=== PATIENT | female | born 1960 | race Caucasian/White ===

== ENCOUNTER 2019-05-09 09:25 | Outpatient (CLI) | payer BC, SELFPAY ==
--- NOTE | ~2019-05-09 | MM_ITS ---
EXAMINATION: MM screening jac BI w ariel HISTORY: Screening mammogram TECHNIQUE: Craniocaudal and mediolateral oblique 3-D tomosynthesis images were obtained and synthetic 2-D images were generated. CAD analysis was submitted and interpreted. COMPARISON: No prior mammogram is available for comparison at this institution. BREAST PARENCHYMAL COMPOSITION : The breasts are almost entirely fatty. FINDINGS: There is no evidence of suspicious mass, calcification, or architectural distortion to sugg est malignancy in either breast. There has been no suspicious interval change. IMPRESSION: 1. No mammographic evidence of malignancy. 2. Recommend routine screening mammography in one year. BI-RADS Category 1: Negative Reviewed, dictated and finalized at location A. EL PILE DRIVER OPERATOR
== END 2019-05-09 09:26 | disposition home or self-care (01) ==
LOC: ANHIMG 09:28
PROVIDERS: PCP Family Medicine; Visit Provider Obstetrics & Gynecology
DX: Z12.31 Encounter for screening mammogram for malignant neoplasm of breast (principal)
CPT/HCPCS: 77063; 77067

== ENCOUNTER 2019-05-31 09:07 | Outpatient (CLI) | payer BC, SELFPAY ==
--- NOTE | ~2019-05-31 | CT_ITS ---
EXAMINATION: CT thoracic spine wo con EXAM DATE: 05/31/2019 09:28 INDICATION: Thoracic radiculopathy. TECHNIQUE: Spiral CT thoracic spine wo con was performed without contrast. Axial, coronal and sagit jeanette images were reviewed. The dose-length product (DLP) for this examination was 547.64 mGy-cm. The exposure was tailored according to patient size (auto mA exposure control), and iterative reconstruc tion (ASIR) was used as additional dose reduction technique. There is no prior study for comparison. FINDINGS: There are no acute fractures identified. There is mild to moderate diffuse thoracic disc disease. There is minimal subacute or chronic compression fracture at the inferior endplate of T11. Otherwise the vertebral body heights appear maintained. The vertebral bodies are aligned in the AP di mension. No significant central canal or neural foraminal stenosis of the thoracic spine. There are n o osteoblastic or osteolytic lesions identified. Mild diffuse thoracic facet arthropathy. Paraspinal soft tissue is unremarkable. Lower lumbar anterior and interbody fusion. IMPRESSION: 1. T11 minimal subacute or chronic compression fracture. 2. Mild to moderate disc disease. Mild facet arthropathy. 3. No appreciable stenosis. Reviewed, dictated and finalized at location A. CLE COURIER
== END 2019-05-31 09:08 | disposition home or self-care (01) ==
PROVIDERS: PCP Family Medicine; Visit Provider Anesthesiology
DX: M54.14 Radiculopathy, thoracic region (principal); M51.24 Other intervertebral disc displacement, thoracic region
CPT/HCPCS: 72128

== ENCOUNTER 2019-07-17 09:31 | Outpatient (CLI) | payer BC, SELFPAY ==
--- NOTE | ~2019-07-17 | XR_ITS ---
EXAMINATION: XR chest 2V DATE: 07/17/2019 10:34 INDICATION: Hypertension. Preop. TECHNIQUE: Frontal and lateral views of the chest were obtained. COMPARISON: Chest 2 views 12/13/2018 FINDINGS: A calcified left lung nodule and calcified left hilar and mediastinal lymph nodes are consi stent with old granulomatous disease. No pleural effusion or pneumothorax. The heart size is normal. There are surgical clips in the abdomen. IMPRESSION: 1. No acute cardiopulmonary disease. Reviewed, dictated and finalized at location A.
--- NOTE | 2019-07-17 10:11 | ECG_ITS ---
Measurements Intervals [place] Rate: 52 P: 24 WI: 134 QRS: 2 QRSD: 76 T: 51 QT: 413 QTc: 384 Interpretive Statements SINUS BRADYCARDIA BORDERLINE ECG Electronically Signed On 07-17-2019 10:18:32 CDT by Moisés August D.O.
[2019-07-17 10:16] LABS: Basophils Percent Auto 0.4 % (0.2-1.2); Eosinophils Absolute Auto 0.2 K/mm3 (0-0.3); Eosinophils Percent Auto 1.4 % (0-4.4); Hematocrit 42.1 % (37.0-47.0); Hemoglobin 12.4 g/dL (12.0-15.0); Immature Granulocyte Absolute 0.03 K/mm3 (0.00-0.031); Immature Granulocyte Percent A 0.3 % (0-0.5); Lymphocytes Absolute Auto 3.79 K/mm3 (0.9-3.2); Lymphocytes Percent Auto 34.1 % (18.3-44.2); Mean Corpuscular HGB Conc 29.5 g/dl (32-36); Mean Corpuscular Hemoglobin 24.2 pg (26-34); Mean Corpuscular Volume 82.1 fl (80-100); Mean Platelet Volume 11.4 fl (7.4-10.4); Monocytes Absolute Auto 1.2 K/mm3 (0.1-0.6); Monocytes Percent Auto 10.4 % (2.6-8.5); Neutrophils Percent Auto 53.4 % (45.5-73.1); Platelet Count Result 266 k/mm3 (150-375); Red Blood Count 5.13 M/mm3 (4.2-5.4); Red Cell Distribution Width 14.4 % (11.5-14.5); White Blood Count 11.1 K/mm3 (4.5-10.0)
[2019-07-17 10:24] LABS: Prothrombin Time 12.5 Seconds (11.1-14.7)
[2019-07-17 10:25] LABS: Partial Thromboplastin Time 37.1 SECONDS (22.3-36.8)
[2019-07-17 10:28] LABS: Add Urine Microscopic? YES; Appearance Urine Clear (Clear); Bilirubin Urine Negative (Negative); Blood Urine Negative (Negative); Color Urine Yellow (Yellow); Glucose Urine UA Negative (Negative); Ketones Urine Negative (Negative); Leukocyte Esterase Ur Negative LEU/UL (NEGATIVE); Mucus Urine Rare /lpf; Nitrate Urine Negative (Negative); Protein Urine 1+ mg/dL (Negative); RBC Urine 0-2 /hpf (0-2); Specific Grav Ur 1.026 (1.001-1.035); Squamous Epithelial Cell Urine Many /hpf (Few); Urobilinogen Urine Negative mg/dL (<2.0); WBC Urine 0-3 /hpf (0-3)
[2019-07-17 10:30] LABS: Blood Urea Nitrogen 18 mg/dL (7-17); CRP 0.7 mg/dL (<1.0); Calcium 9.2 mg/dL (8.4-10.2); Carbon Dioxide 28 mmol/L (22-30); Chloride 102 mmol/L (98-107); Estimated Glomerular Filt Rate 51; Glucose 94 mg/dL (65-105); Potassium 4.6 mmol/L (3.4-5.0); Sodium 139 mmol/L (137-145)
[2019-07-17 10:45] LABS: Erythrocyte Sedimentation Rate 15 mm/hr (0-20)
== END 2019-07-17 09:32 | disposition home or self-care (01) ==
PROVIDERS: PCP Family Medicine; Visit Provider Anesthesiology
DX: I25.10 Atherosclerotic heart disease of native coronary artery without angina pectoris (principal); R07.89 Other chest pain; M54.16 Radiculopathy, lumbar region; Z79.01 Long term (current) use of anticoagulants
CPT/HCPCS: 36415; 71046; 80048; 81001; 85025; 85610; 85652; 85730; 86140; 93005

== ENCOUNTER 2020-01-21 19:02 | Emergency (ER) | payer BC, SELFPAY ==
--- NOTE | ~2020-01-21 | CT_ITS ---
EXAMINATION: CT abdomen pelvis w con EXAM DATE: 01/21/2020 21:54 INDICATION: Low abdominal pain. Crohn's disease. TECHNIQUE: Spiral CT of the abdomen and pelvis was performed following intravenous injection of 100 m L Omnipaque 350. Axial, coronal and sagittal images were reviewed. The dose-length product (DLP) fo r this examination was 634.44 mGy-cm. The exposure was tailored according to patient size (auto mA e xposure control), and iterative reconstruction (ASIR) was used as additional dose reduction technique . Comparison is made to prior examination from 03/18/2019. FINDINGS: The liver, spleen, adrenal glands and pancreas are unremarkable. There are cholecystectomy clips. Portal and splenic veins are patent. Kidneys enhance symmetrically. There is no hydronephr osis. The uterus is not identified and has likely been surgically resected. The bladder is unremar kable. There is no retroperitoneal or pelvic lymphadenopathy. Left-sided abdominal mesh repair. The appendix is not positively visualized. There is no pericecal inflammatory change to suggest appe ndicitis. The stomach and small bowel are unremarkable. There is expected amount of colonic stool. No free intraperitoneal gas. The heart is normal in size. There are no pericardial or pleural e ffusions. The lung bases are unremarkable. There is fusion L4-S1. T11 vertebroplasty. IMPRESSION: 1. No acute intra-abdominal findings. Reviewed, dictated and finalized at location A.
[2020-01-21 19:17] VITALS: BP 123/64; PULSE 64; RESP 17; TEMP 36.4; O2SAT 97
[2020-01-21 19:28] LABS: Basophils Absolute Auto 0.1 K/mm3 (0.0-0.1); Basophils Percent Auto 0.5 % (0.2-1.2); Eosinophils Absolute Auto 0.2 K/mm3 (0-0.3); Eosinophils Percent Auto 1.8 % (0-4.4); Hematocrit 36.7 % (37.0-47.0); Hemoglobin 11.3 g/dL (12.0-15.0); Immature Granulocyte Absolute 0.02 K/mm3 (0.00-0.031); Immature Granulocyte Percent A 0.2 % (0-0.5); Lymphocytes Absolute Auto 3.68 K/mm3 (0.9-3.2); Mean Corpuscular HGB Conc 30.8 g/dl (32-36); Mean Corpuscular Hemoglobin 25.2 pg (26-34); Mean Corpuscular Volume 81.7 fl (80-100); Mean Platelet Volume 10.6 fl (7.4-10.4); Monocytes Absolute Auto 0.9 K/mm3 (0.1-0.6); Monocytes Percent Auto 9.6 % (2.6-8.5); Neutrophils Absolute Auto 4.8 K/mm3 (1.3-6.7); Neutrophils Percent Auto 49.9 % (45.5-73.1); Platelet Count Result 237 k/mm3 (150-375); Red Blood Count 4.49 M/mm3 (4.2-5.4); Red Cell Distribution Width 14.7 % (11.5-14.5); White Blood Count 9.7 K/mm3 (4.5-10.0)
[2020-01-21 19:40] LABS: Alanine Aminotransferase 19 U/L (4-35); Albumin Level 4.2 g/dL (3.5-5.1); Alkaline Phosphatase 97 U/L (38-126); Anion Gap 10 mmol/L (8-16); Aspartate Amino Transferase 27 U/L (14-36); Bilirubin,Total 0.2 mg/dL (0.2-1.3); Blood Urea Nitrogen 9 mg/dL (7-17); Carbon Dioxide 28 mmol/L (22-30); Chloride 104 mmol/L (98-107); Estimated CRCL calculation 48 ml/min; Estimated Glomerular Filt Rate 57; Glucose 92 mg/dL (65-105); Lipase 86 U/L (23-300); Sodium 142 mmol/L (137-145)
--- NOTE | 2020-01-21 20:54 | ED.ABDPAIN ---
HPI - Abdominal Pain General Chief Complaint: Abdominal Pain Stated Complaint: Abd pain, Sob, Chrons hx Time Seen by Provider: 01/21/20 20:27 Source: patient Mode of arrival: ambulatory Limitations: no limitations History of Present Illness HPI narrative: This patient is 59 year old female who presents for evaluation of lower abdominal pain . She reports constant pain for 3 days. She reports pain is located left lower abdomen and it radiates to right side. She denies associated nausea, vomiting, fever or chills. She reports chronic diarrhea, but she denies having a bowel movement today. She reports she has not eaten anything today due to eating makes her pain worse. She takes bentyl without relief of her pain. She states her data architect is Dr. Colon/ Related Data Home Medications Medication Instructions Recorded Confirmed buspirone 15 mg PO BID 03/18/19 duloxetine 60 mg PO DAILY 03/18/19 esomeprazole magnesium 40 mg PO DAILY 03/18/19 levothyroxine [Synthroid] 75 mcg PO DAILY 03/18/19 metoprolol succinate [Toprol XL] 100 mg PO DAILY 03/18/19 Allergies Allergy/AdvReac Type Severity Reaction Status Date / Time codeine Allergy Intermediate Rash Verified 03/18/19 18:51 erythromycin base Allergy Intermediate Rash Verified 03/18/19 18:51 morphine Allergy Intermediate Other Verified 03/18/19 18:51 nitrofurantoin Allergy Mild Rash Verified 03/18/19 18:51 Review of Systems Review of Systems: All systems reviewed & are unremarkable except as noted in HPI and below Constitutional: Constitutional: Denies chills and Denies fever(s) Respiratory: Respiratory: Denies cough and Denies dyspnea Gastrointestinal: Gastrointestinal: Reports abdominal pain, Reports diarrhea (chronic), Denies nausea and Denies vomiting Genitourinary: Genitourinary: Denies hematuria, Denies nocturia and Denies dysuria Musculoskeletal: Musculoskeletal: Denies back pain [facility] Past Medical History Medical History (Updated 01/22/20 @ 00:00 by Janusz Granado) Abdominal hernia Multiple with mesh in place Anxiety Bilateral tennis elbow Crohn's disease Depression HTN (hypertension) IBS (irritable bowel syndrome) Kidney stone PTSD (post-traumatic stress disorder) From childhood Surgical History Surgical History (Updated 03/18/19 @ 20:07 by Tea Clayton) History of endoscopy History of hysterectomy History of lumbar fusion History of rotator cuff surgery Bilateral History of total right knee replacement Family History Family History (Updated 11/07/15 @ 23:19 by DOCTOR UNKNOWN) Father Family history of diabetes mellitus in first degree relative Family history of heart disease in male family member before age 55 Other Family history of allergic disorder Family history of malignant neoplasm Hypertension 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 (Updated 03/18/19 @ 20:07 by Tea Clayotn) Smoking status: Never smoker Alcohol intake: never Substance use: never Gender identity (if verbalized by the patient): Female Exam Const: General: no acute distress and alert Orientation/consciousness: patient oriented x3 HENMT: Head: normocephalic and atraumatic General nose exam: No nasal polyps present Face and sinus: face symmetric Mouth: Yes Normal oral and palatal mucosa present, Yes lip normal, Yes oropharynx normal and Yes moist mucous membranes Eyes: EOM: EOMs intact bilaterally Chest: Chest palpation & inspection: normal inspection of the chest Resp: Effort & Inspection: normal respiratory effort, no retractions and no use of accessory muscles Auscultation: clear to auscultation bilaterally Cardio: Rate: regular rate Rhythm: regular rhythm Heart sounds: no murmurs GI: GI Palp: Yes Soft to palpation, Yes Tenderness to palpation present (GI) (TTP), No Guarding due to palpation present (GI) and No Rigid due to palpation Skin: General skin exam: normal color Rashes: no rashes Neuro: General:
[2020-01-21 21:02] LABS: Add Urine Microscopic? NO; Appearance Urine Clear (Clear); Bilirubin Urine Negative (Negative); Blood Urine Negative (Negative); Color Urine Yellow (Yellow); Glucose Urine UA Negative (Negative); Ketones Urine Negative (Negative); Leukocyte Esterase Ur Negative LEU/UL (Negative); Nitrate Urine Negative (Negative); Protein Urine Negative (Negative); Specific Grav Ur 1.015 (1.001-1.035); Urobilinogen Urine Negative mg/dL (<2.0)
[2020-01-21] MEDS: SODIUM CHLORIDE 0.9% IV 1,000 ML 999 ML IV CONT (21:13)
[2020-01-21 22:41] VITALS: BP 109/60; PULSE 52; RESP 16; TEMP 36.7; O2SAT 98
== END 2020-01-21 22:42 | disposition home or self-care (01) ==
PROVIDERS: Emergency Medicine; Emergency Provider General Practice; PCP Family Medicine
DX: R10.32 Left lower quadrant pain (principal); F41.9 Anxiety disorder, unspecified; K50.90 Crohn's disease, unspecified, without complications; F32.9 Major depressive disorder, single episode, unspecified; I10 Essential (primary) hypertension; Z87.442 Personal history of urinary calculi; F43.10 Post-traumatic stress disorder, unspecified; Z98.1 Arthrodesis status; Z96.651 Presence of right artificial knee joint
CPT/HCPCS: 36415; 74177; 80053; 81003; 83690; 85025; 96361; 96365; 99284; J0131; J7030; Q9967

== ENCOUNTER 2020-04-05 13:52 | Emergency (ER) | payer BC, SELFPAY ==
--- NOTE | 2020-04-05 13:55 | ED.FEMALEGU ---
HPI - Female Genitourinary General Chief complaint: Urogenital-Female Stated complaint: uti Time Seen by Provider: 04/05/20 14:05 Source: patient and RN notes reviewed Mode of arrival: ambulatory Limitations: no limitations History of Present Illness HPI Narrative: 59-year-old female presents with multiple complaints. Reports urinary tract infection symptoms of frequency, urgency, dysuria. Reports frequent urinary tract infections, last urinary tract infection was approximately 2 months ago for which she was treated with ciprofloxacin. She reports also back spasms, denies flank pain, reports of back spasms are exacerbated by bending, twisting, certain position changes. She denies any injury, weakness in any extremity, fever, abdominal pain. MD elicited complaint: UTI Related Data Home Medications Medication Instructions Recorded Confirmed buspirone 15 mg PO BID 03/18/19 04/05/20 esomeprazole magnesium 40 mg PO DAILY 03/18/19 04/05/20 levothyroxine [Synthroid] 75 mcg PO DAILY 03/18/19 04/05/20 metoprolol succinate [Toprol XL] 100 mg PO DAILY 03/18/19 04/05/20 lisinopril 2.5 mg DAILY 04/05/20 04/05/20 venlafaxine 75 mg PO DAILY 04/05/20 04/05/20 Allergies Allergy/AdvReac Type Severity Reaction Status Date / Time codeine Allergy Intermediate Rash Verified 03/18/19 18:51 erythromycin base Allergy Intermediate Rash Verified 03/18/19 18:51 morphine Allergy Intermediate Other Verified 03/18/19 18:51 nitrofurantoin Allergy Mild Rash Verified 03/18/19 18:51 Review of Systems Review of Systems: Narrative: CONSTITUTIONAL: Denies malaise, chills, sweats, or fever. CARDIOVASCULAR: Denies chest pain, palpitations, or edema. RESPIRATORY: Denies cough or dyspnea. GASTROINTESTINAL: Denies abdominal pain, nausea, vomiting, diarrhea GENITOURINARY: Reports dysuria urgency, frequency. Denies flank pain or hematuria. SKIN: Denies rash or itching. MUSCULOSKELETAL: Reports low back pain NEUROLOGIC: Denies numbness, weakness All systems reviewed & are unremarkable except as noted in HPI and below PMFSH Past Medical History Medical History (Updated 04/05/20 @ 14:15 by Tierra Abbasi NP) Abdominal hernia Multiple with mesh in place Anxiety Bilateral tennis elbow Crohn's disease Depression HTN (hypertension) IBS (irritable bowel syndrome) Kidney stone PTSD (post-traumatic stress disorder) From childhood Surgical History Surgical History (Updated 03/18/19 @ 20:07 by Tea Clayton) History of endoscopy History of hysterectomy History of lumbar fusion History of rotator cuff surgery Bilateral History of total right knee replacement Family History Family History (Updated 11/07/15 @ 23:19 by DOCTOR UNKNOWN) Father Family history of diabetes mellitus in first degree relative Family history of heart disease in male family member before age 55 Other Family history of allergic disorder Family history of malignant neoplasm Hypertension 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 (Updated 03/18/19 @ 20:07 by Tea Clayton) Smoking status: Never smoker Alcohol intake: never Substance use: never Gender identity (if verbalized by the patient): Female Comments At time of signature, agree with nursing past medical, surgical, social and family history. There is no relevant family history pertinent to the presenting complaint Exam Narrative: Exam Narrative: GENERAL: Well-appearing, well-nourished, and in no acute distress. HEAD: Normocephalic. EYES: PERRLA, conjunctivae clear. NECK: Supple. No lymphadenopathy CHEST: Clear to auscultation. No respiratory distress. HEART: Regular rate and rhythm. ABDOMEN: Soft, nontender upon palpation, nondistended, normal active bowel sounds, no palpable or pulsatile masses, no guarding. No CVA tenderness SKIN: Warm, dry, no rash. NEURO: Alert and oriented x3. PSYCH: Normal mood and affect Course Course Emergency Course: Patient is aware of diagnosis, understands and agrees to
[2020-04-05 14:03] VITALS: BP 129/72; PULSE 73; RESP 20; TEMP 36.8; O2SAT 100
== END 2020-04-05 14:19 | disposition home or self-care (01) ==
PROVIDERS: Emergency Provider Nurse Practitioner; PCP Family Medicine
DX: R30.0 Dysuria (principal); R35.0 Frequency of micturition; R39.15 Urgency of urination; M54.5 Low back pain; K50.90 Crohn's disease, unspecified, without complications; F32.9 Major depressive disorder, single episode, unspecified; I10 Essential (primary) hypertension; F43.10 Post-traumatic stress disorder, unspecified; F41.9 Anxiety disorder, unspecified
CPT/HCPCS: 81003; 87086; 87088; 99213; G0463

== ENCOUNTER 2020-05-12 09:44 | Emergency (ER) | payer BC, SELFPAY ==
--- NOTE | 2020-05-12 09:52 | ED.GENADULT ---
HPI - General Adult General Chief complaint: Extremity Problem,Nontraumatic Stated complaint: Left wrist pain Time Seen by Provider: 05/12/20 09:53 Source: patient Mode of arrival: ambulatory Limitations: no limitations History of Present Illness HPI narrative: 59-year-old female patient presents to the [facility] with complaints of left wrist pain. Patient states she has chronic left wrist pain due to her carpal tunnel surgery that she has had in the past. Patient states last couple of days it has gotten increasingly worse but denies any specific injury that she is aware of. Patient states she has been taking some extra strength Tylenol but only when it is severely hurting does not take it on a consistent basis. Patient states she does have a carpal tunnel brace at home that she has been wearing. Related Data Home Medications Medication Instructions Recorded Confirmed buspirone 15 mg PO BID 03/18/19 04/05/20 esomeprazole magnesium 40 mg PO DAILY 03/18/19 04/05/20 levothyroxine [Synthroid] 75 mcg PO DAILY 03/18/19 04/05/20 metoprolol succinate [Toprol XL] 100 mg PO DAILY 03/18/19 04/05/20 lisinopril 2.5 mg DAILY 04/05/20 04/05/20 venlafaxine 75 mg PO DAILY 04/05/20 04/05/20 Allergies Allergy/AdvReac Type Severity Reaction Status Date / Time codeine Allergy Intermediate Rash Verified 03/18/19 18:51 erythromycin base Allergy Intermediate Rash Verified 03/18/19 18:51 morphine Allergy Intermediate Other Verified 03/18/19 18:51 nitrofurantoin Allergy Mild Rash Verified 03/18/19 18:51 Review of Systems Review of Systems: Narrative: CONSTITUTIONAL: Denies fever, chills, or sweats. EYES: Denies visual changes, redness, or discharge. ENT: Denies rhinorrhea, congestion, sore throat, or otalgia. CARDIOVASCULAR: Denies chest pain, palpitations, or edema. RESPIRATORY: Denies cough or dyspnea. GASTROINTESTINAL: Denies abdominal pain, nausea, vomiting, or diarrhea. GENITOURINARY: Denies dysuria or hematuria. SKIN: Denies rash or itching. MUSCULOSKELETAL: Denies back pain, joint pain, or myalgia. Positive left wrist pain NEUROLOGIC: Denies headache, numbness, or weakness. PSYCHIATRIC: Denies anxiety or depression. [facility] Past Medical History Medical History Abdominal hernia Multiple with mesh in place Anxiety Bilateral tennis elbow Crohn's disease Depression HTN (hypertension) IBS (irritable bowel syndrome) Kidney stone PTSD (post-traumatic stress disorder) From childhood Surgical History Surgical History History of endoscopy History of hysterectomy History of lumbar fusion History of rotator cuff surgery Bilateral History of total right knee replacement Family History Family History Father Family history of diabetes mellitus in first degree relative Family history of heart disease in male family member before age 55 Other Family history of allergic disorder Family history of malignant neoplasm Hypertension 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 Smoking status: Never smoker Alcohol intake: never Substance use: never Gender identity (if verbalized by the patient): Female Comments At the time of my signature I agree with nursing past medical history, surgical, social, and family history. There is no relevant family history pertinent to the presenting complaint. Exam Narrative: Exam Narrative: GENERAL: Well-appearing, well-nourished, and in no acute distress. HEAD: Normocephalic, atraumatic. EYES: PERRLA and EOMI. ENT: Nares clear, no rhinorrhea or epistaxis. Mucous membranes moist. NECK: Supple. No lymphadenopathy CHEST: Clear to auscultation. No respiratory distress. HEART: Regular rate and rhythm. No murmur heard. Normal peripheral pulses. ABDOMEN: Soft, nontender, nondistended, normal a
[2020-05-12 10:03] VITALS: BP 104/69; PULSE 78; RESP 16; TEMP 37.2; O2SAT 99
== END 2020-05-12 10:37 | disposition home or self-care (01) ==
PROVIDERS: Emergency Provider Nurse Practitioner Family; PCP Family Medicine
DX: M65.4 Radial styloid tenosynovitis [de Quervain] (principal); M19.032 Primary osteoarthritis, left wrist; F41.9 Anxiety disorder, unspecified; F32.9 Major depressive disorder, single episode, unspecified; K50.90 Crohn's disease, unspecified, without complications; I10 Essential (primary) hypertension; F43.10 Post-traumatic stress disorder, unspecified; X58.XXXA Exposure to other specified factors, initial encounter; Z96.651 Presence of right artificial knee joint
CPT/HCPCS: 99213; G0463

== ENCOUNTER 2020-06-05 10:15 | Outpatient (CLI) | payer BC, SELFPAY ==
--- NOTE | ~2020-06-05 | MM_ITS ---
EXAMINATION: MM screening [facility] BI w ariel HISTORY: Screening mammogram TECHNIQUE: Craniocaudal and mediolateral oblique 3-D tomosynthesis images were obtained and synthetic 2-D images were generated. CAD analysis was submitted and interpreted. COMPARISON: 05/09/2019, 04/21/2018, 09/14/2016 BREAST PARENCHYMAL COMPOSITION: The breasts are almost entirely fatty. FINDINGS: There is no evidence of suspicious mass, calcification, or architectural distortion to sugg est malignancy in either breast. There has been no suspicious interval change. IMPRESSION: 1. No mammographic evidence of malignancy. 2. Recommend routine screening mammography in one year. BI-RADS Category 1: Negative Reviewed, dictated and finalized at location A. RACT NEGOTIATION SPECIALIST
== END 2020-06-05 10:16 | disposition home or self-care (01) ==
LOC: ANHIMG 10:18
PROVIDERS: PCP Family Medicine; Visit Provider Family Medicine
DX: Z12.31 Encounter for screening mammogram for malignant neoplasm of breast (principal)
CPT/HCPCS: 77063; 77067

== ENCOUNTER → 2020-08-30 06:34 | Outpatient (CLI) | payer BC, SELFPAY ==
[2020-09-01 18:39] LABS: SARS-CoV-2 RNA PCR Negative
== END ==
PROVIDERS: PCP Family Medicine; Visit Provider Physician Assistant
DX: R68.89 Other general symptoms and signs (principal); Z20.822 Contact with and (suspected) exposure to COVID-19
CPT/HCPCS: C9803; U0003; U0005

== ENCOUNTER 2020-09-01 11:50 | Emergency (ER) | payer BC, SELFPAY ==
--- NOTE | ~2020-09-01 | XR_ITS ---
EXAMINATION: XR chest 2V DATE: 09/01/2020 12:33 INDICATION: Cough and fever. TECHNIQUE: Frontal and lateral views of the chest were obtained. COMPARISON: Chest 2 views 07/17/2019 FINDINGS: A calcified left lung nodule and calcified left hilar and mediastinal lymph nodes are consi stent with old granulomatous disease. No pleural effusion or pneumothorax. The heart size is normal. There are changes of vertebroplasty in lower thoracic spine. There are changes of anterior fusion pro cedure in lumbar spine. Surgical clips in the right upper quadrant are likely from cholecystectomy. IMPRESSION: 1. No acute cardiopulmonary disease. Reviewed, dictated and finalized at location B.
[2020-09-01 11:55] VITALS: BP 98/81; PULSE 72; RESP 18; TEMP 36.9; O2SAT 95
[2020-09-01 12:03] VITALS: BP 109/50; PULSE 64; RESP 20; O2SAT 98
[2020-09-01 12:24] LABS: Basophils Absolute Auto 0.1 K/mm3 (0.0-0.1); Basophils Percent Auto 0.3 % (0.2-1.2); Eosinophils Absolute Auto 0.3 K/mm3 (0-0.3); Eosinophils Percent Auto 1.8 % (0-4.4); Hematocrit 38.2 % (37.0-47.0); Hemoglobin 12.3 g/dL (12.0-15.0); Immature Granulocyte Absolute 0.07 K/mm3 (0.00-0.031); Immature Granulocyte Percent A 0.5 % (0-0.5); Lymphocytes Absolute Auto 4.43 K/mm3 (0.9-3.2); Lymphocytes Percent Auto 30.4 % (18.3-44.2); Mean Corpuscular HGB Conc 32.2 g/dl (32-36); Mean Corpuscular Hemoglobin 27.5 pg (26-34); Mean Corpuscular Volume 85.5 fl (80-100); Mean Platelet Volume 10.7 fl (7.4-10.4); Monocytes Absolute Auto 1.4 K/mm3 (0.1-0.6); Monocytes Percent Auto 9.9 % (2.6-8.5); Neutrophils Absolute Auto 8.3 K/mm3 (1.3-6.7); Neutrophils Percent Auto 57.1 % (45.5-73.1); Platelet Count Result 222 k/mm3 (150-375); Red Blood Count 4.47 M/mm3 (4.2-5.4); Red Cell Distribution Width 13.7 % (11.5-14.5); White Blood Count 14.6 K/mm3 (4.5-10.0)
[2020-09-01 12:41] LABS: Anion Gap 9 mmol/L (8-16); Blood Urea Nitrogen 21 mg/dL (7-17); Calcium 9.3 mg/dL (8.4-10.2); Carbon Dioxide 25 mmol/L (22-30); Chloride 105 mmol/L (98-107); Estimated CRCL calculation 47 ml/min; Estimated Glomerular Filt Rate 57; Glucose 110 mg/dL (65-105); Potassium 3.6 mmol/L (3.4-5.0); Sodium 139 mmol/L (137-145)
--- NOTE | 2020-09-01 13:06 | ED.URI ---
HPI - URI/Sore Throat General Chief Complaint: Upper Respiratory Infection Stated Complaint: cough Time Seen by Provider: 09/01/20 12:18 Source: patient, RN notes reviewed and old records reviewed Mode of arrival: ambulatory Limitations: no limitations History of Present Illness HPI Narrative: This is a 59 year old female who presents for evaluation of cough and shortness of breath. She developed cough on Tuesday. She also reports fever of 101 F for 3 days. She states she had fever 100F yesterday. She reports pain in bilateral ribs and back with coughing. She denies nausea, vomiting, diarrhea or urinary symptoms. She started taking levaquin on Tuesday after getting a prescription by her PCP. Related Data Home Medications Medication Instructions Recorded Confirmed buspirone 15 mg PO BID 03/18/19 09/01/20 levothyroxine [Synthroid] 75 mcg PO DAILY 03/18/19 09/01/20 metoprolol succinate [Toprol XL] 100 mg PO DAILY 03/18/19 09/01/20 lisinopril 2.5 mg DAILY 04/05/20 09/01/20 sertraline 100 mg PO DAILY 09/01/20 09/01/20 Allergies Allergy/AdvReac Type Severity Reaction Status Date / Time codeine Allergy Intermediate Rash Verified 09/01/20 12:07 erythromycin base Allergy Intermediate Rash Verified 09/01/20 12:07 morphine Allergy Intermediate Other Verified 09/01/20 12:07 nitrofurantoin Allergy Mild Rash Verified 09/01/20 12:07 Review of Systems Review of Systems: All systems reviewed & are unremarkable except as noted in HPI and below PMFSH Past Medical History Medical History Abdominal hernia Multiple with mesh in place Anxiety Bilateral tennis elbow Crohn's disease Depression HTN (hypertension) IBS (irritable bowel syndrome) Kidney stone PTSD (post-traumatic stress disorder) From childhood Surgical History Surgical History History of endoscopy History of hysterectomy History of lumbar fusion History of rotator cuff surgery Bilateral History of total right knee replacement Family History Family History Father Family history of diabetes mellitus in first degree relative Family history of heart disease in male family member before age 55 Other Family history of allergic disorder Family history of malignant neoplasm Hypertension 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 Smoking status: Never smoker Alcohol intake: never Substance use: never Gender identity (if verbalized by the patient): Female Exam Const: General: no acute distress and alert Orientation/consciousness: patient oriented x3 Eyes: EOM: EOMs intact bilaterally Resp: Effort & Inspection: normal respiratory effort and no retractions Auscultation: clear to auscultation bilaterally Cardio: Rate: regular rate Rhythm: regular rhythm Heart sounds: no murmurs GI: GI Palp: Yes Soft to palpation, No Tenderness to palpation present (GI) and No Guarding due to palpation present (GI) Auscultation: normal bowel sounds Skin: General skin exam: normal color Rashes: no rashes Neuro: General: patient oriented x3, moves all extremities and CN's II-XI intact bilaterally Psych: Mental Status: mental status grossly normal Affect: normal affect Course Reevaluation(s) Reevaluation #1: I Discussed with patient labs showed leukocytosis. She is on steroids. She will continue her antibiotics, steroids that she was prescribed. Date: 09/01/20 Time: 15:18 Vital Signs Vital signs: Vital Signs Temperature 98.4 F 09/01/20 11:55 Pulse Rate 72 09/01/20 11:55 Respiratory Rate 18 09/01/20 11:55 Blood Pressure 98/81 L 09/01/20 11:55 Pulse Oximetry 95 09/01/20 11:55 Temperature 98.4 F 09/01/20 11:55 Pulse Rate 62 09/01/20 15:25 Respiratory Rate 20 09/01/20 15:25 Blood Pressure 123/78 09/01/20
[2020-09-01 13:08] VITALS: BP 110/81; PULSE 58; RESP 20; O2SAT 95
[2020-09-01] MEDS: ALBUTEROL SULFATE (*SP) AEROSOL 1 PUFF 2 PUFF INHALATION (13:10)
[2020-09-01] MEDS: KETOROLAC 15 MG/ML VIAL (*BKC) IV PUSH (13:23)
[2020-09-01] MEDS: LACTATED RINGERS 1,000 ML 999 ML IV CONT (13:24)
--- NOTE | 2020-09-01 13:36 | PC.NURSE ---
called Christa painting, added on pt int, d dimer, and a C-Reactive Prot [id number]
[2020-09-01 13:44] LABS: Alveolar/Arterial O2 Gradient 26.3 mmHg; Base Excess ABG 2.3 mEq/l (+/-2.0); Carboxyhemoglobin 0.3 % THb (0-2.0); Device ROOM AIR; Fractional Inspired Oxygen 21 %; HCO3 ABG 26.9 mEq/l (22.0-26.0); Methemoglobin ABG 0.2 %THb (0-1.5); Modified Allen's Test Pass; Oxygen Content ABG 16.6 %vol (16.0-22.0); Oxygen Saturation ABG 95.2 % (95.0-100.0); Oxyhemoglobin 94.1 % THb (90.0-100.0); PCO2 ABG 41.4 mmHg (35.0-45.0); PO2 ABG 73.9 mmHg (80.0-100.0); PO2 FiO2 Ratio Arterial Blood 3.52 %; Reduced Hemoglobin 5.4 %THb (0-5.0); Site Drawn LEFT RADIAL; Total Hemoglobin 12.5 g/dL (12.0-18.0)
[2020-09-01 14:06] VITALS: BP 135/68; PULSE 74; RESP 20; O2SAT 94
[2020-09-01 14:15] LABS: CRP 1.4 mg/dL (<1.0)
[2020-09-01 14:33] LABS: INR 0.9; Prothrombin Time 13.1 Seconds (11.1-14.7)
[2020-09-01 14:37] LABS: D Dimer 0.27 ug/mL (<0.48)
[2020-09-01 14:55] VITALS: BP 123/78; PULSE 62; RESP 20; O2SAT 97
[2020-09-01 15:25] VITALS: BP 123/78; PULSE 62; RESP 20; O2SAT 97
== END 2020-09-01 15:28 | disposition home or self-care (01) ==
PROVIDERS: Emergency Medicine; Emergency Provider General Practice; PCP Family Medicine
DX: J06.9 Acute upper respiratory infection, unspecified (principal); I10 Essential (primary) hypertension; K50.90 Crohn's disease, unspecified, without complications; F41.9 Anxiety disorder, unspecified; F32.9 Major depressive disorder, single episode, unspecified; F43.10 Post-traumatic stress disorder, unspecified; Z87.442 Personal history of urinary calculi; Z98.1 Arthrodesis status; Z96.651 Presence of right artificial knee joint
CPT/HCPCS: 36415; 36600; 71046; 80048; 82375; 82805; 83050; 85025; 85380; 85610; 86140; 96361; 96374; 99284; A9270; J1885; J7120

== ENCOUNTER → 2020-11-25 13:00 | Outpatient (CLI) | payer MEDICARE, BC, SELFPAY ==
--- NOTE | ~2020-11-25 | MR_ITS ---
EXAMINATION: MR lumbar spine wo/w con DATE: 11/25/2020 14:52 INDICATION: Lumbar radiculopathy. TECHNIQUE: Magnetic resonance imaging (MRI) of the lumbar spine was performed without and with 13 mL MultiHance intravenous contrast. Sequences included sagittal T2-weighted FSE, sagittal STIR FSE, sagi ttal T2-weighted FS FSE, and sagittal and axial T1-weighted FSE. Postcontrast sequences included axia l T2-weighted FSE and axial and sagittal T1-weighted FS FSE and sagittal T1-weighted FSE. COMPARISON: Lumbar spine MRI 07/11/2014 FINDINGS: There is 6 degrees levocurvature of lumbar spine. There are changes of anterior fusion proc edure from L4 to S1 with interbody devices and plates and screws. There are changes of vertebroplasty at T11. There is mildly decreased disc height at T11-T12. The distal spinal cord signal intensity is normal. The conus medullaris is at L1-L2. The following disc levels are specifically discussed: L1-L2: The disc does not extend beyond the endplate margin. There is mild bilateral facet joint osteo arthritis. There is no neural foraminal stenosis. There is no central canal stenosis. L2-L3: The disc is mildly bulging. There is mild bilateral facet joint osteoarthritis. There is mild bilateral neural foraminal stenosis. There is mild central canal stenosis. L3-L4: The disc is mildly bulging. There is no facet joint osteoarthritis. There is mild bilateral ne ural foraminal stenosis. There is mild central canal stenosis. L4-L5: There is mild bilateral facet joint hypertrophy. There is mild bilateral neural foraminal sten osis. There is no central canal stenosis. L5-S1: There is mild bilateral facet joint hypertrophy. There is moderate bilateral neural foraminal stenosis. There is no central canal stenosis. IMPRESSION: 1. Mild lumbar spondylosis, stable from 07/11/2014. 2. Anterior fusion procedure from L4 to S1. Reviewed, dictated and finalized at location B.
[2020-11-25 14:02] LABS: Estimated Glomerular Filt Rate 57
== END ==
PROVIDERS: Visit Provider Anesthesiology
DX: M54.16 Radiculopathy, lumbar region (principal); M47.816 Spondylosis without myelopathy or radiculopathy, lumbar region; Z98.1 Arthrodesis status
CPT/HCPCS: 72158; A9577

== ENCOUNTER 2021-01-29 04:11 | Observation (INO) | payer MEDICARE, BC, SELFPAY ==
[2021-01-29] VITALS (18 sets, daily range): BP systolic 96–153; BP diastolic 67–90; PULSE 55–74; RESP 15–17; TEMP 36.3–36.8; O2SAT 93–99; BMI 29.2
--- NOTE | ~2021-01-29 | XR_ITS ---
EXAMINATION: XR chest 2V DATE: 01/29/2021 04:45 INDICATION: Sternal and left-sided chest pain. TECHNIQUE: Frontal and lateral views of the chest were obtained. COMPARISON: Chest 2 views 09/01/2020, CT abdomen and pelvis 01/21/2020 FINDINGS: A calcified left lung nodule is consistent with old granulomatous disease. There is mild sc arring at the lung apices. No pleural effusion or pneumothorax. The heart size is normal. Surgical cl ips in the right upper quadrant are likely from cholecystectomy. There is a chronic compression fract ure of T11 with changes of vertebroplasty. There is chronic widening of the acromioclavicular joints bilaterally. IMPRESSION: 1. Mild scarring at the lung apices. Reviewed, dictated and finalized at location A.
--- NOTE | ~2021-01-29 | NM_ITS ---
EXAMINATION: NM rambo stress w perfusion DATE: 01/29/2021 14:42 CDT INDICATION: Chest pain TECHNIQUE: Rest images were obtained following intravenous administration of 10.3 mCi Tc99m tetrofosm in (Myoview). The patient was infused intravenously with Lexiscan (regadenoson). Then, 30.9 mCi Tc99m tetrofosmin (Myoview) was administered intravenously, and stress images were obtained. Data was kenrick nstructed into short axis and horizontal and vertical long axis SPECT images. Gated SPECT images were also obtained. COMPARISON: None. FINDINGS: There is no definite reversible or fixed perfusion abnormality to suggest ischemia or infar ction. There is no segmental wall motion abnormality. Left ventricular ejection fraction measures 8 2%. IMPRESSION: 1. No definite ischemia or infarct. 2. Normal left ventricular ejection fraction measuring 82%. Reviewed, dictated and finalized at location B.
--- NOTE | 2021-01-29 04:14 | ECG_ITS ---
Measurements Intervals [place] Rate: 62 P: 32 [place]: 138 QRS: 1 QRSD: 90 T: 59 QT: 375 QTc: 382 Interpretive Statements SINUS RHYTHM BASELINE ARTIFACT- I, II, III, AVR, AVF, V1-V6 NORMAL ECG Electronically Signed On 01-29-2021 6:30:06 CDT by Moisés August D.O.
--- NOTE | 2021-01-29 04:26 | ED.CHESTPAIN ---
HPI - Chest Pain General Chief Complaint: Chest Pain Stated Complaint: Chest pain Time Seen by Provider: 01/29/21 04:18 Source: patient Mode of arrival: ambulatory Limitations: no limitations History of Present Illness HPI narrative: Patient is a 60-year-old female complaining of chest pain, midsternal, tightness, 6 out of 10, radiating to left breast started this morning. Patient denies any shortness of breath, abdominal pain, nausea, vomiting, diaphoresis, fever or chills. Related Data Home Medications Medication Instructions Recorded Confirmed buspirone 15 mg PO BID 03/18/19 09/01/20 levothyroxine [Synthroid] 75 mcg PO DAILY 03/18/19 09/01/20 metoprolol succinate [Toprol XL] 100 mg PO DAILY 03/18/19 09/01/20 lisinopril 2.5 mg DAILY 04/05/20 09/01/20 sertraline 100 mg PO DAILY 09/01/20 09/01/20 esomeprazole magnesium [Nexium] 40 mg PO DAILY 01/29/21 Allergies Allergy/AdvReac Type Severity Reaction Status Date / Time codeine Allergy Intermediate Rash Verified 01/29/21 04:21 erythromycin base Allergy Intermediate Rash Verified 01/29/21 04:21 morphine Allergy Intermediate Other Verified 01/29/21 04:21 nitrofurantoin Allergy Mild Rash Verified 01/29/21 04:21 Review of Systems Review of Systems: All systems reviewed & are unremarkable except as noted in HPI and below Constitutional: Constitutional: Denies body ache(s), Denies chills, Denies excessive sweating, Denies fatigue, Denies fever(s), Denies headache(s), Denies lethargy, Denies malaise, Denies weakness and Denies weight loss Eyes: Eyes: Denies blurry vision, Denies change in vision and Denies loss of vision ENT: Denies dizziness, Denies ear discharge, Denies headache(s), Denies lip swelling, Denies epistaxis, Denies nasal congestion, Denies neck pain, Denies throat swelling and Denies tongue swelling Cardiovascular: Cardiovascular: Denies diaphoresis, Denies rapid heart rate, Denies edema, Denies irregular heart rhythm, Denies lightheadedness, Denies palpitations, Denies dyspnea and Denies dyspnea on exertion Respiratory: Respiratory: Denies chest congestion, Denies cough, Denies hemoptysis, Denies dyspnea and Denies dyspnea on exertion Gastrointestinal: Gastrointestinal: Denies abdominal pain, Denies melena, Denies hematochezia, Denies diarrhea, Denies nausea, Denies vomiting and Denies hematemesis Musculoskeletal: Musculoskeletal: Denies abnormal gait, Denies deformity, Denies joint swelling, Denies limited range of motion, Denies neck pain and Denies numbness Neurologic: Denies Abnormal speech present, Denies abnormal gait, Denies confusion, Denies dizziness, Denies headache(s), Denies focal weakness, Denies loss of vision, Denies numbness, Denies Other visual disturbances, Denies Sensory deficit (Neuro) and Denies weakness Psychiatric: Psychiatric: Denies confusion, Denies depression, Denies auditory hallucinations, Denies homicidal ideation and Denies suicidal ideation Endocrine: Endocrine: Denies cold intolerance, Denies excessive sweating, Denies fatigue, Denies heat intolerance and Denies palpitations Hematologic/Lymphatic: Hematologic/Lymphatic: Denies easy bleeding and Denies easy bruising Allergic/Immunologic: Allergic/Immunologic: Denies lip swelling, Denies throat swelling and Denies tongue swelling PMFSH Past Medical History Medical History Abdominal hernia Multiple with mesh in place Anxiety Bilateral tennis elbow Crohn's disease Depression HTN (hypertension) IBS (irritable bowel syndrome) Kidney stone PTSD (post-traumatic stress disorder) From childhood Surgical History Surgical History History of endoscopy History of hysterectomy History of lumbar fusion History of rotator cuff surgery Bilateral History of total right knee replacement Family History Family History Father
[2021-01-29] MEDS: ASPIRIN 81 MG CHEWABLE TABLET 324 MG PO (04:33)
[2021-01-29 04:45] LABS: Basophils Percent Auto 0.3 % (0.2-1.2); Eosinophils Absolute Auto 0.1 K/mm3 (0-0.3); Eosinophils Percent Auto 0.6 % (0-4.4); Hematocrit 37.8 % (37.0-47.0); Hemoglobin 12.1 g/dL (12.0-15.0); Immature Granulocyte Absolute 0.05 K/mm3 (0.00-0.031); Immature Granulocyte Percent A 0.4 % (0-0.5); Lymphocytes Absolute Auto 3.05 K/mm3 (0.9-3.2); Lymphocytes Percent Auto 27.3 % (18.3-44.2); Mean Corpuscular Hemoglobin 27.8 pg (26-34); Mean Corpuscular Volume 86.9 fl (80-100); Mean Platelet Volume 10.6 fl (7.4-10.4); Monocytes Absolute Auto 0.9 K/mm3 (0.1-0.6); Monocytes Percent Auto 7.8 % (2.6-8.5); Neutrophils Absolute Auto 7.1 K/mm3 (1.3-6.7); Neutrophils Percent Auto 63.6 % (45.5-73.1); Platelet Count Result 191 k/mm3 (150-375); Red Blood Count 4.35 M/mm3 (4.2-5.4); Red Cell Distribution Width 14.7 % (11.5-14.5); White Blood Count 11.2 K/mm3 (4.5-10.0)
[2021-01-29 04:54] LABS: Anion Gap 11 mmol/L (8-16); Blood Urea Nitrogen 19 mg/dL (7-17); Calcium 9.4 mg/dL (8.4-10.2); Carbon Dioxide 25 mmol/L (22-30); Chloride 104 mmol/L (98-107); Estimated CRCL calculation 53 ml/min; Estimated Glomerular Filt Rate > 60; Glucose 128 mg/dL (65-110); Potassium 4.1 mmol/L (3.4-5.0); Sodium 140 mmol/L (137-145)
[2021-01-29 05:02] LABS: INR 0.9
[2021-01-29 05:03] LABS: Partial Thromboplastin Time 31.9 SECONDS (22.3-36.8)
[2021-01-29 05:06] LABS: Troponin I < 0.012 ng/mL (0.000-0.034)
[2021-01-29] MEDS: NITROGLYCERIN OINTMENT 1 INCH DOSE TRANSDERM (05:17)
--- NOTE | 2021-01-29 06:05 | PM.IMHP ---
H&P: HPI History of Present Illness Date/Time: 01/29/21 06:05 Chief Complaint: chest pain Narrative: Patient is a 60-year-old female who presents to the ED with chest pain, midsternal,pressure sentation wth some sharp compoentn, radiated to left arm, had some tingling sensation in hand. it woke her up in the morning at 1 am and has been persistent sinc yennifer. she has associated nausea, dizziness. th epain was 6/10 in internsit, radiates to left breast. no sob, abdoinal pain, vomiting, diaphoresis fever, chills. she reports she took pepcid and tums without relief. she came to the ed and was given apsirin 325 mg and nitropaste, which resolved her barbara. heart score of 4. EKG with no acute findings. chest x ray negative. troponin negaive. admitted for chest pain evaluation. cardiology consulted from the ed. Review of Systems Review of Systems: - CONSTITUTIONAL: Denies weight loss, fever and chills. - HEENT: Denies changes in vision and hearing - RESPIRATORY: Denies SOB and cough. - CV: reprots palpitations and denies CP. - GI: Denies abdominal pain, nausea, vomiting and diarrhea. - : Denies dysuria and urinary frequency. - MSK: Denies myalgia and joint pain. - SKIN: Denies rash and pruritus. - NEUROLOGICAL: Denies headache and syncope. - PSYCHIATRIC: Denies recent changes in mood. Denies anxiety and depression. All systems reviewed & are unremarkable except as noted in HPI and below Constitutional: Constitutional: Reports fatigue and Reports weakness Neurologic: Reports weakness Endocrine: Endocrine: Reports fatigue [facility] Past Medical History Medical History (Updated 01/29/21 @ 06:17 by David Rob MD) Abdominal hernia Multiple with mesh in place Anxiety Bilateral tennis elbow Crohn's disease Depression HTN (hypertension) IBS (irritable bowel syndrome) Kidney stone PTSD (post-traumatic stress disorder) From childhood Surgical History Surgical History History of endoscopy History of hysterectomy History of lumbar fusion History of rotator cuff surgery Bilateral History of total right knee replacement Family History Family History Father Family history of diabetes mellitus in first degree relative Family history of heart disease in male family member before age 55 Other Family history of allergic disorder Family history of malignant neoplasm Hypertension 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 Smoking status: Never smoker Alcohol intake: never Substance use: never Gender identity (if verbalized by the patient): Female Meds Home Medications and Allergies Home Medications Medication Instructions Recorded Confirmed Type buspirone 15 mg PO BID 03/18/19 09/01/20 History levothyroxine [Synthroid] 75 mcg PO DAILY 03/18/19 09/01/20 History metoprolol succinate [Toprol XL] 100 mg PO DAILY 03/18/19 09/01/20 History lisinopril 2.5 mg DAILY 04/05/20 09/01/20 History sertraline 100 mg PO DAILY 09/01/20 09/01/20 History esomeprazole magnesium [Nexium] 40 mg PO DAILY 01/29/21 History Allergies Allergy/AdvReac Type Severity Reaction Status Date / Time codeine Allergy Intermediate Rash Verified 01/29/21 04:21 erythromycin base Allergy Intermediate Rash Verified 01/29/21 04:21 morphine Allergy Intermediate Other Verified 01/29/21 04:21 nitrofurantoin Allergy Mild Rash Verified 01/29/21 04:21 Vital Signs Vital Signs - 24 hr 01/29/21 04:15 01/29/21 04:19 01/29/21 05:30 Temperature 97.4 F L Pulse Rate 64 72 66 Respiratory Rate 17 17 17 Blood Pressure 131/78 131/78 118/68 Pulse Oximetry 96 99 96 Exam Narrative: GENERAL: The patient is well developed, not in acute distress HEENT: Nonicteric sclerae, PERRLA, EOMI. Oropharynx clear. Moist mucous membranes. Conjunctivae appear well perfused. CHEST: Chest wal
[2021-01-29] MEDS: HYDROcodone/acetaminophen (*CRX) 5-325 MG TABLET 1 TAB PO (06:07)
--- NOTE | 2021-01-29 07:44 | PC.NURSE ---
This patient, Martina Mendez, was admitted to IMU Room 200-01. Patient/family oriented to hospital policies and general routines including ID bracelet, bed and alarms, visiting hours, pain management, procedures, bathroom and other care routines, personal items, smoking policy, room service/diet, and visiting hours. Information on how to activate the Rapid Response Team has been discussed. Patient/Family are encouraged to report perceived risks to care and to ask questions if they do not understand what they are told or what they should do.
[2021-01-29 07:56] LABS: Troponin I < 0.012 ng/mL (0.000-0.034)
[2021-01-29] MEDS: ONDANSETRON INJ 4 MG/2 ML VIAL IV PUSH ×2 (07:58→13:58)
--- NOTE | 2021-01-29 10:15 | PM.CNCAR ---
Assessment and Plan Assessment and plan (1) Chest pain: Qualifiers: Chest pain type: unspecified Qualified Code(s): R07.9 - Chest pain, unspecified Code(s): R07.9 - Chest pain, unspecified Status: Acute Assessment and Plan: Chest pain with anginal qualities in a patient with risk factors for CAD. Troponins negative EKG normal--so VT ruled out, ACS unlikely Some ongoing chest discomfort intermittently Recommend a Lexiscan stress test (2) HTN (hypertension): Code(s): I10 - Essential (primary) hypertension Status: Acute Assessment and Plan: Reasonably controlled (3) Family history of premature CAD: Code(s): Z82.49 - Family history of ischemic heart disease and other diseases of the circulatory system Status: Acute Assessment and Plan: Strong family history of premature CAD as well as aortic aneurysms CT of the abdomen and pelvis in January 2020 did not show any aortic problems. History of Present Illness History of Present Illness Consult date/time: 01/29/21 10:15 Consult reason: chest pain Reason For Visit: Chest pain Narrative: Martina Wynn is a 60-year-old female whom I was asked to see at the request the hospitalist for my advice and opinion regarding chest pain in consultation. The patient has a history of hypertension, chronic back pain, Crohn's disease, GERD, and PTSD. She has a family history of CAD. The patient awoke around 12 30 with substernal chest heaviness and hurting with fairly intense central pressure, felt like something sitting on her. She had nausea, and diaphoresis. She had shooting discomfort to the left arm and numbness of both hands. At 130 should took a Prevacid AC, and 1/2 hour she later she took another 1. At 2:30 a.m. she took a couple of Tums. There was no relief. She tried a heating pad and again no relief. She came to the emergency room and was given aspirin nitro paste with res dilution of the intense pain. She continues to have some intermittent hurting of the substernal area with some shooting pains to the left breast and left arm. The patient denies history of heart disease. She says she had a cardiac cath about 2012 which was negative. No diabetes or hyperlipidemia, nonsmoker. Some RENEE but no exertional chest pain. Unable to walk well because of back pain; can do housework but needs to rest because of back pain between small jobs. Review of Systems Constitutional: Constitutional: Denies fatigue Eyes: Eyes: Reports no additional eye complaints ENT: Reports Normal hearing present and Denies epistaxis Cardiovascular: Cardiovascular: Reports chest pain, Reports diaphoresis ([place] sweaty this morning), Denies pedal edema, Denies leg edema, Denies lightheadedness and Reports palpitations (Infrequent heart racing) Respiratory: Respiratory: Denies cough, Denies dyspnea and Reports dyspnea on exertion Gastrointestinal: Gastrointestinal: Reports abdominal pain, Denies melena and Denies hematochezia Comments: Has a history of Crohn's disease as having some abdominal cramping this morning but no GI bleeding recently. Genitourinary: Genitourinary: Denies hematuria Musculoskeletal: Musculoskeletal: Reports back pain Integumentary/Breasts: Skin/Breast: Denies rash Neurologic: Reports headache(s) Psychiatric: Psychiatric: Reports anxiety PMFSH Past Medical History Medical History (Updated 01/29/21 @ 10:53 by Nicky Green MD) Abdominal hernia Multiple with mesh in place Anxiety Bilateral tennis elbow Crohn's disease Depression Fatty liver GI bleed Had stomach bleeding repaired with a clip in the past. HTN (hypertension) IBS (irritable bowel syndrome) Kidney disease States she had kidney failure treated 6 months ago at [facility] in [place], etiology uncertain Kidney stone PTSD (post-traumatic stress disorder) From childhood Surgical History Surgical History (Reviewed 01/29/21 @ 10:1
--- NOTE | 2021-01-29 10:37 | EST_ITS ---
Patient Info Name: Martina Mendez Age: 60 years : 1960 Gender: Female Ht: 61 in Wt: 154 lbs BSA: 1.76 m2 HR: 60 bpm BP: 147 / 90 mmHg Heart Rhythm: Sinus Rhythm Exam Date: 01/29/2021 1:35 PM Exam Location: [facility] Stress Patient Status: Inpatient Admit Date: 01/29/2021 Staff Ordering Physician: Nicky Green MD Attending Provider: David Rob MD Exercise Technologist: Marsha Lemus CT Exercise Physician: Nicky Green MD Exam Type: CA stress rambo w NM Study Info Indications R07.9 - Chest pain, unspecified A regadenoson stress test was performed. Summary 1. No abnormal ST-T wave changes with lexiscan. 2. Aminophylline given at the completion of the test because of complaints of headache. 3. Nuclear test results to follow. Protocol: Lexiscan Stress ECG Details Stage: REST Duration (min): 1 min : 0 sec HR (bpm): 61 SBP (mmHg): 147 DBP (mmHg): 90 Stage: REST Duration (min): 8 min : 16 sec HR (bpm): 65 SBP (mmHg): 147 DBP (mmHg): 90 Stage: STAGE 1 Duration (min): 0 min : 59 sec HR (bpm): 112 SBP (mmHg): 149 DBP (mmHg): 84 Stage: RECOVERY Duration (min): 1 min : 0 sec HR (bpm): 117 SBP (mmHg): 149 DBP (mmHg): 84 Stage: RECOVERY Duration (min): 2 min : 0 sec HR (bpm): 108 SBP (mmHg): 149 DBP (mmHg): 84 Stage: RECOVERY Duration (min): 3 min : 0 sec HR (bpm): 107 SBP (mmHg): 169 DBP (mmHg): 86 Stage: RECOVERY Duration (min): 4 min : 0 sec HR (bpm): 103 SBP (mmHg): 169 DBP (mmHg): 86 Stage: RECOVERY Duration (min): 5 min : 0 sec HR (bpm): 101 SBP (mmHg): 164 DBP (mmHg): 88 Stage: RECOVERY Duration (min): 6 min : 0 sec HR (bpm): 97 SBP (mmHg): 164 DBP (mmHg): 88 Stage: RECOVERY Duration (min): 7 min : 0 sec HR (bpm): 94 SBP (mmHg): 151 DBP (mmHg): 88 Stage: RECOVERY Duration (min): 8 min : 0 sec HR (bpm): 79 SBP (mmHg): 151 DBP (mmHg): 88 Stage: RECOVERY Duration (min): 9 min : 0 sec HR (bpm): 77 SBP (mmHg): 144 DBP (mmHg): 86 Stage: RECOVERY Duration (min): 9 min : 17 sec HR (bpm): 78 SBP (mmHg): 144 DBP (mmHg): 86 Rest HR: 65 bpm Peak HR: 118 bpm Rest Sys BP: 147 mmHg Peak Sys BP: 169 mmHg Max Pred HR: 160 bpm % Max Pred HR: 74 % Target HR: 136 bpm Max RPP: 19,942 bpm*mmHg BP Response: Normal blood pressure response Termination Reason: Completed protocol Cardiac Symptoms: Chest discomfort Total Time: 1 min : 0 sec Rest Inman BP: 90 mmHg Peak Inman BP: 86 mmHg Total Dose: 0.4 mg Aminophylline Dose: 50 mg Resting ECG Normal sinus rhythm - normal ECG. Stress ECG No abnormal ST/T wave changes with exercise. Arrhythmias None. Report Signatures
[2021-01-29] MEDS: PANTOPRAZOLE 40 MG TABLET PO ×2 (10:40→20:17)
[2021-01-29] MEDS: busPIRone HCL 10 MG TABLET 30 MG PO ×2 (10:40→16:51)
[2021-01-29] MEDS: SERTRALINE HCL 50 MG TABLET 100 MG PO (10:40)
[2021-01-29] MEDS: LEVOTHYROXINE SODIUM 75 MCG TABLET PO (10:41)
[2021-01-29 10:51] LABS: Troponin I < 0.012 ng/mL (0.000-0.034)
--- NOTE | 2021-01-29 11:18 | ECG_ITS ---
Measurements Intervals [place] Rate: 55 P: 19 [place]: 130 QRS: -4 QRSD: 92 T: 32 QT: 391 QTc: 375 Interpretive Statements SINUS BRADYCARDIA LOW QRS VOLTAGE IN PRECORDIAL LEADS BASELINE WANDER- V1 BORDERLINE ECG Electronically Signed On 01-29-2021 11:51:38 CDT by Moisés August D.O.
--- NOTE | 2021-01-29 11:28 | PC.NURSE ---
On 01/29/21, the student, [Diego Johnson], provided care and [facility]. I have reviewed the student's documentation and agree with the findings.
[2021-01-29] MEDS: MAG HYDROX/AL HYDROX/SIMETH 30 ML UDC PO ×3 (11:43→21:20)
[2021-01-29] MEDS: NITROGLYCERIN SL 0.4 MG TABLET SUBLINGUAL (12:17)
--- NOTE | 2021-01-29 12:19 | PC.NURSE ---
1130 Patient c/o midsternal chest pain 11/18. Stated it radiates into her neck and all the way to the top of her stomach. States it feels like burning. Dr. Green made aware and mylanta ordered and given. 1217 No change noted to pain intensity or location. Nitro ordered and given. 1222 Patient stated pain 08/18.
--- NOTE | 2021-01-29 12:35 | PC.NURSE ---
Patient to stress test via wheelchair.
--- NOTE | 2021-01-29 14:40 | PC.NURSE ---
Patient returned to room following stress test.
--- NOTE | 2021-01-29 15:24 | PM.IMPN ---
Progress Note: A&P Assessment and Plan (1) Chest pain: Qualifiers: Chest pain type: unspecified Qualified Code(s): R07.9 - Chest pain, unspecified Code(s): R07.9 - Chest pain, unspecified Status: Acute (2) Depression: Code(s): F32.9 - Major depressive disorder, single episode, unspecified Status: Acute (3) Crohn's disease: Code(s): K50.90 - Crohn's disease, unspecified, without complications Status: Acute (4) Anxiety: Code(s): F41.9 - Anxiety disorder, unspecified Status: Acute (5) PTSD (post-traumatic stress disorder): Code(s): F43.10 - Post-traumatic stress disorder, unspecified Status: Acute (6) Kidney stone: Code(s): N20.0 - Calculus of kidney Status: Acute (7) IBS (irritable bowel syndrome): Code(s): K58.9 - Irritable bowel syndrome without diarrhea Status: Acute (8) HTN (hypertension): Code(s): I10 - Essential (primary) hypertension Status: Acute Additional Plan # chest pain acute coronary syndrome was ruled out. Troponin was negative. Cardiology consult recommendations appreciated. Stress test was performed and was found negative for any reversible myocardial ischemia. She did not have any event reported on telemetry. GERD pantoprazole has been added. Zofran p.r.n. for nausea and vomiting. # anxiety depression: home medications. Continue home medication with BuSpar and trazodone. # HTN: stable. home medications will be continued including metoprolol and lisinopril. # chronic back pain, heniated discs. hx of back fusion surgery. No acute changes. Continue to monitor. # PTSD # Crohn's disease: dicyclomine prn. not on any specific medications. # hypothyroidism: levothyroxine. # GERD # DVT prph: SCDs # Full code status She is still feeling nauseous and had one episode of vomiting. She is not comfortable to go home today. She will be discharged in the a.m. if her nausea and rest of her symptoms improve Subjective Date/time seen: 01/29/21 15:24 She denied have any further chest pain but does have some on and off discomfort in the midchest be She denied have any shortness of breath or palpitation. She was nauseous and had 1 episode of vomiting during her stress test. She is still feeling nauseous and was given Zofran. She also mentioned to have some abdominal discomfort as well. She does have Crohn disease and have diarrhea at her baseline. Review of Systems Review of Systems: All systems reviewed & are unremarkable except as noted in HPI and below Exam Narrative: GENERAL: The patient is well developed, not in acute distress HEART: Regular rate and rhythm without murmur, rubs, or gallops LUNGS: Clear to auscultation bilaterally. no respiratory distress ABDOMEN: Soft, not distended. Minimal tenderness on palpation on the left side. NEUROLOGIC: Cranial nerves II-XII intact, alert and oriented x 3, no gross motor deficits EXTREMITIES: no edema, cyanosis or clubbing Objective Data Vital Signs Vital Signs: Vital Signs - 24 hr 01/29/21 04:15 01/29/21 04:19 01/29/21 05:30 Temperature 36.3 C L Pulse Rate 64 72 66 Respiratory Rate 17 17 17 Blood Pressure 131/78 131/78 118/68 Pulse Oximetry 96 99 96 01/29/21 06:46 01/29/21 08:00 01/29/21 09:07 Temperature 36.6 C Pulse Rate 64 68 Respiratory Rate 15 16 Blood Pressure 130/79 153/90 H Pulse Oximetry 96 98 93 01/29/21 10:00 01/29/21 12:00 01/29/21 12:17 Temperature 36.8 C Pulse Rate 61 58 L Respiratory Rate 16 Blood Pressure 137/81 135/80 Pulse Oximetry 96 01/29/21 12:23 01/29/21 14:00 Temperature Pulse Rate 70 Respiratory Rate Blood Pressure 108/72 Pulse Oximetry Meds/Results Medications: Active Medications Generic Name Dose Route Start Last Admin Trade Name Freq PRN Reason Stop Dose Admin Al Hydrox/Mg Hydrox/Simethicone 30 ml 01/29/21 11:34 01/29/21 11:43 Mag Hydrox/Al Hydrox/S
[2021-01-29] MEDS: lisinopriL 2.5 MG TABLET BY MOUTH (20:17)
[2021-01-29] MEDS: METOPROLOL SUCCINATE EXT REL 100 MG TABCR PO (20:17)
[2021-01-29] MEDS: traZODone HCL 50 MG TABLET PO (20:20)
[2021-01-30] VITALS (7 sets, daily range): BP systolic 97–112; BP diastolic 63–64; PULSE 57–63; RESP 16; TEMP 36.4–36.8; O2SAT 93–100
[2021-01-30] MEDS: LEVOTHYROXINE SODIUM 75 MCG TABLET PO (07:35)
[2021-01-30] MEDS: busPIRone HCL 10 MG TABLET 30 MG PO (08:31)
[2021-01-30] MEDS: SERTRALINE HCL 50 MG TABLET 100 MG PO (08:32)
[2021-01-30] MEDS: PANTOPRAZOLE 40 MG TABLET PO (08:32)
--- NOTE | 2021-01-30 09:07 | PM.DS ---
DS: Admitting Diagnosis Discharge Date 01/30/21 Admitting Diagnosis Chest pain rule out of acute coronary syndrome Occurred Crohn disease Anxiety/depression PTSD History of kidney stone History of IBS Hypertension DS: Discharge Diagnosis Discharge Diagnosis (1) Chest pain: Qualifiers: Chest pain type: unspecified Qualified Code(s): R07.9 - Chest pain, unspecified Code(s): R07.9 - Chest pain, unspecified Status: Acute Assessment and Plan: # chest pain acute coronary syndrome was ruled out. Troponin was negative. Cardiology consult recommendations appreciated. Stress test was performed and was found negative for any reversible myocardial ischemia. She did not have any event reported on telemetry. GERD she was on pantoprazole here in the hospital. She takes is omeprazole at her baseline with 40 mg twice a day which she will continue. She can take [id number] Mylanta/Maalox on p.r.n. basis along with Tums if she has symptoms. Zofran p.r.n. for nausea and vomiting. # anxiety depression: home medications. Continue home medication with BuSpar and trazodone. It seemed that she takes BuSpar with 30 mg twice a day while her home medication list at the time of presentation shows 15 mg twice a day which has been corrected. # HTN: stable. home medications will be continued including metoprolol and lisinopril. # chronic back pain, heniated discs. hx of back fusion surgery. No acute changes. Continue to monitor. # PTSD # Crohn's disease: dicyclomine prn. not on any specific medications. # hypothyroidism: levothyroxine. # GERD # DVT prph: SCDs # Full code status (2) Depression: Code(s): F32.9 - Major depressive disorder, single episode, unspecified Status: Acute (3) Crohn's disease: Code(s): K50.90 - Crohn's disease, unspecified, without complications Status: Acute (4) Anxiety: Code(s): F41.9 - Anxiety disorder, unspecified Status: Acute (5) PTSD (post-traumatic stress disorder): Code(s): F43.10 - Post-traumatic stress disorder, unspecified Status: Acute (6) Kidney stone: Code(s): N20.0 - Calculus of kidney Status: Acute (7) IBS (irritable bowel syndrome): Code(s): K58.9 - Irritable bowel syndrome without diarrhea Status: Acute (8) HTN (hypertension): Code(s): I10 - Essential (primary) hypertension Status: Acute DS: Summary Hospital Course Hospital Course: As above Time Spent with Patient Time attestation: Total time spent providing and/or coordinating discharge services: > 35 minutes Exam Narrative: GENERAL: The patient is well developed, not in acute distress HEART: Regular rate and rhythm without murmur, rubs, or gallops LUNGS: Clear to auscultation bilaterally. no respiratory distress ABDOMEN: Soft, not distended. Minimal tenderness on palpation on the left side. NEUROLOGIC: Cranial nerves II-XII intact, alert and oriented x 3, no gross motor deficits EXTREMITIES: no edema, cyanosis or clubbing DS: Data Data Completed and Pending Labs on day of discharge: Labs from last 24 hours 01/29/21 10:19 Troponin I < 0.012 Discharge Plan Discharge Attending physician on discharge: Kayley Méndez Consulting providers: Nicky Green Discharging Clinician: Kayley Méndez Anticipated Discharge Date/Time: 01/30/21 09:04 Patient Disposition: Home, Self-Care Activity: as tolerated Diet: heart healthy Patient Instructions: Antibiotic Form Stand Alone Forms: General Discharge Information Follow-up/Referrals: Simeon Sheriff MD [Primary Care Provider] - 2 Weeks Discharge Medications: New buspirone 10 mg Tablet 30 mg PO BID Qty: 30 RF: 0 Continued lisinopril 2.5 mg tablet 2.5 mg PO DAILY RF: 0 metoprolol succinate [Toprol XL] 100 mg tablet extended release 24 hr 100 mg PO DAILY RF: 0 levothyroxine [Synthroid] 75 mcg tablet 75 m
== END 2021-01-30 11:35 | disposition home or self-care (01) ==
LOC: ANHED 05:50 → ANHIMU 01-30 08:19
PROVIDERS: Admitting Provider Internal Medicine; Emergency Provider Emergency Medicine; PCP Family Medicine; Visit Provider Internal Medicine Critical Care Medicine
DX: R07.9 Chest pain, unspecified (principal); K50.90 Crohn's disease, unspecified, without complications; E03.9 Hypothyroidism, unspecified; F41.8 Other specified anxiety disorders; F43.10 Post-traumatic stress disorder, unspecified; I10 Essential (primary) hypertension; K21.9 Gastro-esophageal reflux disease without esophagitis
CPT/HCPCS: 36415; 71046; 78452; 80048; 84484; 85025; 85610; 85730; 93005; 93017; 96374; 96376; 99285; A9270; A9502; G0378; J0280; J2405; J2785

== ENCOUNTER 2021-03-01 17:27 | Emergency (ER) | payer MEDICARE, BC, SELFPAY ==
--- NOTE | 2021-03-01 17:34 | ED.GENADULT ---
HPI - General Adult General Chief complaint: Ear Stated complaint: Rt Facial Pain Time Seen by Provider: 03/01/21 18:02 Source: patient and RN notes reviewed Mode of arrival: ambulatory Limitations: no limitations History of Present Illness HPI narrative: 60-year-old female presents concern for right ear pain. Reports pressure, pain reports ear pain radiates to the face. She denies nasal congestion, rhinorrhea, sore throat. Denies hearing problems or drainage from the ear. In a separate complaint she reports she is being treated for urinary tract infection with Bactrim. She reports she feels like she is not improving with the Bactrim. She was treated at an emergency room for the UTI. MD complaint: Ear pain Related Data Home Medications Medication Instructions Recorded Confirmed levothyroxine [Synthroid] 75 mcg PO DAILY 03/18/19 03/01/21 metoprolol succinate [Toprol XL] 100 mg PO DAILY 03/18/19 03/01/21 lisinopril 2.5 mg PO DAILY 04/05/20 03/01/21 sertraline 100 mg PO DAILY 09/01/20 03/01/21 buspirone 30 mg PO BID 01/29/21 03/01/21 esomeprazole magnesium [Nexium] 40 mg PO BID 01/29/21 03/01/21 oxybutynin chloride 10 mg PO DAILY 01/29/21 03/01/21 trazodone 50 mg PO HS PRN 01/29/21 03/01/21 dicyclomine 10 mg PO DAILY 03/01/21 03/01/21 Allergies Allergy/AdvReac Type Severity Reaction Status Date / Time codeine Allergy Intermediate Rash Verified 03/01/21 17:51 erythromycin base Allergy Intermediate Rash Verified 03/01/21 17:51 morphine Allergy Intermediate Other Verified 03/01/21 17:51 nitrofurantoin Allergy Mild Rash Verified 03/01/21 17:51 Review of Systems Review of Systems: CONSTITUTIONAL: Reports malaise, fatigue. Denies chills, sweats, or fever. EYES: Denies visual changes, redness, or discharge. ENT: Denies rhinorrhea, congestion, sinus pain, or sore throat. Reports right ear pain CARDIOVASCULAR: Denies chest pain, palpitations, or edema. RESPIRATORY: Denies cough or dyspnea. GENITOURINARY: Reports dysuria. Denies hematuria. MUSCULOSKELETAL: Denies myalgia. NEUROLOGIC: Denies numbness, weakness, or headache. All systems reviewed & are unremarkable except as noted in HPI and below PMFSH Past Medical History Medical History (Updated 03/01/21 @ 18:21 by Tierra Abbasi NP) Abdominal hernia Multiple with mesh in place Anxiety Bilateral tennis elbow Crohn's disease Depression Fatty liver GI bleed Had stomach bleeding repaired with a clip in the past. HTN (hypertension) IBS (irritable bowel syndrome) Kidney disease States she had kidney failure treated 6 months ago at [facility] in [place], etiology uncertain Kidney stone PTSD (post-traumatic stress disorder) From childhood Surgical History Surgical History History of endoscopy History of hysterectomy History of lumbar fusion History of rotator cuff surgery Bilateral History of total right knee replacement Family History Family History (Updated 01/29/21 @ 10:48 by Nicky Green MD) Father Family history of diabetes mellitus in first degree relative Family history of heart disease in male family member before age 55 Hx of CABG Age 60-62 Alzheimer's dementia Cause of , 77 years old Mother Thoracic aortic aneurysm Sibling Thoracic aortic aneurysm Sister Sibling CAD (coronary artery disease) All 3 brothers have CAD and stents Other AAA (abdominal aortic aneurysm) Maternal grandmother had a AAA Other Cerebral aneurysm Maternal aunt had a cerebral aneurysm Other Family history of allergic disorder Family history of malignant neoplasm Hypertension 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 (Updated 01/29/21 @ 10:51 by Nicky Green MD) 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
[2021-03-01 17:42] VITALS: BP 137/91; PULSE 106; RESP 18; TEMP 36.4; O2SAT 100
== END 2021-03-01 18:30 | disposition home or self-care (01) ==
PROVIDERS: Emergency Provider Nurse Practitioner; PCP Family Medicine
DX: H69.91 Unspecified Eustachian tube disorder, right ear (principal); K50.90 Crohn's disease, unspecified, without complications; K76.0 Fatty (change of) liver, not elsewhere classified; I10 Essential (primary) hypertension; F41.9 Anxiety disorder, unspecified; F32.9 Major depressive disorder, single episode, unspecified
CPT/HCPCS: 81003; 87086; 87147; 87181; 87186; 99213; G0463

== ENCOUNTER → 2021-03-12 14:48 | Outpatient (CLI) | payer MEDICARE, BC, SELFPAY ==
--- NOTE | ~2021-03-12 | XR_ITS ---
EXAMINATION: XR skull min 4V DATE: 03/12/2021 15:12 INDICATION: Swelling to the top of the skull for 5 months. TECHNIQUE: 4 views of the skull were obtained. COMPARISON: Head CT 05/06/2014 FINDINGS: Bone alignment is normal. No fracture. There is no abnormal mass. IMPRESSION: 1. Normal skull. Reviewed, dictated and finalized at location A. KMASON IMPRESSION: 1. Normal skull.
== END ==
PROVIDERS: Visit Provider Family Medicine
DX: R22.0 Localized swelling, mass and lump, head (principal)
CPT/HCPCS: 70260

== ENCOUNTER 2021-04-05 15:53 | Emergency (ER) | payer MEDICARE, BC, SELFPAY ==
--- NOTE | ~2021-04-05 | XR_ITS ---
EXAMINATION: XR foot RT min 3V DATE: 04/05/2021 17:23 INDICATION: Right foot pain post twisting injury 3 days prior TECHNIQUE: Dorsoplantar, two oblique and lateral views of the right foot were obtained. COMPARISON: 01/12/2015 FINDINGS: Alignment is normal. No fracture. Joint spaces are normal. Soft tissues are unremarkable. No right an kle joint effusion. IMPRESSION: 1. Negative right foot radiographs. Reviewed, dictated and finalized at location H. OSOFT APPLICATION DEVELOPER
[2021-04-05 16:48] VITALS: BP 109/67; PULSE 89; RESP 18; TEMP 36.6; O2SAT 98
--- NOTE | 2021-04-05 16:57 | ED.LOWEXIN ---
HPI - Extremity Injury (Lower) General Chief Complaint: Extremity Injury, Lower Stated Complaint: rt foot injury Time Seen by Provider: 04/05/21 16:58 Source: patient and RN notes reviewed History of Present Illness HPI Narrative: Patient is 60-year-old female who presents the urgent care with complaints of right foot pain. Patient states that she stepped off a tall truck and twisted her right foot rolling onto the side of it. Patient states she has been taking Tylenol for the pain without much relief. Patient states the foot even hurts at rest with increased pain on ambulation. No other acute complaints or injuries. No acute distress noted. Plan of care. Some parts of this dictation were generated by voice recognition software and may contain typographical and/or grammatical inaccuracies. Related Data Home Medications Medication Instructions Recorded Confirmed metoprolol succinate [Toprol XL] 100 mg PO DAILY 03/18/19 03/01/21 sertraline 100 mg PO DAILY 09/01/20 03/01/21 buspirone 30 mg PO BID 01/29/21 03/01/21 Allergies Allergy/AdvReac Type Severity Reaction Status Date / Time codeine Allergy Intermediate Rash Verified 04/05/21 17:32 erythromycin base Allergy Intermediate Rash Verified 04/05/21 17:32 morphine Allergy Intermediate Other Verified 04/05/21 17:32 nitrofurantoin Allergy Mild Rash Verified 04/05/21 17:32 Review of Systems Review of Systems: CONSTITUTIONAL: Denies fever, chills, or sweats. EYES: Denies visual changes, redness, or discharge. ENT: Denies rhinorrhea, congestion, sore throat, or otalgia. CARDIOVASCULAR: Denies chest pain, palpitations, or edema. RESPIRATORY: Denies cough or dyspnea. GASTROINTESTINAL: Denies abdominal pain, nausea, vomiting, or diarrhea. GENITOURINARY: Denies dysuria or hematuria. SKIN: Denies rash or itching. MUSCULOSKELETAL: Reports of right foot pain NEUROLOGIC: Denies headache, numbness, or weakness. All other systems reviewed are negative, except as documented in HPI. [facility] Past Medical History Medical History (Updated 04/05/21 @ 17:41 by CATA Ybarra) Abdominal hernia Multiple with mesh in place Anxiety Bilateral tennis elbow Crohn's disease Depression Fatty liver GI bleed Had stomach bleeding repaired with a clip in the past. HTN (hypertension) IBS (irritable bowel syndrome) Kidney disease States she had kidney failure treated 6 months ago at [facility] in [place], etiology uncertain Kidney stone PTSD (post-traumatic stress disorder) From childhood Surgical History Surgical History History of endoscopy History of hysterectomy History of lumbar fusion History of rotator cuff surgery Bilateral History of total right knee replacement Family History Family History (Updated 01/29/21 @ 10:48 by Nicky Green MD) Father Family history of diabetes mellitus in first degree relative Family history of heart disease in male family member before age 55 Hx of CABG Age 60-62 Alzheimer's dementia Cause of , 77 years old Mother Thoracic aortic aneurysm Sibling Thoracic aortic aneurysm Sister Sibling CAD (coronary artery disease) All 3 brothers have CAD and stents Other AAA (abdominal aortic aneurysm) Maternal grandmother had a AAA Other Cerebral aneurysm Maternal aunt had a cerebral aneurysm Other Family history of allergic disorder Family history of malignant neoplasm Hypertension 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 (Updated 01/29/21 @ 10:51 by Nicky Green MD) 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
== END 2021-04-05 17:46 | disposition home or self-care (01) ==
PROVIDERS: Emergency Provider Nurse Practitioner Family; PCP Family Medicine
DX: S93.601A Unspecified sprain of right foot, initial encounter (principal); X50.9XXA Other and unspecified overexertion or strenuous movements or postures, initial encounter; K50.90 Crohn's disease, unspecified, without complications; K76.0 Fatty (change of) liver, not elsewhere classified; I10 Essential (primary) hypertension; Z96.651 Presence of right artificial knee joint; F41.9 Anxiety disorder, unspecified; F32.A Depression, unspecified
CPT/HCPCS: 73630; 99213; G0463

== ENCOUNTER 2021-04-12 10:33 | Emergency (ER) | payer MEDICARE, BC, SELFPAY ==
--- NOTE | ~2021-04-12 | XR_ITS ---
EXAMINATION: XR chest 2V EXAM DATE: 04/12/2021 13:18 INDICATION: Cough and shortness of breath. TECHNIQUE: Frontal and lateral projections of the chest obtained and reviewed. Comparison is made to prior examination from 01/29/2021. FINDINGS: There are cholecystectomy clips. Left upper lobe granuloma. The lungs are otherwise clear. Cardiomediastinal silhouette is normal. There is no pneumothorax suspected. There are no pleural eff usions. Methylmethacrylate in T11 IMPRESSION: No acute cardiac pulmonary findings. . Reviewed, dictated and finalized at location A. X SPOOLER
[2021-04-12 12:33] VITALS: BP 111/77; PULSE 95; RESP 16; TEMP 36.4; O2SAT 98
--- NOTE | 2021-04-12 13:13 | ED.URI ---
HPI - URI/Sore Throat General Chief Complaint: Upper Respiratory Infection Stated Complaint: Cough,Sore Throat,Bilateral Ear Pain,Body Aches Time Seen by Provider: 04/12/21 13:07 Source: patient and RN notes reviewed Mode of arrival: ambulatory Limitations: no limitations History of Present Illness HPI Narrative: Patient presents today complaint of a 4-day history of body aches, congestion, cough, sore throat, headache, ear pain, fever up to 102, shortness of breath with exertion. She has been taking Coricidin HBP and Tylenol without relief. History of frequent pneumonia. MD elicited complaint: fever and cough Related Data Home Medications Medication Instructions Recorded Confirmed metoprolol succinate [Toprol XL] 100 mg PO DAILY 03/18/19 04/12/21 sertraline 100 mg PO DAILY 09/01/20 04/12/21 buspirone 30 mg PO BID 01/29/21 04/12/21 levothyroxine [Synthroid] 75 mcg PO DAILY 04/12/21 04/12/21 Allergies Allergy/AdvReac Type Severity Reaction Status Date / Time codeine Allergy Intermediate Rash Verified 04/12/21 12:56 erythromycin base Allergy Intermediate Rash Verified 04/12/21 12:56 morphine Allergy Intermediate Other Verified 04/12/21 12:56 nitrofurantoin Allergy Mild Rash Verified 04/12/21 12:56 Review of Systems Review of Systems: CONSTITUTIONAL: Denies chills, or sweats.+ Fever, body aches EYES: Denies visual changes, redness, or discharge. ENT: Denies rhinorrhea. + Congestion, sore throat, ear pain CARDIOVASCULAR: Denies chest pain, palpitations, or edema. RESPIRATORY: + Cough, shortness of breath with exertion GASTROINTESTINAL: Denies abdominal pain, nausea, vomiting, or diarrhea. GENITOURINARY: Denies dysuria or hematuria. SKIN: Denies rash, itching, or wounds. MUSCULOSKELETAL: Denies back pain, joint pain, or myalgia. NEUROLOGIC: Denies numbness, tingling, or weakness.+ Headache PSYCH: Denies depression or anxiety. [facility] Past Medical History Medical History Abdominal hernia Multiple with mesh in place Anxiety Bilateral tennis elbow Crohn's disease Depression Fatty liver GI bleed Had stomach bleeding repaired with a clip in the past. HTN (hypertension) IBS (irritable bowel syndrome) Kidney disease States she had kidney failure treated [address] [facility] in [place], etiology uncertain Kidney stone PTSD (post-traumatic stress disorder) From childhood Surgical History Surgical History History of endoscopy History of hysterectomy History of lumbar fusion History of rotator cuff surgery Bilateral History of total right knee replacement Family History Family History Father Family history of diabetes mellitus in first degree relative Family history of heart disease in male family member before age 55 Hx of CABG Age 60-62 Alzheimer's dementia Cause of , 77 years old Mother Thoracic aortic aneurysm Sibling Thoracic aortic aneurysm Sister Sibling CAD (coronary artery disease) All 3 brothers have CAD and stents Other AAA (abdominal aortic aneurysm) Maternal grandmother had a AAA Other Cerebral aneurysm Maternal aunt had a cerebral aneurysm Other Family history of allergic disorder Family history of malignant neoplasm Hypertension 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 Please see nursing chart for
== END 2021-04-12 13:58 | disposition home or self-care (01) ==
PROVIDERS: Emergency Provider Nurse Practitioner; PCP Family Medicine
DX: B34.9 Viral infection, unspecified (principal); K50.90 Crohn's disease, unspecified, without complications; I10 Essential (primary) hypertension; F41.9 Anxiety disorder, unspecified; K76.0 Fatty (change of) liver, not elsewhere classified; F32.A Depression, unspecified; F43.10 Post-traumatic stress disorder, unspecified
CPT/HCPCS: 71046; 87426; 99213; C9803; G0463

== ENCOUNTER 2021-06-14 14:44 | Emergency (ER) | payer MEDICARE, BC, SELFPAY ==
[2021-06-14] VITALS (10 sets, daily range): BP systolic 106–140; BP diastolic 75–95; PULSE 83–107; RESP 12–21; TEMP 36.1; O2SAT 95–100
--- NOTE | ~2021-06-14 | CT_ITS ---
EXAMINATION: CT BRAIN W/O DATE: 06/14/2021 15:26 INDICATION: Headache TECHNIQUE: Computed tomography (CT) of the head was performed without intravenous contrast. The dose- length product was 529.67 mGy-cm. Automated exposure control and iterative reconstruction technique w ere employed. COMPARISON: CT dated 05/06/2014 FINDINGS: Normal brain parenchymal volume for age. Normal wylie-white differentiation. No acute intrac ranial hemorrhage, infarction, mass or mass effect. No ventriculomegaly or midline shift. Midline sagittal images demonstrate a normal corpus callosum, c raniovertebral junction and sella turcica. Basilar cisterns are patent. Paranasal sinuses and mastoids are pneumatized. No depressed skull fractures. IMPRESSION: 1. No acute intracranial abnormality. Reviewed, dictated and finalized at location A. E CASE MANAGER
--- NOTE | 2021-06-14 15:22 | ED.GENADULT ---
HPI - General Adult General Chief complaint: Unspecified Stated complaint: headaches x 3 weeks Time Seen by Provider: 06/14/21 15:01 Source: patient History of Present Illness HPI narrative: Patient presents with a headache for 3 weeks not controlled with Tylenol in the ER for evaluation. Headache associated with nausea there are no clear aggravating or alleviating factors there is no increased pain with laying flat or worse in the morning. Denies any focal numbness or weakness she denies any trauma. She does report a family history of aneurysms. Pain is throbbing and constant no radiation Related Data Home Medications Medication Instructions Recorded Confirmed metoprolol succinate [Toprol XL] 100 mg PO DAILY 03/18/19 04/12/21 sertraline 100 mg PO DAILY 09/01/20 04/12/21 buspirone 30 mg PO BID 01/29/21 04/12/21 levothyroxine [Synthroid] 75 mcg PO DAILY 04/12/21 04/12/21 Allergies Allergy/AdvReac Type Severity Reaction Status Date / Time codeine Allergy Intermediate Rash Verified 04/12/21 12:56 erythromycin base Allergy Intermediate Rash Verified 04/12/21 12:56 morphine Allergy Intermediate Other Verified 04/12/21 12:56 nitrofurantoin Allergy Mild Rash Verified 04/12/21 12:56 Review of Systems Review of Systems: CONSTITUTIONAL: Denies fever, chills, or sweats. EYES: Denies visual changes, redness, or discharge. ENT: Denies rhinorrhea, congestion, sore throat, or otalgia. CARDIOVASCULAR: Denies chest pain, palpitations, or edema. RESPIRATORY: Denies cough or dyspnea. GASTROINTESTINAL: Denies abdominal pain, nausea, vomiting, or diarrhea. GENITOURINARY: Denies dysuria or hematuria. SKIN: Denies rash or itching. MUSCULOSKELETAL: Denies back pain, joint pain, or myalgia. NEUROLOGIC: Denies headache, numbness, dizziness, or weakness. PSYCHIATRIC: Denies anxiety or depression. [facility] Past Medical History Medical History Abdominal hernia Multiple with mesh in place Anxiety Bilateral tennis elbow Crohn's disease Depression Fatty liver GI bleed Had stomach bleeding repaired with a clip in the past. HTN (hypertension) IBS (irritable bowel syndrome) Kidney disease States she had kidney failure treated 6 months ago at [facility] in [place], etiology uncertain Kidney stone PTSD (post-traumatic stress disorder) From childhood Surgical History Surgical History History of endoscopy History of hysterectomy History of lumbar fusion History of rotator cuff surgery Bilateral History of total right knee replacement Family History Family History Father Family history of diabetes mellitus in first degree relative Family history of heart disease in male family member before age 55 Hx of CABG Age 60-62 Alzheimer's dementia Cause of , 77 years old Mother Thoracic aortic aneurysm Sibling Thoracic aortic aneurysm Sister Sibling CAD (coronary artery disease) All 3 brothers have CAD and stents Other AAA (abdominal aortic aneurysm) Maternal grandmother had a AAA Other Cerebral aneurysm Maternal aunt had a cerebral aneurysm Other Family history of allergic disorder Family history of malignant neoplasm Hypertension 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 HEAD: Normocephalic, atraumatic. EYES: PERRLA and EOMI. ENT: Nares clear, no rhinorrhea or epistaxis. Mucous membranes moist. NECK: Supple. No masses. No JVD E
--- NOTE | 2021-06-14 15:23 | PC.NURSE ---
Pt to CT at this time
--- NOTE | 2021-06-14 15:24 | PC.NURSE ---
@1520 pt requesting stronger pain medication for headache. States she does not want tylenol because she just had some earlier today. ER provider aware. Will wait for CT results at this time.
[2021-06-14 15:26] LABS: Basophils Absolute Auto 0.1 K/mm3 (0.0-0.1); Basophils Percent Auto 0.5 % (0.2-1.2); Eosinophils Absolute Auto 0.1 K/mm3 (0-0.3); Eosinophils Percent Auto 0.5 % (0-4.4); Hematocrit 41.8 % (37.0-47.0); Hemoglobin 13.5 g/dL (12.0-15.0); Immature Granulocyte Absolute 0.02 K/mm3 (0.00-0.031); Immature Granulocyte Percent A 0.2 % (0-0.5); Lymphocytes Absolute Auto 3.08 K/mm3 (0.9-3.2); Lymphocytes Percent Auto 28.1 % (18.3-44.2); Mean Corpuscular HGB Conc 32.3 g/dl (32-36); Mean Corpuscular Volume 83.6 fl (80-100); Mean Platelet Volume 10.2 fl (7.4-10.4); Monocytes Absolute Auto 1.1 K/mm3 (0.1-0.6); Monocytes Percent Auto 9.9 % (2.6-8.5); Neutrophils Absolute Auto 6.7 K/mm3 (1.3-6.7); Neutrophils Percent Auto 60.8 % (45.5-73.1); Platelet Count Result 257 k/mm3 (150-375); Red Cell Distribution Width 13.8 % (11.5-14.5)
[2021-06-14] MEDS: SODIUM CHLORIDE 0.9% IV 1,000 ML 999 ML IV CONT (15:31)
[2021-06-14] MEDS: PROCHLORPERAZINE EDISYLATE 10 MG/2 ML VIAL IV PUSH (15:32)
--- NOTE | 2021-06-14 15:34 | PC.NURSE ---
Pt returned from CT scan. as agreed to take tylenol as ordered.
[2021-06-14 15:37] LABS: Alanine Aminotransferase 18 U/L (4-35); Albumin Level 4.9 g/dL (3.5-5.1); Alkaline Phosphatase 108 U/L (38-126); Anion Gap 13 mmol/L (8-16); Aspartate Amino Transferase 29 U/L (14-36); Bilirubin,Total 0.5 mg/dL (0.2-1.3); Blood Urea Nitrogen 18 mg/dL (7-17); Calcium 8.9 mg/dL (8.4-10.2); Carbon Dioxide 21 mmol/L (22-30); Chloride 105 mmol/L (98-107); Estimated CRCL calculation 48 ml/min; Estimated Glomerular Filt Rate 57; Glucose 112 mg/dL (65-110); Potassium 3.4 mmol/L (3.4-5.0); Sodium 139 mmol/L (137-145)
--- NOTE | 2021-06-14 16:02 | PC.NURSE ---
Pt declined Toradol 15mg at this time. Will like to wait a couple of minutes.
--- NOTE | 2021-06-19 08:36 | PC.NURSE ---
LATE ENTRY This note is being entered to document information to the patient's record. The following information was omitted on [06/14/21], by [Kiah FINNEGAN]. Ns stopped at 1630, 1000ml infused, Acetaminophen stopped at 1545.
== END 2021-06-14 17:08 | disposition home or self-care (01) ==
PROVIDERS: Emergency Provider Emergency Medicine; PCP Family Medicine
DX: R51.9 Headache, unspecified (principal); I10 Essential (primary) hypertension; K50.90 Crohn's disease, unspecified, without complications; F41.9 Anxiety disorder, unspecified; F43.10 Post-traumatic stress disorder, unspecified; Z87.442 Personal history of urinary calculi; Z98.1 Arthrodesis status; Z96.651 Presence of right artificial knee joint
CPT/HCPCS: 36415; 70450; 80053; 85025; 96365; 96375; 99284; J0131; J0780; J7030

== ENCOUNTER 2021-06-27 11:26 | Emergency (ER) | payer MEDICARE, BC, SELFPAY ==
--- NOTE | ~2021-06-27 | XR_ITS ---
XR foot RT min 3V 06/27/2021 11:49 INDICATION: Right foot pain after injury PROCEDURE: 4 views right foot COMPARISON: 04/05/2021 FINDINGS: Fracture, dislocation or subluxation is not identified. Lisfranc joint intact. Osteopenia. The soft tissues appear within normal limits. No foreign bodies are identified. There is osteoarthri tis of the first MTP joint. IMPRESSION: 1: NO ACUTE BONE OR JOINT ABNORMALITY IDENTIFIED. Reviewed, dictated and finalized at location A.
[2021-06-27 11:39] VITALS: BP 107/65; PULSE 76; RESP 18; TEMP 36.4; O2SAT 100
--- NOTE | 2021-06-27 12:05 | ED.GENADULT ---
HPI - General Adult General Chief complaint: Extremity Injury, Lower Stated complaint: rt foot injury Time Seen by Provider: 06/27/21 12:05 Source: patient Mode of arrival: ambulatory Limitations: no limitations History of Present Illness HPI narrative: 60-year-old female patient presents to [facility] with complaints of right foot pain. Patient states that yesterday her dog ran into her right foot and now having pain to the fourth toe. Patient states she did take some Tylenol today but denies using any ice to the area. Related Data Home Medications Medication Instructions Recorded Confirmed metoprolol succinate [Toprol XL] 100 mg PO DAILY 03/18/19 04/12/21 sertraline 100 mg PO DAILY 09/01/20 04/12/21 buspirone 30 mg PO BID 01/29/21 04/12/21 levothyroxine [Synthroid] 75 mcg PO DAILY 04/12/21 04/12/21 esomeprazole magnesium 40 mg PO DAILY 06/27/21 06/27/21 lisinopril 2.5 mg PO DAILY 06/27/21 06/27/21 Allergies Allergy/AdvReac Type Severity Reaction Status Date / Time codeine Allergy Intermediate Rash Verified 06/27/21 12:04 erythromycin base Allergy Intermediate Rash Verified 06/27/21 12:04 morphine Allergy Intermediate Other Verified 06/27/21 12:04 nitrofurantoin Allergy Mild Rash Verified 06/27/21 12:04 Review of Systems Review of Systems: CONSTITUTIONAL: Denies fever, chills, or sweats. EYES: Denies visual changes, redness, or discharge. ENT: Denies rhinorrhea, congestion, sore throat, or otalgia. CARDIOVASCULAR: Denies chest pain, palpitations, or edema. RESPIRATORY: Denies cough or dyspnea. GASTROINTESTINAL: Denies abdominal pain, nausea, vomiting, or diarrhea. GENITOURINARY: Denies dysuria or hematuria. SKIN: Denies rash or itching. MUSCULOSKELETAL: Denies back pain, joint pain, or myalgia. Positive for no pain on right foot NEUROLOGIC: Denies headache, numbness, or weakness. PSYCHIATRIC: Denies anxiety or depression. [facility] Past Medical History Medical History Abdominal hernia Multiple with mesh in place Anxiety Bilateral tennis elbow Crohn's disease Depression Fatty liver GI bleed Had stomach bleeding repaired with a clip in the past. HTN (hypertension) IBS (irritable bowel syndrome) Kidney disease States she had kidney failure treated 6 months ago at [facility] in [place], etiology uncertain Kidney stone PTSD (post-traumatic stress disorder) From childhood Surgical History Surgical History History of endoscopy History of hysterectomy History of lumbar fusion History of rotator cuff surgery Bilateral History of total right knee replacement Family History Family History Father Family history of diabetes mellitus in first degree relative Family history of heart disease in male family member before age 55 Hx of CABG Age 60-62 Alzheimer's dementia Cause of , 77 years old Mother Thoracic aortic aneurysm Sibling Thoracic aortic aneurysm Sister Sibling CAD (coronary artery disease) All 3 brothers have CAD and stents Other AAA (abdominal aortic aneurysm) Maternal grandmother had a AAA Other Cerebral aneurysm Maternal aunt had a cerebral aneurysm Other Family history of allergic disorder Family history of malignant neoplasm Hypertension 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 There is no relevant family history pertinent to the presenting complaint.
== END 2021-06-27 12:18 | disposition home or self-care (01) ==
PROVIDERS: Emergency Provider Nurse Practitioner Family; PCP Family Medicine
DX: S90.121A Contusion of right lesser toe(s) without damage to nail, initial encounter (principal); S90.31XA Contusion of right foot, initial encounter; W54.1XXA Struck by dog, initial encounter; K50.90 Crohn's disease, unspecified, without complications; K76.0 Fatty (change of) liver, not elsewhere classified; I10 Essential (primary) hypertension; F41.9 Anxiety disorder, unspecified; F32.A Depression, unspecified; Z96.651 Presence of right artificial knee joint
CPT/HCPCS: 73630; 99213; G0463

== ENCOUNTER 2021-07-13 08:39 | Outpatient (CLI) | payer MEDICARE, BC, SELFPAY ==
--- NOTE | ~2021-07-13 | MM_ITS ---
EXAMINATION: MM screening jac BI w ariel HISTORY: Screening TECHNIQUE: Craniocaudal and mediolateral oblique 3-D tomosynthesis images were obtained and synthetic 2-D images were generated. CAD analysis was submitted and interpreted. COMPARISON: Comparison to multiple prior studies sequentially, with oldest reviewed study dated 06/06. BREAST PARENCHYMAL COMPOSITION: Breast composed of scattered areas of fibroglandular density FINDINGS: There is no evidence of suspicious mass, calcification, or architectural distortion to sugg est malignancy in either breast. There has been no suspicious interval change. IMPRESSION: 1. No mammographic evidence of malignancy. 2. Recommend routine screening mammography in one year. BI-RADS Category 1: Negative Reviewed, dictated and finalized at location A.
== END 2021-07-13 08:40 | disposition home or self-care (01) ==
LOC: ANHIMG 08:42
PROVIDERS: PCP Family Medicine; Visit Provider Family Medicine
DX: Z12.31 Encounter for screening mammogram for malignant neoplasm of breast (principal)
CPT/HCPCS: 77063; 77067

== ENCOUNTER 2021-07-19 18:44 | Emergency (ER) | payer MEDICARE, BC, SELFPAY ==
[2021-07-19] VITALS (22 sets, daily range): BP systolic 106–146; BP diastolic 54–104; PULSE 61–81; RESP 13–21; TEMP 36.3; O2SAT 94–100
--- NOTE | 2021-07-19 19:27 | ED.GENADULT ---
HPI - General Adult General Chief complaint: Dizziness Stated complaint: Request Blood Tests Time Seen by Provider: 07/19/21 19:11 Source: patient and RN notes reviewed History of Present Illness HPI narrative: 60-year-old female with history of hypothyroid presents to the emergency department for evaluation of 1 month of multiple symptoms including generalized fatigue, insomnia and patient had epigastric pain today. Patient was diagnosed with hypothyroid approximately 2 months ago and was started on medications by her primary care physician. Patient states that she had her level checked last week and her levothyroxine was increased. Patient reports nausea without vomiting. Patient does have some epigastric pain. Patient reports decreased sleep. Patient denies any chest pain or shortness of breath. Related Data Home Medications Medication Instructions Recorded Confirmed metoprolol succinate [Toprol XL] 100 mg PO DAILY 03/18/19 06/27/21 sertraline 100 mg PO DAILY 09/01/20 06/27/21 buspirone 30 mg PO BID 01/29/21 06/27/21 levothyroxine [Synthroid] 75 mcg PO DAILY 04/12/21 06/27/21 esomeprazole magnesium 40 mg PO DAILY 06/27/21 06/27/21 lisinopril 2.5 mg PO DAILY 06/27/21 06/27/21 Allergies Allergy/AdvReac Type Severity Reaction Status Date / Time codeine Allergy Intermediate Rash Verified 06/27/21 12:04 erythromycin base Allergy Intermediate Rash Verified 06/27/21 12:04 morphine Allergy Intermediate Other Verified 06/27/21 12:04 nitrofurantoin Allergy Mild Rash Verified 06/27/21 12:04 Review of Systems Review of Systems: CONSTITUTIONAL: Denies fever, chills, or sweats. EYES: Denies visual changes, redness, or discharge. ENT: Denies rhinorrhea, congestion, sore throat, or otalgia. CARDIOVASCULAR: Denies chest pain, palpitations, or edema. RESPIRATORY: Denies cough or dyspnea. GASTROINTESTINAL: Epigastric abdominal pain with nausea without vomiting GENITOURINARY: Denies dysuria or hematuria. SKIN: Denies rash or itching. MUSCULOSKELETAL: Denies back pain, joint pain, or myalgia. NEUROLOGIC: Denies headache, numbness, or weakness. [facility] Past Medical History Medical History Abdominal hernia Multiple with mesh in place Anxiety Bilateral tennis elbow Crohn's disease Depression Fatty liver GI bleed Had stomach bleeding repaired with a clip in the past. HTN (hypertension) IBS (irritable bowel syndrome) Kidney disease States she had kidney failure treated 6 months ago at [facility] in [place], etiology uncertain Kidney stone PTSD (post-traumatic stress disorder) From childhood Surgical History Surgical History History of endoscopy History of hysterectomy History of lumbar fusion History of rotator cuff surgery Bilateral History of total right knee replacement Family History Family History Father Family history of diabetes mellitus in first degree relative Family history of heart disease in male family member before age 55 Hx of CABG Age 60-62 Alzheimer's dementia Cause of , 77 years old Mother Thoracic aortic aneurysm Sibling Thoracic aortic aneurysm Sister Sibling CAD (coronary artery disease) All 3 brothers have CAD and stents Other AAA (abdominal aortic aneurysm) Maternal grandmother had a AAA Other Cerebral aneurysm Maternal aunt had a cerebral aneurysm Other Family history of allergic disorder Family history of malignant neoplasm Hypertension 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
[2021-07-19 19:43] LABS: Basophils Absolute Auto 0.1 K/mm3 (0.0-0.1); Basophils Percent Auto 0.5 % (0.2-1.2); Eosinophils Absolute Auto 0.2 K/mm3 (0-0.3); Eosinophils Percent Auto 2.1 % (0-4.4); Hematocrit 36.5 % (37.0-47.0); Hemoglobin 11.2 g/dL (12.0-15.0); Immature Granulocyte Absolute 0.02 K/mm3 (0.00-0.031); Immature Granulocyte Percent A 0.2 % (0-0.5); Lymphocytes Absolute Auto 3.79 K/mm3 (0.9-3.2); Lymphocytes Percent Auto 40.9 % (18.3-44.2); Mean Corpuscular HGB Conc 30.7 g/dl (32-36); Mean Corpuscular Hemoglobin 26.7 pg (26-34); Mean Corpuscular Volume 87.1 fl (80-100); Mean Platelet Volume 10.8 fl (7.4-10.4); Monocytes Percent Auto 10.8 % (2.6-8.5); Neutrophils Absolute Auto 4.2 K/mm3 (1.3-6.7); Neutrophils Percent Auto 45.5 % (45.5-73.1); Platelet Count Result 197 k/mm3 (150-375); Red Blood Count 4.19 M/mm3 (4.2-5.4); Red Cell Distribution Width 14.4 % (11.5-14.5); White Blood Count 9.3 K/mm3 (4.5-10.0)
[2021-07-19 19:52] LABS: Lactic Acid Reflex 1.1 mmol/L (0.7-2.1)
[2021-07-19 19:53] LABS: Alanine Aminotransferase 17 U/L (4-35); Albumin Level 4.2 g/dL (3.5-5.1); Alkaline Phosphatase 69 U/L (38-126); Anion Gap 6 mmol/L (8-16); Aspartate Amino Transferase 25 U/L (14-36); Bilirubin,Total 0.2 mg/dL (0.2-1.3); Blood Urea Nitrogen 18 mg/dL (7-17); Calcium 8.5 mg/dL (8.4-10.2); Carbon Dioxide 28 mmol/L (22-30); Chloride 103 mmol/L (98-107); Estimated CRCL calculation 53 ml/min; Estimated Glomerular Filt Rate 51; Glucose 112 mg/dL (65-110); Potassium 3.8 mmol/L (3.4-5.0); Sodium 137 mmol/L (137-145)
[2021-07-19 19:53] LABS: Add Urine Microscopic? NO; Appearance Urine Clear (Clear); Bilirubin Urine Negative (Negative); Blood Urine Negative (Negative); Color Urine Yellow (Yellow); Glucose Urine UA Negative (Negative); Ketones Urine Negative (Negative); Leukocyte Esterase Ur Negative LEU/UL (Negative); Nitrate Urine Negative (Negative); Protein Urine Negative (Negative); Specific Grav Ur 1.019 (1.001-1.035); Urobilinogen Urine Negative mg/dL (<2.0)
[2021-07-19] MEDS: BELLADONNA ALK/PHENOB ELIX 10 ML, MAG HYDROX/ALUMINUM HYD/SIMETH 30 ML, LIDOCAINE HCL 2... PO (20:17)
[2021-07-19 20:28] LABS: Thyroid Stimulating Hormone Reflex 0.552 uIU/mL (0.465-4.68)
== END 2021-07-19 21:29 | disposition home or self-care (01) ==
PROVIDERS: Emergency Provider Emergency Medicine; PCP Family Medicine
DX: R53.83 Other fatigue (principal); E03.9 Hypothyroidism, unspecified; K50.90 Crohn's disease, unspecified, without complications; I10 Essential (primary) hypertension; F41.9 Anxiety disorder, unspecified; F43.10 Post-traumatic stress disorder, unspecified; Z87.442 Personal history of urinary calculi; Z98.1 Arthrodesis status; Z96.651 Presence of right artificial knee joint
CPT/HCPCS: 36415; 80053; 81003; 83605; 84443; 85025; 99283; A9270

== ENCOUNTER 2021-09-06 20:33 | Emergency (ER) | payer MEDICARE, BC, SELFPAY ==
--- NOTE | ~2021-09-06 | XR_ITS ---
EXAMINATION: XR chest 2V 09/06/2021 21:20 INDICATION: Midsternal chest pain after choking. Evaluate for free air. PROCEDURE: 2 view chest COMPARISON: Comparison to multiple prior studies sequentially, with oldest reviewed study dated 10/2019. FINDINGS: The lungs are clear. The cardiomediastinal silhouette is within normal limits. There are no pleural effusions. There is no pneumothorax suspected. No free air identified. No evidence for p neumomediastinum. There are vertebroplasty changes in the lower thoracic spine. There are cholecystec boris clips. Calcified granuloma left mid thorax. IMPRESSION: 1: NO ACUTE CARDIOPULMONARY DISEASE. Reviewed, dictated and finalized at location A.
[2021-09-06 20:35] VITALS: BP 131/76; PULSE 98; RESP 20; TEMP 36.6; O2SAT 100
[2021-09-06 21:05] VITALS: O2SAT 96
--- NOTE | 2021-09-06 21:41 | ED.GENADULT ---
HPI - General Adult General Chief complaint: Unspecified Stated complaint: choking Time Seen by Provider: 09/06/21 20:59 Source: patient History of Present Illness HPI narrative: Patient presents with chest and back discomfort. Patient reports around 6:00 this evening she was eating a piece of meat was choking on it so she was choking for approximately 5 minutes was eventually able to vomit and dislodge the meat. She does report a history of needing esophageal dilation by her GI doctor. She is monitoring her symptoms however her neck pain and chest pain seem to be getting worse she was concern for something more serious so she came to the ER for evaluation. Reports pain in her chest and neck that is achy, constant is worsened with swallowing, no radiation denies any shortness of breath fevers continued nausea or vomiting denies any diarrhea or abdominal pain denies any recent fevers. Related Data Home Medications Medication Instructions Recorded Confirmed metoprolol succinate 100 mg 100 mg PO DAILY 03/18/19 06/27/21 tablet,extended release 24 hr (Toprol XL) sertraline 100 mg tablet 100 mg PO DAILY 09/01/20 06/27/21 buspirone 30 mg tablet 30 mg PO BID 01/29/21 06/27/21 levothyroxine 75 mcg tablet 75 mcg PO DAILY 04/12/21 06/27/21 (Synthroid) esomeprazole magnesium 40 mg 40 mg PO DAILY 06/27/21 06/27/21 capsule,delayed release lisinopril 2.5 mg tablet 2.5 mg PO DAILY 06/27/21 06/27/21 Allergies Allergy/AdvReac Type Severity Reaction Status Date / Time codeine Allergy Intermediate Rash Verified 09/06/21 21:08 erythromycin base Allergy Intermediate Rash Verified 09/06/21 21:08 morphine Allergy Intermediate Other Verified 09/06/21 21:08 nitrofurantoin Allergy Mild Rash Verified 09/06/21 21:08 Review of Systems Review of Systems: CONSTITUTIONAL: Denies fever, chills, or sweats. EYES: Denies visual changes, redness, or discharge. ENT: Denies rhinorrhea, congestion, or otalgia. CARDIOVASCULAR: Denies palpitations, or edema. RESPIRATORY: Denies cough or dyspnea. GASTROINTESTINAL: Denies abdominal pain, nausea, vomiting, or diarrhea. GENITOURINARY: Denies dysuria or hematuria. SKIN: Denies rash or itching. MUSCULOSKELETAL: Denies back pain, joint pain, or myalgia. NEUROLOGIC: Denies headache, numbness, dizziness, or weakness. PSYCHIATRIC: Denies anxiety or depression. All systems reviewed & are unremarkable except as noted in HPI and below PMFSH Past Medical History Medical History Abdominal hernia Multiple with mesh in place Anxiety Bilateral tennis elbow Crohn's disease Depression Fatty liver GI bleed Had stomach bleeding repaired with a clip in the past. HTN (hypertension) IBS (irritable bowel syndrome) Kidney disease States she had kidney failure treated 6 months ago at [facility] in [place], etiology uncertain Kidney stone PTSD (post-traumatic stress disorder) From childhood Surgical History Surgical History History of endoscopy History of hysterectomy History of lumbar fusion History of rotator cuff surgery Bilateral History of total right knee replacement Family History Family History Father Family history of diabetes mellitus in first degree relative Family history of heart disease in male family member before age 55 Hx of CABG Age 60-62 Alzheimer's dementia Cause of , 77 years old Mother Thoracic aortic aneurysm Sibling Thoracic aortic aneurysm Sister Sibling CAD (coronary artery disease) All 3 brothers have CAD and stents Other AAA (abdominal aortic aneurysm) Maternal grandmother had a AAA Other Cerebral aneurysm Maternal aunt had a cerebral aneurysm Other Family history of allergic disorder Family history of malignant neoplasm Hypertension Social H
[2021-09-06 21:53] VITALS: PULSE 85; RESP 16; O2SAT 98
== END 2021-09-06 21:54 | disposition home or self-care (01) ==
PROVIDERS: Emergency Provider Emergency Medicine; PCP Family Medicine
DX: R09.89 Other specified symptoms and signs involving the circulatory and respiratory systems (principal); T17.228A Food in pharynx causing other injury, initial encounter; I10 Essential (primary) hypertension; X58.XXXA Exposure to other specified factors, initial encounter
CPT/HCPCS: 71046; 99283

== ENCOUNTER 2021-11-02 18:08 | Emergency (ER) | payer MEDICARE, BC, SELFPAY ==
--- NOTE | ~2021-11-02 | CT_ITS ---
EXAMINATION: CTA chest PE abdomen pel DATE: 11/02/2021 22:07 INDICATION: left flank pain, elevated d dimer TECHNIQUE: Computed tomography angiography (CTA) of the chest was performed with 100 mL Omnipaque-350 intravenous contrast timed to evaluate the pulmonary arteries, and portal venous phase images of the abdomen and pelvis. Coronal maximum intensity projection 3D-reconstructions were created by the tech nologist. The dose-length product (DLP) was 870.60 mGy-cm. Automated exposure control and iterative r econstruction technique were employed. COMPARISON: 01/21/2020. FINDINGS: CTPA: Study quality: Late contrast phase, overall adequate. Pulmonary arteries: No pulmonary emboli detected. Thoracic aorta: Mild ectasia and arch calcification. Lung parenchyma and airways: Clear. Thoracic inlet, axillae and chest wall: Unremarkable. Mediastinum: Normal. Heart and pericardium: Normal. Coronary artery calcifications: Absent. Pleura: Unremarkable. Thoracic bones: No acute osseous finding. T11 vertebroplasty. CT abdomen and pelvis: Liver: Normal. Biliary/Gallbladder: Gallbladder is absent. No bile duct dilation. Pancreas: No mass or duct dilation. Spleen: Normal. Adrenals:No mass. Kidneys: No suspicious mass, stone, or hydronephrosis. Subcentimeter right renal hypodensities too sm all to characterize but likely represent cysts. GI tract: No small or large bowel dilation. Appendix not visualized. Diverticulosis without diverticu litis. Mesentery/Peritoneum: No ascites, mass, or free air. Retroperitoneum: No mass. Atherosclerotic abdominal aortic and/or arterial calcifications. Pelvis: Uterus is absent, remaining pelvic organs are within normal limits. Soft Tissues: Left abdominal mesh repair. Abdominopelvic bones: No acute osseous finding. Intact anterior lumbar fusion hardware IMPRESSION: No CT evidence of acute pulmonary embolus. No acute abdominopelvic process. Reviewed, dictated and finalized at location K.
[2021-11-02 18:16] VITALS: BP 136/88; PULSE 88; RESP 14; TEMP 36.2; O2SAT 97
--- NOTE | 2021-11-02 19:50 | ED.GENADULT ---
HPI - General Adult General Chief complaint: Urogenital-Female Stated complaint: flank pain, uti symptoms Time Seen by Provider: 11/02/21 19:33 Source: patient, RN notes reviewed and old records reviewed Mode of arrival: ambulatory Limitations: no limitations History of Present Illness HPI narrative: This is a 60 year old female who presents for evaluation of left flank pain. Patient states she finished antibiotics 2 weeks ago for a UTI. She reports continued signs of a UTI. She is reporting dysuria and increased urinary frequency. She was evaluated at [facility] 2 days ago for her same complaints. She reports having labs and chest xray but they were unable to find anything. She states her PCP says she still has UTI so she was started on Cipro again. She is reporting constant left flank pain starting 3 days ago and it is getting worse. Her pain is worse with breathing, and she denies any trauma. She denies fever, cough, nausea or vomiting. Related Data Home Medications Medication Instructions Recorded Confirmed metoprolol succinate 100 mg 100 mg PO DAILY 03/18/19 06/27/21 tablet,extended release 24 hr (Toprol XL) sertraline 100 mg tablet 100 mg PO DAILY 09/01/20 06/27/21 buspirone 30 mg tablet 30 mg PO BID 01/29/21 06/27/21 levothyroxine 75 mcg tablet 75 mcg PO DAILY 04/12/21 06/27/21 (Synthroid) esomeprazole magnesium 40 mg 40 mg PO DAILY 06/27/21 06/27/21 capsule,delayed release lisinopril 2.5 mg tablet 2.5 mg PO DAILY 06/27/21 06/27/21 Allergies Allergy/AdvReac Type Severity Reaction Status Date / Time codeine Allergy Intermediate Rash Verified 11/02/21 20:03 erythromycin base Allergy Intermediate Rash Verified 11/02/21 20:03 morphine Allergy Intermediate Other Verified 11/02/21 20:03 nitrofurantoin Allergy Mild Rash Verified 11/02/21 20:03 Review of Systems Review of Systems: All systems reviewed & are unremarkable except as noted in HPI and below Constitutional: Constitutional: Denies chills, Denies fatigue and Denies fever(s) Cardiovascular: Cardiovascular: Denies chest pain and Denies radiating jaw, neck or arm pain Respiratory: Respiratory: Denies chest congestion, Denies cough and Denies dyspnea Gastrointestinal: Gastrointestinal: Reports abdominal pain, Denies nausea and Denies vomiting Genitourinary: Genitourinary: Reports nocturia, Reports dysuria and Reports flank pain Musculoskeletal: Musculoskeletal: Reports back pain [facility] Past Medical History Medical History Abdominal hernia Multiple with mesh in place Anxiety Bilateral tennis elbow Crohn's disease Depression Fatty liver GI bleed Had stomach bleeding repaired with a clip in the past. HTN (hypertension) IBS (irritable bowel syndrome) Kidney disease States she had kidney failure treated 6 months ago at [facility] in [place], etiology uncertain Kidney stone PTSD (post-traumatic stress disorder) From childhood Surgical History Surgical History History of endoscopy History of hysterectomy History of lumbar fusion History of rotator cuff surgery Bilateral History of total right knee replacement Family History Family History Father Family history of diabetes mellitus in first degree relative Family history of heart disease in male family member before age 55 Hx of CABG Age 60-62 Alzheimer's dementia Cause of , 77 years old Mother Thoracic aortic aneurysm Sibling Thoracic aortic aneurysm Sister Sibling CAD (coronary artery disease) All 3 brothers have CAD and stents Other AAA (abdominal aortic aneurysm) Maternal grandmother had a AAA Other Cerebral aneurysm Maternal aunt had a cerebral aneurysm Other Family history of allergic disorder Family history of malignant neopl
--- NOTE | 2021-11-02 19:53 | ECG_ITS ---
Measurements Intervals [place] Rate: 74 P: 32 TX: 129 QRS: -9 QRSD: 86 T: 39 QT: 357 QTc: 397 Interpretive Statements SINUS RHYTHM LOW QRS VOLTAGE IN PRECORDIAL LEADS LEFT VENTRICULAR HYPERTROPHY BASELINE ARTIFACT- I, II, III, AVR BORDERLINE ECG Electronically Signed On 11-03-2021 7:10:27 CDT by Moisés August D.O.
[2021-11-02 20:01] VITALS: BP 138/78; PULSE 79; RESP 16; O2SAT 100
[2021-11-02 20:07] LABS: Basophils Absolute Auto 0.1 K/mm3 (0.0-0.1); Basophils Percent Auto 0.6 % (0.2-1.2); Eosinophils Absolute Auto 0.3 K/mm3 (0-0.3); Eosinophils Percent Auto 2.3 % (0-4.4); Hematocrit 41.4 % (37.0-47.0); Hemoglobin 12.2 g/dL (12.0-15.0); Immature Granulocyte Absolute 0.03 K/mm3 (0.00-0.031); Immature Granulocyte Percent A 0.2 % (0-0.5); Lymphocytes Absolute Auto 4.48 K/mm3 (0.9-3.2); Lymphocytes Percent Auto 35.7 % (18.3-44.2); Mean Corpuscular HGB Conc 29.5 g/dl (32-36); Mean Corpuscular Hemoglobin 24.5 pg (26-34); Mean Corpuscular Volume 83.3 fl (80-100); Mean Platelet Volume 10.4 fl (7.4-10.4); Monocytes Absolute Auto 1.1 K/mm3 (0.1-0.6); Monocytes Percent Auto 8.9 % (2.6-8.5); Neutrophils Absolute Auto 6.6 K/mm3 (1.3-6.7); Neutrophils Percent Auto 52.3 % (45.5-73.1); Platelet Count Result 229 k/mm3 (150-375); Red Blood Count 4.97 M/mm3 (4.2-5.4); Red Cell Distribution Width 14.6 % (11.5-14.5); White Blood Count 12.5 K/mm3 (4.5-10.0)
[2021-11-02 20:09] LABS: Add Urine Microscopic? YES; Appearance Urine Clear (Clear); Bilirubin Urine 1+ (Negative); Blood Urine Negative (Negative); Color Urine Orange (Yellow); Glucose Urine UA Trace mg/dL (Negative); Ketones Urine 1+ mg/dL (Negative); Leukocyte Esterase Ur 1+ LEU/UL (Negative); Nitrate Urine Positive (Negative); Protein Urine 1+ mg/dL (Negative); Specific Grav Ur 1.025 (1.001-1.035)
[2021-11-02 20:17] LABS: Alanine Aminotransferase 21 U/L (6-35); Albumin Level 4.9 g/dL (3.5-5.1); Alkaline Phosphatase 97 U/L (38-126); Anion Gap 9 mmol/L (8-16); Aspartate Amino Transferase 28 U/L (14-36); Bilirubin,Total 0.3 mg/dL (0.2-1.3); Blood Urea Nitrogen 12 mg/dL (7-17); Carbon Dioxide 30 mmol/L (22-30); Chloride 103 mmol/L (98-107); Estimated CRCL calculation 55 ml/min; Estimated Glomerular Filt Rate > 60; Glucose 92 mg/dL (65-110); Lipase 110 U/L (23-300); Potassium 3.7 mmol/L (3.4-5.0); Sodium 142 mmol/L (137-145)
[2021-11-02 20:19] LABS: Bacteria Urine Trace /hpf; Mucus Urine Few /lpf; Squamous Epithelial Cell Urine Rare /hpf (Few); WBC Urine 31-50 /hpf
[2021-11-02 20:24] LABS: Platelet Estimate Adequate (Adequate)
[2021-11-02 20:25] LABS: Hypochromasia 1+ (NORMAL)
[2021-11-02 20:34] LABS: Partial Thromboplastin Time 33.1 SECONDS (22.3-36.8); Prothrombin Time 12.7 Seconds (11.1-14.7)
--- NOTE | 2021-11-02 20:50 | PC.NURSE ---
Pt requesting additional pain medication, EDP Ranjeet notified. NO new orders
[2021-11-02 21:36] VITALS: PULSE 81; RESP 18; O2SAT 97
[2021-11-02] MEDS: KETOROLAC 15 MG/ML VIAL (*BKC) IV PUSH (21:37)
[2021-11-02 22:15] VITALS: BP 117/63
[2021-11-02 23:20] VITALS: BP 113/64; PULSE 80; RESP 16; O2SAT 95
== END 2021-11-02 23:21 | disposition home or self-care (01) ==
PROVIDERS: Emergency Medicine; Emergency Provider General Practice; PCP Family Medicine
DX: K50.90 Crohn's disease, unspecified, without complications (principal); I10 Essential (primary) hypertension; Z87.442 Personal history of urinary calculi; F41.9 Anxiety disorder, unspecified; F32.A Depression, unspecified; F43.10 Post-traumatic stress disorder, unspecified; I51.7 Cardiomegaly
CPT/HCPCS: 36415; 71275; 74177; 80053; 81001; 83690; 85025; 85380; 85610; 85730; 87077; 87086; 87186; 93005; 96365; 96367; 96375; 99284; J0131; J0696; J1885; Q9967

== ENCOUNTER 2021-12-12 10:44 | Emergency (ER) | payer MEDICARE, BC, SELFPAY ==
[2021-12-12 10:54] VITALS: BP 109/63; PULSE 66; RESP 18; TEMP 36.3; O2SAT 100
--- NOTE | 2021-12-12 11:04 | ED.GENADULT ---
HPI - General Adult General Chief complaint: Upper Respiratory Infection Stated complaint: sorethroat,bilateral ear pain History of Present Illness HPI narrative: Patient is a 61-year-old female who presents to the [facility] for an evaluation of upper respiratory symptoms that began 3 days ago. Additionally, she reports a sore throat, bilateral ear pain, nonproductive cough, chills, and fatigue. No relief with Tylenol. Laying down worsens symptoms. She reports exposure to COVID and strep throat. She is fully vaccinated against COVID. Related Data Home Medications Medication Instructions Recorded Confirmed metoprolol succinate 100 mg 100 mg PO DAILY 03/18/19 12/12/21 tablet,extended release 24 hr (Toprol XL) sertraline 100 mg tablet 100 mg PO DAILY 09/01/20 12/12/21 levothyroxine 75 mcg tablet 75 mcg PO DAILY 04/12/21 12/12/21 (Synthroid) esomeprazole magnesium 40 mg 40 mg PO DAILY 06/27/21 12/12/21 capsule,delayed release lisinopril 2.5 mg tablet 2.5 mg PO DAILY 06/27/21 12/12/21 Allergies Allergy/AdvReac Type Severity Reaction Status Date / Time codeine Allergy Intermediate Rash Verified 12/12/21 11:13 erythromycin base Allergy Intermediate Rash Verified 12/12/21 11:13 morphine Allergy Intermediate Other Verified 12/12/21 11:13 nitrofurantoin Allergy Mild Rash Verified 12/12/21 11:13 Review of Systems Review of Systems: She reports a history of pneumonia and bronchitis denies history of COPD and pneumonia. Denies current/past tobacco use. Pertinent negatives: fever, sweats, change in appetite, fatigue, skin color changes, headache, nasal congestion/discharge, dizziness, lymphadenopathy, sinus problems, drooling, difficulty swallowing, ear drainage, hearing difficulty chest pain, heart murmurs, heart palpitations, shortness of breath, wheezing, cyanosis, hemoptysis, hoarseness, orthopnea, pleuritic pain, nausea, vomiting, diarrhea, and myalgias. [facility] Past Medical History Medical History Abdominal hernia Multiple with mesh in place Anxiety Bilateral tennis elbow Crohn's disease Depression Fatty liver GI bleed Had stomach bleeding repaired with a clip in the past. HTN (hypertension) IBS (irritable bowel syndrome) Kidney disease States she had kidney failure treated 6 months ago at [facility] in [place], etiology uncertain Kidney stone PTSD (post-traumatic stress disorder) From childhood Surgical History Surgical History History of endoscopy History of hysterectomy History of lumbar fusion History of rotator cuff surgery Bilateral History of total right knee replacement Family History Family History Father Family history of diabetes mellitus in first degree relative Family history of heart disease in male family member before age 55 Hx of CABG Age 60-62 Alzheimer's dementia Cause of , 77 years old Mother Thoracic aortic aneurysm Sibling Thoracic aortic aneurysm Sister Sibling CAD (coronary artery disease) All 3 brothers have CAD and stents Other AAA (abdominal aortic aneurysm) Maternal grandmother had a AAA Other Cerebral aneurysm Maternal aunt had a cerebral aneurysm Other Family history of allergic disorder Family history of malignant neoplasm Hypertension 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 The
== END 2021-12-12 11:43 | disposition home or self-care (01) ==
PROVIDERS: Emergency Provider Nurse Practitioner Family; PCP Family Medicine
DX: R05.9 Cough, unspecified (principal); Z20.822 Contact with and (suspected) exposure to COVID-19; K50.90 Crohn's disease, unspecified, without complications; K76.0 Fatty (change of) liver, not elsewhere classified; I10 Essential (primary) hypertension; F41.9 Anxiety disorder, unspecified; F32.A Depression, unspecified
CPT/HCPCS: 87081; 87426; 87880; 99213; C9803; G0463

== ENCOUNTER 2022-02-05 11:00 | Outpatient (CLI) | payer MEDICARE, BC, SELFPAY ==
--- NOTE | ~2022-02-05 | XR_ITS ---
EXAMINATION: XR chest 2V 02/05/2022 12:08 INDICATION: Hypertension. PROCEDURE: 2 view chest COMPARISON: Comparison to multiple prior studies sequentially, with oldest reviewed study dated 09/01. FINDINGS: The lungs are clear. The cardiomediastinal silhouette is within normal limits. There are no pleural effusions. There is no pneumothorax suspected. There are vertebroplasty changes noted in the lower thoracic spine. There is a calcified granuloma in the left upper thorax. IMPRESSION: 1: NO ACUTE CARDIOPULMONARY DISEASE. Reviewed, dictated and finalized at location B.
[2022-02-05 11:34] LABS: Basophils Absolute Auto 0.1 K/mm3 (0.0-0.1); Basophils Percent Auto 0.5 % (0.2-1.2); Eosinophils Absolute Auto 0.2 K/mm3 (0-0.3); Eosinophils Percent Auto 1.7 % (0-4.4); Hematocrit 39.9 % (37.0-47.0); Hemoglobin 12.4 g/dL (12.0-15.0); Immature Granulocyte Absolute 0.04 K/mm3 (0.00-0.031); Immature Granulocyte Percent A 0.3 % (0-0.5); Lymphocytes Absolute Auto 3.56 K/mm3 (0.9-3.2); Lymphocytes Percent Auto 29.5 % (18.3-44.2); Mean Corpuscular HGB Conc 31.1 g/dl (32-36); Mean Corpuscular Hemoglobin 26.2 pg (26-34); Mean Corpuscular Volume 84.2 fl (80-100); Mean Platelet Volume 10.1 fl (7.4-10.4); Monocytes Percent Auto 8.4 % (2.6-8.5); Neutrophils Absolute Auto 7.2 K/mm3 (1.3-6.7); Neutrophils Percent Auto 59.6 % (45.5-73.1); Platelet Count Result 228 k/mm3 (150-375); Red Blood Count 4.74 M/mm3 (4.2-5.4); Red Cell Distribution Width 15.7 % (11.5-14.5); White Blood Count 12.1 K/mm3 (4.5-10.0)
--- NOTE | 2022-02-05 11:38 | ECG_ITS ---
Measurements Intervals [place] Rate: 54 P: 29 VT: 133 QRS: -2 QRSD: 80 T: 52 QT: 398 QTc: 380 Interpretive Statements SINUS BRADYCARDIA LOW QRS VOLTAGE IN PRECORDIAL LEADS [QRS DEFLECTION < 1.0 mV IN CHEST LEADS] BORDERLINE ECG COMPARED TO ECG 11/02/2021 20:07:04 SINUS BRADYCARDIA NOW PRESENT Electronically Signed On 02-05-2022 16:49:23 CDT by Freddy Cortes M.D.
[2022-02-05 11:44] LABS: INR 1.1; Prothrombin Time 13.3 Seconds (11.1-14.7)
[2022-02-05 11:45] LABS: Partial Thromboplastin Time 34.8 SECONDS (22.3-36.8)
[2022-02-05 11:51] LABS: Anion Gap 14 mmol/L (8-16); Blood Urea Nitrogen 18 mg/dL (7-17); CRP 1.5 mg/dL (<1.0); Calcium 8.8 mg/dL (8.4-10.2); Carbon Dioxide 23 mmol/L (22-30); Chloride 105 mmol/L (98-107); Estimated Glomerular Filt Rate 50; Glucose 102 mg/dL (65-110); Potassium 4.3 mmol/L (3.4-5.0); Sodium 142 mmol/L (137-145)
[2022-02-05 11:52] LABS: Add Urine Microscopic? YES; Appearance Urine Cloudy (Clear); Bacteria Urine Trace /hpf; Bilirubin Urine Negative (Negative); Blood Urine Negative (Negative); Color Urine Yellow (Yellow); Glucose Urine UA Negative (Negative); Ketones Urine Trace mg/dL (Negative); Leukocyte Esterase Ur Negative LEU/UL (NEGATIVE); Mucus Urine Rare /lpf; Nitrate Urine Negative (Negative); Protein Urine Negative (Negative); RBC Urine 0-2 /hpf (0-2); Specific Grav Ur 1.021 (1.001-1.035); Squamous Epithelial Cell Urine Rare /hpf (Few); Urobilinogen Urine Negative mg/dL (<2.0); WBC Urine 0-3 /hpf (0-3)
[2022-02-05 12:27] LABS: Erythrocyte Sedimentation Rate 21 mm/hr (0-20)
== END 2022-02-05 11:01 | disposition home or self-care (01) ==
PROVIDERS: PCP Family Medicine; Visit Provider Anesthesiology
DX: Z01.818 Encounter for other preprocedural examination (principal); A79.1 Rickettsialpox due to Rickettsia akari; I25.10 Atherosclerotic heart disease of native coronary artery without angina pectoris; M54.16 Radiculopathy, lumbar region; R07.89 Other chest pain; R00.1 Bradycardia, unspecified
CPT/HCPCS: 36415; 71046; 80048; 81001; 85025; 85610; 85652; 85730; 86140; 93005

== ENCOUNTER 2022-02-21 12:41 | Emergency (ER) | payer MEDICARE, BC, SELFPAY ==
--- NOTE | ~2022-02-21 | XR_ITS ---
XR chest 2V DATE: 02/21/2022 15:38 INDICATION: Cough, dizziness, weakness TECHNIQUE: PA and lateral views COMPARISON: 02/05/2022 2 view chest FINDINGS: Normal heart size. No hilar or mediastinal enlargement. No pulmonary infiltrate or consolid ation, pleural effusion or pulmonary vascular congestion or pneumothorax. Status post vertebroplasty at T11. Diffuse osteopenia. Surgical clips, right upper quadrant, consistent with cholecystectomy. IMPRESSION: No active cardiac pulmonary disease or significant change since 01/28/2022 Reviewed, dictated and finalized at location A. SECURITY
[2022-02-21 12:54] VITALS: BP 100/79; PULSE 72; RESP 17; TEMP 36.6; O2SAT 97
[2022-02-21 15:21] VITALS: PULSE 67; TEMP 36.8; O2SAT 93
[2022-02-21 16:05] LABS: Influenza A QL RT-PCR Negative (Negative); Influenza B QL RT-PCR Negative (Negative); RSV RNA, RT-PCR Negative (Negative); SARS-CoV-2 RNA PCR Negative
--- NOTE | 2022-02-21 16:13 | ED.URI ---
HPI - URI/Sore Throat General Chief Complaint: Upper Respiratory Infection Stated Complaint: cough, fevers for a week now. Time Seen by Provider: 02/21/22 14:10 History of Present Illness HPI Narrative: 61-year-old female presents the emergency room for evaluation of a cough that is been present for a week. Patient told her doctor about her cough and was given prescriptions for Tessalon Perles, Cipro and Flagyl. States no improvement of her symptoms. Patient denies any shortness of breath or difficulty breathing. Denies fevers. States is experiencing some generalized chest wall and back wall discomfort from the coughing. Related Data Home Medications Medication Instructions Recorded Confirmed metoprolol succinate 100 mg 100 mg PO DAILY 03/18/19 12/12/21 tablet,extended release 24 hr (Toprol XL) sertraline 100 mg tablet 100 mg PO DAILY 09/01/20 12/12/21 levothyroxine 75 mcg tablet 75 mcg PO DAILY 04/12/21 12/12/21 (Synthroid) esomeprazole magnesium 40 mg 40 mg PO DAILY 06/27/21 12/12/21 capsule,delayed release lisinopril 2.5 mg tablet 2.5 mg PO DAILY 06/27/21 12/12/21 Allergies Allergy/AdvReac Type Severity Reaction Status Date / Time codeine Allergy Intermediate Rash Verified 02/21/22 15:20 erythromycin base Allergy Intermediate Rash Verified 02/21/22 15:20 morphine Allergy Intermediate Other Verified 02/21/22 15:20 nitrofurantoin Allergy Mild Rash Verified 02/21/22 15:20 Review of Systems Review of Systems: CONSTITUTIONAL: Denies fever, chills, or sweats. EYES: Denies visual changes, redness, or discharge. ENT: Denies rhinorrhea, congestion, sore throat, or otalgia. CARDIOVASCULAR: Denies chest pain, palpitations, or edema. RESPIRATORY: Reports cough GASTROINTESTINAL: Denies abdominal pain, nausea, vomiting, or diarrhea. GENITOURINARY: Denies dysuria or hematuria. SKIN: Denies rash or itching. MUSCULOSKELETAL: Denies back pain, joint pain, or myalgia. NEUROLOGIC: Denies headache, numbness, dizziness, or weakness. PSYCHIATRIC: Denies anxiety or depression. [facility] Past Medical History Medical History Abdominal hernia Multiple with mesh in place Anxiety Bilateral tennis elbow Crohn's disease Depression Fatty liver GI bleed Had stomach bleeding repaired with a clip in the past. HTN (hypertension) IBS (irritable bowel syndrome) Kidney disease States she had kidney failure treated 6 months ago at [facility] in [place], etiology uncertain Kidney stone PTSD (post-traumatic stress disorder) From childhood Surgical History Surgical History History of endoscopy History of hysterectomy History of lumbar fusion History of rotator cuff surgery Bilateral History of total right knee replacement Family History Family History Father Family history of diabetes mellitus in first degree relative Family history of heart disease in male family member before age 55 Hx of CABG Age 60-62 Alzheimer's dementia Cause of , 77 years old Mother Thoracic aortic aneurysm Sibling Thoracic aortic aneurysm Sister Sibling CAD (coronary artery disease) All 3 brothers have CAD and stents Other AAA (abdominal aortic aneurysm) Maternal grandmother had a AAA Other Cerebral aneurysm Maternal aunt had a cerebral aneurysm Other Family history of allergic disorder Family history of malignant neoplasm Hypertension 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
[2022-02-21 16:30] VITALS: PULSE 88; RESP 20; O2SAT 94
== END 2022-02-21 16:31 | disposition home or self-care (01) ==
PROVIDERS: Emergency Medicine; Emergency Provider Nurse Practitioner Family; PCP Family Medicine
DX: J06.9 Acute upper respiratory infection, unspecified (principal); Z20.822 Contact with and (suspected) exposure to COVID-19; I10 Essential (primary) hypertension; K50.90 Crohn's disease, unspecified, without complications; F41.9 Anxiety disorder, unspecified; F32.A Depression, unspecified; F43.10 Post-traumatic stress disorder, unspecified; Z87.442 Personal history of urinary calculi; Z90.710 Acquired absence of both cervix and uterus; Z98.1 Arthrodesis status
CPT/HCPCS: 71046; 87637; 96372; 99283; J1100

== ENCOUNTER 2022-03-22 10:13 | Outpatient (CLI) | payer MEDICARE, BC, SELFPAY ==
[2022-03-22 11:16] LABS: Hematocrit 40.7 % (37.0-47.0); Hemoglobin 12.6 g/dL (12.0-15.0); Mean Corpuscular Hemoglobin 26.3 pg (26-34); Mean Corpuscular Volume 84.8 fl (80-100); Mean Platelet Volume 10.1 fl (7.4-10.4); Platelet Count Result 257 k/mm3 (150-375); Red Cell Distribution Width 14.5 % (11.5-14.5); White Blood Count 14.9 K/mm3 (4.5-10.0)
[2022-03-22 11:32] LABS: CRP 2.3 mg/dL (<1.0)
[2022-03-22 11:56] LABS: Iron 34 ug/dL (37-170)
[2022-03-22 12:07] LABS: Percent Iron Saturation 8 % (20-50)
[2022-03-22 12:39] LABS: Folic Acid > 20.0 ng/mL (2.76->20)
[2022-03-24 10:44] LABS: NIL 0.01 IU/mL; Quantiferon TB Plus, 1T NEGATIVE (NEGATIVE); TB1-NIL 0.01 IU/mL; TB2-NIL 0.01 IU/mL
[2022-03-30 14:12] LABS: ANCA Screen Negative (Negative)
== END 2022-03-22 10:14 | disposition home or self-care (01) ==
PROVIDERS: PCP Family Medicine; Visit Provider Internal Medicine Gastroenterology
DX: R93.2 Abnormal findings on diagnostic imaging of liver and biliary tract (principal); K52.838 Other microscopic colitis
CPT/HCPCS: 36415; 82607; 82728; 82746; 83540; 83550; 85027; 86036; 86140; 86480

== ENCOUNTER 2022-08-06 11:33 | Emergency (ER) | payer MEDICARE, BC, SELFPAY ==
--- NOTE | ~2022-08-06 | XR_ITS ---
EXAMINATION: XR chest 2V DATE: 08/06/2022 12:54 INDICATION: Chest pain TECHNIQUE: PA and lateral views of the chest are obtained. COMPARISON: 02/21/2022 FINDINGS: The lungs are free of acute opacities. No pleural effusion or pneumothorax. The cardiomedia stinal silhouette is normal. There is moderate thoracic spondylosis. Vertebroplasty changes noted at T11. Neurostimulator leads are present in the central spinal canal. A calcified nodule of the left up per lobe is consistent with old granulomatous disease. Surgical clips in the right upper quadrant are likely from prior cholecystectomy. IMPRESSION: 1. No acute cardiopulmonary abnormality. Reviewed, dictated and finalized at location B.
--- NOTE | ~2022-08-06 | CT_ITS ---
EXAMINATION: CTA chest PE protocol DATE: 08/06/2022 18:50 INDICATION: Left chest pain. TECHNIQUE: Computed tomography angiography (CTA) of the chest was performed with 100 mL Omnipaque-350 intravenous contrast timed to evaluate the pulmonary arteries. Coronal maximum intensity projection 3D-reconstructions were created by the technologist. Automated exposure control and iterative reconst ruction technique were employed. The dose-length product was 302.17 mGy-cm. COMPARISON: Chest CT 11/02/2021 FINDINGS: There is mild atelectasis bilaterally. A calcified left lung nodule and calcified left murali r lymph nodes are consistent with old granulomatous disease. No pleural effusion. The heart size is n ormal. No pericardial effusion. There are changes of cholecystectomy. There is no pulmonary embolus. There is severe cervical spondylosis and moderate thoracic spondylosis. There is mild chronic height loss of multiple vertebral bodies. There are changes of vertebroplasty at T11. Epidural electrodes ar e noted. IMPRESSION: 1. No pulmonary embolus. Reviewed, dictated and finalized at location E. IMPRESSION: 1. No pulmonary embolus.
--- NOTE | 2022-08-06 11:34 | ECG_ITS ---
Measurements Intervals [place] Rate: 98 P: 224 CT: 322 QRS: -11 QRSD: 85 T: 32 QT: 332 QTc: 424 Interpretive Statements SINUS RHYTHM MINIMAL VOLTAGE CRITERIA FOR LVH, CONSIDER NORMAL VARIANT [MEETS CRITERIA IN ONE OF: R(aVL), S(V1), R(V5), R(V5/V6)+S(V1)] ABNORMAL RHYTHM ECG COMPARED TO ECG 02/05/2022 11:49:31 NO SIGNIFICANT CHANGES Electronically Signed On 08-06-2022 13:00:29 CDT by Gasper Casey M.D.
[2022-08-06 11:40] VITALS: BP 122/86; PULSE 104; RESP 18; TEMP 36.4; O2SAT 98
[2022-08-06 11:52] LABS: Basophils Absolute Auto 0.1 K/mm3 (0.0-0.1); Basophils Percent Auto 0.5 % (0.2-1.2); Eosinophils Absolute Auto 0.3 K/mm3 (0-0.3); Hematocrit 42.3 % (37.0-47.0); Hemoglobin 13.3 g/dL (12.0-15.0); Immature Granulocyte Absolute 0.01 K/mm3 (0.00-0.031); Immature Granulocyte Percent A 0.1 % (0-0.5); Lymphocytes Absolute Auto 2.97 K/mm3 (0.9-3.2); Lymphocytes Percent Auto 32.3 % (18.3-44.2); Mean Corpuscular HGB Conc 31.4 g/dl (32-36); Mean Corpuscular Hemoglobin 27.8 pg (26-34); Mean Corpuscular Volume 88.3 fl (80-100); Mean Platelet Volume 10.3 fl (7.4-10.4); Monocytes Absolute Auto 0.9 K/mm3 (0.1-0.6); Monocytes Percent Auto 9.7 % (2.6-8.5); Neutrophils Percent Auto 54.4 % (45.5-73.1); Platelet Count Result 186 k/mm3 (150-375); Red Blood Count 4.79 M/mm3 (4.2-5.4); White Blood Count 9.2 K/mm3 (4.5-10.0)
[2022-08-06 12:04] LABS: INR 0.9; Prothrombin Time 12.9 Seconds (11.1-14.7)
[2022-08-06 12:05] LABS: Partial Thromboplastin Time 31.7 SECONDS (22.3-36.8)
[2022-08-06 12:07] LABS: Alanine Aminotransferase 22 U/L (6-35); Albumin Level 4.5 g/dL (3.5-5.1); Alkaline Phosphatase 66 U/L (38-126); Anion Gap 9 mmol/L (8-16); Aspartate Amino Transferase 26 U/L (14-36); Bilirubin,Total 0.4 mg/dL (0.2-1.3); Blood Urea Nitrogen 13 mg/dL (7-17); Calcium 9.5 mg/dL (8.4-10.2); Carbon Dioxide 28 mmol/L (22-30); Chloride 102 mmol/L (98-107); Estimated Glomerular Filt Rate > 60; Glucose 121 mg/dL (65-110); Lipase 113 U/L (23-300); Potassium 4.2 mmol/L (3.4-5.0); Sodium 139 mmol/L (137-145)
[2022-08-06 12:19] LABS: Troponin I < 0.012 ng/mL (0.000-0.034)
[2022-08-06 15:41] VITALS: BP 131/81; PULSE 96; TEMP 36.3; O2SAT 98
[2022-08-06 16:14] LABS: Troponin I < 0.012 ng/mL (0.000-0.034)
[2022-08-06] MEDS: KETOROLAC (*BKC) 60 MG/2 ML VIAL IM (17:11)
[2022-08-06 17:25] LABS: D Dimer 0.57 ug/mL (<0.48)
[2022-08-06 19:02] LABS: Troponin I < 0.012 ng/mL (0.000-0.034)
--- NOTE | 2022-08-06 19:13 | ED.GENADULT ---
HPI - General Adult General Chief complaint: Chest Pain Stated complaint: Chest pains Time Seen by Provider: 08/06/22 16:42 History of Present Illness HPI narrative: Patient is a 61-year-old female who presents ER with chest pain. Woke up with central discomfort that is been building throughout the day. Worse with physical movement. Mild discomfort with deep breath. No fevers chills or sweats. No runny nose or sore throat or cough. No hemoptysis. No lower extremity swelling. No radiation of the pain. Related Data Home Medications Medication Instructions Recorded Confirmed metoprolol succinate 100 mg 100 mg PO DAILY 03/18/19 05/11/22 tablet,extended release 24 hr (Toprol XL) sertraline 100 mg tablet 100 mg PO DAILY 09/01/20 05/11/22 levothyroxine 75 mcg tablet 75 mcg PO DAILY 04/12/21 05/11/22 (Synthroid) esomeprazole magnesium 40 mg 40 mg PO DAILY 06/27/21 05/11/22 capsule,delayed release alprazolam 0.25 mg tablet 0.25 mg PO QHS PRN sleep 05/11/22 05/11/22 budesonide 3 mg 3 mg PO TID 05/11/22 05/11/22 capsule,delayed,extended release buspirone 10 mg tablet 10 mg PO BID 05/11/22 05/11/22 chlordiazepoxide-clidinium 5 1 cap PO TID 05/11/22 05/11/22 mg-2.5 mg capsule dicyclomine 20 mg tablet 20 mg PO BID 05/11/22 05/11/22 oxybutynin chloride 10 mg 10 mg PO 05/11/22 05/11/22 tablet,extended release 24 hr Allergies Allergy/AdvReac Type Severity Reaction Status Date / Time codeine Allergy Intermediate Rash Verified 08/06/22 11:34 erythromycin base Allergy Intermediate Rash Verified 08/06/22 11:34 morphine Allergy Intermediate Other Verified 08/06/22 11:34 nitrofurantoin Allergy Mild Rash Verified 08/06/22 11:34 Review of Systems Review of Systems: All systems reviewed & are unremarkable except as noted in HPI and below Constitutional: Constitutional: Denies chills, Denies fatigue and Denies fever(s) ENT: Denies nasal congestion and Denies sore throat Cardiovascular: Cardiovascular: Reports chest pain, Denies rapid heart rate and Denies radiating jaw, neck or arm pain Respiratory: Respiratory: Denies cough, Denies dyspnea and Denies wheezing Gastrointestinal: Gastrointestinal: Denies abdominal pain, Denies diarrhea, Denies nausea and Denies vomiting Integumentary/Breasts: Skin/Breast: Denies erythema and Denies rash PMFSH Past Medical History Medical History (Updated 08/06/22 @ 19:18 by Pasha Wynn MD) Abdominal hernia Multiple with mesh in place Anxiety Bilateral tennis elbow Crohn's disease Depression Fatty liver GERD (gastroesophageal reflux disease) GI bleed Had stomach bleeding repaired with a clip in the past. HTN (hypertension) Hyperlipidemia, unspecified Hypothyroidism, unspecified IBS (irritable bowel syndrome) Kidney disease States she had kidney failure treated 6 months ago at [facility] in [place], etiology uncertain Kidney stone PTSD (post-traumatic stress disorder) From childhood Surgical History Surgical History History of endoscopy History of hysterectomy History of lumbar fusion History of rotator cuff surgery Bilateral History of total right knee replacement Family History Family History Father Family history of diabetes mellitus in first degree relative Family history of heart disease in male family member before age 55 Hx of CABG Age 60-62 Alzheimer's dementia Cause of , 77 years old Mother Thoracic aortic aneurysm Sibling Thoracic aortic aneurysm Sister Sibling CAD (coronary artery disease) All 3 brothers have CAD and stents Other AAA (abdominal aortic aneurysm) Maternal grandmother had a AAA Other Cerebral aneurysm Maternal aunt had a cerebral aneurysm Other Family history of allergic disorder Family history of malignant neoplasm Hypertension Social H
[2022-08-06 19:42] VITALS: BP 109/83; PULSE 99; RESP 12; O2SAT 94
== END 2022-08-06 19:44 | disposition home or self-care (01) ==
PROVIDERS: Emergency Medicine; Emergency Provider Emergency Medicine; PCP Family Medicine
DX: R07.89 Other chest pain (principal); I10 Essential (primary) hypertension; E78.5 Hyperlipidemia, unspecified; K50.90 Crohn's disease, unspecified, without complications; K21.9 Gastro-esophageal reflux disease without esophagitis; F41.9 Anxiety disorder, unspecified; F43.10 Post-traumatic stress disorder, unspecified; Z87.442 Personal history of urinary calculi; Z90.710 Acquired absence of both cervix and uterus; Z98.1 Arthrodesis status; Z96.651 Presence of right artificial knee joint; R94.31 Abnormal electrocardiogram [ECG] [EKG]
CPT/HCPCS: 36415; 71046; 71275; 80053; 83690; 84484; 85025; 85380; 85610; 85730; 93005; 96372; 99284; J1885; Q9967

== ENCOUNTER 2022-08-20 16:48 | Emergency (ER) | payer MEDICARE, BC, SELFPAY ==
--- NOTE | ~2022-08-20 | XR_ITS ---
EXAMINATION: XR ankle RT min 3V DATE: 08/20/2022 17:21 INDICATION: Right ankle pain. TECHNIQUE: 4 views of right ankle were obtained. COMPARISON: Right foot radiographs 06/27/2021 FINDINGS: Bone alignment is normal. No fracture. Joint spaces are normal. IMPRESSION: 1. Normal right ankle. Reviewed, dictated and finalized at location E. IMPRESSION: 1. Normal right ankle.
--- NOTE | 2022-08-20 16:57 | ED.LOWEXIN ---
HPI - Extremity Injury (Lower) General Chief Complaint: Extremity Injury, Lower Stated Complaint: rt ankle pain and swelling Time Seen by Provider: 08/20/22 16:57 Source: patient Mode of arrival: ambulatory Limitations: no limitations History of Present Illness HPI Narrative: 61-year-old female presents with complaint of right ankle pain since yesterday morning. Patient reports that she can feel a popping in her right ankle with movement. States she called her oil fire specialist for appointment and was told that they could see her Tuesday but patient wanted to be seen today. She denies injury. Has been walking approximately 1 [address] in the park 3 times a week. States that she walks in her flip-flops. Reports right ankle is swollen, has not had similar pain in the past. All systems reviewed and negative except as noted above. Related Data Home Medications Medication Instructions Recorded Confirmed metoprolol succinate 100 mg 100 mg PO DAILY 03/18/19 08/20/22 tablet,extended release 24 hr (Toprol XL) esomeprazole magnesium 40 mg 40 mg PO DAILY 06/27/21 08/20/22 capsule,delayed release alprazolam 0.25 mg tablet 0.25 mg PO QHS PRN sleep 05/11/22 08/20/22 oxybutynin chloride 10 mg 10 mg PO DAILY 05/11/22 08/20/22 tablet,extended release 24 hr buspirone 30 mg tablet 30 mg PO BID 08/17/22 08/20/22 cholecalciferol (vitamin D3) 25 25 mcg PO DAILY 08/17/22 08/20/22 mcg (1,000 unit) capsule multivitamin-ferrous 1 tablet PO DAILY 08/17/22 08/20/22 fumarate-folic acid 18 mg-400 mcg tablet (Centrum Women) vilazodone 20 mg tablet 20 mg PO DAILY 08/17/22 08/20/22 levothyroxine 88 mcg tablet 0.088 mcg PO DAILY 08/20/22 08/20/22 Allergies Allergy/AdvReac Type Severity Reaction Status Date / Time codeine Allergy Intermediate Rash Verified 08/20/22 17:07 erythromycin base Allergy Intermediate Rash Verified 08/20/22 17:07 morphine Allergy Intermediate Other Verified 08/20/22 17:07 nitrofurantoin Allergy Mild Rash Verified 08/20/22 17:07 Review of Systems Review of Systems: CONSTITUTIONAL: Denies fever, chills, or sweats. EYES: Denies visual changes, redness, or discharge. ENT: Denies rhinorrhea, congestion, sore throat, or otalgia. CARDIOVASCULAR: Denies chest pain, palpitations, or edema. RESPIRATORY: Denies cough or dyspnea. GASTROINTESTINAL: Denies abdominal pain, nausea, vomiting, or diarrhea. GENITOURINARY: Denies dysuria or hematuria. SKIN: Denies rash or itching. MUSCULOSKELETAL: Denies back pain or myalgia. Reports pain And swelling to right ankle. NEUROLOGIC: Denies headache, numbness, or weakness. PSYCHIATRIC: Denies anxiety or depression. All other systems reviewed are negative, except as documented in HPI. [facility] Past Medical History Medical History Abdominal hernia Multiple with mesh in place Anxiety Bilateral tennis elbow Crohn's disease Depression Fatty liver GERD (gastroesophageal reflux disease) GI bleed Had stomach bleeding repaired with a clip in the past. HTN (hypertension) Hyperlipidemia, unspecified Hypothyroidism, unspecified IBS (irritable bowel syndrome) Kidney disease States she had kidney failure treated 6 months ago at [facility] in [place], etiology uncertain Kidney stone PTSD (post-traumatic stress disorder) From childhood Surgical History Surgical History History of endoscopy History of hysterectomy History of lumbar fusion History of rotator cuff surgery Bilateral History of total right knee replacement Family History Family History Father Family history of diabetes mellitus in first degree relative Family history of heart disease in male family member before age 55 Hx of CABG Age 60-62 Alzheimer's dementia Cause of , 77 years old Mother Thoracic aortic aneurysm Sibli
[2022-08-20 16:59] VITALS: BP 104/56; PULSE 71; RESP 16; TEMP 36.1; O2SAT 97
== END 2022-08-20 17:37 | disposition home or self-care (01) ==
PROVIDERS: Emergency Provider Nurse Practitioner Family; PCP Family Medicine
DX: S96.911A Strain of unspecified muscle and tendon at ankle and foot level, right foot, initial encounter (principal); X58.XXXA Exposure to other specified factors, initial encounter; K50.90 Crohn's disease, unspecified, without complications; K21.9 Gastro-esophageal reflux disease without esophagitis; I10 Essential (primary) hypertension; E78.5 Hyperlipidemia, unspecified; K76.0 Fatty (change of) liver, not elsewhere classified; F41.9 Anxiety disorder, unspecified; F32.A Depression, unspecified
CPT/HCPCS: 73610; 99213; G0463

== ENCOUNTER 2022-11-15 09:05 | Outpatient (CLI) | payer MEDICARE, BC, SELFPAY ==
--- NOTE | 2022-11-15 | ECG_ITS ---
Measurements Intervals [place] Rate: 58 P: 41 WI: 161 QRS: -9 QRSD: 79 T: 46 QT: 393 QTc: 389 Interpretive Statements NORMAL SINUS RHYTHM NORMAL ECG ARTIFACT RELATED TO BACK STIMULATOR COMPARED TO ECG 08/06/2022 11:38:02 NO SIGNIFICANT CHANGES Electronically Signed On 11-15-2022 10:29:39 CDT by Caleb Veloz M.D.
[2022-11-15 09:59] LABS: Anion Gap 10 mmol/L (8-16); Blood Urea Nitrogen 16 mg/dL (7-17); Calcium 9.4 mg/dL (8.4-10.2); Carbon Dioxide 26 mmol/L (22-30); Chloride 104 mmol/L (98-107); Estimated Glomerular Filt Rate 50; Glucose 119 mg/dL (65-110); Potassium 4.4 mmol/L (3.4-5.0); Sodium 140 mmol/L (137-145)
== END 2022-11-15 09:06 | disposition home or self-care (01) ==
PROVIDERS: PCP Family Medicine; Visit Provider Orthopaedic Surgery
DX: Z01.818 Encounter for other preprocedural examination (principal)
CPT/HCPCS: 36415; 80048; 93005

== ENCOUNTER 2022-12-21 15:22 | Outpatient (CLI) | payer MEDICARE, BC, SELFPAY ==
--- NOTE | ~2022-12-21 | MM_ITS ---
EXAMINATION: MM screening jac BI w ariel HISTORY: Screening mammogram TECHNIQUE: Craniocaudal and mediolateral oblique 3-D tomosynthesis images were obtained and synthetic 2-D images were generated. CAD analysis was submitted and interpreted. COMPARISON: 07/13/2021, 06/05/2020 bilateral screening mammogram examinations BREAST PARENCHYMAL COMPOSITION: There are scattered areas of fibroglandular density. FINDINGS: There is no evidence of suspicious mass, calcification, or architectural distortion to sugg est malignancy in either breast. There has been no suspicious interval change. IMPRESSION: 1. No mammographic evidence of malignancy. 2. Recommend routine screening mammography in one year. BI-RADS Category 1: Negative Reviewed, dictated and finalized at location A.
== END 2022-12-21 15:23 | disposition home or self-care (01) ==
PROVIDERS: PCP Family Medicine; Visit Provider Family Medicine
DX: Z12.31 Encounter for screening mammogram for malignant neoplasm of breast (principal)
CPT/HCPCS: 77063; 77067

== ENCOUNTER 2023-04-12 17:17 | Emergency (ER) | payer MEDICARE, BC, SELFPAY ==
[2023-04-12 17:45] VITALS: BP 113/68; PULSE 70; RESP 18; TEMP 36.5; O2SAT 95
--- NOTE | 2023-04-12 18:18 | ED.EXTPRO ---
HPI - Extremity Problem General Chief complaint: Extremity Problem,Nontraumatic Stated complaint: rt foot pain Time Seen by Provider: 04/12/23 18:18 Source: patient, RN notes reviewed and old records reviewed Mode of arrival: ambulatory Limitations: no limitations History of Present Illness HPI Narrative: 62-year-old female presents to the [facility] with complaints of right foot pain since the 29 of March. Has a history of plantar fasciitis. Is wearing slippers with no arch. States that she has not been wearing any arches or supportive shoes. Denies trauma Patient is also complaining of bilateral ear pain for several weeks Related Data Home Medications Medication Instructions Recorded Confirmed metoprolol succinate 100 mg 100 mg PO DAILY 03/18/19 04/12/23 tablet,extended release 24 hr (Toprol XL) esomeprazole magnesium 40 mg 40 mg PO DAILY 06/27/21 04/12/23 capsule,delayed release alprazolam 0.25 mg tablet 0.25 mg PO QHS PRN sleep 05/11/22 04/12/23 oxybutynin chloride 10 mg 10 mg PO DAILY 05/11/22 04/12/23 tablet,extended release 24 hr buspirone 30 mg tablet 30 mg PO BID 08/17/22 04/12/23 cholecalciferol (vitamin D3) 25 25 mcg PO DAILY 08/17/22 04/12/23 mcg (1,000 unit) capsule multivitamin-ferrous 1 tablet PO DAILY 08/17/22 04/12/23 fumarate-folic acid 18 mg-400 mcg tablet (Centrum Women) Allergies Allergy/AdvReac Type Severity Reaction Status Date / Time codeine AdvReac Mild Rash Verified 04/12/23 17:53 erythromycin base AdvReac Mild Rash Verified 04/12/23 17:53 morphine AdvReac Mild Rash Verified 04/12/23 17:53 nitrofurantoin AdvReac Mild Rash Verified 04/12/23 17:53 Review of Systems Review of Systems: All systems reviewed & are unremarkable except as noted in HPI and below Constitutional: Constitutional: Reports no additional constitutional complaints Eyes: Eyes: Reports no additional eye complaints ENT: Reports as per HPI and Reports otalgia Cardiovascular: Cardiovascular: Reports no additional cardiovascular complaints, Denies chest pain and Denies dyspnea Respiratory: Respiratory: Reports no additional respiratory complaints, Denies chest congestion, Denies cough and Denies dyspnea Gastrointestinal: Gastrointestinal: Reports no additional gastrointestinal complaints, Denies abdominal pain, Denies nausea and Denies vomiting Musculoskeletal: Musculoskeletal: Reports as per HPI Integumentary/Breasts: Skin/Breast: Reports system reviewed and no additional complaints, except as docu Neurologic: Reports system reviewed and no additional complaints, except as documented Psychiatric: Psychiatric: Reports no additional psychiatric complaints Allergic/Immunologic: Allergic/Immunologic: Reports no additional allergic/immunologic complaints PMFSH Past Medical History Medical History Abdominal hernia Multiple with mesh in place Anxiety Bilateral tennis elbow Crohn's disease Depression Fatty liver GERD (gastroesophageal reflux disease) GI bleed Had stomach bleeding repaired with a clip in the past. HTN (hypertension) Hyperlipidemia, unspecified Hypothyroidism, unspecified IBS (irritable bowel syndrome) Kidney disease States she had kidney failure treated 6 months ago at [facility] in [place], etiology uncertain Kidney stone PTSD (post-traumatic stress disorder) From childhood Surgical History Surgical History History of endoscopy History of hysterectomy History of lumbar fusion History of rotator cuff surgery Bilateral History of total right knee replacement Family History Family History Father Family history of diabetes mellitus in first degree relative Family history of heart disease in male family member before age 55 Hx of CABG Age 60-62 Alzheimer's dementia Cause of isabella
== END 2023-04-12 18:30 | disposition home or self-care (01) ==
PROVIDERS: Emergency Provider Nurse Practitioner; PCP Family Medicine
DX: H65.03 Acute serous otitis media, bilateral (principal); M72.2 Plantar fascial fibromatosis; I10 Essential (primary) hypertension; E78.5 Hyperlipidemia, unspecified; E03.9 Hypothyroidism, unspecified; Z79.899 Other long term (current) drug therapy
CPT/HCPCS: 99211; G0463

== ENCOUNTER 2023-05-08 15:26 | Emergency (ER) | payer MEDICARE, BC, SELFPAY ==
--- NOTE | ~2023-05-08 | XR_ITS ---
EXAMINATION: XR chest 2V Exam Date/Time: 05/08/2023 15:55 WOOD MODEL MAKER HISTORY: CP Comparison: 07/29/2022. RESULT: Lines, tubes, and devices: Cholecystectomy clips. Vertebroplasty cement, at T11. Stimulator leads pr oject over the midthoracic spine. Lungs and pleura: Clear. Granulomatous calcification Cardiomediastinal silhouette: Stable. Other: No acute osseous or upper abdominal finding. IMPRESSION: No acute cardiopulmonary process. Reviewed, dictated and finalized at location K. MODEL MAKER
--- NOTE | ~2023-05-08 | CT_ITS ---
Clinical Indication: Chest pain CT Scan of the Chest with Contrast: Technique: Contiguous sections were acquired throughout the chest after intravenous administration of 100 cc of Omnipaque 350. Dose reduction technique was used on this scan by utilizing automated expos ure control and iterative reconstruction technique. The dose-length product (DLP) was 314.31 mGy-cm. COMPARISON: 08/06/2022 Findings: There is no evidence of any significant mediastinal, hilar or axillary lymphadenopathy. There is no f illing defect in the pulmonary arterial tree to suggest pulmonary embolus. There is no evidence of ao rtic dissection or aneurysm. There is no evidence of pleural or pericardial effusion. The lungs are clear. No pulmonary nodules or infiltrates are noted. Images through the upper abdomen reveal no abnormalities. Impression: No evidence of pulmonary embolus, aortic dissection, or aortic aneurysm. Clear lungs. Reviewed, dictated and finalized at [facility]. OR STAFF ACCOUNTANT Impression: No evidence of pulmonary embolus, aortic dissection, or aortic aneurysm. Clear lungs.
--- NOTE | 2023-05-08 15:39 | ECG_ITS ---
Measurements Intervals [place] Rate: 109 P: 52 [place]: 344 QRS: -21 QRSD: 74 T: 69 QT: 317 QTc: 427 Interpretive Statements SINUS TACHYCARDIA LEFT VENTRICULAR HYPERTROPHY WITH ST-T CHANGE BORDERLINE R WAVE PROGRESSION, ANTERIOR LEADS BASELINE ARTIFACT- II, III, AVR, AVL, AVF, V3-V6 ABNORMAL ECG COMPARED TO ECG 11/15/2022 09:49:06 SINUS TACHYCARDIA NOW PRESENT Electronically Signed On 05-08-2023 19:22:59 IT SUPPORT MANAGER by Moisés August D.O.
[2023-05-08 15:51] VITALS: BP 137/87; PULSE 112; RESP 20; O2SAT 96
[2023-05-08 15:54] LABS: Basophils Absolute Auto 0.1 K/mm3 (0.0-0.1); Basophils Percent Auto 0.5 % (0.2-1.2); Eosinophils Absolute Auto 0.1 K/mm3 (0-0.3); Eosinophils Percent Auto 1.2 % (0-4.4); Hemoglobin 13.6 g/dL (12.0-15.0); Immature Granulocyte Absolute 0.02 K/mm3 (0.00-0.031); Immature Granulocyte Percent A 0.2 % (0-0.5); Lymphocytes Absolute Auto 3.06 K/mm3 (0.9-3.2); Lymphocytes Percent Auto 32.3 % (18.3-44.2); Mean Corpuscular HGB Conc 30.2 g/dl (32-36); Mean Corpuscular Hemoglobin 25.1 pg (26-34); Mean Corpuscular Volume 83.2 fl (80-100); Mean Platelet Volume 10.6 fl (7.4-10.4); Monocytes Absolute Auto 0.9 K/mm3 (0.1-0.6); Monocytes Percent Auto 9.3 % (2.6-8.5); Neutrophils Absolute Auto 5.4 K/mm3 (1.3-6.7); Neutrophils Percent Auto 56.5 % (45.5-73.1); Platelet Count Result 185 k/mm3 (150-375); Red Blood Count 5.41 M/mm3 (4.2-5.4); Red Cell Distribution Width 14.6 % (11.5-14.5); White Blood Count 9.5 K/mm3 (4.5-10.0)
[2023-05-08 16:05] LABS: Alanine Aminotransferase 28 U/L (6-35); Albumin Level 4.8 g/dL (3.5-5.1); Alkaline Phosphatase 92 U/L (38-126); Anion Gap 9 mmol/L (8-16); Aspartate Amino Transferase 31 U/L (14-36); Bilirubin,Total 0.5 mg/dL (0.2-1.3); Blood Urea Nitrogen 17 mg/dL (7-17); Calcium 9.5 mg/dL (8.4-10.2); Carbon Dioxide 28 mmol/L (22-30); Chloride 105 mmol/L (98-107); Estimated CRCL calculation 44 ml/min; Estimated Glomerular Filt Rate 50; Glucose 105 mg/dL (65-110); Lipase 162 U/L (23-300); Potassium 4.3 mmol/L (3.4-5.0); Sodium 142 mmol/L (137-145)
[2023-05-08 16:06] LABS: Prothrombin Time 13.2 Seconds (11.1-14.7)
[2023-05-08 16:07] LABS: Partial Thromboplastin Time 35.7 SECONDS (22.3-36.8)
[2023-05-08 16:17] LABS: Troponin I < 0.012 ng/mL (0.000-0.034)
[2023-05-08 20:00] VITALS: BP 134/88; PULSE 120; RESP 20; TEMP 36.1; O2SAT 95
--- NOTE | 2023-05-08 23:10 | ED.GENADULT ---
HPI - General Adult General Chief complaint: Chest Pain Stated complaint: cp and pounding heart beatt Time Seen by Provider: 05/08/23 23:00 Source: patient Mode of arrival: ambulatory Limitations: no limitations History of Present Illness HPI narrative: This is a 62-year-old female who presents to the ED with chief complaint of chest pain beginning last night and continuing through today. Reports that the pain is in the left side of the chest and radiates down the left arm. Reports it is somewhat worse with exertion. She has been nauseous today but has not had any vomiting. Endorses some lightheadedness as well but no syncopal episode. Endorses palpitations which she has had in the past. Reports she has had 2 different cardiac catheterizations and was told there was no blockages. Denies any history of heart attack. Denies shortness of breath, cough, recent illness. Related Data Home Medications Medication Instructions Recorded Confirmed metoprolol succinate 100 mg 100 mg PO DAILY 03/18/19 04/12/23 tablet,extended release 24 hr (Toprol XL) esomeprazole magnesium 40 mg 40 mg PO DAILY 06/27/21 04/12/23 capsule,delayed release alprazolam 0.25 mg tablet 0.25 mg PO QHS PRN sleep 05/11/22 04/12/23 buspirone 30 mg tablet 30 mg PO BID 08/17/22 04/12/23 cholecalciferol (vitamin D3) 25 25 mcg PO DAILY 08/17/22 04/12/23 mcg (1,000 unit) capsule multivitamin-ferrous 1 tablet PO DAILY 08/17/22 04/12/23 fumarate-folic acid 18 mg-400 mcg tablet (Centrum Women) Allergies Allergy/AdvReac Type Severity Reaction Status Date / Time codeine AdvReac Mild Rash Verified 05/08/23 23:52 erythromycin base AdvReac Mild Rash Verified 05/08/23 23:52 morphine AdvReac Mild Rash Verified 05/08/23 23:52 nitrofurantoin AdvReac Mild Rash Verified 05/08/23 23:52 Review of Systems Review of Systems: All systems as dictated in [facility] Past Medical History Medical History Abdominal hernia Multiple with mesh in place Anxiety Bilateral tennis elbow Crohn's disease Depression Fatty liver GERD (gastroesophageal reflux disease) GI bleed Had stomach bleeding repaired with a clip in the past. HTN (hypertension) Hyperlipidemia, unspecified Hypothyroidism, unspecified IBS (irritable bowel syndrome) Kidney disease States she had kidney failure treated 6 months ago at [facility] in [place], etiology uncertain Kidney stone PTSD (post-traumatic stress disorder) From childhood Surgical History Surgical History History of endoscopy History of hysterectomy History of lumbar fusion History of rotator cuff surgery Bilateral History of total right knee replacement Family History Family History Father Family history of diabetes mellitus in first degree relative Family history of heart disease in male family member before age 55 Hx of CABG Age 60-62 Alzheimer's dementia Cause of , 77 years old Mother Thoracic aortic aneurysm Sibling Thoracic aortic aneurysm Sister Sibling CAD (coronary artery disease) All 3 brothers have CAD and stents Other AAA (abdominal aortic aneurysm) Maternal grandmother had a AAA Other Cerebral aneurysm Maternal aunt had a cerebral aneurysm Other Family history of allergic disorder Family history of malignant neoplasm Hypertension 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
[2023-05-08 23:22] VITALS: PULSE 81; RESP 22; O2SAT 93
[2023-05-08 23:45] VITALS: BP 142/89
[2023-05-09] MEDS: SODIUM CHLORIDE 0.9% IV 1,000 ML 999 ML IV CONT (00:02)
[2023-05-09] MEDS: ONDANSETRON INJ 4 MG/2 ML VIAL IV PUSH (00:02)
[2023-05-09] MEDS: HYDROmorphone HCL INJ (*CRX) 1 MG/ML SYR 0.5 MG IV PUSH (00:20)
[2023-05-09 00:50] VITALS: BP 152/78; PULSE 90; RESP 18; O2SAT 97
[2023-05-09 00:51] LABS: Troponin I < 0.012 ng/mL (0.000-0.034)
[2023-05-09] MEDS: PANTOPRAZOLE SODIUM IV 40 MG VIAL IV PUSH (01:49)
[2023-05-09 01:52] VITALS: BP 131/64; PULSE 83; RESP 12; O2SAT 96
== END 2023-05-09 01:58 | disposition home or self-care (01) ==
PROVIDERS: Emergency Medicine; Emergency Provider Physician Assistant; PCP Family Medicine
DX: R07.89 Other chest pain (principal); R00.2 Palpitations; I10 Essential (primary) hypertension; E78.5 Hyperlipidemia, unspecified; E03.9 Hypothyroidism, unspecified; K50.90 Crohn's disease, unspecified, without complications; F32.A Depression, unspecified; F41.9 Anxiety disorder, unspecified; F43.10 Post-traumatic stress disorder, unspecified; Z87.442 Personal history of urinary calculi; Z90.710 Acquired absence of both cervix and uterus; Z98.1 Arthrodesis status; Z96.653 Presence of artificial knee joint, bilateral; R00.0 Tachycardia, unspecified; I51.7 Cardiomegaly; R94.31 Abnormal electrocardiogram [ECG] [EKG]
CPT/HCPCS: 36415; 71046; 71275; 80053; 83690; 84484; 85025; 85610; 85730; 93005; 96361; 96374; 96375; 99284; C9113; J1170; J2405; J7030; Q9967

== ENCOUNTER 2023-09-06 09:52 | Outpatient (CLI) | payer MEDICARE, BC, SELFPAY ==
--- NOTE | 2023-09-06 | ECG_ITS ---
SEE SCANNED COPY FOR CONFIRMED REPORT MTDD
--- NOTE | ~2023-09-06 | XR_ITS ---
Clinical Indication: Preoperative evaluation PA and lateral views of the chest: Comparison: 05/08/2023 Findings: The lungs are clear, without evidence of focal consolidation or pleural effusion. Cardiome diastinal silhouette is within normal limits. Stable vertebroplasty and intrathecal catheter. Impression: Clear lungs. Reviewed, dictated and finalized at [facility]. Impression: Clear lungs.
[2023-09-06 10:38] LABS: Basophils Absolute Auto 0.1 K/mm3 (0.0-0.1); Basophils Percent Auto 0.6 % (0.2-1.2); Eosinophils Absolute Auto 0.3 K/mm3 (0-0.3); Eosinophils Percent Auto 3.2 % (0-4.4); Hematocrit 45.7 % (37.0-47.0); Hemoglobin 13.8 g/dL (12.0-15.0); Immature Granulocyte Absolute 0.02 K/mm3 (0.00-0.031); Immature Granulocyte Percent A 0.2 % (0-0.5); Lymphocytes Absolute Auto 2.18 K/mm3 (0.9-3.2); Lymphocytes Percent Auto 21.9 % (18.3-44.2); Mean Corpuscular HGB Conc 30.2 g/dl (32-36); Mean Corpuscular Hemoglobin 26.2 pg (26-34); Mean Corpuscular Volume 86.9 fl (80-100); Mean Platelet Volume 10.9 fl (7.4-10.4); Monocytes Absolute Auto 0.8 K/mm3 (0.1-0.6); Monocytes Percent Auto 8.4 % (2.6-8.5); Neutrophils Absolute Auto 6.6 K/mm3 (1.3-6.7); Neutrophils Percent Auto 65.7 % (45.5-73.1); Platelet Count Result 217 k/mm3 (150-375); Red Blood Count 5.26 M/mm3 (4.2-5.4); Red Cell Distribution Width 14.4 % (11.5-14.5)
[2023-09-06 10:49] LABS: Prothrombin Time 13.2 Seconds (11.1-14.7)
[2023-09-06 10:50] LABS: Partial Thromboplastin Time 35.2 Seconds (22.3-36.8)
[2023-09-06 10:52] LABS: Anion Gap 8 mmol/L (4-12); Blood Urea Nitrogen 21 mg/dL (7-17); CRP 0.6 mg/dL (<1.0); Calcium 9.9 mg/dL (8.4-10.2); Carbon Dioxide 30 mmol/L (22-30); Chloride 101 mmol/L (98-107); Estimated Glomerular Filt Rate 42; Glucose 125 mg/dL (65-110); Potassium 5.1 mmol/L (3.4-5.0); Sodium 139 mmol/L (137-145)
[2023-09-06 11:18] LABS: Appearance Urine Cloudy (Clear); Bacteria Urine None Seen /hpf; Bilirubin Urine Negative (Negative); Blood Urine Negative (Negative); Color Urine Dark Yellow (Yellow); Glucose Urine UA Negative (Negative); Ketones Urine Trace mg/dL (Negative); Leukocyte Esterase Ur 2+ LEU/UL (Negative); Need Manual Microscopic Reviewed; Nitrate Urine Negative (Negative); Non Pathogenic Casts >20; Protein Urine Trace mg/dL (Negative); RBC Urine 0-2 /hpf (0-2); Specific Grav Ur 1.026 (1.001-1.035); Squamous Epithelial Cell Urine Many /hpf (Few); WBC Urine 0-5 /hpf (0-3); pH Urine 5.5 (5.0-9.0)
[2023-09-06 11:28] LABS: Add Urine Microscopic? YES
[2023-09-06 11:41] LABS: Erythrocyte Sedimentation Rate 24 mm/hr (0-20)
== END 2023-09-06 09:53 | disposition home or self-care (01) ==
PROVIDERS: PCP Family Medicine; Visit Provider Anesthesiology
DX: A79.1 Rickettsialpox due to Rickettsia akari (principal); I25.10 Atherosclerotic heart disease of native coronary artery without angina pectoris; M54.16 Radiculopathy, lumbar region; R07.89 Other chest pain
CPT/HCPCS: 36415; 71046; 80048; 81001; 85025; 85610; 85652; 85730; 86140; 93005

== ENCOUNTER 2023-09-13 09:25 | Outpatient (CLI) | payer MEDICARE, BC, SELFPAY ==
[2023-09-13 10:19] LABS: Appearance Urine Clear (Clear); Bacteria Urine None Seen /hpf; Bilirubin Urine Negative (Negative); Blood Urine Negative (Negative); Color Urine Yellow (Yellow); Glucose Urine UA Negative (Negative); Ketones Urine Negative (Negative); Leukocyte Esterase Ur Trace LEU/UL (Negative); Nitrate Urine Negative (Negative); Non Pathogenic Casts 0-2; Protein Urine Negative (Negative); RBC Urine 0-2 /hpf (0-2); Specific Grav Ur 1.013 (1.001-1.035); Squamous Epithelial Cell Urine None Seen /hpf (Few); Urobilinogen Urine 0.2 mg/dL (<2.0); WBC Urine 0-5 /hpf (0-3)
[2023-09-13 10:23] LABS: Add Urine Microscopic? YES
== END 2023-09-13 09:26 | disposition home or self-care (01) ==
LOC: ANHLAB 09:30
PROVIDERS: PCP Family Medicine; Visit Provider Anesthesiology
DX: N39.0 Urinary tract infection, site not specified (principal)
CPT/HCPCS: 81001; 87086

== ENCOUNTER 2023-11-11 13:27 | Outpatient (CLI) | payer MEDICARE, BC, SELFPAY ==
--- NOTE | ~2023-11-11 | MR_ITS ---
EXAMINATION: MR lumbar spine wo con DATE: 11/11/2023 14:48 INDICATION: Lumbar radiculopathy. TECHNIQUE: Magnetic resonance imaging (MRI) of the lumbar spine was performed without intravenous con trast. COMPARISON: Lumbar spine MRI 11/25/2020 FINDINGS: There is 3 degrees levocurvature of lumbar spine. There are changes of vertebroplasty at T1 1. There are changes of anterior fusion procedures at L4-L5 and L5-S1. At L5-S1, interbody device ext ends into the right neural foramen. Intervertebral disc heights are normal. The distal spinal cord si gnal intensity is normal. The conus medullaris is at L1-L2. There is a 12 x 7 x 12 mm subcutaneous fl uid collection posterior to L2. The following disc levels are specifically discussed: L1-L2: The disc does not extend beyond the endplate margin. There is mild bilateral facet joint osteo arthritis. There is no neural foraminal stenosis. There is no central canal stenosis. L2-L3: The disc is bulging. There is mild bilateral facet joint osteoarthritis. There is mild bilater al neural foraminal stenosis. There is mild central canal stenosis. L3-L4: The disc is bulging. There is mild bilateral facet joint osteoarthritis. There is mild bilater al neural foraminal stenosis. There is mild central canal stenosis. L4-L5: There is mild bilateral facet joint osteoarthritis. There is no neural foraminal stenosis. The re is no central canal stenosis. L5-S1: There is moderate bilateral facet joint osteoarthritis. There is moderate right and mild left neural foraminal stenosis. There is no central canal stenosis. IMPRESSION: 1. Moderate neural foraminal stenosis on the right at L5-S1. Otherwise mild lumbar spondylosis. 2. Anterior fusion procedures at L4-L5 and L5-S1. 3. 12 x 7 x 12 mm subcutaneous fluid collection posterior to L2, which may be a seroma, abscess, or h ematoma. Reviewed, dictated and finalized at location A. IMPRESSION: 1. Moderate neural foraminal stenosis on the right at L5-S1. Otherwise mild lum bar spondylosis. 2. Anterior fusion procedures at L4-L5 and L5-S1. 3. 12 x 7 x 12 mm subcutaneous fluid collection posterior to L2, which may be a seroma, abscess, or hematoma.
--- NOTE | ~2023-11-11 | MR_ITS ---
EXAMINATION: MR thoracic spine wo con DATE: 11/11/2023 14:48 INDICATION: Thoracic radiculopathy. Back pain. TECHNIQUE: Magnetic resonance imaging (MRI) of the thoracic spine was performed without intravenous c ontrast. COMPARISON: Chest CT 05/09/2023 FINDINGS: There is 6 degrees levocurvature of upper thoracic spine. There is mild chronic anterior we dging of T6-T12 vertebral bodies. There are changes of vertebroplasty at T11. There is moderate to se verely decreased disc height from T2-T3 through T8-T9 and mildly decreased disc height at T9-T10 and T10-T11. The discs are bulging from T2-T3 through T9-T10 with mild central canal stenosis. The spinal cord signal intensity is normal. There is multilevel facet joint osteoarthritis, mild at most levels . On the left, there is mild neural foraminal stenosis at T3-T4. IMPRESSION: 1. Severe thoracic spondylosis. Reviewed, dictated and finalized at location A.
== END 2023-11-11 13:28 ==
PROVIDERS: PCP Family Medicine; Visit Provider Anesthesiology
DX: M43.04 Spondylolysis, thoracic region (principal); M48.061 Spinal stenosis, lumbar region without neurogenic claudication; M48.07 Spinal stenosis, lumbosacral region; Z98.1 Arthrodesis status
CPT/HCPCS: 72146; 72148

== ENCOUNTER 2023-11-11 18:10 | Emergency (ER) | payer MEDICARE, BC, SELFPAY ==
--- NOTE | ~2023-11-11 | XR_ITS ---
EXAMINATION: XR chest 2V DATE: 11/11/2023 18:34 INDICATION: Chest pain TECHNIQUE: PA and lateral views of the chest were obtained. COMPARISON: Chest radiograph dated 09/06/2023 FINDINGS: Calcified left lung nodule and calcified left hilar and mediastinal lymph nodes consistent with old g ranulomatous disease. No pulmonary edema, pleural effusion or pneumothorax. The cardiomediastinal jorge houette is normal. Cholecystectomy clips in right upper quadrant. T11 vertebroplasty. Widening of the bilateral acromioclavicular joints likely related to prior bilateral distal clavicle resections. IMPRESSION: 1. No acute cardiopulmonary disease. Reviewed, dictated and finalized at location A.
[2023-11-11 18:10] VITALS: BP 137/80; PULSE 87; RESP 16; TEMP 36.4; O2SAT 98
[2023-11-11 18:14] VITALS: BP 137/87; PULSE 89; RESP 18; TEMP 36.4; O2SAT 95
--- NOTE | 2023-11-11 18:15 | ECG_ITS ---
Test Date: 2023-11-11 18:19:58 Measurements Intervals [place] Rate: 87 P: 37 MA: 139 QRS: -11 QRSD: 80 T: 34 QT: 350 QTc: 422 Interpretive Statements SINUS RHYTHM POOR R-WAVE PROGRESSION BORDERLINE ECG No previous ECG available for comparison Electronically Signed On 11-11-2023 18:26:29 CDT by Sunny Chung M.D.
--- NOTE | 2023-11-11 18:21 | ED.GENADULT ---
HPI - General Adult General Chief complaint: Arrhythmia/Palpitations <John Huff APRN - Last Filed: 11/11/23 18:24> Stated complaint: palpatations <John Huff APRN - Last Filed: 11/11/23 18:24> Time Seen by Provider: 11/11/23 18:21 <John Huff APRN - Last Filed: 11/11/23 18:24> patient presents with mid sternal chest pain and palpitations that has been going on for 1 week. patient had a holter monitor but has not gotten results. patient has a hx of a-fib. PE: A&OX3, BS CTA, heart RRR with no murmur, moving all extremities, skin warm and intact <John Huff APRN - Last Filed: 11/11/23 18:24> History of Present Illness HPI narrative: patient is 60-year-old female presents emergency department chief complaint of palpitations. 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 The patient reports she has had some shortness of breath with exertion <Reno Alfred MD - Last Filed: 11/12/23 01:14> Related Data Home medications: Home Medications Medication Instructions Recorded Confirmed esomeprazole magnesium 40 mg 40 mg PO DAILY 06/27/21 10/27/23 capsule,delayed release buspirone 30 mg tablet 30 mg PO BID 08/17/22 10/27/23 cholecalciferol (vitamin D3) 25 25 mcg PO DAILY 08/17/22 10/27/23 mcg (1,000 unit) capsule multivitamin-ferrous 1 tablet PO DAILY 08/17/22 10/27/23 fumarate-folic acid 18 mg-400 mcg tablet (Centrum Women) bupropion HCl 75 mg tablet 75 mg PO DAILY 10/27/23 10/27/23 fluticasone propionate 230 2 inh inhalation BID 10/27/23 10/27/23 mcg-salmeterol 21 mcg/actuation HFA inhaler (Advair HFA) sertraline 100 mg tablet 100 mg PO DAILY 10/27/23 10/27/23 trazodone 100 mg tablet 100 mg PO DAILY 10/27/23 10/27/23 <John Huff APRN - Last Filed: 11/11/23 18:24> Allergies/adverse reactions: Allergies Allergy/AdvReac Type Severity Reaction Status Date / Time codeine AdvReac Mild Rash Verified 05/08/23 23:52 erythromycin base AdvReac Mild Rash Verified 05/08/23 23:52 morphine AdvReac Mild Rash Verified 05/08/23 23:52 nitrofurantoin AdvReac Mild Rash Verified 05/08/23 23:52 <John Huff APRN - Last Filed: 11/11/23 18:24> Review of Systems Review of Systems: A 10 system review of systems was completed on the patient and is negative except for what is stated in the HPI. Nursing and ancillary documentation was reviewed. <Reno Alfred MD - Last Filed: 11/12/23 01:14> [facility] Past Medical History Medical History: Medical History Abdominal hernia Multiple with mesh in place Anxiety Bilateral tennis elbow Crohn's disease Depression Fatty liver GERD (gastroesophageal reflux disease) GI bleed Had stomach bleeding repaired with a clip in the past. HTN (hypertension) Hyperlipidemia, unspecified Hypothyroidism, unspecified IBS (irritable bowel syndrome) Kidney disease States she had kidney failure treated 6 months ago at [facility] in [place], etiology uncertain Kidney stone PTSD (post-traumatic stress disorder) From childhood <John Huff APRN - Last Filed: 11/11/23 18:24> Surgical History Surgical History: Surgical History History of endoscopy History of hysterectomy History of lumbar fusion History of rotator cuff surgery Bilateral History of total right knee replacement <John Huff APRN - Last Filed: 11/11/23 18:24> Family History Family History: Family History Father Family history of diabetes mellitus in first degree relativ
[2023-11-11 18:31] LABS: Basophils Percent Auto 0.4 % (0.2-1.2); Eosinophils Absolute Auto 0.2 K/mm3 (0-0.3); Eosinophils Percent Auto 1.8 % (0-4.4); Immature Granulocyte Absolute 0.03 K/mm3 (0.00-0.031); Immature Granulocyte Percent A 0.3 % (0-0.5); Lymphocytes Absolute Auto 3.03 K/mm3 (0.9-3.2); Lymphocytes Percent Auto 30.3 % (18.3-44.2); Mean Corpuscular Hemoglobin 26.7 pg (26-34); Mean Corpuscular Volume 86.2 fl (80-100); Mean Platelet Volume 10.7 fl (7.4-10.4); Monocytes Percent Auto 9.5 % (2.6-8.5); Neutrophils Absolute Auto 5.8 K/mm3 (1.3-6.7); Neutrophils Percent Auto 57.7 % (45.5-73.1); Platelet Count Result 169 k/mm3 (150-375); Red Blood Count 4.87 M/mm3 (4.2-5.4); Red Cell Distribution Width 13.7 % (11.5-14.5)
[2023-11-11 18:40] LABS: Alanine Aminotransferase 21 U/L (6-35); Albumin Level 4.8 g/dL (3.5-5.1); Alkaline Phosphatase 67 U/L (38-126); Anion Gap 14 mmol/L (4-12); Aspartate Amino Transferase 30 U/L (14-36); Bilirubin,Total 0.3 mg/dL (0.2-1.3); Blood Urea Nitrogen 13 mg/dL (7-17); Calcium 9.2 mg/dL (8.4-10.2); Carbon Dioxide 26 mmol/L (22-30); Chloride 98 mmol/L (98-107); Estimated CRCL calculation 52 ml/min; Estimated Glomerular Filt Rate > 60; Glucose 111 mg/dL (65-110); Lipase 101 U/L (23-300); Potassium 3.5 mmol/L (3.4-5.0); Sodium 138 mmol/L (137-145)
[2023-11-11 18:42] LABS: Prothrombin Time 13.3 Seconds (11.1-14.7)
[2023-11-11 18:45] LABS: D Dimer 0.32 ug/mL (<0.48)
[2023-11-11 18:52] LABS: NT Pro B Type Natriuretic Pept 55 pg/mL (19.9-100); Troponin I < 0.012 ng/mL (0.000-0.034)
[2023-11-12 00:50] LABS: Troponin I < 0.012 ng/mL (0.000-0.034)
[2023-11-12 01:29] VITALS: BP 132/67; PULSE 77; RESP 20; O2SAT 95
== END 2023-11-12 01:37 | disposition home or self-care (01) ==
PROVIDERS: Nurse Practitioner Family; Emergency Provider Emergency Medicine; PCP Family Medicine
DX: R00.2 Palpitations (principal); R06.02 Shortness of breath; I48.91 Unspecified atrial fibrillation; I10 Essential (primary) hypertension; E78.5 Hyperlipidemia, unspecified; K50.90 Crohn's disease, unspecified, without complications; K21.9 Gastro-esophageal reflux disease without esophagitis; N28.9 Disorder of kidney and ureter, unspecified; F32.A Depression, unspecified; F41.9 Anxiety disorder, unspecified; F43.10 Post-traumatic stress disorder, unspecified; Z87.442 Personal history of urinary calculi; Z79.899 Other long term (current) drug therapy; R94.31 Abnormal electrocardiogram [ECG] [EKG]
CPT/HCPCS: 36415; 71046; 80053; 83690; 83880; 84484; 85025; 85380; 85610; 85730; 93005; 99284

== ENCOUNTER 2024-03-30 11:41 | Outpatient (CLI) | payer MEDICARE, BC, SELFPAY ==
--- NOTE | 2024-03-30 | ECG_ITS ---
Test Date: 2024-03-30 12:38:08 Measurements Intervals [place] Rate: 75 P: 39 TN: 140 QRS: -7 QRSD: 80 T: 61 QT: 348 QTc: 390 Interpretive Statements SINUS RHYTHM Compared to ECG 11/11/2023 18:19:58 NO SIGNIFICANT CHANGES Electronically Signed On 03-30-2024 15:46:21 PHYSICIAN GENERAL PRACTICE by Gasper Casey M.D.
[2024-03-30 12:31] LABS: Basophils Absolute Auto 0.1 K/mm3 (0.0-0.1); Basophils Percent Auto 0.6 % (0.2-1.2); Eosinophils Absolute Auto 0.2 K/mm3 (0-0.3); Eosinophils Percent Auto 2.3 % (0-4.4); Hematocrit 42.2 % (37.0-47.0); Hemoglobin 12.9 g/dL (12.0-15.0); Immature Granulocyte Absolute 0.02 K/mm3 (0.00-0.031); Immature Granulocyte Percent A 0.2 % (0-0.5); Lymphocytes Absolute Auto 2.46 K/mm3 (0.9-3.2); Lymphocytes Percent Auto 27.7 % (18.3-44.2); Mean Corpuscular HGB Conc 30.6 g/dl (32-36); Mean Corpuscular Hemoglobin 25.8 pg (26-34); Mean Corpuscular Volume 84.4 fl (80-100); Mean Platelet Volume 10.6 fl (7.4-10.4); Monocytes Absolute Auto 0.8 K/mm3 (0.1-0.6); Monocytes Percent Auto 9.1 % (2.6-8.5); Neutrophils Absolute Auto 5.3 K/mm3 (1.3-6.7); Neutrophils Percent Auto 60.1 % (45.5-73.1); Platelet Count Result 202 k/mm3 (150-375); Red Cell Distribution Width 13.4 % (11.5-14.5); White Blood Count 8.9 K/mm3 (4.5-10.0)
[2024-03-30 12:42] LABS: INR 0.9; Prothrombin Time 13.1 Seconds (11.1-14.7)
[2024-03-30 12:43] LABS: Partial Thromboplastin Time 33.3 Seconds (22.3-36.8)
[2024-03-30 12:49] LABS: Add Urine Microscopic? YES; Appearance Urine Cloudy (Clear); Bacteria Urine None Seen /hpf; Bilirubin Urine Negative (Negative); Blood Urine Negative (Negative); Calcium Oxalate Crystals Urine Present /hpf; Color Urine Dark Yellow (Yellow); Glucose Urine UA Negative (Negative); Ketones Urine Trace mg/dL (Negative); Leukocyte Esterase Ur Negative LEU/UL (Negative); Need Manual Microscopic Reviewed; Nitrate Urine Negative (Negative); Non Pathogenic Casts >20; Protein Urine Trace mg/dL (Negative); Specific Grav Ur 1.028 (1.001-1.035); Squamous Epithelial Cell Urine Occasional /hpf (Few); WBC Urine 0-5 /hpf (0-3)
[2024-03-30 13:02] LABS: Anion Gap 5 mmol/L (4-12); Blood Urea Nitrogen 14 mg/dL (7-17); CRP 0.5 mg/dL (<1.0); Calcium 9.3 mg/dL (8.4-10.2); Carbon Dioxide 33 mmol/L (22-30); Chloride 103 mmol/L (98-107); Estimated Glomerular Filt Rate 50; Glucose 104 mg/dL (65-110); Potassium 4.2 mmol/L (3.4-5.0); Sodium 141 mmol/L (137-145)
[2024-03-30 13:50] LABS: Erythrocyte Sedimentation Rate 40 mm/hr (0-20)
== END 2024-03-30 11:42 | disposition home or self-care (01) ==
PROVIDERS: PCP Family Medicine; Visit Provider Anesthesiology
DX: A79.1 Rickettsialpox due to Rickettsia akari (principal); I25.10 Atherosclerotic heart disease of native coronary artery without angina pectoris; M54.16 Radiculopathy, lumbar region; R07.89 Other chest pain
CPT/HCPCS: 36415; 80048; 81001; 85025; 85610; 85652; 85730; 86140; 93005

== ENCOUNTER 2024-05-02 10:46 | Outpatient (CLI) | payer MEDICARE, BC, SELFPAY ==
--- NOTE | ~2024-05-02 | XR_ITS ---
EXAMINATION: XR lumbar spine 2-3V DATE: 05/02/2024 11:11 INDICATION: Spinal cord stimulator placement. TECHNIQUE: 2 views of lumbar spine standing were obtained. COMPARISON: Lumbar spine radiographs 10/17/2008 FINDINGS: Alignment is normal. There are changes of anterior fusion procedures at L4-L5 and L5-S1 wit h interbody devices and anterior plates and screws. Vertebral body heights are normal. There are anguiano ges of vertebroplasty at T11. Intervertebral disc heights are normal. There is multilevel facet joint osteoarthritis, severe in lower lumbar spine. Surgical clips in the right upper quadrant are likely from cholecystectomy. There are surgical clips overlying left abdomen, likely from hernia repair. The re is a subcutaneous electronic device in left flank with electrodes beyond the superior margin of th e radiograph. IMPRESSION: 1. Mild lumbar spondylosis. 2. Anterior fusion procedures at L4-L5 and L5-S1. Reviewed, dictated and finalized at location B. OSITE ENGINEER
--- NOTE | ~2024-05-02 | XR_ITS ---
Thoracic spine: Clinical Indication: Spinal cord stimulator placement AP and lateral views were performed. No acute fracture evident. T11 vertebroplasty cement present. Spinal cord stimulator in place. The in tervertebral disc spaces appear normal. Paravertebral soft tissues appear normal. Impression: Spinal cord stimulator in place. T11 compression fracture with vertebroplasty cement. Reviewed, dictated and finalized at [facility]. 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 T11 compression fracture with vertebroplasty cement.
== END 2024-05-02 10:47 | disposition home or self-care (01) ==
PROVIDERS: PCP Family Medicine; Visit Provider Neurological Surgery
DX: M47.816 Spondylosis without myelopathy or radiculopathy, lumbar region (principal); Z98.1 Arthrodesis status; G89.4 Chronic pain syndrome; Z96.82 Presence of neurostimulator
CPT/HCPCS: 72070; 72100

== ENCOUNTER 2024-09-30 11:55 | Emergency (ER) | payer MEDICARE, BC, SELFPAY ==
--- NOTE | ~2024-09-30 | CT_ITS ---
CT of the Abdomen and Pelvis: Indication: Abdominal pain Technique: 2.5 mm axial scans were obtained through the abdomen and pelvis following intravenous adm inistration of 100 cc of Omnipaque 350. Dose reduction technique was used on this scan by utilizing a utomated exposure control and iterative reconstruction technique. The dose-length product (DLP) was 6 11.64 mGy-cm. COMPARISON: 11/02/2021 Findings: Scans through the lung bases are unremarkable. There is diffuse hepatic steatosis. Cholecystectomy clips are present. The spleen, pancreas, adrenals and kidneys are within normal limits. No evidence of aortic aneurysm. No lymphadenopathy. No bowel obstruction or bowel wall thickening. There is no evidence to suggest acute appendicitis. Images through the pelvis were performed. Urinary bladder unremarkable. No pelvic mass seen. No ascit es. Lumbar fusion hardware present from L4 through S1. Prior vertebroplasty noted at T11. Impression: No acute abnormalities seen. Diffuse hepatic steatosis. Reviewed, dictated and finalized at [facility]. Impression: No acute abnormalities seen. Diffuse hepatic steatosis.
[2024-09-30 11:58] VITALS: BP 126/71; PULSE 87; RESP 16; TEMP 36.8; O2SAT 96
[2024-09-30 12:35] LABS: Basophils Absolute Auto 0.1 K/mm3 (0.0-0.1); Basophils Percent Auto 0.5 % (0.2-1.2); Eosinophils Absolute Auto 0.2 K/mm3 (0-0.3); Eosinophils Percent Auto 1.9 % (0-4.4); Hematocrit 40.2 % (37.0-47.0); Hemoglobin 11.6 g/dL (12.0-15.0); Immature Granulocyte Absolute 0.02 K/mm3 (0.00-0.031); Immature Granulocyte Percent A 0.2 % (0-0.5); Lymphocytes Absolute Auto 2.86 K/mm3 (0.9-3.2); Lymphocytes Percent Auto 29.9 % (18.3-44.2); Mean Corpuscular HGB Conc 28.9 g/dl (32-36); Mean Corpuscular Hemoglobin 21.8 pg (26-34); Mean Corpuscular Volume 75.7 fl (80-100); Mean Platelet Volume 10.2 fl (7.4-10.4); Monocytes Absolute Auto 0.8 K/mm3 (0.1-0.6); Monocytes Percent Auto 8.4 % (2.6-8.5); Neutrophils Absolute Auto 5.6 K/mm3 (1.3-6.7); Neutrophils Percent Auto 59.1 % (45.5-73.1); Platelet Count Result 206 k/mm3 (150-375); Red Blood Count 5.31 M/mm3 (4.2-5.4); Red Cell Distribution Width 17.5 % (11.5-14.5); White Blood Count 9.6 K/mm3 (4.5-10.0)
[2024-09-30 12:46] LABS: Alanine Aminotransferase 26 U/L (6-35); Albumin Level 4.8 g/dL (3.5-5.1); Alkaline Phosphatase 104 U/L (38-126); Anion Gap 11 mmol/L (4-12); Aspartate Amino Transferase 34 U/L (14-36); Bilirubin,Total 0.3 mg/dL (0.2-1.3); Blood Urea Nitrogen 13 mg/dL (7-17); Calcium 9.4 mg/dL (8.4-10.2); Carbon Dioxide 25 mmol/L (22-30); Chloride 104 mmol/L (98-107); Estimated CRCL calculation 43 ml/min; Estimated Glomerular Filt Rate 51; Glucose 99 mg/dL (65-110); Lipase 109 U/L (23-300); Sodium 140 mmol/L (137-145); Total Protein 7.9 g/dL (6.3-8.2)
[2024-09-30] MEDS: HYDROmorphone HCL INJ (*CRX) 2 MG/ML VIAL 0.5 MG IV PUSH (12:46)
[2024-09-30] MEDS: ONDANSETRON INJ 4 MG/2 ML VIAL IV PUSH (12:47)
[2024-09-30] MEDS: SODIUM CHLORIDE 0.9% IV 1,000 ML 999 ML IV CONT (12:47)
--- NOTE | 2024-09-30 12:57 | ED_ITS ---
HPI - General Adult General Chief complaint: Abdominal Pain Stated complaint: ibs Time Seen by Provider: 09/30/24 12:26 History of Present Illness HPI narrative: This is a 63-year-old female with IBS D presenting for diarrhea and abdominal pain. Patient says she has had watery diarrhea with mucus mixed in it for the last 5 days. Is also associated with diffuse crampy pain that is worse in the left lower quadrant. States she has a history of diverticulosis/diverticulitis. She says that she had a fever of 102 last night be a skin thermometer. She has also had nausea without vomiting. Denies chest pain difficulty breathing or urinary symptoms. Related Data Home Medications ?Medication ?Instructions ?Recorded ?Confirmed ?Last Taken ?Type esomeprazole magnesium 40 mg 40 mg PO DAILY 06/27/21 07/30/24 Unknown History capsule,delayed release buspirone 30 mg tablet 30 mg PO BID 08/17/22 07/30/24 Unknown History cholecalciferol (vitamin D3) 25 25 mcg PO DAILY 08/17/22 07/30/24 Unknown History mcg (1,000 unit) capsule fluticasone propionate 230 2 inh inhalation BID 10/27/23 07/30/24 Unknown History mcg-salmeterol 21 mcg/actuation HFA inhaler (Advair HFA) sertraline 100 mg tablet 100 mg PO DAILY 10/27/23 07/30/24 Unknown History trazodone 100 mg tablet 100 mg PO DAILY 10/27/23 07/30/24 Unknown History clopidogrel 75 mg tablet 75 mg PO DAILY 07/30/24 07/30/24 Unknown History diltiazem HCl 120 mg 120 mg PO DAILY 07/30/24 07/30/24 Unknown History capsule,extended release 24 hr, controlled (DILT-XR) donepezil 5 mg tablet 5 mg PO QHS 07/30/24 07/30/24 Unknown History ferrous sulfate 325 mg (65 mg 325 mg PO DAILY 07/30/24 07/30/24 Unknown History iron) tablet mecobalamin (vitamin B12) 1,000 1,000 mcg PO DAILY 07/30/24 07/30/24 Unknown History mcg chewable tablet memantine 5 mg tablet 5 mg PO BID 07/30/24 07/30/24 Unknown History Allergies Allergy/AdvReac Type Severity Reaction Status Date / Time codeine AdvReac Mild Rash Verified 09/30/24 12:03 erythromycin base AdvReac Mild Rash Verified 09/30/24 12:03 morphine AdvReac Mild Rash Verified 09/30/24 12:03 nitrofurantoin AdvReac Mild Rash Verified 09/30/24 12:03 [facility] Past Medical History Medical History TIA (transient ischemic attack) Metabolic dysfunction-associated steatotic liver disease (MASLD) Nocturnal hypoxemia GERD (gastroesophageal reflux disease) Hyperlipidemia, unspecified Hypothyroidism, unspecified Kidney disease States she had kidney failure treated 6 months ago at [facility] in [place], etiology uncertain Fatty liver GI bleed Had stomach bleeding repaired with a clip in the past. Bilateral tennis elbow Abdominal hernia Multiple with mesh in place PTSD (post-traumatic stress disorder) From childhood Depression Anxiety HTN (hypertension) IBS (irritable bowel syndrome) Kidney stone Crohn's disease Surgical History Surgical History History of total right knee replacement History of endoscopy History of rotator cuff surgery Bilateral History of hysterectomy History of lumbar fusion Family History Family History Father Family history of diabetes mellitus in first degree relative Family history of heart disease in male family member before age 55 Hx of CABG Age 60-62 Alzheimer's dementia Cause of , 77 years old Mother Thoracic aortic aneurysm Sibling Thoracic aortic aneurysm Sister Sibling CAD (coronary artery disease) All 3 brothers have CAD and stents Other AAA (abdominal aortic aneurysm) Maternal grandmother had a AAA Other Cerebral aneurysm Maternal aunt had a cerebral aneurysm Other Family history of allergic disorder Family history of malignant neoplasm Hypertension 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urrently Unemployed: No Education: High School Diploma/GED Difficulty w/ Childcare or Family Care: No Living arrangements: with family Occupation/Education: occupation Gender identity (if verbalized by the patient): Female Sexual Orientation (if Verbalized by the Patient): Straight or Heterosexual Spiritual care concerns: No Exam 2 Narrative: APPEARANCE: No apparent distress. Head: atraumatic. EYES: EOMI, NOSE: Atraumatic NECK: Trachea midline RESPIRATORY: No increased rate of breathing CARDIOVASCULAR: RRR, ABDOMINAL: Distended, tender in left lower quadrant, no guarding or rebound MUSCULOSKELETAl: No obvious deformities NEURO: Alert. Moving 4/4 extremities SKIN:: Warm, dry. Normal color PSYCHIATRIC: Normal affect Course Vital Signs Vital signs: Vital Signs Temperature 98.2 F 09/30/24 11:58 Pulse Rate 87 09/30/24 11:58 Respiratory Rate 16 09/30/24 11:58 Blood Pressure 126/71 09/30/24 11:58 Pulse Oximetry 96 09/30/24 11:58 Temperature 98.2 F 09/30/24 11:58 Pulse Rate 74 09/30/24 14:04 Respiratory Rate 15 09/30/24 14:04 Blood Pressure 114/86 09/30/24 14:04 Pulse Oximetry 97 09/30/24 14:04 Medical Decision Making MDM Narrative Medical decision making narrative: -Course: 63-year-old female with IBS diarrhea type presenting for 5 days of diarrhea. Vital signs are normal. Laboratory studies within normal limits. CT abdomen pelvis did not show any acute findings. Patient treated symptomatically and will be discharged. She can take [id number] antidiarrheal medications and follow-up with her primary care physician for further management. -DDX includes but is not limited to: IBS, gastroenteritis, diverticulitis, colitis, appendicitis Vital Signs Vital Signs: Vital Signs Temperature 98.2 F 09/30/24 11:58 Pulse Rate 87 09/30/24 11:58 Respiratory Rate 16 09/30/24 11:58 Blood Pressure 126/71 09/30/24 11:58 Pulse Oximetry 96 09/30/24 11:58 Temperature 98.2 F 09/30/24 11:58 Pulse Rate 74 09/30/24 14:04 Respiratory Rate 15 09/30/24 14:04 Blood Pressure 114/86 09/30/24 14:04 Pulse Oximetry 97 09/30/24 14:04 Lab Data 09/30/24 12:27 09/30/24 12:27 Labs: Lab Results 09/30/24 09/30/24 Range/Units 12:27 13:33 WBC 9.6 (4.5-10.0) K/mm3 RBC 5.31 (4.2-5.4) M/mm3 Hgb 11.6 L (12.0-15.0) g/dL Hct 40.2 (37.0-47.0) % MCV 75.7 L (80-100) fl MCH 21.8 L (26-34) pg MCHC 28.9 L (32-36) g/dl RDW 17.5 H (11.5-14.5) % Plt Count 206 (150-375) k/mm3 MPV 10.2 (7.4-10.4) fl Immature Gran % (Auto) 0.2 (0-0.5) % Neut % (Auto) 59.1 (45.5-73.1) % Lymph % (Auto) 29.9 (18.3-44.2) % Stone % (Auto) 8.4 (2.6-8.5) % Eos % (Auto) 1.9 (0-4.4) % Baso % (Auto) 0.5 (0.2-1.2) % Lymph # (Auto) 2.86 (0.9-3.2) K/mm3 Stone # (Auto) 0.8 H (0.1-0.6) K/mm3 Eos # (Auto) 0.2 (0-0.3) K/mm3 Baso # (Auto) 0.1 (0.0-0.1) K/mm3 Abs Immat Gran (auto) 0.02 (0.00-0.031) K/mm3 Absolute Neuts (auto) 5.6 (1.3-6.7) K/mm3 Absolute Nucleated RBC 0.000 (0.0-0.012) K/mm3 Band Neutrophils % Not Reportable Nucleated RBC % 0.0 (0.0-0.2) % Platelet Estimate Adequate (Adequate) Polychromasia 1+ Schistocytes None seen Sodium 140 (137-145) mmol/L Potassium 4.0 (3.4-5.0) mmol/L Chloride 104 (98-107) mmol/L Carbon Dioxide 25 (22-30) mmol/L Anion Gap 11 (4-12) mmol/L BUN 13 (7-17) mg/dL Creatinine 1.08 H (0.7-1.0) mg/dL Estim Creat Clear Calc 43 ml/min Estimated GFR 51 L (59 - ) Glucose 99 (65-110) mg/dL Calcium 9.4 (8.4-10.2) mg/dL Total Bilirubin 0.3 (0.2-1.3) mg/dL AST 34 (14-36) U/L ALT 26 (6-35) U/L Alkaline Phosphatase 104 (38-126) U/L Total Protein 7.9 (6.3-8.2) g/dL Albumin 4.8 (3.5-5.1) g/dL Lipase 109 (23-300) U/L Urine Color Yellow (Yellow) Urine Appearance Clear (Clear) Urine pH 6.5 (5.0-9.0) Ur Specific [place] 1.034 (1.001-1.035) Urine Protein Negative (Negative) mg/dL Urine Glucose (UA) Negative (Negative) mg/dL Urine Ketones Negative (Negative) mg/dL Ur Blood (Man) Negative (Negative) Urine Nitrate Negative (Negative) Urine Bilirubin Negative (Negative) Urine Urobilinogen 0.2 (<2.0) mg/dL Leukocyte Esterase Rfl Negative (Negative) TERESE/UL Discharge Plan Discharge Clinical Impression: Diarrhea Patient Disposition: Home Condition: Stable Instructions: Antibiotic Form, Acute Diarrhea (ED) Additional Instructions: Please take [id number] Pepto-Bismol or Imodium for your diarrhea. Please follow-up with primary care physician. If develops any new or worsening symptoms such as fevers, bloody diarrhea severe abdominal pain, or intractable nausea/vomiting return to ED for re-evaluation. Patient Language: Thai Prescriptions: No Action esomeprazole magnesium 40 mg capsule,delayed release(DR/EC) 40 mg PO DAILY trazodone 100 mg tablet 100 mg PO DAILY fluticasone propion-salmeterol [Advair HFA] 230-21 mcg/actuation HFA aerosol inhaler 2 inh inhalation BID sertraline 100 mg tablet 100 mg PO DAILY tizanidine 4 mg capsule 4 mg PO TID PRN (Reason: muscle spasticity) Qty: 20 0RF buspirone 30 mg tablet 30 mg PO BID cholecalciferol (vitamin D3) 25 mcg (1,000 unit) capsule 25 mcg PO DAILY clopidogrel 75 mg tablet 75 mg PO DAILY diltiazem HCl [DILT-XR] 120 mg capsule,ext.rel 24h degradable 120 mg PO DAILY donepezil 5 mg tablet 5 mg PO QHS memantine 5 mg tablet 5 mg PO BID mecobalamin (vitamin B12) 1,000 mcg tablet,chewable 1,000 mcg PO DAILY ferrous sulfate 325 mg (65 mg iron) tablet 325 mg PO DAILY oxybutynin chloride 10 mg tablet extended release 24hr See Rx Instructions .ROUTE .COMPLEX Qty: 90 1RF Dose Instruction: TAKE 1 TABLET BY MOUTH EVERY DAY Rx Instructions: TAKE 1 TABLET BY MOUTH EVERY DAY rosuvastatin 10 mg tablet 10 mg PO DAILY Qty: 90 1RF (DME) blood-glucose meter [[employer] Verio Flex Start] Kit See Rx Instructions .Route Qty: 1 0RF Rx Instructions: As directed (DME) GET IT Mobile[employer] Verio test strips Strip See Rx Instructions .Route Qty: 50 3RF Rx Instructions: Use to check blood sugar once a day (DME) lancing device with lancets [GET IT MobileTouch Delica Plus Lanc Dev] Kit See Rx Instructions .Route Qty: 1 0RF Rx Instructions: use to check blood sugar once a day ciprofloxacin HCl 500 mg tablet 500 mg PO Q12H Qty: 14 0RF levothyroxine 88 mcg tablet 0.088 mcg PO DAILY Qty: 90 1RF Follow-up/Referrals: Simeon Sheriff MD [Primary Care Provider] - 1 Week
[2024-09-30 12:58] LABS: Platelet Estimate Adequate (Adequate); Polychromasia 1+; Schistocytes None Seen
[2024-09-30 13:39] LABS: Add Urine Microscopic? NO; Appearance Urine Clear (Clear); Bilirubin Urine Negative (Negative); Blood Urine Negative (Negative); Color Urine Yellow (Yellow); Glucose Urine UA Negative (Negative); Ketones Urine Negative (Negative); Leukocyte Esterase Ur Negative LEU/UL (Negative); Nitrate Urine Negative (Negative); Protein Urine Negative (Negative); Specific Grav Ur 1.034 (1.001-1.035); Urobilinogen Urine 0.2 mg/dL (<2.0); pH Urine 6.5 (5.0-9.0)
[2024-09-30 14:04] VITALS: BP 114/86; PULSE 74; RESP 15; O2SAT 97
== END 2024-09-30 14:28 | disposition home or self-care (01) ==
PROVIDERS: Emergency Provider Emergency Medicine; PCP Family Medicine
DX: R19.7 Diarrhea, unspecified (principal); Z86.73 Personal history of transient ischemic attack (TIA), and cerebral infarction without residual deficits; K21.9 Gastro-esophageal reflux disease without esophagitis; E78.5 Hyperlipidemia, unspecified; E03.9 Hypothyroidism, unspecified; F41.8 Other specified anxiety disorders; I10 Essential (primary) hypertension; K50.90 Crohn's disease, unspecified, without complications; Z96.651 Presence of right artificial knee joint
CPT/HCPCS: 36415; 74177; 80053; 81003; 83690; 85025; 96361; 96374; 96375; 99284; J1171; J2405; J7030; Q9967

== ENCOUNTER 2024-11-26 01:03 | Day surgery (SDC) | payer MEDICARE, BC, SELFPAY ==
[2024-11-15 12:52] VITALS: BMI 31.0
--- NOTE | 2024-11-15 13:03 | PC.NURSE ---
Report to the Outpatient Waiting Room, entrance under the green pavilion located off [facility], at time _0900_ on date _[phone]_. Planned Procedure Time: _1100_.? Time changes happen often and if your time is changed the preop area will call you the afternoon before. - You and your visitor will be asked to self-screen and do not enter if you have any COVID symptoms. Please call surgeon if you need to reschedule. - A mask is optional within the hospital at this time. Patients may have clear liquids (water, carbonated beverages, clear teas, apple juice) until 3 hours prior to surgery with a maximum of 20 ounces. - No food from midnight until time of surgery and no smoking, or chewing tobacco (or any form of nicotine). No chewing gum, candy or mints. Take only the following medications with a SIP of water on the morning of surgery: ___Buspirone, Sertraline, Diltiazem, Mamantine, Levothyroxine and if needed inhaler.____ DO NOT STOP ANY OF YOUR OTHER PRESCRIPTION MEDICATIONS PRIOR TO SURGERY EXCEPT THE FOLLOWING Hold all vitamins and supplements for 3 days per anesthesiologist. Medications to discontinue per physician Date to take last kusw___[phone]___ Please no make-up, nail ukrainian, hairspray, perfume, deodorant, or body powder the day of surgery.? No jewelry (including any body piercings) or valuables the day of surgery, leave them at home.? Please take a shower or bath the night before, or the morning of, surgery with an antibacterial soap.? Wear comfortable, loose fitting clothing.? - Jewelry must be removed prior to entering the operating room.? Rings and piercings that are not removed may be cut off. - The hospital will not accept responsibility for valuables.? - Please leave all valuables, including medications, at home the day of surgery. If you are going home after surgery, a licensed rolloff truck driver must drive you home.? - NO public transportation without another adult if you receive anesthesia. - We recommend that an adult stay with you for 24 hours following discharge. - We also recommend that you do not drive, make important decision, drink alcoholic beverages, or take any drugs that were not prescribed by your health care provider for at least 24 hours after your discharge time. Follow any additional instructions given to you from your surgeon. Telephone instructions given to __Martina__and asked if any additional questions and then verbalized understanding. Patient advised to call surgeon office or pre surgery nurse liaison [phone] if any additional questions.
--- NOTE | 2024-11-22 07:29 | PM.IMHP ---
H&P: HPI History of Present Illness Date/Time: 11/22/24 07:29 Chief Complaint: Patient has catching locking and pain in the right thumb. She has mechanical symptoms. In pain and swelling on the volar surface of the hand. She has failed conservative treatment like to consider release of the A1 zaida of the right thumb. Review of Systems Musculoskeletal: Musculoskeletal: Reports arthralgias, Reports joint swelling and Reports stiffness [facility] Past Medical History Medical History TIA (transient ischemic attack) Metabolic dysfunction-associated steatotic liver disease (MASLD) Nocturnal hypoxemia GERD (gastroesophageal reflux disease) Hyperlipidemia, unspecified Hypothyroidism, unspecified Kidney disease States she had kidney failure treated 6 months ago at [facility] in [place], etiology uncertain Fatty liver GI bleed Had stomach bleeding repaired with a clip in the past. Bilateral tennis elbow Abdominal hernia Multiple with mesh in place PTSD (post-traumatic stress disorder) From childhood Depression Anxiety HTN (hypertension) IBS (irritable bowel syndrome) Kidney stone Crohn's disease Surgical History Surgical History History of total right knee replacement History of endoscopy History of rotator cuff surgery Bilateral History of hysterectomy History of lumbar fusion Family History Family History Father Family history of diabetes mellitus in first degree relative Family history of heart disease in male family member before age 55 Hx of CABG Age 60-62 Alzheimer's dementia Cause of , 77 years old Mother Thoracic aortic aneurysm Sibling Thoracic aortic aneurysm Sister Sibling CAD (coronary artery disease) All 3 brothers have CAD and stents Other AAA (abdominal aortic aneurysm) Maternal grandmother had a AAA Other Cerebral aneurysm Maternal aunt had a cerebral aneurysm Other Family history of allergic disorder Family history of malignant neoplasm Hypertension 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 (Updated 11/15/24 @ 09:52 by Wandy Walter [facility]) 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: , 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 Smoking status: Never smoker Alcohol intake: never Substance use: never Substance use type: does not use Do You Feel Safe in your Home?: No Lack of Transportation: No Lack of Food: Never True Current Housing: I Have Housing Concerned About Future Housing: No Difficulty Paying Gas/Electric Bills: No Difficulty Paying for Meds: No Currently Unemployed: No Education: High School Diploma/GED Difficulty w/ Childcare or Family Care: No Living arrangements: with family Occupation/Education: occupation Gender identity (if verbalized by the patient): Female Sexual Orientation (if Verbalized by the Patient): Straight or Heterosexual Spiritual care concerns: No Meds Home Medications and Allergies Home Medications ?Medication ?Instructions ?Recorded ?Confirmed ?Type esomeprazole magnesium 40 mg 40 mg PO DAILY 06/27/21 11/15/24 History capsule,delayed release buspirone 30 mg tablet 30 mg PO BID 08/17/22 11/15/24 History cholecalciferol (vitamin D3) 25 25 mcg PO DAILY 08/17/22 11/15/24 History mcg (1,000 unit) capsule fluticasone propionate 230 2 inh inhalation BID 10/27/23 11/15/24 History mcg-salmeterol 21 mcg/actuation HFA inhaler (Advair HFA) sertraline 100 mg tablet 100 mg PO DAILY 10/27/23 11/15/24 History trazodone 100 mg tablet 100 mg PO DAILY 10/27/23 11/15/24 History rosuvastatin 10 mg tablet 10 mg PO DAILY #90 tabs 05/12/24 11/15/24 Rx blood sugar diagnostic (OneTouch #50 ea 06/26/24 11/15/24 Rx Verio test strips) blood-glucose meter (OneTouch #1 ea 06/26/24 11/15/24 Rx Verio Flex Start kit) lancing device with lancets kit #1 ea 06/26/24 11/15/24 Rx (OneTouch Delica Plus Lancing Device kit) diltiazem HCl 120 mg 120 mg PO DAILY 07/30/24 11/15/24 History capsule,extended release 24 hr, controlled (DILT-XR) donepezil 5 mg tablet 5 mg PO QHS 07/30/24 11/15/24 History mecobalamin (vitamin B12) 1,000 1,000 mcg PO DAILY 07/30/24 11/15/24 History mcg chewable tablet memantine 5 mg tablet 5 mg PO BID 07/30/24 11/15/24 History levothyroxine 88 mcg tablet 0.088 mcg (0.001 x 88 mcg) PO 09/24/24 11/15/24 Rx DAILY #90 tabs oxybutynin chloride 10 mg See Rx Instructions .Route 10/22/24 11/15/24 Rx tablet,extended release 24 hr .COMPLEX #90 tabs Allergies Allergy/AdvReac Type Severity Reaction Status Date / Time codeine AdvReac Mild Rash Verified 11/15/24 12:49 erythromycin base AdvReac Mild Rash Verified 11/15/24 12:49 morphine AdvReac Mild Rash Verified 11/15/24 12:49 nitrofurantoin AdvReac Mild Rash Verified 11/15/24 12:49 Exam Narrative: She has pain in the volar surface of the right thumb. She has catching and locking. Neurologically she appears to be grossly intact. She has pain with any manipulation and with activity. Eyes: General: appearance normal, both eyes and all related structures Neck: Neck: supple Resp: Effort & Inspection: normal respiratory effort Cardio: Rhythm: regular rhythm Radiology Reports: Comments: [address] [address] [address] [place] [address] Donaldo Muller M.D. XRay Report Ambulatory Signed Patient: Martina Mendez Date of Service: 11/15/24 Results of Diagnostic Exam (Interpreted Today) Order: 11/15/24 09:18 XR wrist RT min 3V Routine Interpretation: AP lateral oblique view of the right wrist demonstrates some mild degenerative change. No fracture, lesions, or masses are appreciated. Ankle X-Ray 08/20/22 Foot X-Ray 06/27/21 Wrist X-Ray 11/15/24 Orthopedics Result Report 11/15/24 Thoracic Spine X-Ray 05/02/24 Thoracic Spine MRI 11/11/23 Lumbar Spine X-Ray 05/02/24 Lumbar Spine MRI 11/11/23 Assessment and Plan Assessment and plan (1) Trigger thumb, right thumb: Code(s): M65.311 - Trigger thumb, right thumb Status: Acute Assessment and Plan: Patient is trigger finger right thumb. She has failed conservative with treatment would like to consider surgical release. I discussed this with her risks, benefits, limitations, and alternatives in detail. Will proceed per her request.
--- OUTSIDE RECORDS SUMMARY | 2024-11-26 01:06 | XMS_ITS ---
Author Organization [facility] Address [address] [place] [address] [place] [address] Care Team Providers Care Receiving Weigher Name Role Phone MADDIE BRICE, LIZ JORGE Primary Care Provider Mian Salcido Unavailable [phone] ALLERGIES Allergen (clinical drug ingredient) Drug/Non Drug [...] Location Date Provider Diagnosis [facility] [address] [place] [id number] 09/25/2024 Mian Tee Radiculopathy, lumbar region M54.16 [...] they would need to come with a transport driver after taking this medication due to [...] they would need to come with a transport driver after taking this medication due to [...] patient's typical axial low back pain. Endy's, Carrie's and Gaenslen's are positive bilaterally. There is [...]
--- OUTSIDE RECORDS SUMMARY | 2024-11-26 01:06 | XMS_ITS ---
Author Organization [facility] [employer] Address [address] [place] [address] Care Team Providers Care Compensation Manager Name Role Phone Simeon Sheriff MD Primary Care Provider Unavailab Abigail Mei Unavailable [phone] Donis Sabillon Unavailable [phone] REASON FOR VISIT Pt had a stroke 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 Sex Assigned At : 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 Observation Description Sex Assigned At Female Encounters Encounter Location Date Provider Diagnosis [facility] [email or web address] [facility] [address] [place] [address] 07/23/2024 Donis Sabillon Plan Of Treatment Next Appt Details Provider Name:Abigail Marte , 01/29/2025 01:30:00 PM, [address], [address], [place], [address], Progress Notes * EMRE MARQUIS KDOB:1960 (64 yo F)Acc No.[id number]:07/23/2024 Patient: Gabrielle CARUSOEMRE SAUCEDO Provider: Lorin SABILLON MD :1960 A ge:63 Y S ex:Female Date:07/23/2024 Address:[address] [place] [id number] Pcp:Simeon Sheriff MD Subjective: * Chief Complaints: * 1 . Pt had a stroke. * Active Problem List F32.9 Major depressive dis order, single episode, unspecified Onset Date:08/08/2023Modified On:10/21/2023 Status:confirmed F41.1 Generalized anxiety disorder Modified On:11/03/2023 Status:confirmed G47.39 Mixed sleep apnea Modified On:12/15/2023 Status:confirmed R41.89 Cognitive impairment Modified On:12/15/2023 Status:confirmed F33.0 MDD (major depressiv e disorder), recurrent episode, mild Modified On:07/10/2024 Status:confirmed F51.01 Primary insomnia Modified On:07/10/2024 Status:confirmed G47.30 Severe sleep apnea Modified On:07/10/2024 Status:confirmed Z13.31 Encounter for screen ing for depression Modified On:07/10/2024 Status:confirmed R41.3 Memory difficulties Modified On:07/10/2024 Status:confirmed R41.3 Memory impairment Modified On:07/10/2024 Status:confirmed * Medical History: Objective: * Vitals: Assessment: Plan: * Treatment: * Billing Information: * Visit Code: * Procedure Codes: * Electronic signature of Omaira Sabillon MD on 11/26/2024 at 01:06 AM CDT Sign off status: Pending * Provider: Lorin SABILLON MD Date: 07/23/2024 Generated for Jaun chau/Jose E/eTransmitting on: 11/26/2024 01:06 AM CDT
--- OUTSIDE RECORDS SUMMARY | 2024-11-26 01:06 | XMS_ITS | Clinical Summary ---
Author Organization [facility] Address [facility] [place] [address] Care Team Providers Care Headmaster/Mistress Name Role Phone Simeon Sheriff MD Primary Care Provider [phone] Humble Colon DO Unavailable [phone] Allergies Active Allergy Reactions Criticality Noted Date Comments Azithromycin Rash Low 12/15/2021 Codeine Rash,Vomiting Medium 04/19/2022 Erythromycin Rash,Vomiting Medium 04/19/2022 Metoprolol Tartrate Cough 04/02/2024 Morphine Rash,Itching,Other ( see comment) Low 12/15/2021 veins turn red Nitrofurantoin Rash,Hives Medium 12/15/2021 Tizanidine Hallucinations Medium 05/15/2023 Medications traMADol (ULTRAM) 50 MG tabletIndications: Chronic Pain Take 1 tablet (50 mg total) by mouth daily as needed. Indications: Chronic Pain 02/05/20 22 Active sertraline (ZOLOFT) 100 MG tabletIndications: Depression Take 1.5 tablets (150 mg total) by mouth daily. Indications: Depression 01/14/20 22 Active oxybutynin XL (DITROPAN-XL) 10 MG 24 hr tabletIndications: Urinary Urgency Take 1 tablet (10 mg total) by mouth daily. Indications: Urinary Urgency 01/23/20 22 Active levothyroxine (SYNTHROID) 88 MCG tabletIndications: Hypothyroidism TAKE 1 TABLET BY MOUTH EVERY DAY IN THE MORNING ON AN EMPTY STOMACH 12/18/19 22 Active vitamin D3, cholecalciferol, 1000 UNIT Tab tabletIndications: Mineral Deficiency Take 1 tablet (25 mcg total) by mouth 2 (two) times daily. Indications: Mineral Deficiency Active busPIRone (BUSPAR) 30 MG tabletIndications: Anxiety Take 1 tablet (30 mg total) by mouth 2 (two) times daily. Indications: Feeling Anxious 01/25/20 22 Active buPROPion (WELLBUTRIN) 75 MG tabletIndications: Depression Take 1 tablet (75 mg total) by mouth every morning. Indications: Depression 09/08/19 24 Active traZODone (DESYREL) 100 MG tabletIndications: Sleep Disorder Take 1 tablet (100 mg total) by mouth nightly at bedtime. Indications: Sleep Disorder 08/19/19 24 Active fluticasone-salmet jessica (ADVAIR HFA) 230-21 MCG/ACT inhalerIndications :Acute Respiratory Failure Inhale 2 puffs into the lungs 2 (two) times daily. 12 g 10/12/19 24 Active albuterol sulfate HFA 108 (90 Base) MCG/ACT inhalerIndications :Wheezing Inhale 2 puffs into the lungs every 6 (six) hours as needed for Wheezing. 18 g 2 10/14/19 24 Active OXYGENIndications: Shortness of breath 2 L/min by Nasal route continuous. Indications: Shortness of breath 10/13/19 24 Active dilTIAZem CD (CARDIZEM CD) 120 MG 24 hr capsule Take 1 capsule (120 mg total) by mouth daily. Active esomeprazole (NEXIUM) 40 MG capsuleIndications :Gastroesophageal reflux disease without esophagitis Take 1 capsule (40 mg total) by mouth daily. 360 capsule 12/06/19 24 025 Active famotidine (PEPCID) 20 MG tabletIndications: Gastroesophageal reflux disease, unspecified whether esophagitis present Take 1 tablet (20 mg total) by mouth daily. 90 tablet 3 07/05/19 25 026 Active atorvastatin (LIPITOR) 80 MG tablet Take 1 tablet (80 mg total) by mouth daily. 30 tablet 07/26/19 25 Active aspirin EC (ECOTRIN) 81 MG tablet Take 1 tablet (81 mg total) by mouth daily. 30 tablet 07/26/19 25 Active dicyclomine (BENTYL) 10 MG capsule Take 1 capsule (10 mg total) by mouth 4 (four) times daily before meals and nightly. 240 capsule 08/02/19 25 Active ondansetron (ZOFRAN-ODT) 4 MG disintegrating tabletIndications: Abdominal pain,Nausea,Diarrh ea Take 1 tablet (4 mg total) by mouth every 8 (eight) hours as needed for Nausea. 20 tablet 10/21/19 25 Active sucralfate (CARAFATE) 1 GM/10ML suspensionIndicati ons:Diarrhea Take 10 mLs (1 g total) by mouth 4 (four) times daily before meals and nightly for 11 days. 420 mL 10/21/19 25 025 Active Problems Problem Noted Date Diagnosed Date CVA (cerebral vascular accident) ([facility]) 07/22/2024 Nocturnal hypoxia 10/19/2023 Physical deconditioning 10/19/2023 Acute respiratory failure ([facility]) 09/11 Encounters Date Type Department Care Team Description 11/05/2024 9:29 PM CDT - 11/06/2024 2:08 AM CDT Emergency [facility] [place] [address] Saira Krause MD Eye Problem Discharge Disposition: Home or Self Care (Routine Discharge) 11/05/2024 Travel 10/20/2024 12:57 PM CDT - 10/20/2024 2:45 PM CDT Emergency [facility] [place] [address] Jocelin Zamudio PA Abdominal Pain Discharge Disposition: Home or Self Care (Routine Discharge) 10/20/2024 Travel 10/20/2024 [facility]phone [facility] [address] [place] [address] Donaldo Velazquez MD Advice (Nurse Triage - After Hours ([id number])/) 10/01/2024 Telephone [facility] [address] [place] [address] Donaldo Velazquez MD Concerns 09/12/2024 8:24 PM CDT - 09/13/2024 1:00 AM CDT Emergency [facility] [place] [address] Nikolai, JOON Castaneda Leg Pain; Urinary Symptoms Discharge Disposition: Home or Self Care (Routine Discharge) 09/12/2024 Travel from Last 3 Months Immunizations Immunization Administration Dates Next Due Influenza (Generic) 01/07/2016,01/24/2015,2013,01/03/2013 Influenza Adult (Generic) 01/09/2022,05/2020,01/12/2020,12/15/2018,09/2017,01/13/2017 Pneumococcal (Pneumovax 23) 01/03/2013 Pneumococcal (Prevnar 13) 01/24/2015 Tdap (Generic) 12/02/2021,01/22/2014 Family History Medical History Relation Comments Lung Disease Mother Relation Status Comments Mother Paternal Grandmother 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 Tobacco Use Types Packs/Day Years Used Date Smoking Tobacco: Never Smokeless Tobacco: Never Tobacco Cessation:Counseling Given: No Alcohol Use Standard Drinks/Week Comments Not Currently 0 (1 standard drink = 0.6 oz pur e alcohol) OASIS D0700: Social Isolation Answer Da te Recorded Frequency of experiencing loneliness or isolatio n Rarely 10/20/2023 OASIS A1250: Transportation Answer Date Recorded Lack of Transportation (Medical) No 10/20/2023 Lack of Transportation (Non-Medical) No 10/20/2023 Patient Unable or Declines to Respond No 10/20/2023 OASIS B1300: Health Literacy Answer Ezequiel e Recorded Frequency of needing help to read materials from doctor or pharmacy Rarely 10/20/2023 [facility] Utilities Answer Date Recorded In the past 12 months has th e [employer], gas, oil, or water Xi3 threatened to shut off services in your home? No 07/22/2024 Humiliation, Afraid, Rape, and Kick questionnair e Answer Date Recorded Within the last year, have y ou been afraid of your partner or ex-partner? No 07/22/2024 Within the last year, have y ou been humiliated or emotionally abused in other ways by your partner or ex-partner? No Within the last year, have y ou been kicked, hit, slapped, or otherwise physically hurt by your partner or ex-partner? No 07/22/2024 Within the last year, have y ou been raped or forced to have any kind of sexual activity by your partner or ex-partner? No 07/22/2024 Overall Financial Resource Strain (CARDIA) Answe r Date Recorded How hard is it for you to pa y for the very basics like food, housing, medical care, and heating? Not hard at all 07/22/2024 PHQ-2 Answer Date Recorded Patient Health Questionnaire-2 Score 0 07/04/2024 Hunger Vital Sign Answer Date Recorded Within the past 12 months, y ou worried that your food would run out before you got the money to buy more. Never true 07/23/19 25 Within the past 12 months, t he food you bought just didn't last and you didn't have money to get more. Never true 07/22/2024 PRAPARE - Transportation Answer Date Re corded In the past 12 months, has l ack of transportation kept you from medical appointments or from getting medications? No 07/10 In the past 12 months, has l ack of transportation kept you from meetings, work, or from getting things needed for daily living? No 07/22/2024 Housing Stability Vital Sign Answer Ezequiel e Recorded In the last 12 months, was t here a time when you were not able to pay the mortgage or rent on time? No 07/22/2024 In the past 12 months, how m any times have you moved where you were living? 1 07/22/2024 At any time in the past 12 m [facility], were you homeless or living in a assisted (including now)? No 07/22/2024 Comments No Sex and Gender Information Value Date Recorded Sex Assigned at Female 06/01/2024 11:56 AM HEAD COOK Legal Sex Female 5:56 PM CDT Gender Identity Not on file Sexual Orientation Not on file Last Filed Vital Signs Vital Sign Reading Time Taken Comments Blood Pressure 146/76 11/06/2024 2:02 AM CDT Pulse 70 11/06/2024 2:02 AM CDT Temperature 36.5 C (97.7 F) 11/06/2024 2:02 AM CDT Respiratory Rate 18 11/06/2024 2:02 AM CDT Oxygen Saturation 95% 11/06/2024 2:02 AM CDT Inhaled Oxygen Concentration - - Weight 73 kg (160 lb 15 oz) 11/05/2024 9:22 PM C DT Height 154.9 cm (5' 1) 11/05/2024 9:22 PM CDT Body Mass Index 30.41 11/05/2024 9:22 PM CDT Plan of Treatment Upcoming Encounters Date Type Department Care Team (Late st Contact Info) Description 03/11/2025 9:40 AM HEAD COOK Office Visit [facility] - [address] [place] [id number] Salvador Norwood MD 3rd [facility] [address] [place] [address] Health Maintenance Due Date Last Done Comments Annual Physical 11/18/1963 Hepatitis C 1978 Mammogram Screening 2000 Zoster Vaccines (1 of 2) 2010 Pneumococcal Vaccine: 50+ Years (3 of 3 - PCV20 or PCV21) 01/25/2020 01/24/2015, 01/03/2013 RSV Immunization or 60+ Years (1 - Risk 60-74 years 1-dose series) 2020 COVID-19 Vaccine (4 - 2023-2 5 season) 2023 02/17/2021, 07/05/2020, 06/07/2020 DTaP, Tdap and Td Vaccines ( 3 - Td or Tdap) 12/03/2031 12/02/2021, 01/22/2014 Colorectal Cancer Screening Colonoscopy (10 Years) 05/07/2032 05/07/2022, 05/07/2022 PHQ-2 (Physician [place]) Completed 07/04/2024 Meningococcal B Vaccine Aged Out No l onger eligible based on patient's age to complete this topic Meningococcal Vaccine Aged Out No ezequiel ninfa eligible based on patient's age to complete this topic RSV Immunizations Under 20 Months Aged Out No longer eligible b ased on patient's age to complete this topic Medical Devices Implanted Type Area Cooker Casing Device Identifier Shelf Expiration Date Model / Serial / Lot Cage Cage Back Knee Components Knee Components Right: Knee Stimulator Lead Implant- 025 Implanted:Qty: 1 on 04/25/2024 Lead Implant Spine Thoracic [employer] [id number] / / Description:SHOPFITTER Stimulator Implant- 025 Implanted:Qty: 1 on 04/25/2024 Stimulator Implant Right: Back [employer] [id number] / [id number] / Description:MR CONDITIONAL A T 1.5 T ONLY!, NEED REMOTE TO DO IMPEDANCE CHECK AND TURN OFF STIMULATION, FOLLOW SCAN CONDITIONS IN MR TECHNICAL MANUAL(FOLLOW SHOPFITTER INSTRUCTIONS) Procedures Procedure Name Priority Date/Time Associated Diagnosis Comments CT HEAD WO CON STAT 11/05/2024 9:53 PM CDT COMPREHENSIVE METABOLIC PANEL STAT 11/05/2024 9:46 PM CDT CBC W/DIFF AUTOMATED STAT 11/05/2024 9:[address] ABD+PEL W CON STAT 10/20/2024 1:55 PM CDT LIPASE STAT 10/20/2024 1:08 PM CDT COMPREHENSIVE METABOLIC PANEL STAT 10/20/2024 1:08 PM CDT CBC W/DIFF AUTOMATED STAT 10/20/2024 1:08 PM CDT HC URINALYSIS AUTO W/O MICRO STAT 10/20/2024 1:03 PM CDT HC URINALYSIS AUTO W/O MICRO STAT 09/12/2024 8:48 PM CDT MAGNESIUM STAT 09/12/2024 8:36 PM CDT CK (CPK) STAT 09/12/2024 8:36 PM CDT COMPREHENSIVE METABOLIC PANEL STAT 09/12/2024 8:36 PM CDT CBC W/DIFF AUTOMATED STAT 09/12/2024 8:36 PM CDT COLONOSCOPY Routine 05/07/2022 7:39 AM HEAD COOK from Last 3 Months or Most Recently Relevant to Health Maintenance Results * CT HEAD WO CON (11/05/2024 9:53 PM CDT) Anatomical Region Laterality Modality Head Computed Tomogra phy 11/05/2024 10:1 6 PM CDT Impressions 11/05/2024 10:23 PM CDT IMPRESSION: 1. No acute intracranial abnormality. 2. Mild nonspecific chronic periventricular and deep cerebral white matter microvascular disease in bilateral cerebral hemispheres. 3. Partial opacification of left mastoid air cells, simple effusion versus left mastoiditis. Referred By: Interpreted By: Manuela Nicole MD, 11/05/2024 10:16 PM Narrative 11/05/2024 10:23 PM CDT [address] [address] EXAMINATION: CT Head without Contrast, Axial Imaging with 2-D Coronal and Sagittal Reconstruction. This CT exam was performed using one or more of the following dose reduction techniques: automated exposure control, adjustment of the mA and/or kV according to patient size, the use of iterative reconstruction technique, use of ALARA (As Low As Reasonably Achievable) and/or use of Image Gently techniques. INDICATION: Right-sided visual disturbance, vision change. Intermittent black spots in the right eye. COMPARISON: CT head without contrast on CTA head and neck with contrast 07/22/2024, MRI brain without contrast 07/23/1942 5. FINDINGS: No mass, midline shift, intracranial hemorrhage, areas of acute macrovascular ischemia, or acute osseous abnormality. No extra-axial fluid collections. Ventricles and sulci are normal for age. Mild nonspecific chronic periventricular and deep cerebral white matter microvascular disease in bilateral cerebral hemispheres. Partial opacification of left mastoid air cells, simple effusion versus left mastoiditis. No other significant disease in the partially visualized paranasal sinuses or mastoid air cells. Visualized orbits are unremarkable. Procedure Note Manuela Nicole MD - 11/05/2024 [facility] [address] [place], [place] [address] EXAMINATION: CT Head without Contrast, Axial Imaging with 2-D Coronal andSagittal Reconstruction. This CT exam was performed using one or more of the following dosereduction techniques: automated exposure control, adjustment of the mAand/or kV according to patient size, the use of iterative reconstructiontechnique, use of ALARA (As Low As Reasonably Achievable) and/or use ofImage Gently techniques. INDICATION: Right-sided visual disturbance, vision change. Intermittentblack spots in the right eye. COMPARISON: CT head without contrast on CTA head and neck with contrast07/22/2024, MRI brain without contrast 07/23/1942 5. FINDINGS: No mass, midline shift, intracranial hemorrhage, areas of acutemacrovascular ischemia, or acute osseous abnormality. No extra-axial fluidcollections. Ventricles and sulci are normal for age. Mild nonspecificchronic periventricular and deep cerebral white matter microvasculardisease in bilateral cerebral hemispheres. Partial opacification of leftmastoid air cells, simple effusion versus left mastoiditis. No othersignificant disease in the partially visualized paranasal sinuses ormastoid air cells. Visualized orbits are unremarkable. IMPRESSION: 1. No acute intracranial abnormality. 2. Mild nonspecific chronic periventricular and deep cerebral whitematter microvascular disease in bilateral cerebral hemispheres. 3. Partial opacification of left mastoid air cells, simple effusionversus left mastoiditis. Referred By: Interpreted By: Manuela Nicole MD, 11/05/2024 10:16 PM Ozzy Coello NP CT Final Result * (ABNORMAL) COMPREHENSIVE METABOLIC PANEL (11/05/2024 9:46 PM CDT) Only the most recent of3 resultswithin the time period is included. [facility] GLUCOSE 120(H) 70 - 99 MG/DL 11/05/2024 10:25 PM CDT [facility] BUN 14 7 - 18 MG/DL 11/05/2024 10:25 PM CDT [facility] CREATININE S/P/B 1.15(H) 0.55 - 1.02 MG/DL 11/05/2024 10:25 PM CDT [facility] SODIUM S/P/B 141 136 - 145 MMOL/L 11/05/2024 10:25 PM CDT [facility] POTASSIUM S/P/B 3.3(L) 3.5 - 5.1 MMOL/L 11/05/2024 10:25 PM CDT [facility] CHLORIDE S/P/B 109 97 - 115 MMOL/L 11/05/2024 10:25 PM CDT [facility] CO2 24.1 21 - 32 MMOL/L 11/05/2024 10:25 PM CDT [facility] CALCIUM S/P/B 9.1 8.5 - 10.1 MG/DL 11/05/2024 10:25 PM CDT [facility] BILIRUBIN TOTAL S/P/B 0.2 0.2 - 1.2 MG/DL 11/05/2024 10:25 PM CDT [facility] Comment: THIS ASSAY IS NOT RECOMMENDED FOR PATIENTS UNDERGOING TREATMENT WITH ELTROMBOPAG DUE TO THE POTENTIAL FOR FALSELY ELEVATED RESULTS. TOTAL PROTEIN S/P/B 7.4 6.4 - 8.2 G/DL 11/05/2024 10:25 PM CDT [facility] ALBUMIN S/P/B 3.5 3.4 - 5.0 G/DL 11/05/2024 10:25 PM CDT [facility] AST 22 15 - 37 U/L 11/05/2024 10:25 PM CDT [facility] ALT 26 14 - 55 U/L 11/05/2024 10:25 PM CDT [facility] ALKALINE PHOSPHATASE S/P/B 98 50 - 136 U/L 11/05/2024 10:25 PM CDT [facility] ANION GAP 7.9 2 - 10 MMOL/L 11/05/2024 10:25 PM CDT [facility] BUN CREATININE RATIO 12.2 6 - 26 11/05/2024 10:25 PM CDT [facility] A/G RATIO 0.9(L) 1.0 - 2.0 RATIO 11/05/2024 10:25 PM CDT [facility] GFR ESTIMATE 54(L) >90 ML/MIN/1.7 3 M2 11/05/2024 10:25 PM CDT [facility] Comment: NOTE: eGFR is not calculated for patients <18 years of age or gender unknown. This is an estimated GFR calculation using the new CKD EPI creatinine equation without race and so does not require a correction factor for race. This estimated GFR should not be used for calculating drug doses. 11/05/2024 9:46 PM CDT Ozzy Coello NP LABORATORY Final Result [facility] [address] [place] [address], [place] [phone] * (ABNORMAL) CBC W/DIFF AUTOMATED (11/05/2024 9:46 PM CDT) Only the most recent of3 resultswithin the time period is included. WBC 10.03 4.5 - 11.0 x10'3/uL 11/05/2024 10:00 PM CDT [facility] RBC 4.83 4.20 - 5.40 x10'6/uL 11/05/2024 10:00 PM CDT [facility] HGB 10.8(L) 12.0 - 16.0 G/DL 11/05/2024 10:00 PM CDT [facility] HCT 36.3(L) 38.0 - 48.0 % 11/05/2024 10:00 PM CDT [facility] MCV 75.2(L) 81.0 - 99.0 FL 11/05/2024 10:00 PM CDT [facility] MCH 22.4(L) 27.0 - 31.0 PG 11/05/2024 10:00 PM CDT [facility] MCHC 29.8(L) 32.0 - 36.0 G/DL 11/05/2024 10:00 PM CDT [facility] RDW 16.9(H) 11.5 - 14.5 % 11/05/2024 10:00 PM CDT [facility] PLT 207 130 - 400 x10'3/uL 11/05/2024 10:00 PM T [facility] MPV 11.0 9.3 - 12.2 FL 11/05/2024 10:00 PM T [facility] DIFFERENTIAL TYPE AUTOMATED DIFFERENTIAL 11/05/2024 10:00 PM CDT [facility] NEUTROPHILS % 49.6 % 11/05/2024 10:00 PM CDT [facility] LYMPHOCYTES % 37.6 % 11/05/2024 10:00 PM T [facility] MONOCYTES % 10.4 % 11/05/2024 10:00 PM CDT [facility] EOSINOPHILS 1.7 % 11/05/2024 10:00 PM CDT [facility] BASOPHILS 0.5 % 11/05/2024 10:00 PM CDT [facility] IMMATURE GRANS % 0.2 % 11/06/19 10:00 PM CDT [facility] ABS. NEUTROPHILS 4.98 1.80 - 7.70 x10'3/uL 11/05/2024 10:00 PM CDT [facility] ABS. LYMPHOCYTES 3.77 1.00 - 4.80 x10'3/uL 11/05/2024 10:00 PM CDT [facility] ABS. MONOCYTES 1.04(H) 0.24 - 0.86 x10'3/uL 11/05/2024 10:00 PM CDT [facility] ABS. EOSINOPHILS 0.17 0.04 - 0.36 x10'3/uL 11/05/2024 10:00 PM CDT [facility] ABS. BASOPHILS 0.05 0.01 - 0.08 x10'3/uL 11/05/2024 10:00 PM CDT [facility] ABS. IMMATURE GRANULOCYTES 0.02 0.00 - 0.49 x10'3/uL 11/05/2024 10:00 PM CDT [facility] 11/05/2024 9:46 PM CDT Ozzy Coello NP LABORATORY Final Result [facility] [address] [place] [address], [place] [phone] * CT ABD+PEL W IV CON ONLY (10/20/2024 1:55 PM CDT) Anatomical Region Laterality Modality Abdomen Computed Tomogra phy 10/20/2024 1:47 PM CDT Impressions 10/20/2024 1:53 PM CDT Impression: No acute findings. Referred By: Interpreted By: Carlos Alberto Mari MD, 10/20/2024 1:47 PM Narrative 10/20/2024 1:53 PM CDT [address] [address] Examination: CT ABD+PEL W CON Exam time: 10/20/2024 1:19 PM Indication: Left-sided abdominal pain and cramping Comparison:CT abdomen and pelvis 08/01/2024 and 07/19/2023 Technique: IV contrast: 100 mL Isovue 370. Oral contrast: None Technical comments: Standard technique. Dose reduction: This CT exam was performed using one or more of the following dose reduction techniques: Automated exposure control, adjustment of the mA and/or kV according to patient size, and/or use of iterative reconstruction technique. Findings: The visualized lung bases are clear. A fair amount of motion artifact is noted in the mid abdomen. There are a few small hepatic cysts. The liver and spleen are normal in size. Cholecystectomy. The pancreas and adrenal glands are unremarkable. No hydronephrosis. There is symmetric renal enhancement. There is a small cyst in the inferior left renal pole. No ureteral calculus. There is no calculus in the urinary bladder. Hysterectomy. There are postsurgical changes of hernia repair involving the left abdominal wall. No bowel obstruction or free intraperitoneal air. There is atherosclerosis of the abdominal aorta without aneurysm. There is no lymphadenopathy. No acute osseous abnormality. Procedure Note Carlos Alberto Mari MD - 10/20/[address] [address] Examination: CT ABD+PEL W CON Exam time: 10/20/2024 1:19 PM Indication: Left-sided abdominal pain and cramping Comparison:CT abdomen and pelvis 08/01/2024 and 07/19/2023 Technique: IV contrast: 100 mL Isovue 370. Oral contrast: None Technical comments: Standard technique. Dose reduction: This CT exam was performed using one or more of thefollowing dose reduction techniques: Automated exposure control,adjustment of the mA and/or kV according to patient size, and/or use ofiterative reconstruction technique. Findings: The visualized lung bases are clear. A fair amount of motionartifact is noted in the mid abdomen. There are a few small hepaticcysts. The liver and spleen are normal in size. Cholecystectomy. Thepancreas and adrenal glands are unremarkable. No hydronephrosis. Thereis symmetric renal enhancement. There is a small cyst in the inferiorleft renal pole. No ureteral calculus. There is no calculus in theurinary bladder. Hysterectomy. There are postsurgical changes of herniarepair involving the left abdominal wall. No bowel obstruction or freeintraperitoneal air. There is atherosclerosis of the abdominal aortawithout aneurysm. There is no lymphadenopathy. No acute osseousabnormality. Impression: No acute findings. Referred By: Interpreted By: Carlos Alberto Mari MD, 10/20/2024 1:[address] Final Result * LIPASE (10/20/2024 1:08 PM CDT) [facility] LIPASE 33 13 - 75 UNITS/L 10/20/2024 1:37 PM CDT [facility] 10/20/2024 1:08 PM CDT Adalid Hurt PA-C LABORATORY Final Resul t [facility] [address] [place] [address], [place] [phone] * URINALYSIS (10/20/2024 1:03 PM CDT) Only the most recent of2 resultswithin the time period is included. Pathologist [facility] SPECIMEN TYPE URINE CLEAN CATCH 10/20/2024 1:03 PM CDT [facility] COLOR (U) LIGHT YELLOW 10/20/2024 1:19 PM CDT [facility] TRANSPARENCY CLEAR 10/20/2024 1:19 PM CDT [facility] SPECIFIC GRAVITY (U) 1.020 1.001 - 1.030 10/20/2024 1:19 PM CDT [facility] U PH 6.0 5.0 - 9.0 10/20/2024 1:19 PM CDT [facility] LEUKOCYTES (U) NEGATIVE NEGATIVE 10/20/2024 1:19 PM CDT [facility] NITRITES NEGATIVE NEGATIVE 10/20/2024 1:19 PM CDT [facility] PROTEIN RANDOM (U) NEGATIVE <30 MG/DL 10/20/2024 1:19 PM CDT [facility] GLUCOSE (U) NORMAL NORMAL MG/DL 10/20/2024 1:19 PM CDT [facility] KETONES MG/DL (U) NEGATIVE NEGATIVE MG/DL 10/20/2024 1:19 PM CDT [facility] UROBILINOGEN NORMAL NORMAL MG/DL 10/20/2024 1:19 PM CDT [facility] BILIRUBIN (U) NEGATIVE NEGATIVE MG/DL 10/20/2024 1:19 PM CDT [facility] BLOOD (U) NEGATIVE NEGATIVE 10/20/2024 1:19 PM CDT [facility] URINE SPECIMEN OBTAINED BY CLEAN CATCH PROCEDURE / Unknown 10/20/2024 1:03 PM CDT us Adalid Hurt PA-C URINE ORDERABLES Final Resu lt [facility] [address] [place] [address], [place] [phone] * MAGNESIUM (09/12/2024 8:36 PM CDT) MAGNESIUM 2.2 1.8 - 2.4 MG/DL 09/12/2024 9:24 PM CDT [facility] 09/12/2024 8:36 PM CDT Candi DUPREE LABORATORY Final Result [facility] [address] [place] [address], [place] [phone] * CK (CPK) (09/12/2024 8:36 PM CDT) CPK [id number] [phone] [id number] U/L 09/12/2024 9:24 PM CDT [facility] 09/12/2024 8:36 PM CDT [facility] Final Result Performing Organization Address City/[facility]/ZIP Co de Phone Number [facility] [address] [place] [address], [place] [phone] from Last 3 Months Additional Health Concerns Infection Onset Date Last Indicated ESBL - Extended Spectrum Bet a-lactamase Comment:12/10/22 +ESBL Urine 02/20/23 +ESBL Urine 07/19/23 +ESBL Urine 12/10/2022 07/19/2023 Insurance [facility] MEDICARE Advance Directives * Full Code (Latest Code Status on File) Date Activated Date Inactivated Comments 07/22/2024 11:12 PM 07/24/2024 9:25 PM * Full Code Date Activated Date Inactivated Comments 10/13/2023 1:01 PM 06/01/2024 11:30 AM * Full Code Date Activated Date Inactivated Comments 10/09/2023 3:23 AM 10/12/2023 12:31 PM Care Teams Headmaster/Mistress Relationship Specialty Start Date End Date Simeon Sheriff MD [address] [place] [address] PCP - General FAMILY PRACTICE 12/15/21 Humble Colon DO [address] [place] [address] Consulting Physician GASTROENTEROLOGY 07/16/22
--- OUTSIDE RECORDS SUMMARY | 2024-11-26 01:06 | XMS_ITS | Encounter Summary ---
Author Organization [facility] Address [address] [place] [address] Care Team Providers Care Spice [employer] Name Role Phone Simeon Sheriff MD Primary Care Provider [phone] Encounter Details Date Type Department Care Team (Late st Contact Info) Description 10/09/2019 Lab Requisition [facility] [address] [place] [id number] Isaac Reid MD 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 Tobacco Use Types Packs/Day Years Used Date Smoking Tobacco: Never Assessed Comments Unknown Sex and Gender Information Value Date Recorded Sex Assigned at Not on file 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 Gender Identity Not on file Sexual Orientation Not on file documented as of this encounter Plan of Treatment Not on file documented as of this encounter Procedures Procedure Name Priority Date/Time Associated Diagnosis Comments SARS-COV-2 (COVID-19) IN HOUSE Routine 10/08/2019 9:40 AM CDT documented in this encounter Results * SARS-COV-2 (COVID-19) IN HOUSE (10/08/2019 9:40 AM CDT) COVID-19 PCR Not detected Not detected, Invalid 10/09/2019 6:32 PM CDT [facility]CRO[facility] Microbiology SPECIMEN FROM NASOPHARYNGEAL STRUCTURE / Unknown Collection / Unknown 10/08/2019 9:40 AM CDT 10/09/2019 11:[address] [facility]CRO[facility] - 10/09/2019 6:32 PM CDT This Real Time RT-PCR assay was developed and its performance characteristics determined by [facility]. This test has been authorized by the Food and Drug administration (FDA)under an Emergency Use Authorization (EUA). This test has been validated in accordance with the FDA's guidance document Policy for Diagnostic Testing in Laboratories Certified to perform High Complexity Testing under CLIA prior to Emergency Use Authorization for Coronavirus Disease-2019 during the Public Health Emergency issued on June 09, 2019. FDA independent review of this validation is pending. This test is only authorized for the duration of time the declaration that circumstances exist justifying the authorization of emergency use of in vitro diagnostic tests for detection of SARS-CoV-2 virus and/or diagnosis of COVID-19 infection under section 564(b)(1) of the Act, 21 U.S.C 360bbb-3 (b)(1), unless the authorization is terminated or revoked sooner. Isaac Reid MD LAB - MICROBIOLOGY ORDERABL ES Final Result [facility] [address] [place], [place] [address], [facility] [phone] documented in this encounter Visit Diagnoses Not on filedocumented in this encounter Additional Health Concerns Infection Onset Date Last Indicated Resolved Time COVID-19 Under Investigation 10/08/2019 10/08/2019 10/09/2019 6:32 PM CDT documented as of this encounter Care Teams [employer]ice [employer] Relationship Specialty Start Date End Date Simeon Sheriff MD PCP - General 07/21/17 documented as of this encounter
--- OUTSIDE RECORDS SUMMARY | 2024-11-26 01:06 | XMS_ITS ---
Author Organization [facility] Address [address] [place] [address] [place] [address] Care Team Providers Care Botany Teacher Name Role Phone MADDIE BRICE, LIZ JOREG Primary Care Provider Vikyleeanne Mian Altamirano Unavailable [phone] ALLERGIES Allergen (clinical drug ingredient) Drug/Non Drug [...] distress. Encounters Encounter Location Date Provider Diagnosis [facility] [address] [place] [address] 10/03/2024 Mian Tee Spondylosis without myelopathy or [...] discharged home in good condition with a dray driver. X-ray time: 11 seconds Safe Surgery [...] time for fumes to dissipate. 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 Anticipated critical events. Essential imaging displayed as appropriate. Fluoroscopy precautions taken if applicable. Equipment and supplies in room. Verify patient is not if applicable Third Critical Point SAFE SURGERY PRACTI EDITH-POST: [...] patient's typical axial low back pain. Endy's, Grafton's and Gaenslen's are positive bilaterally. There is [...]
--- OUTSIDE RECORDS SUMMARY | 2024-11-26 01:06 | XMS_ITS | Clinical Summary ---
Author Organization [facility] Address [address], [address] [address] Phone Care Team Providers Care Senior Communications Specialist Name Role Phone Simeon Sheriff MD Primary Care Provider [phone] Virginia Caldera MD Unavailable [phone] Allergies Active Allergy Reactions Criticality Noted Date Comments Codeine Rash 01/29/2018 Erythromycin Rash 06/27/2017 Nitrofurantoin Macrocrystal Rash 06/28/19 18 nausea Morphine Itching 06/27/2017 When given IV, causes redness in veins and itching Medications levothyroxine (SYNTHROID) 75 MCG Tablet Take 75 mcg by mouth daily. Active Cholecalciferol (VITAMIN D3) 1000 UNIT Tablet Take 1 Tablet by mouth 2 times daily. Active metoprolol Succinate (TOPROL-XL) 100 MG TABLET SR 24 HR Take 100 mg by mouth daily. Active oxybutynin (DITROPAN-XL) 10 MG TABLET SR 24 HR Take 10 mg by mouth nightly. Active traZODone (DESYREL) 50 MG Tablet Take 50 mg by mouth nightly. Active busPIRone HCl (BUSPAR) 30 MG Tablet Take 30 mg by mouth 2 times daily. 04/18/2020 Active sertraline (ZOLOFT) 100 MG Tablet Take 100 mg by mouth daily. Active LISINOPRIL PO Take 2.5 mg by mouth nightly. Active dicyclomine (BENTYL) 20 MG Tablet Take 1 Tablet by mouth 2 times daily. 120 Tablet 2 09/24/2021 Active esomeprazole (NexIUM) 40 MG CAPSULE DELAYED RELEASE TAKE 1 CAPSULE DAILY 90 Capsule 1 01/04/2022 Active traMADol (ULTRAM) 50 MG TabletIndicatio ns:Abdominal pain Take 1 Tablet by mouth every 8 hours as needed for Moderate or more severe pain. 12 Tablet 01/27/2022 Active traMADol (ULTRAM) 50 MG TabletIndicatio ns:Abdominal pain Take 1 Tablet by mouth every 8 hours as needed for Moderate or more severe pain. 12 Tablet 01/27/2022 Active Active Problems Problem Noted Date Diagnosed Date Pharyngoesophageal dysphagia 07/08/2020 Adynamic ileus 10/07/2019 Headache 10/07/2019 Chronic gastritis 02/01/2019 Nausea vomiting and diarrhea 01/28/2019 Acute renal failure (ARF) 01/28/2019 Diarrhea 08/09/2017 IBS (irritable bowel syndrome) 08/09/2017 Leukocytosis 08/09/2017 Generalized abdominal pain 08/08/2017 Depression Hypothyroid HLD (hyperlipidemia) GERD (gastroesophageal reflux disease) H/O sinus tachycardia Heart palpitations NAFLD (nonalcoholic fatty liver disease) Vitamin D deficiency Resolved Problems Problem Noted Date Diagnosed Date Resolved Date Crohn's disease 08/09/2017 06/04/2021 Immunizations Immunization Administration Dates Next Due Influenza Vaccine 01/07/2016,01/24/2015 Influenza Vaccine, Quadrivalent, PF 12/15/2018 Influenza, Injectable, Quadrivalent 04/2021,01/10/2021,01/12/2020,2017,01/13/2017 Influenza, Seasonal, Injecta ble, Undefined 12/21/2013,01/03/2013 Pneumococcal Vaccine - 13 Valent 01/24/2015 Pneumococcal Vaccine Adult - 23 Valent 01/03/2013 TDAP Vaccine 12/02/2021,01/22/2014 Family History Medical History Relation Name Comments Heart Disease Brother 1 Heart Disease Brother 2 Alzheimer's Disease Father Diabetes Father Heart Disease Father Heart Surgery Father Skin Cancer Father Cerebral Anuerysm Maternal Aunt Abdominal Aortic Aneurysm Maternal Grandmother Heart Surgery Mother stents Kidney Disease Mother renal failure , no HD Other-comment Mother aortic aneurys m Heart Disease Sister No Known Problems Son 1 No Known Problems Son 2 Relation Name Status Comments Brother 1 Alive Brother 2 Alive Brother 3 Alive Father Maternal Aunt Maternal Grandmother Mother Alive Sister Alive Son 1 Alive Son 2 Alive 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 Tobacco Use Types Packs/Day Years Used Date Smoking Tobacco: Never Smokeless Tobacco: Never Tobacco Cessation:Counseling Given: No Alcohol Use Standard Drinks/Week Comments No 0 (1 standard drink = 0.6 oz pur e alcohol) Sexually Active Control Partners Comments Not Currently Male Comments No Sex and Gender Information Value Date Recorded Sex Assigned at Not on file Legal Sex Female 9:09 PM CDT Gender Identity Not on file Sexual Orientation Not on file Occupation Industry Job Start Date Job End Date disabled Not on file Not on file Not on file Last Filed Vital Signs Vital Sign Reading Time Taken Comments Blood Pressure 112/78 02/11/2022 11:08 AM CDT Pulse 83 02/11/2022 11:08 AM CDT Temperature 35.6 C (96.1 F) 01/27/2022 4:40 PM CDT Respiratory Rate 22 02/11/2022 11:08 AM CDT Oxygen Saturation 98% 02/11/2022 11:08 AM CDT Inhaled Oxygen Concentration - - Weight 70.3 kg (155 lb) 02/11/2022 11:08 AM CDT Height 154.9 cm (5' 1) 02/11/2022 11:08 AM CDT Body Mass Index 29.29 02/11/2022 11:08 AM CDT Plan of Treatment Health Maintenance Due Date Last Done Comments Hepatitis C Virus (HCV) Screening 1960 Mammogram 1960 Cologuard 2005 Zoster Immunization (1 of 2) 2010 Pneumococcal Immunization (50+ years) (3 of 3 - PCV20 or PCV21) 01/25/2020 01/24/2015, 01/03/2013 Immunochemical Fecal Occult Blood 01/27/2023 01/27/2022, 02/24/2018 SARS-COV-2 Immunization (4 - season) 2023 02/17/2021, 07/05/2020, 06/07/2020 Influenza Immunization (#1) 2024 10/0 04/2021, 01/10/2021, 01/12/2020, Additional history exists Td Immunization Every 10 Years (Adults With 1 Tdap) 12/03/2031 12/02/2021, 01/22/2014 Colonoscopy 10/06/2032 10/06/2022, 08/10/2017 Colorectal Cancer Screening 10/06/2032 Respiratory Syncytial Virus (RSV) Immunization (Adult) (1 - 1-dose 75+ series) 11/18/2035 Pneumococcal Immunization Combined Discontinued 01/24/2015, 01/03/2013 DTaP/Tdap/Td Immunization Discontinued 12/02/2021, Hepatitis B Immunization Aged Out No longer eligible based on patient's age to complete this topic Human Papillomavirus (HPV) Immunization Aged Out No longer eligible based on patient's age to complete this topic Meningococcal Immunization (ACWY) Aged Out No longer eligible based on patient's age to complete this topic Rotavirus Immunization Aged Out No lo nger eligible based on patient's age to complete this topic Procedures Procedure Name Priority Date/Time Associated Diagnosis Comments STOOL, OCCULT BLOOD, DIAGNOSTIC, VIA GUAIAC STAT 01/27/2022 7:47 PM CDT from Last 3 Months or Most Recently Relevant to Health Maintenance Results * STOOL, OCCULT BLOOD, DIAGNOSTIC (01/27/2022 7:47 PM CDT) OCCULT BLOOD DIAG Negative Negative 01/27/2022 8:05 PM CDT [facility] Stool Non-Phlebotomy Collection / Unknown 01/27/2022 7:47 PM CDT 01/27/2022 7:57 PM CDT us Caleb Ellis PAC BODY FLUIDS & STOOLS ORDERABLES Final Result [facility] [address] [place] [address] from Last 3 Months or Most Recently Relevant to Health Maintenance Insurance [facility] MEDICARE Advance Directives * Full Code (Latest Code Status on File) Date Activated Date Inactivated Comments 10/07/2019 6:27 PM 10/09/2019 4:11 PM CPR-Full Tesfaye atment: FULL ARREST: Attempt Resuscitation/CPR wit intubation and mechanical ventilation. PRE-ARREST: Use entire range of life support measures to stabilize the patient. * Full Code Date Activated Date Inactivated Comments 01/28/2019 9:22 PM 02/01/2019 3:57 PM CPR-Full T reatment: FULL ARREST: Attempt Resuscitation/CPR wit intubation and mechanical ventilation. PRE-ARREST: Use entire range of life support measures to stabilize the patient. * Full Code Date Activated Date Inactivated Comments 08/09/2017 12:35 AM 08/10/2017 9:23 PM CPR-Full Sarah tment: FULL ARREST: Attempt Resuscitation/CPR wit intubation and mechanical ventilation. PRE-ARREST: Use entire range of life support measures to stabilize the patient. Care Teams Senior Communications Specialist Relationship Specialty Start Date End Date Simeon Sheriff MD [address] [place] [id number] PCP - General Family Medicine 06/22/17 Virginia Caldera MD [address] [place] [address] Consulting Physician Gastroenterology 02/11/22
--- OUTSIDE RECORDS SUMMARY | 2024-11-26 01:06 | XMS_ITS | Clinical Summary ---
Author Organization [facility] Address [address] [place] [address] Care Team Providers Care Combination Operator Name Role Phone Simeon Sheriff MD Primary Care Provider [phone] Source Comments [facility] and Associated Physician Practices is amultiple site organization consisting of ambulatory clinics and hospital sitesin [place], [place], [place] and [place]. This disclosure is being madepursuant to the Care Everywhere program and may not contain all information available regarding this patient. Last updated 17.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 Gender Identity Not on file Sexual Orientation Not on file Plan of Treatment Health Maintenance Due Date Last Done Comments COLOGUARD (AGES 45-75) - COL ON CA SCREENING 1960 COLON MONITORING 1960 COLONOSCOPY - COLON CA SCREENING 1960 CT COLONOGRAPHY - COLON CA SCREENING 1960 Colorectal Cancer Screening 1960 FIT - COLON CA SCREENING 1960 FLEX SIG - COLON CA SCREENING 1960 LIPID TESTING 1960 MAMMOGRAM 1960 HIV SCREENING 11/18/1975 HEPATITIS C SCREENING 11/13/1978 DTAP/TDAP/TD VACCINES (1 - Tdap) 11/18/1979 PNEUMOCOCCAL VACCINE 50+ (1 of 1 - PCV) 2010 ZOSTER VACCINE (1 of 2) 2010 COVID-19 VACCINE (1 - 2023-2 5 season) 2023 DEPRESSION SCREENING 04/11/2024 INFLUENZA VACCINE (#1) 2024 Respiratory Syncytial Virus (RSV) Vaccine Pt: or over 60 yrs (1 - 1-dose 75+ series) 11/18/2035 HEPATITIS B VACCINE Aged Out No longe r eligible based on patient's age to complete this topic HIB VACCINE Aged Out No longer eligi ble based on patient's age to complete this topic HPV VACCINE Aged Out No longer eligi ble based on patient's age to complete this topic MENINGOCOCCAL (Group B) VACC INE SHARED DECISION-MAKING Aged Out No longer eligibl e based on patient's age to complete this topic MENINGOCOCCAL GROUPS A/C/Y/W VACCINE Aged Out No longer eligible b ased on patient's age to complete this topic Insurance MEDICARE Care Teams Combination Operator Relationship Specialty Start Date End Date Simeon Sheriff MD PCP - General 07/21/17
--- OUTSIDE RECORDS SUMMARY | 2024-11-26 01:07 | XMS_ITS | Patient Health Record ---
Author Organization [facility] Address [address] [place] [address] [place] [address] Care Team Providers Care Legal Consultant Name Role Phone MADDIE BRICE, LIZ JORGE Primary Care Provider Unav Mian Altamirano Unavailable [phone] ALLERGIES Allergen (clinical drug ingredient) Drug/Non Drug [...] Active tizanidine Tizanidine hallucinations Drug Allergy Active RESULTS Component Value Reference Range Notes [facility]covery Results (Not yet reviewed by provider) Interpretation: Performing [id number] [facility], [address] [facility] [id number] Katie Bella MD Notes/Report: Acetyl fentanyl: Fentanyl Negative. Acetyl norfentanyl: Fentanyl Negative. Acr yl fentanyl: Fentanyl Negative. Carfentanil: Fentanyl Negative. Para-fluorofent anyl: Fentanyl Negative. Codeine Quantification negative 50 ng/mL Morphine Quantification negative 50 ng/mL Hydrocodone Quantification negative 50 ng/mL Norhydrocodone Quantification negative 50 ng/mL Hydromorphone Quantification negative 50 ng/mL Oxycodone Quantification negative 50 ng/mL Noroxycodone Quantification negative 50 ng/mL Oxymorphone Quantification negative 50 ng/mL Fentanyl Quantification negative 1 ng/mL Norfentanyl Quantification negative 8 ng/mL Methadone Quantification negative 100 ng/mL EDDP (Methadone metabolite) Quantification negative 100 ng/mL Tramadol Quantification positive-516.308 100 ng/mL H-klzxrfdzm-vrnpnlyp Quantification positive-1357.188 100 ng/mL E-Uwplwvqxy-Hufqgrzv Quantification positive-1558.893 100 ng/mL Alpha-Hydroxyalprazolam Quantification negative 20 ng/mL 1-Lyvfr-Uopiyqjrpg Quantification negative 20 ng/m L Lorazepam Quantification negative 40 ng/mL Nordiazepam Quantification negative 40 ng/mL Temazepam Quantification negative 50 ng/mL Oxazepam Quantification negative 40 ng/mL Amphetamine Quantification negative 100 ng/mL Methamphetamine Quantification negative 100 ng/mL Cocaine metabolite Quantification negative 50 ng/m L cTHC (Marijuana metabolite) Quantification negative 15 ng/mL 6-JOANN (Heroin metabolite) Quantification negative 10 ng/mL Acetyl fentanyl Quantification Fen Neg 2 ng/mL Acetyl norfentanyl Quantification Fen Neg 5 ng/mL Acryl fentanyl Quantification Fen Neg 1 ng/mL Carfentanil Quantification Fen Neg 2 ng/mL Para-fluorofentanyl Quantification Fen Neg 1 ng/m L Mitragynine (Kratom alkaloid) Quantification negative 1 ng/mL 1-DT-Hynobikbmwl (Kratom alk aloid) Quantification negative 1 ng/mL Ethyl Glucuronide Quantification negative 500 ng/m L Ethyl Sulfate Quantification negative 500 ng/mL REASON FOR REFERRAL No Information MEDICATIONS Medication SIG (Take, Route, Frequency, Duration) Notes Start Date End Date Status dilTIAZem HCl 120 MG as directed Orally Active Rosuvastatin Calcium 10 MG 1 tablet Oral ly Once a day for 30 day(s) Active methylPREDNISolone 4 MG as directed Orally Active buPROPion HCl 75 MG 2 tablets Orally Twi ce a day for 30 day(s) Active Xanax 0.25 MG 1-2 tablets Orally 3 0 minutes prior to injection 06/19/2024 Active Gabapentin 300 MG 1 capsule Orally Thr ee times a day Active Levothyroxine Sodium 88 MCG TAKE 1 TABLE T BY MOUTH DAILY. Oral for 90 Active busPIRone HCl 15 MG 1 tablet Orally Twic e a day Active Xanax 0.25 MG 1-2 tablets Orally 3 0 minutes prior to injection Active Sertraline HCl 100 MG 1 tablet Orally On ce a day for 30 day(s) Active Famotidine 20 MG Oral for 90 A ctive Tylenol 325 MG 1 tablet as needed Orally every 6 hrs Active Memantine HCl 5 MG Oral for 30 Active traMADol HCl 50 MG 1 tablet as needed Orally twice daily for 7 days 07/05/2024 Active traZODone HCl 100 MG 1 tablet at bedtime Oral Once a day Active oxyBUTYnin Chloride ER 10 MG Oral for 30 Active Esomeprazole Magnesium 40 MG 1 capsule O ral Once a day Active Vitamin D-3 25 MCG (1000 UT) 1 capsule O rally Once a day Active Xanax 0.25 MG 1-2 tablets Orally 3 0 minutes prior to injection 09/25/2024 Active PROBLEMS Problem Type ICD Code Onset Dates Problem Status W/U Status Risk SNOMED Code Notes Problem Fear of injections and transfusions (F40.231) Active confirmed Fear of medical treatment (569599995) Problem 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 Intercost al neuropathy (919204396) Problem Chronic pain syndrome (G89.4) Active confirmed Chronic barbara n syndrome (703608059) Problem Unspecified osteoarthritis, unspecified site (M19.90) Active confirmed Osteoarthritis (776013110) Problem Sacroiliitis, not elsewhere classified (M46.1) Active confirmed Solitary sacroiliitis (202615381) Problem Spondylosis without myelopathy or radiculopathy, 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) Active confirmed Thoracic spondylosis without myelopathy (939886693) Problem Spondylosis without myelopathy or radiculopathy, thoracolumbar region (M47.815) Active confirmed Thoracic spondylosis without myelopathy (343767084) Problem Spondylosis without myelopathy or radiculopathy, lumbar region (M47.816) Active confirmed Lumbosacral spondylosis without myelopathy (68196704) Problem Spondylosis without myelopathy or radiculopathy, lumbosacral region (M47.817) Active confirmed Lumbosacral spondylosis without myelopathy (disorder) (40533017) Problem Intervertebral disc disorders with radiculopathy, lumbar region (M51.16) Active confirmed Radiculopathy d ue to lumbar intervertebral disc disorder (745082070729436) Problem Other intervertebral disc degeneration, lumbar region (M51.36) Active confirmed Degeneration of lumbar intervertebral disc (69034092) Problem Other intervertebral disc degeneration, lumbosacral region (M51.37) Active confirmed Degeneration of lumbosacral intervertebral disc (40690356) Problem Radiculopathy, thoracic region (M54.14) Active confirmed Thoracic radiculopathy (15081858) Problem Radiculopathy, lumbar region (M54.16) Active confirmed Lumbar radiculopathy (912103207) Problem Radiculopathy, lumbosacral region (M54.17) Active confirmed Lumbosacral radiculopathy (4793496) Problem Age-related osteoporosis with current pathological fracture, vertebra(e), subsequent encounter for fracture with delayed healing (M80.08XG) Active confirmed Problem Age-related osteoporosis with current pathological fracture, vertebra(e), subsequent encounter for fracture with nonunion (M80.08XK) Active confirmed Nonunion of fracture (209506746) Problem Postlaminectomy syndrome, not elsewhere classified (M96.1) Active confirmed Post-lami nectomy syndrome (00538724) Problem Osseous stenosis of neural canal of lumbar region (M99.33) Active confirmed Spinal stenosis of lumbar region (97183485) Problem Urinary tract infection, site not specified (N39.0) Active confirmed Urinary tract infectious disease (disorder) (05804416) Problem Other mechanical complication of implanted electronic neurostimulator of spinal cord electrode (lead), initial encounter (T85.192A) Active confirmed Mechanical complication of nervous system device, implant AND/OR graft (21443841) Problem Other mechanical complication of implanted electronic neurostimulator, generator, initial encounter (T85.193A) Active confirmed Mechanical complication of nervous system device, implant AND/OR graft (97680470) Problem Lumbar radiculopathy (M54.16) Active confirmed Lumbar radiculopathy (002389950) VITAL SIGNS Heart Rate 69 /min 09/25/2024 Temperature 98.7 degrees Fahrenheit 04/25/2024 Respiratory Rate 16 /min 09/25/2024 Blood pressure diastolic 72 mm Hg 09/25/2024 Oximetry 95 % 09/04/2024 Post Op Vitals: BP 134/77, HR 71, RR 18, Spo2 95% Discharged home, ambulatory, and in no acute distress. Height 5 ft 1 in in 10/03/2024 Post Op Vitals: BP , HR , RR 16, Spo2 % Pain=/10. Discharged to home with self, ambulatory without assistance at baseline, and in no acute distress. Blood pressure systolic 109 mm Hg 09/25/2024 Weight 157 lbs 09/25/2024 BMI 29.66 kg/m2 09/25/2024 Encounters Encounter Location Date Provider Diagnosis [facility] [address] [place] [phone] 04/13/2024 Mian Tee Radiculopathy, lumba r region M54.16 ; Radiculopathy, lumbosacral region M54.17 ; Sacroiliitis, not elsewhere classified M46.1 ; Spondylosis without myelopathy or radiculopathy, lumbar region M47.816 ; Other intervertebral disc degeneration, lumbar region M51.36 ; Intervertebral disc disorders with radiculopathy, lumbar region M51.16 ; Fear of injections and transfusions F40.231 ; correction (current) use of opiate analgesic Z79.891 and Chronic pain syndrome G89.4 [facility] [address] [phone] 04/16/2024 Mian Tee [facility] [address] [place] [phone] 04/25/2024 Mian Tee Postlaminectomy syndrome, not elsewhere classified M96.1 ; Chronic pain syndrome G89.4 and Lumbar radiculopathy M54.16 [facility] [address] [place] [phone] 04/26/2024 Mian Tee [facility] [address] [place] [phone] 06/19/2024 Mian Tee Radiculopathy, lumbosacral region M54.17 ; Radiculopathy, lumbar region M54.16 ; Sacroiliitis, not elsewhere classified M46.1 ; Spondylosis without myelopathy or radiculopathy, lumbar region M47.816 ; Intervertebral disc disorders with radiculopathy, lumbar region M51.16 ; Chronic pain syndrome G89.4 ; Postlaminectomy syndrome, not elsewhere classified M96.1 ; Fear of injections and transfusions F40.231 ; 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 and Radiculopathy, thoracic region M54.14 [facility] [address] [place] [phone] 06/20/2024 Mian Stynowick Intercostal neuropat hy G58.0 and Radiculopathy, thoracic region M54.14 [facility] [address] [place] [phone] 06/21/2024 Mian Stynowick [facility] [address] [place] [address] [place] [address] 07/04/2024 Mian Stynowick [facility] [address] [place] [phone] 07/05/2024 Mian Stynowick Radiculopathy, lumba r region M54.16 ; Radiculopathy, thoracic region M54.14 ; Radiculopathy, lumbosacral region M54.17 ; Sacroiliitis, not elsewhere classified M46.1 ; Spondylosis without myelopathy or radiculopathy, lumbar region M47.816 ; Intervertebral disc disorders with radiculopathy, lumbar region M51.16 ; Chronic pain syndrome G89.4 ; Postlaminectomy syndrome, not elsewhere classified M96.1 ; Fear of injections and transfusions F40.231 and 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 [facility] [address] [place] [phone] 07/11/2024 Mian Stynowick Radiculopathy, lumba r region M54.16 ; Radiculopathy, thoracic region M54.14 ; Radiculopathy, lumbosacral region M54.17 ; Sacroiliitis, not elsewhere classified M46.1 ; Spondylosis without myelopathy or radiculopathy, lumbar region M47.816 ; Intervertebral disc disorders with radiculopathy, lumbar region M51.16 ; Chronic pain syndrome G89.4 ; Postlaminectomy syndrome, not elsewhere classified M96.1 ; Fear of injections and transfusions F40.231 and 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 [facility] [address] [place] [phone] 08/06/2024 Mian Stynowick Radiculopathy, lumba r region M54.16 ; Radiculopathy, thoracic region M54.14 ; Radiculopathy, lumbosacral region M54.17 ; Sacroiliitis, not elsewhere classified M46.1 ; Spondylosis without myelopathy or radiculopathy, lumbar region M47.816 ; Intervertebral disc disorders with radiculopathy, lumbar region M51.16 ; Chronic pain syndrome G89.4 ; Postlaminectomy syndrome, not elsewhere classified M96.1 ; Fear of injections and transfusions F40.231 and 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 [facility] [address] [place] [address] [place] [address] 08/14/2024 Mian Stynowick Radiculopathy, thoracic region M54.14 ; 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 ; Radiculopathy, lumbar region M54.16 ; Radiculopathy, lumbosacral region M54.17 ; Sacroiliitis, not elsewhere classified M46.1 ; Spondylosis without myelopathy or radiculopathy, lumbar region M47.816 ; Intervertebral disc disorders with radiculopathy, lumbar region M51.16 ; Chronic pain syndrome G89.4 ; Postlaminectomy syndrome, not elsewhere classified M96.1 and Fear of injections and transfusions F40.231 [facility] [address] [place] [address] [place] [address] 08/15/2024 Mian Stynowick Radiculopathy, thoracic region M54.14 [facility] [address] [place] [address] [place] [address] 08/16/2024 Mian Stynowick [facility] [address] [place] [phone] 08/29/2024 Mian Stynowick Radiculopathy, lumba r region M54.16 ; Radiculopathy, thoracic region M54.14 ; Radiculopathy, lumbosacral region M54.17 ; Sacroiliitis, not elsewhere classified M46.1 ; Spondylosis without myelopathy or radiculopathy, lumbar region M47.816 ; Intervertebral disc disorders with radiculopathy, lumbar region M51.16 ; Chronic pain syndrome G89.4 ; Postlaminectomy syndrome, not elsewhere classified M96.1 ; Fear of injections and transfusions F40.231 and 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 [facility] [address] [place] [address] [place] [address] 09/04/2024 Mian Stynowick Radiculopathy, lumba r region M54.16 ; Radiculopathy, lumbosacral region M54.17 and Osseous stenosis of neural canal of lumbar region M99.33 [facility] [address] [place] [phone] 09/05/2024 Mian Stynowick [facility] [address] [place] [phone] 09/18/2024 Mian Stynowick Radiculopathy, lumba r region M54.16 ; Radiculopathy, thoracic region M54.14 ; Radiculopathy, lumbosacral region M54.17 ; Sacroiliitis, not elsewhere classified M46.1 ; Spondylosis without myelopathy or radiculopathy, lumbar region M47.816 ; Intervertebral disc disorders with radiculopathy, lumbar region M51.16 ; Chronic pain syndrome G89.4 ; Postlaminectomy syndrome, not elsewhere classified M96.1 ; Fear of injections and transfusions F40.231 and 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 [facility] [address] [place] [phone] 09/25/2024 Mian Stynowick Radiculopathy, lumba r region M54.16 ; Spondylosis without myelopathy or radiculopathy, lumbar region M47.816 ; Radiculopathy, lumbosacral region M54.17 ; Osseous stenosis of neural canal of lumbar region M99.33 ; Radiculopathy, thoracic region M54.14 ; Spondylosis without myelopathy or radiculopathy, lumbosacral region M47.817 and Fear of injections and transfusions F40.231 [facility] [address] [address] 10/03/2024 Mian Stynowick Spondylosis without myelopathy or radiculopathy, lumbar region M47.816 and Spondylosis without myelopathy or radiculopathy, lumbosacral region M47.817 ASSESSMENTS Encounter Date Diagnosis Assessment Notes Treatment Notes Treatment Clinical Notes Section Notes 10/03/2024 Spondylosis without myelopathy or radiculopathy, lumbar region (ICD-10 - M47.816) 10/03/2024 Spondylosis without myelopathy or radiculopathy, lumbosacral region (ICD-10 - M47.817) 09/25/2024 Spondylosis without myelopathy or radiculopathy, lumbar [...] to proceeding at this time. 09/25/2024 Radiculopathy, lumbar region (ICD-10 - M54.16) 06/19/2024 Radiculopathy, lumbosacral region (ICD-10 - M54.17) 09/04/2024 Radiculopathy, lumbar region (ICD-10 - M54.16) 09/04/2024 Radiculopathy, lumbosacral region (ICD-10 - M54.17) 09/18/2024 Radiculopathy, lumbar region (ICD-10 - M54.16) 08/29/2024 Radiculopathy, thoracic region (ICD-10 - M54.14) 08/29/2024 Radiculopathy, lumbar region (ICD-10 - M54.16) The patient's SCS was interrogated reprogrammed in the office today with improved axial low back and bilateral lower extremity neuropathic pain coverage with good paresthesia overlap. Schedule a Bilateral L5-P8gnlltniaqoosmh epidural steroid injection. The risks of this procedure including pain, [...] agreeable to proceeding at this time. The side effects of opioid analgesics including sedation, constipation potentially resulting in bowel obstruction, respiratory depression, tolerance, addiction, hyperalgesia, withdrawal after abrupt discontinuation, immunosuppression and endocrine abnormalities such as hypocortisolism and hypogonadism resulting in sexual dysfunction which may become permanent were discussed and the patient expressed an understanding of the above. The patient was advised to avoid driving, climbing ladders and operating dangerous machinery after taking this medication. The patient was advised to avoid consuming alcohol, illicit drugs and sedative/hypnotic drugs in conjunction with this medication due to the risk of profound respiratory depression and . The patient was directed to utilize the lowest effective dose possible. The importance of safe storage and keeping opioid medications locked up at all times in order to prevent theft and unintended consumption by friends, relatives or anyone else was discussed with the patient at length. The patient agrees to fully comply with the above. The [place] and [place] PDMP were reviewed and were appropriate 08/15/2024 Radiculopathy, thoracic region (ICD-10 - M54.14) 08/14/2024 Intercostal neuropathy (ICD-10 - G58.0) Schedule a left 7th, 8th & 9th intercostal nerve block as a diagnostic and therapeutic endeavor to isolate the source of the patient's chest wall pain with the ultimate goal of radiofrequency ablation for more durable pain relief. The risks of this procedure including pain, bleeding, infection, pneumothorax, nerve damage, neuritis after radiofrequency ablation, insomnia, hyperglycemia, hair loss, muscle atrophy, skin depigmentation, weight gain, fluid retention, adrenal suppression, immunosuppression, osteoporosis resulting in fractures, avascular necrosis of the hip, cataracts, bleeding gastric ulcer, worsening pain and failure to relieve pain were discussed and the patient is agreeable to proceeding at this time. 08/14/2024 Radiculopathy, thoracic region (ICD-10 - M54.14) 08/06/2024 Radiculopathy, lumbar region (ICD-10 - M54.16) 07/11/2024 Radiculopathy, lumbar region (ICD-10 - M54.16) 07/05/2024 Radiculopathy, thoracic region (ICD-10 - M54.14) The patient was instructed to notify the office after imaging has been obtained so it can be reviewed and treatment plan formulated moving forward. Patient verbalized understanding and agrees with current plan. Also instructed patient to follow-up with her neurosurgeon Dr Dalal after obtaining her new thoracic MRI for further evaluation of her continuing thoracic pain. Patient verbalized understanding 07/05/2024 Radiculopathy, lumbar region (ICD-10 - M54.16) The side effects of opioid analgesics including sedation, constipation potentially resulting in bowel obstruction, respiratory depression, tolerance, addiction, hyperalgesia, withdrawal after abrupt discontinuation, immunosuppression and endocrine abnormalities such as hypocortisolism and hypogonadism resulting in sexual dysfunction which may become permanent were discussed and the patient expressed an understanding of the above. The patient was advised to avoid driving, climbing ladders and operating dangerous machinery after taking this medication. The patient was advised to avoid consuming alcohol, illicit drugs and sedative/hypnotic drugs in conjunction with this medication due to the risk of profound respiratory depression and . The patient was directed to utilize the lowest effective dose possible. The importance of safe storage and keeping opioid medications locked up at all times in order to prevent theft and unintended consumption by friends, relatives or anyone else was discussed with the patient at length. The patient agrees to fully comply with the above. The [place] PDMP were reviewed and were appropriate 06/20/2024 Intercostal neuropathy (ICD-10 - G58.0) 06/20/2024 Radiculopathy, thoracic region (ICD-10 - M54.14) 04/25/2024 Chronic pain syndrome (ICD-10 - G89.4) 04/25/2024 Postlaminectomy syndrome, not elsewhere classified (ICD-10 - M96.1) 04/13/2024 Radiculopathy, lumbar region (ICD-10 - M54.16) Schedule a permanent spinal cord stimulator implantation. The risks of this procedure including pain, bleeding, infection, epidural hematoma, spinal headache, persistent spinal fluid leak, nerve damage, spinal cord injury, paralysis, worsening pain and failure to relieve pain were discussed and the patient is agreeable to proceeding at this time. The inherent risks of anesthesia including airway obstruction resulting in cardiopulmonary arrest and were also discussed and the patient is agreeable to proceeding at this time 04/13/2024 Radiculopathy, lumbosacral region (ICD-10 - M54.17) 04/25/2024 Lumbar radiculopathy (ICD-10 - M54.16) 04/13/2024 Sacroiliitis, not elsewhere classified (ICD-10 - M46.1) 07/05/2024 Radiculopathy, lumbosacral region (ICD-10 - M54.17) 07/11/2024 Radiculopathy, thoracic region (ICD-10 - M54.14) 08/06/2024 Radiculopathy, thoracic region (ICD-10 - M54.14) 08/14/2024 Radiculopathy, lumbar region (ICD-10 - M54.16) 08/29/2024 Radiculopathy, lumbosacral region (ICD-10 - M54.17) 09/04/2024 Osseous stenosis of neural canal of lumbar region (ICD-10 - M99.33) 09/18/2024 Radiculopathy, thoracic region (ICD-10 - M54.14) 06/19/2024 Radiculopathy, lumbar region (ICD-10 - M54.16) The patient's SCS was interrogated reprogrammed in the office today with improved axial low back and bilateral lower extremity neuropathic pain coverage with good paresthesia overlap. 06/19/2024 Sacroiliitis, not elsewhere classified (ICD-10 - M46.1) 09/25/2024 Radiculopathy, lumbosacral region (ICD-10 - M54.17) 09/25/2024 Osseous stenosis of neural canal of lumbar region (ICD-10 - M99.33) 06/19/2024 Spondylosis without myelopathy or radiculopathy, lumbar region (ICD-10 - M47.816) 09/18/2024 Radiculopathy, lumbosacral region (ICD-10 - M54.17) 08/29/2024 Sacroiliitis, not elsewhere classified (ICD-10 - M46.1) 08/14/2024 Radiculopathy, lumbosacral region (ICD-10 - M54.17) 08/06/2024 Radiculopathy, lumbosacral region (ICD-10 - M54.17) 07/11/2024 Radiculopathy, lumbosacral region (ICD-10 - M54.17) 04/13/2024 Spondylosis without myelopathy or radiculopathy, lumbar region (ICD-10 - M47.816) 07/05/2024 Sacroiliitis, not elsewhere classified (ICD-10 - M46.1) 07/05/2024 Spondylosis without myelopathy or radiculopathy, lumbar region (ICD-10 - M47.816) 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) 08/06/2024 Sacroiliitis, not elsewhere classified (ICD-10 - M46.1) 07/11/2024 Sacroiliitis, not elsewhere classified (ICD-10 - M46.1) 08/14/2024 Sacroiliitis, not elsewhere classified (ICD-10 - M46.1) 08/29/2024 Spondylosis without myelopathy or radiculopathy, lumbar region (ICD-10 - M47.816) 09/18/2024 Sacroiliitis, not elsewhere classified (ICD-10 - M46.1) 09/25/2024 Radiculopathy, thoracic region (ICD-10 - M54.14) 06/19/2024 Intervertebral disc disorders with radiculopathy, lumbar region (ICD-10 - M51.16) 09/25/2024 Spondylosis without myelopathy or radiculopathy, lumbosacral region (ICD-10 - M47.817) 06/19/2024 Chronic pain syndrome (ICD-10 - G89.4) 09/18/2024 Spondylosis without myelopathy or radiculopathy, lumbar region (ICD-10 - M47.816) 08/29/2024 Intervertebral disc disorders with radiculopathy, lumbar region (ICD-10 - M51.16) 08/14/2024 Spondylosis without myelopathy or radiculopathy, lumbar region (ICD-10 - M47.816) 07/11/2024 Spondylosis without myelopathy or radiculopathy, lumbar region (ICD-10 - M47.816) 08/06/2024 Spondylosis without myelopathy or radiculopathy, lumbar region (ICD-10 - M47.816) 07/05/2024 Intervertebral disc disorders with radiculopathy, lumbar region (ICD-10 - M51.16) 04/13/2024 Intervertebral disc disorders with radiculopathy, lumbar region (ICD-10 - M51.16) 04/13/2024 Fear of injections and transfusions (ICD-10 - F40.231) 08/06/2024 Intervertebral disc disorders with radiculopathy, lumbar region (ICD-10 - M51.16) 07/11/2024 Intervertebral disc disorders with radiculopathy, lumbar region (ICD-10 - M51.16) 07/05/2024 Chronic pain syndrome (ICD-10 - G89.4) 08/14/2024 Intervertebral disc disorders with radiculopathy, lumbar region (ICD-10 - M51.16) 08/29/2024 Chronic pain syndrome (ICD-10 - G89.4) 09/18/2024 Intervertebral disc disorders with radiculopathy, lumbar region (ICD-10 - M51.16) 06/19/2024 Postlaminectomy syndrome, not elsewhere classified (ICD-10 - M96.1) 09/25/2024 Fear of injections and transfusions (ICD-10 - F40.231) The patient was given written instructions explaining the above and was informed that they would need to come with a truck driver supervisor after taking this medication due to the risk of impairment. 06/19/2024 Fear of injections and transfusions (ICD-10 - F40.231) The patient was given written instructions explaining the above and was informed that they would need to come with a truck driver supervisor after taking this medication due to the risk of impairment. 09/18/2024 Chronic pain syndrome (ICD-10 - G89.4) 08/29/2024 Postlaminectomy syndrome, not elsewhere classified (ICD-10 - M96.1) 08/06/2024 Chronic pain syndrome (ICD-10 - G89.4) 08/14/2024 Chronic pain syndrome (ICD-10 - G89.4) 07/05/2024 Postlaminectomy syndrome, not elsewhere classified (ICD-10 - M96.1) 07/11/2024 Chronic pain syndrome (ICD-10 - G89.4) 04/13/2024 correction (current) use of opiate analgesic (ICD-10 - Z79.891) 04/13/2024 Chronic pain syndrome (ICD-10 - G89.4) 07/11/2024 Postlaminectomy syndrome, not elsewhere classified (ICD-10 - M96.1) 07/05/2024 Fear of injections and transfusions (ICD-10 - F40.231) 08/14/2024 Postlaminectomy syndrome, not elsewhere classified (ICD-10 - M96.1) 08/06/2024 Postlaminectomy syndrome, not elsewhere classified (ICD-10 - M96.1) 09/18/2024 Postlaminectomy syndrome, not elsewhere classified (ICD-10 - M96.1) 08/29/2024 Fear of injections and transfusions (ICD-10 - F40.231) The patient was given written instructions explaining the above and was informed that they would need to come with a truck driver supervisor after taking this medication due to the risk of impairment. 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 The risks of this procedure including pain, bleeding, infection, pneumothorax, nerve damage, neuritis after radiofrequency ablation, insomnia, hyperglycemia, hair loss, muscle atrophy, skin depigmentation, weight gain, fluid retention, adrenal suppression, immunosuppression, osteoporosis resulting in fractures, avascular necrosis of the hip, cataracts, bleeding gastric ulcer, worsening pain and failure to relieve pain were discussed and the patient is agreeable to proceeding at this time. 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 Obtain informed consent: Spinal Cord Stimulator Paddle Implanation under fluoroscopy. Monitor pulse, blood pressure and SaO2 before, after and as needed during procedure. Verify if the patient is currently taking blood thinner. Verify patients is not currently on antibiotics for infection The patient may not drive home CARE PLAN: Knowledge deficit: Will verbalize understanding [...] SAFETY CONCERNS HAVE BEEN ADDRESSED. RN initials __JW 06/19/2024 Other The above-named patient was evaluated in [...] with Patient and Medical Decision Makin minutes 06/20/2024 Other The patient voiced understanding of the treatment plan and all questions were addressed. Obtain informed consent: Left 6th and Left 7th Intercostal Nerve Block under fluoroscopy. Monitor pulse, blood pressure and [...] SAFETY CONCERNS HAVE BEEN ADDRESSED. RN initials _JW__ 07/05/2024 Other The above-named patient was evaluated in [...] with Patient and Medical Decision Makin minutes 08/15/2024 Other The patient voiced understanding of the treatment plan and all questions were addressed. Obtain informed consent: Left 7+8+9 Intercostal Nerve Block under fluoroscopy. Monitor pulse, blood pressure and [...] GOALS AND SAFETY CONCERNS HAVE BEEN ADDRESSED. KAIN BROWN. 08/29/2024 Other The above-named patient was evaluated in [...] with Patient and Medical Decision Makin minutes 09/04/2024 Other The patient voiced understanding of [...] GOALS AND SAFETY CONCERNS HAVE BEEN ADDRESSED. KAIN initials ___JW. 09/25/2024 Other The above-named patient was evaluated [...] with Patient and Medical Decision Makin minutes 10/03/2024 Other The patient voiced understanding of [...] GOALS AND SAFETY CONCERNS HAVE BEEN ADDRESSED. KAIN initials PLAN OF TREATMENT Pending Test Test Name Order Date MRI : Lumbar and Thoracic Spines 024 Urine Culture and Sensitivity 09/07/2023 Urinalysis 09/07/2023 CT Scan : T/Spine W/O Contrast 0 MRI : Lumbar Spine with and without Cont rast (41148) 11/07/2020 MRI : Thoracic Spine without Contrast ([id number]) 07/05/2024 [facility] Results 07/06/2024 [facility] Results 08/04/2023 [facility] Results 12/30/2022 [facility] Results 11/05/2022 [facility] Results 04/06/2022 [facility] Results 02/04/2022 Insurance Providers Payer Name Payer Address Payer Phone Subscriber Number Group Number Insured Name Patient Relationship to Insured Coverage Start Date Coverage End Date Medicare [place] [address] [address] [place] [phone] [id number] EMRE MARQUIS Self - patient is the insured [facility] [address] [place] [address] [id number] EMRE MARQUIS Self - patient is the insured MEDICAL (GENERAL) HISTORY Medical History History ICD Code Crohns Disease Hypothyroidism Hypertension Kidney stones CVA GERD IBS Depression Nonalcoholic fatty liver disease Insomnia Sleep apnea Anxiety Surgical History Surgery Date(Month/Year) L4-5 and L5-S1 lumbar fusion--Dr. Foreman y Cholecystectomy Bilateral rotator cuff tear repair Bilateral carpal tunnel release Left ankle surgery 2017 Right total knee arthroplasty 05/2018 T11 Kyphoplasty SCS Paddle Lead Implant--Dr. Dalal 025
--- OUTSIDE RECORDS SUMMARY | 2024-11-26 01:07 | XMS_ITS | Patient Health Record ---
Author Organization [facility] Address [address] [facility] [address] [place] [address] Care Team Providers Care Steno Pool Supervisor Name Role Phone Sharita BRICE, Simeon Primary Care Provider Unavailab Abigail Mei Unavailable [phone] Donis Gomez Unavailable [phone] Deshawn Alegre Unavailable [phone] Allergies Allergen (clinical drug ingredient) Drug/Non Drug Allergy documented on EMR Reaction Allergy Type Onset Date Status azithromycin Azithromycin Unknown Drug Allergy 08/08/2023 Active nitrofurantoin, macrocrystals / nitrofurantoin, monohydrate Macrobid Unknown Drug Allergy 08/08/2023 Active metoprolol Metoprolol Succinate ER cough Drug Allergy Active codeine Codeine Unknown Drug Allergy 08/08/2023 Active erythromycin Erythromycin rash Drug Allergy 04/19/2023 Active morphine Morphine Unknown Drug Allergy 08/08/2023 Active nitrofurantoin Nitrofurantoin rash, vomiting Drug Allergy Active tizanidine Tizanidine hallucinations Drug Allergy 05/15/2023 Active Reason For Referral No Information Medications Medication SIG (Take, Route, Frequency, Duration) Notes Start Date End Date Status Memantine HCl 5 MG 1 tablet Orally twice a day; Duration: 90 days Active busPIRone HCl 30 MG TAKE 1 TABLET BY MOUTH TWICE DAILY; Duration: 90 Active traZODone HCl 100 MG 1 tablet Orally Once a day; Duration: 90 days do not fill until pt requests Active Albuterol Sulfate HFA 108 (90 Base) MCG/ACT INHALE 2 PUFFS BY MOUTH EVERY 6 HOURS NEEDED FOR WHEEZING Inhalation; Duration: 25 Days Active Donepezil HCl 5 MG 1 tablet at bedtime Orally Once a day; Duration: 90 days Active Levothyroxine Sodium 88 MCG Oral; Duration: 90 Days Active busPIRone HCl 30 MG 1 tablet Orally Twice a day; Duration: 90 days Active Zoloft 100 MG 1.5 tablets Oral Once a day; Duration: 90 days Active traMADol HCl 50 MG TAKE 1 TABLET BY MOUTH TWICE DAILY NEEDED Oral; Duration: 30 Days PRN Active Advair HFA 230-21 MCG/ACT Inhalation; Duration: 30 Days Active Esomeprazole Magnesium 40 MG Oral; Duration: 30 Days Active Rosuvastatin Calcium 10 MG Oral 08/08/2023 Active Dilt-XR 120 MG Oral; Duration: 90 Days Active oxyBUTYnin Chloride ER 10 MG Oral 08/08/2023 Active 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 Sex Assigned At : 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 Observation Description Sex Assigned At Female Problems Problem Type SNOMED Code ICD Code Onset Dates Problem Status W/U Status Risk Notes Problem Major depression, single episode (82910980) Major depressive disorder, single episode, unspecified (F32.9) Active confirmed Problem Generalized anxiety disorder (97844662) Generalized anxiety disorder (F41.1) Active confirmed Problem Primary insomnia (9358195) Primary insomnia (F51.01) Active confirmed Problem Depression Screening (643487745) Encounter for screening for depression (Z13.31) Active confirmed Problem Mild recurrent major depression (07011873) MDD (major depressive disorder), recurrent episode, mild (F33.0) Active confirmed Problem Memory impairment (744440525) Memory impairment (R41.3) Active confirmed Problem Amnesia (15341863) Memory difficulties (R41.3) Active confirmed Problem Cognitive impairment (229268954) Cognitive impairment (R41.89) Active confirmed Problem Mixed sleep apnea (957759980) Mixed sleep apnea (G47.39) Active confirmed Problem Sleep apnea (90652320) Severe sleep apnea (G47.30) Active confirmed Vital Signs Heart Rate 85 /min 11/06/2024 Height-cm 154.94 cm 11/06/2024 Blood pressure diastolic 63 mm Hg 11/06/2024 Weight-kg 73.03 kg 11/06/2024 Height 61.00 in 11/06/2024 Blood pressure systolic 108 mm Hg 11/06/2024 Weight 161 lbs 11/06/2024 BMI 30.42 kg/m2 11/06/2024 Encounters Encounter Location Date Provider Diagnosis [facility] [address] [address] 12/15/2023 Thena Sis Major depressive disorder, single episode, unspecified F32.9 ; Generalized anxiety disorder F41.1 ; Mixed sleep apnea G47.39 and Cognitive impairment R41.89 [facility] [address] [address] 07/10/2024 Abigail Marte Generalized anxiety disorder F41.1 ; MDD (major depressive disorder), recurrent episode, mild F33.0 ; Primary insomnia F51.01 ; Severe sleep apnea G47.30 ; Encounter for screening for depression Z13.31 and Memory impairment R41.3 [facility] [address] [address] 08/07/2024 Abigail Therviola Encounter for screen ing for depression Z13.31 ; Generalized anxiety disorder F41.1 ; MDD (major depressive disorder), recurrent episode, mild F33.0 ; Primary insomnia F51.01 ; Severe sleep apnea G47.30 ; Memory impairment R41.3 and Encounter for screening for cardiovascular disorders Z13.6 [facility] [address] [address] 11/06/2024 Abigail Therviola Encounter for screen ing for depression Z13.31 ; Generalized anxiety disorder F41.1 ; MDD (major depressive disorder), recurrent episode, mild F33.0 ; Primary insomnia F51.01 ; Severe sleep apnea G47.30 ; Memory impairment R41.3 and Encounter for screening for cardiovascular disorders Z13.6 [facility] [address] [address] 05/14/2024 Thena Sis Major depressive disorder, single episode, unspecified F32.9 Assessments Encounter Date Diagnosis (ICD Code) Assessment Notes Treatment Notes Treatment Clinical Notes Section Notes 12/15/2023 Major depressive disorder, single episode, unspecified (ICD-10 - F32.9) suspect cogniti ve impairment may be related to hypoxia or hypercapnea related to sleep apnea; will repeat cognitive assessment at next appointment after pt obtains breathing machine (cpap/bipap) for mixed sleep apnea 12/15/2023 Generalized anxiety disorder (ICD-10 - F41.1) suspect cogniti ve impairment may be related to hypoxia or hypercapnea related to sleep apnea; will repeat cognitive assessment at next appointment after pt obtains breathing machine (cpap/bipap) for mixed sleep apnea 05/14/2024 Major depressive disorder, single episode, unspecified (ICD-10 - F32.9) 07/10/2024 Generalized anxiety disorder (ICD-10 - F41.1) Learning About Generalized Anxiety Disorder material was published, Generalized Anxiety Disorder: Care Instructions material was published, Learning About Anxiety Disorders material was published presently taking Zoloft 150 mg daily, Wellbutrin 75 mg daily, Buspar 30 mg twice a day, Trazodone 100 mg at bedtime 1. depression- discuss all medications, benefits, side effects, risk Zoloft 150 mg daily, for depression and anxiety Stop Wellbutrin 75 mg daily r/o Patient reported since Wellbutrin has had more agitation, irritable, and increase Tinnitus 2. Anxiety Zoloft 150 mg daily, Buspar 30 mg twice a day, 3. Insomnia Trazodone 100 mg at bedtime sleep hygiene 4. severe sleep apnea uses CPAP reported cleans CPAP as ddirected by sleep provider 5. Memory Impairment- reported short term screening discuss SLUMS = 15 07/10/24 dementia- dad 65 years old and passed age 78 Discuss and educated on add Namenda 5 mg twice a day and Aricept 5 mg at bedtime MCI/CANS scheduled Discussed and educated pt regarding benzodiazepines are generally not intended for prolonged use and that use can cause tolerance, dependence, depression, and associated memory issues including dementias (this list is not exhaustive). Benzodiazepine use is generally not recommended concurrently with pain medications and/or other controlled substances educated on all medications, benefits, side effects and risk, and educated on depression, anxiety, and ADHD, mood d/o and educated on compliance of medications, metabolic and movement d/o education appointment is, continue therapy discussion with patient about course of treatment and patient instructions. education on serotonin syndrome SSRI/SNRI side effects discussed including but not limited to, gastric upset, nausea, vomiting, diarrhea and/or constipation, weight changes, sexual side effects including loss of libido, increased suicidal thoughts/behavior s in children and young adults, and serotonin syndrome. Medication Management and Follow-Up - Plan: - Schedule follow-up appointments every 1-3 months to monitor the patient's response to the medication regimen. - Reinforce the importance of avoiding recreational drug use due to potential neurotoxicity and interactions with prescribed medications. websites http_s://www.[facility] .nih.gov/health/t opics/mental-heal th-medications http_s://www.nannette .org/About-Mental -Illness/Treatmen ts/Mental-Health- Medications http_s://www.nannette .org/About-Mental -Illness/Mental-H ealth-Conditions http_s://SegundoHogar/depressi on/the-cognitive- bkcesapm-aw-yrthw ssion#treatments http__s://www.[facility].nih.gov/health/ topics/mental-hea lth-medications http__s://www.[employer]keLex/About-Menta l-Illness/Treatme nts/Mental-Health -Medications http_s://anahy.nih .gov/publications /drugfacts/cannab is-marijuana http_s://wwwPeoplefilter Technology/canna dvt-kal-qtufgppu- marijuana-adhd/ 07/10/2024 MDD (major depressive disorder), recurrent episode, mild (ICD-10 - F33.0) Preventing Depression From Coming Back: Care Instructions material was published, Learning About Depression Screening material was published, Learning About How to Get Help During a Mental Health Crisis material was published, Learning About Depression material was published, Depression Treatment: Care Instructions material was published presently taking Zoloft 150 mg daily, Wellbutrin 75 mg daily, Buspar 30 mg twice a day, Trazodone 100 mg at bedtime 1. depression- discuss all medications, benefits, side effects, risk Zoloft 150 mg daily, for depression and anxiety Stop Wellbutrin 75 mg daily r/o Patient reported since Wellbutrin has had more agitation, irritable, and increase Tinnitus 2. Anxiety Zoloft 150 mg daily, Buspar 30 mg twice a day, 3. Insomnia Trazodone 100 mg at bedtime sleep hygiene 4. severe sleep apnea uses CPAP reported cleans CPAP as ddirected by sleep provider 5. Memory Impairment- reported short term screening discuss SLUMS = 15 4/1/25 dementia- dad 65 years old and passed age 78 Discuss and educated on add Namenda 5 mg twice a day and Aricept 5 mg at bedtime MCI/CANS scheduled Discussed and educated pt regarding benzodiazepines are generally not intended for prolonged use and that use can cause tolerance, dependence, depression, and associated memory issues including dementias (this list is not exhaustive). Benzodiazepine use is generally not recommended concurrently with pain medications and/or other controlled substances educated on all medications, benefits, side effects and risk, and educated on depression, anxiety, and ADHD, mood d/o and educated on compliance of medications, metabolic and movement d/o education appointment is, continue therapy discussion with patient about course of treatment and patient instructions. education on serotonin syndrome SSRI/SNRI side effects discussed including but not limited to, gastric upset, nausea, vomiting, diarrhea and/or constipation, weight changes, sexual side effects including loss of libido, increased suicidal thoughts/behavior s in children and young adults, and serotonin syndrome. Medication Management and Follow-Up - Plan: - Schedule follow-up appointments every 1-3 months to monitor the patient's response to the medication regimen. - Reinforce the importance of avoiding recreational drug use due to potential neurotoxicity and interactions with prescribed medications. websites http_s://www.nimh .nih.gov/health/t opics/mental-heal th-medications http_s://www.nannette .org/About-Mental -Illness/Treatmen ts/Mental-Health- Medications http_s://www.nannette .org/About-Mental -Illness/Mental-H ealth-Conditions http_s://psychcen tral.com/depressi on/the-cognitive- rrwrdazn-lm-bguld ssion#treatments http__s://www.nim .nih.gov/health/ topics/mental-hea lth-medications http__s://www.nam i.org/About-Menta l-Illness/Treatme nts/Mental-Health -Medications http_s://anahy.nih .gov/publications /drugfacts/cannab is-marijuana http_s://www.[employer]/mario wbr-czc-sbolozmt- marijuana-adhd/ 08/07/2024 Encounter for screening for depression (ICD-10 - Z13.31) 1. depression- discuss all medications, benefits, side effects, risk Zoloft 150 mg daily, for depression and anxiety improved agitation, irritable, and tinnitus since off Wellbutrin 2. Anxiety Zoloft 150 mg daily, Buspar 30 mg twice a day, 3. Insomnia Trazodone 100 mg at bedtime sleep hygiene 4. severe sleep apnea uses CPAP reported cleans CPAP as ddirected by sleep provider 5. Memory Impairment- reported short term- improved screening discuss SLUMS = 15 07/10/24 dementia- dad 65 years old and passed age 78 Discuss and educated on all rx Namenda 5 mg twice a day and Aricept 5 mg at bedtime MCI/CANS scheduled- not taken at this time related recent CVA 07/24/24- Will schedule testing in next 3-6 months - recent CVA 07/24/24 Discussed and educated pt regarding benzodiazepines are generally not intended for prolonged use and that use can cause tolerance, dependence, depression, and associated memory issues including dementias (this list is not exhaustive). Benzodiazepine use is generally not recommended concurrently with pain medications and/or other controlled substances educated on all medications, benefits, side effects and risk, and educated on depression, anxiety, and ADHD, mood d/o and educated on compliance of medications, metabolic and movement d/o education appointment is, continue therapy discussion with patient about course of treatment and patient instructions. education on serotonin syndrome SSRI/SNRI side effects discussed including but not limited to, gastric upset, nausea, vomiting, diarrhea and/or constipation, weight changes, sexual side effects including loss of libido, increased suicidal thoughts/behavior s in children and young adults, and serotonin syndrome. Medication Management and Follow-Up - Plan: - Schedule follow-up appointments every 1-3 months to monitor the patient's response to the medication regimen. - Reinforce the importance of avoiding recreational drug use due to potential neurotoxicity and interactions with prescribed medications. websites http_s://www.nimh .nih.gov/health/t opics/mental-heal th-medications http_s://www.nannette .org/About-Mental -Illness/Treatmen ts/Mental-Health- Medications http_s://www.nannette .org/About-Mental -Illness/Mental-H ealth-Conditions http_s://psychcen tral.com/depressi on/the-cognitive- dubwwesq-vt-gevac ssion#treatments http__s://www.nim h.nih.gov/health/ topics/mental-hea [facility]-medications http__s://www.nam i.org/About-Menta l-Illness/Treatme nts/Mental-Health -Medications http_s://anahy.nih .gov/publications /drugfacts/cannab is-marijuana http_s://[employer]/cannSmartfield gtu-rjo-cagypwok- marijuana-adhd/ 11/06/2024 Encounter for screening for depression (ICD-10 - Z13.31) 1. depression- discuss all medications, benefits, side effects, risk Zoloft 150 mg daily, for depression and anxiety improved agitation, irritable, and tinnitus since off Wellbutrin 2. Anxiety Zoloft 150 mg daily, Buspar 30 mg twice a day, 3. Insomnia Trazodone 100 mg at bedtime sleep hygiene 4. severe sleep apnea uses CPAP reported cleans CPAP as ddirected by sleep provider 5. Memory Impairment- reported short term- improved screening discuss SLUMS = 15 07/10/24 FH dementia- dad 65 years old and passed age 78 Discuss and educated on all rx Namenda 5 mg twice a day and Aricept 5 mg at bedtime reported memory improved MCI/CANS scheduled- not taken at this time related recent CVA 07/24/24- Will schedule testing in next 3-6 months - recent CVA 07/24/24 Discussed and educated pt regarding benzodiazepines are generally not intended for prolonged use and that use can cause tolerance, dependence, depression, and associated memory issues including dementias (this list is not exhaustive). Benzodiazepine use is generally not recommended concurrently with pain medications and/or other controlled substances educated on all medications, benefits, side effects and risk, and educated on depression, anxiety, and ADHD, mood d/o and educated on compliance of medications, metabolic and movement d/o education appointment is, continue therapy discussion with patient about course of treatment and patient instructions. education on serotonin syndrome SSRI/SNRI side effects discussed including but not limited to, gastric upset, nausea, vomiting, diarrhea and/or constipation, weight changes, sexual side effects including loss of libido, increased suicidal thoughts/behavior s in children and young adults, and serotonin syndrome. Medication Management and Follow-Up - Plan: - Schedule follow-up appointments every 1-3 months to monitor the patient's response to the medication regimen. - Reinforce the importance of avoiding recreational drug use due to potential neurotoxicity and interactions with prescribed medications. websites http_s://www.nim .nih.gov/health/t opics/mental-heal th-medications http_s://www.nannette .org/About-Mental -Illness/Treatmen ts/Mental-Health- Medications http_s://www.[employer] .org/About-Mental -Illness/Mental-H ealth-Conditions http_s://SegundoHogar/depressi on/the-cognitive- plhwelna-ox-utnxt ssion#treatments http__s://www.[facility].nih.gov/health/ topics/mental-hea lth-medications http__s://www.[employer]ke[employer]/About-Menta l-Illness/Treatme nts/Mental-Health -Medications http_s://anahy.nih .gov/publications /drugfacts/cannab is-marijuana http_s://wwwPeoplefilter Technology/canna eja-dbh-iofkaumk- marijuana-adhd/ 11/06/2024 Generalized anxiety disorder (ICD-10 - F41.1) Learning About Generalized Anxiety Disorder material was published, Generalized Anxiety Disorder: Care Instructions material was published, Learning About Anxiety Disorders material was published 1. depression- discuss all medications, benefits, side effects, risk Zoloft 150 mg daily, for depression and anxiety improved agitation, irritable, and tinnitus since off Wellbutrin 2. Anxiety Zoloft 150 mg daily, Buspar 30 mg twice a day, 3. Insomnia Trazodone 100 mg at bedtime sleep hygiene 4. severe sleep apnea uses CPAP reported cleans CPAP as ddirected by sleep provider 5. Memory Impairment- reported short term- improved screening discuss SLUMS = 15 07/10/24 FH dementia- dad 65 years old and passed age 78 Discuss and educated on all rx Namenda 5 mg twice a day and Aricept 5 mg at bedtime reported memory improved MCI/CANS scheduled- not taken at this time related recent CVA 07/24/24- Will schedule testing in next 3-6 months - recent CVA 07/24/24 Discussed and educated pt regarding benzodiazepines are generally not intended for prolonged use and that use can cause tolerance, dependence, depression, and associated memory issues including dementias (this list is not exhaustive). Benzodiazepine use is generally not recommended concurrently with pain medications and/or other controlled substances educated on all medications, benefits, side effects and risk, and educated on depression, anxiety, and ADHD, mood d/o and educated on compliance of medications, metabolic and movement d/o education appointment is, continue therapy discussion with patient about course of treatment and patient instructions. education on serotonin syndrome SSRI/SNRI side effects discussed including but not limited to, gastric upset, nausea, vomiting, diarrhea and/or constipation, weight changes, sexual side effects including loss of libido, increased suicidal thoughts/behavior s in children and young adults, and serotonin syndrome. Medication Management and Follow-Up - Plan: - Schedule follow-up appointments every 1-3 months to monitor the patient's response to the medication regimen. - Reinforce the importance of avoiding recreational drug use due to potential neurotoxicity and interactions with prescribed medications. websites http_s://www.nimh .nih.gov/health/t opics/mental-heal th-medications http_s://www.nannette .org/About-Mental -Illness/Treatmen ts/Mental-Health- Medications http_s://www.nannette .org/About-Mental -Illness/Mental-H ealth-Conditions http_s://psychMoovit/depressi on/the-cognitive- atlcmrjd-lb-uvwwa ssion#treatments http__s://www.nim .nih.gov/health/ topics/mental-hea lth-medications http__s://www.[employer].org/About-Menta l-Illness/Treatme nts/Mental-Health -Medications http_s://anahy.nih .gov/publications /drugfacts/cannab is-marijuana http_s://www.[employer]/mario mge-lbi-qrvkfcgc- marijuana-adhd/ 08/07/2024 Generalized anxiety disorder (ICD-10 - F41.1) Learning About Generalized Anxiety Disorder material was published, Generalized Anxiety Disorder: Care Instructions material was published, Learning About Anxiety Disorders material was published 1. depression- discuss all medications, benefits, side effects, risk Zoloft 150 mg daily, for depression and anxiety improved agitation, irritable, and tinnitus since off Wellbutrin 2. Anxiety Zoloft 150 mg daily, Buspar 30 mg twice a day, 3. Insomnia Trazodone 100 mg at bedtime sleep hygiene 4. severe sleep apnea uses CPAP reported cleans CPAP as ddirected by sleep provider 5. Memory Impairment- reported short term- improved screening discuss SLUMS = 15 07/10/24 dementia- dad 65 years old and passed age 78 Discuss and educated on all rx Namenda 5 mg twice a day and Aricept 5 mg at bedtime MCI/CANS scheduled- not taken at this time related recent CVA 07/24/24- Will schedule testing in next 3-6 months - recent CVA 07/24/24 Discussed and educated pt regarding benzodiazepines are generally not intended for prolonged use and that use can cause tolerance, dependence, depression, and associated memory issues including dementias (this list is not exhaustive). Benzodiazepine use is generally not recommended concurrently with pain medications and/or other controlled substances educated on all medications, benefits, side effects and risk, and educated on depression, anxiety, and ADHD, mood d/o and educated on compliance of medications, metabolic and movement d/o education appointment is, continue therapy discussion with patient about course of treatment and patient instructions. education on serotonin syndrome SSRI/SNRI side effects discussed including but not limited to, gastric upset, nausea, vomiting, diarrhea and/or constipation, weight changes, sexual side effects including loss of libido, increased suicidal thoughts/behavior s in children and young adults, and serotonin syndrome. Medication Management and Follow-Up - Plan: - Schedule follow-up appointments every 1-3 months to monitor the patient's response to the medication regimen. - Reinforce the importance of avoiding recreational drug use due to potential neurotoxicity and interactions with prescribed medications. websites http_s://www.nimh .nih.gov/health/t opics/mental-heal th-medications http_s://www.nannette .org/About-Mental -Illness/Treatmen ts/Mental-Health- Medications http_s://www.nannette .org/About-Mental -Illness/Mental-H ealth-Conditions http_s://psychcen tral.com/depressi on/the-cognitive- acqbfpuf-wd-gbgsg ssion#treatments http__s://www.nim h.nih.gov/health/ topics/mental-hea [facility]-medications http__s://www.nam i.org/About-Menta l-Illness/Treatme nts/Mental-Health -Medications http_s://anahy.nih .gov/publications /drugfacts/cannab is-marijuana http_s://wwwPeoplefilter Technology/cannSmartfield hve-qcf-chujoiql- marijuana-adhd/ 12/15/2023 Mixed sleep apnea (ICD-10 - G47.39) suspect cognit tia impairment may be related to hypoxia or hypercapnea related to sleep apnea; will repeat cognitive assessment at next appointment after pt obtains breathing machine (cpap/bipap) for mixed sleep apnea 07/10/2024 Primary insomnia (ICD-10 - F51.01) Insomnia: Care Instructions material was published, Learning About Sleeping Well material was published presently taking Zoloft 150 mg daily, Wellbutrin 75 mg daily, Buspar 30 mg twice a day, Trazodone 100 mg at bedtime 1. depression- discuss all medications, benefits, side effects, risk Zoloft 150 mg daily, for depression and anxiety Stop Wellbutrin 75 mg daily r/o Patient reported since Wellbutrin has had more agitation, irritable, and increase Tinnitus 2. Anxiety Zoloft 150 mg daily, Buspar 30 mg twice a day, 3. Insomnia Trazodone 100 mg at bedtime sleep hygiene 4. severe sleep apnea uses CPAP reported cleans CPAP as ddirected by sleep provider 5. Memory Impairment- reported short term screening discuss SLUMS = 15 07/10/24 dementia- dad 65 years old and passed age 78 Discuss and educated on add Namenda 5 mg twice a day and Aricept 5 mg at bedtime MCI/CANS scheduled Discussed and educated pt regarding benzodiazepines are generally not intended for prolonged use and that use can cause tolerance, dependence, depression, and associated memory issues including dementias (this list is not exhaustive). Benzodiazepine use is generally not recommended concurrently with pain medications and/or other controlled substances educated on all medications, benefits, side effects and risk, and educated on depression, anxiety, and ADHD, mood d/o and educated on compliance of medications, metabolic and movement d/o education appointment is, continue therapy discussion with patient about course of treatment and patient instructions. education on serotonin syndrome SSRI/SNRI side effects discussed including but not limited to, gastric upset, nausea, vomiting, diarrhea and/or constipation, weight changes, sexual side effects including loss of libido, increased suicidal thoughts/behavior s in children and young adults, and serotonin syndrome. Medication Management and Follow-Up - Plan: - Schedule follow-up appointments every 1-3 months to monitor the patient's response to the medication regimen. - Reinforce the importance of avoiding recreational drug use due to potential neurotoxicity and interactions with prescribed medications. websites http_s://www.nim .nih.gov/health/t opics/mental-heal th-medications http_s://www.[employer] .[employer]/About-Mental -Illness/Treatmen ts/Mental-Health- Medications http_s://www.[employer] .[employer]/About-Mental -Illness/Mental-H ealth-Conditions http_s://SegundoHogar/depressi on/the-cognitive- xrhrtzje-lx-fbwbp ssion#treatments http__s://www.[facility].nih.gov/health/ topics/mental-hea lth-medications http__s://www.Hartman Wright.[employer]em[employer]/About-Menta l-Illness/Treatme nts/Mental-Health -Medications http_s://anahy.nih .gov/publications /drugfacts/cannab is-marijuana http_s://www.[place] [employer]/mario kmv-vkp-cnfjpmeq- marijuana-adhd/ 07/10/2024 Severe sleep apnea (ICD-10 - G47.30) Sleep Apnea: Care Instructions material was published, Learning About Sleep Apnea material was published presently taking Zoloft 150 mg daily, Wellbutrin 75 mg daily, Buspar 30 mg twice a day, Trazodone 100 mg at bedtime 1. depression- discuss all medications, benefits, side effects, risk Zoloft 150 mg daily, for depression and anxiety Stop Wellbutrin 75 mg daily r/o Patient reported since Wellbutrin has had more agitation, irritable, and increase Tinnitus 2. Anxiety Zoloft 150 mg daily, Buspar 30 mg twice a day, 3. Insomnia Trazodone 100 mg at bedtime sleep hygiene 4. severe sleep apnea uses CPAP reported cleans CPAP as ddirected by sleep provider 5. Memory Impairment- reported short term screening discuss SLUMS = 15 07/10/24 dementia- dad 65 years old and passed age 78 Discuss and educated on add Namenda 5 mg twice a day and Aricept 5 mg at bedtime MCI/CANS scheduled Discussed and educated pt regarding benzodiazepines are generally not intended for prolonged use and that use can cause tolerance, dependence, depression, and associated memory issues including dementias (this list is not exhaustive). Benzodiazepine use is generally not recommended concurrently with pain medications and/or other controlled substances educated on all medications, benefits, side effects and risk, and educated on depression, anxiety, and ADHD, mood d/o and educated on compliance of medications, metabolic and movement d/o education appointment is, continue therapy discussion with patient about course of treatment and patient instructions. education on serotonin syndrome SSRI/SNRI side effects discussed including but not limited to, gastric upset, nausea, vomiting, diarrhea and/or constipation, weight changes, sexual side effects including loss of libido, increased suicidal thoughts/behavior s in children and young adults, and serotonin syndrome. Medication Management and Follow-Up - Plan: - Schedule follow-up appointments every 1-3 months to monitor the patient's response to the medication regimen. - Reinforce the importance of avoiding recreational drug use due to potential neurotoxicity and interactions with prescribed medications. websites http_s://www.nim .nih.gov/health/t opics/mental-heal th-medications http_s://www.nannette .org/About-Mental -Illness/Treatmen ts/Mental-Health- Medications http_s://www.nannette .org/About-Mental -Illness/Mental-H ealth-Conditions http_s://psychPet Chance TelevisionlTRA/depressi on/the-cognitive- ipywlqrh-ck-mxoks ssion#treatments http__s://www.[facility].nih.gov/health/ topics/mental-hea lth-medications http__s://www.nam i.org/About-Menta l-Illness/Treatme nts/Mental-Health -Medications http_s://anahy.nih .gov/publications /drugfacts/cannab is-marijuana http_s://www.[place] [employer]/mario eca-euz-dglnmigq- marijuana-adhd/ 12/15/2023 Cognitive impairment (ICD-10 - R41.89) suspect cognit tia impairment may be related to hypoxia or hypercapnea related to sleep apnea; will repeat cognitive assessment at next appointment after pt obtains breathing machine (cpap/bipap) for mixed sleep apnea 08/07/2024 MDD (major depressive disorder), recurrent episode, mild (ICD-10 - F33.0) Preventing Depression From Coming Back: Care Instructions material was published, Learning About Depression Screening material was published, Learning About How to Get Help During a Mental Health Crisis material was published, Learning About Depression material was published, Depression Treatment: Care Instructions material was published 1. depression- discuss all medications, benefits, side effects, risk Zoloft 150 mg daily, for depression and anxiety improved agitation, irritable, and tinnitus since off Wellbutrin 2. Anxiety Zoloft 150 mg daily, Buspar 30 mg twice a day, 3. Insomnia Trazodone 100 mg at bedtime sleep hygiene 4. severe sleep apnea uses CPAP reported cleans CPAP as ddirected by sleep provider 5. Memory Impairment- reported short term- improved screening discuss SLUMS = 15 07/10/24 FH dementia- dad 65 years old and passed age 78 Discuss and educated on all rx Namenda 5 mg twice a day and Aricept 5 mg at bedtime MCI/CANS scheduled- not taken at this time related recent CVA 07/24/24- Will schedule testing in next 3-6 months - recent CVA 07/24/24 Discussed and educated pt regarding benzodiazepines are generally not intended for prolonged use and that use can cause tolerance, dependence, depression, and associated memory issues including dementias (this list is not exhaustive). Benzodiazepine use is generally not recommended concurrently with pain medications and/or other controlled substances educated on all medications, benefits, side effects and risk, and educated on depression, anxiety, and ADHD, mood d/o and educated on compliance of medications, metabolic and movement d/o education appointment is, continue therapy discussion with patient about course of treatment and patient instructions. education on serotonin syndrome SSRI/SNRI side effects discussed including but not limited to, gastric upset, nausea, vomiting, diarrhea and/or constipation, weight changes, sexual side effects including loss of libido, increased suicidal thoughts/behavior s in children and young adults, and serotonin syndrome. Medication Management and Follow-Up - Plan: - Schedule follow-up appointments every 1-3 months to monitor the patient's response to the medication regimen. - Reinforce the importance of avoiding recreational drug use due to potential neurotoxicity and interactions with prescribed medications. websites http_s://www.[facility] .nih.gov/health/t opics/mental-heal th-medications http_s://www.nannette .org/About-Mental -Illness/Treatmen ts/Mental-Health- Medications http_s://www.[employer] .org/About-Mental -Illness/Mental-H ealth-Conditions http_s://SegundoHogar/depressi on/the-cognitive- oeiontyh-ar-yegmq ssion#treatments http__s://www.[facility].nih.gov/health/ topics/mental-hea lth-medications http__s://www.[employer]/About-Menta l-Illness/Treatme nts/Mental-Health -Medications http_s://anahy.nih .gov/publications /drugfacts/cannab is-marijuana http_s://www.[place] [employer]/cannelvie wxu-lqd-vxehtqlq- marijuana-adhd/ 11/06/2024 MDD (major depressive disorder), recurrent episode, mild (ICD-10 - F33.0) Preventing Depression From Coming Back: Care Instructions material was published, Learning About Depression Screening material was published, Learning About How to Get Help During a Mental Health Crisis material was published, Learning About Depression material was published, Depression Treatment: Care Instructions material was published 1. depression- discuss all medications, benefits, side effects, risk Zoloft 150 mg daily, for depression and anxiety improved agitation, irritable, and tinnitus since off Wellbutrin 2. Anxiety Zoloft 150 mg daily, Buspar 30 mg twice a day, 3. Insomnia Trazodone 100 mg at bedtime sleep hygiene 4. severe sleep apnea uses CPAP reported cleans CPAP as ddirected by sleep provider 5. Memory Impairment- reported short term- improved screening discuss SLUMS = 15 07/10/24 dementia- dad 65 years old and passed age 78 Discuss and educated on all rx Namenda 5 mg twice a day and Aricept 5 mg at bedtime reported memory improved MCI/CANS scheduled- not taken at this time related recent CVA 07/24/24- Will schedule testing in next 3-6 months - recent CVA 07/24/24 Discussed and educated pt regarding benzodiazepines are generally not intended for prolonged use and that use can cause tolerance, dependence, depression, and associated memory issues including dementias (this list is not exhaustive). Benzodiazepine use is generally not recommended concurrently with pain medications and/or other controlled substances educated on all medications, benefits, side effects and risk, and educated on depression, anxiety, and ADHD, mood d/o and educated on compliance of medications, metabolic and movement d/o education appointment is, continue therapy discussion with patient about course of treatment and patient instructions. education on serotonin syndrome SSRI/SNRI side effects discussed including but not limited to, gastric upset, nausea, vomiting, diarrhea and/or constipation, weight changes, sexual side effects including loss of libido, increased suicidal thoughts/behavior s in children and young adults, and serotonin syndrome. Medication Management and Follow-Up - Plan: - Schedule follow-up appointments every 1-3 months to monitor the patient's response to the medication regimen. - Reinforce the importance of avoiding recreational drug use due to potential neurotoxicity and interactions with prescribed medications. websites http_s://www.nimh .nih.gov/health/t opics/mental-heal th-medications http_s://www.nannette .org/About-Mental -Illness/Treatmen ts/Mental-Health- Medications http_s://www.nannette .org/About-Mental -Illness/Mental-H ealth-Conditions http_s://psychcen Anaqual.com/depressi on/the-cognitive- srtkeuzb-lq-uqhzz ssion#treatments http__s://www.nim .nih.gov/health/ topics/mental-hea lth-medications http__s://www.nam i.org/About-Menta l-Illness/Treatme nts/Mental-Health -Medications http_s://anahy.nih .gov/publications /drugfacts/cannab is-marijuana http_s://www.[place] [employer]/cannelvie uje-uyx-smiwkegp- marijuana-adhd/ 11/06/2024 Primary insomnia (ICD-10 - F51.01) Insomnia: Care Instructions material was published, Learning About Sleeping Well material was published 1. depression- discuss all medications, benefits, side effects, risk Zoloft 150 mg daily, for depression and anxiety improved agitation, irritable, and tinnitus since off Wellbutrin 2. Anxiety Zoloft 150 mg daily, Buspar 30 mg twice a day, 3. Insomnia Trazodone 100 mg at bedtime sleep hygiene 4. severe sleep apnea uses CPAP reported cleans CPAP as ddirected by sleep provider 5. Memory Impairment- reported short term- improved screening discuss SLUMS = 15 07/10/24 dementia- dad 65 years old and passed age 78 Discuss and educated on all rx Namenda 5 mg twice a day and Aricept 5 mg at bedtime reported memory improved MCI/CANS scheduled- not taken at this time related recent CVA 07/24/24- Will schedule testing in next 3-6 months - recent CVA 07/24/24 Discussed and educated pt regarding benzodiazepines are generally not intended for prolonged use and that use can cause tolerance, dependence, depression, and associated memory issues including dementias (this list is not exhaustive). Benzodiazepine use is generally not recommended concurrently with pain medications and/or other controlled substances educated on all medications, benefits, side effects and risk, and educated on depression, anxiety, and ADHD, mood d/o and educated on compliance of medications, metabolic and movement d/o education appointment is, continue therapy discussion with patient about course of treatment and patient instructions. education on serotonin syndrome SSRI/SNRI side effects discussed including but not limited to, gastric upset, nausea, vomiting, diarrhea and/or constipation, weight changes, sexual side effects including loss of libido, increased suicidal thoughts/behavior s in children and young adults, and serotonin syndrome. Medication Management and Follow-Up - Plan: - Schedule follow-up appointments every 1-3 months to monitor the patient's response to the medication regimen. - Reinforce the importance of avoiding recreational drug use due to potential neurotoxicity and interactions with prescribed medications. websites http_s://www.nimh .nih.gov/health/t opics/mental-heal th-medications http_s://www.nannette .org/About-Mental -Illness/Treatmen ts/Mental-Health- Medications http_s://www.nannette .org/About-Mental -Illness/Mental-H ealth-Conditions http_s://SegundoHogar/depressi on/the-cognitive- yhsvouxd-bn-nvgme ssion#treatments http__s://www.[facility].nih.gov/health/ topics/mental-hea lth-medications http__s://www.nam i.org/About-Menta l-Illness/Treatme nts/Mental-Health -Medications http_s://anahy.nih .gov/publications /drugfacts/cannab is-marijuana http_s://www.[place] [employer]/Provesicaelvie qhn-bxg-nusaimqu- marijuana-adhd/ 08/07/2024 Primary insomnia (ICD-10 - F51.01) Insomnia: Care Instructions material was published, Learning About Sleeping Well material was published 1. depression- discuss all medications, benefits, side effects, risk Zoloft 150 mg daily, for depression and anxiety improved agitation, irritable, and tinnitus since off Wellbutrin 2. Anxiety Zoloft 150 mg daily, Buspar 30 mg twice a day, 3. Insomnia Trazodone 100 mg at bedtime sleep hygiene 4. severe sleep apnea uses CPAP reported cleans CPAP as ddirected by sleep provider 5. Memory Impairment- reported short term- improved screening discuss SLUMS = 15 07/10/24 dementia- dad 65 years old and passed age 78 Discuss and educated on all rx Namenda 5 mg twice a day and Aricept 5 mg at bedtime MCI/CANS scheduled- not taken at this time related recent CVA 07/24/24- Will schedule testing in next 3-6 months - recent CVA 07/24/24 Discussed and educated pt regarding benzodiazepines are generally not intended for prolonged use and that use can cause tolerance, dependence, depression, and associated memory issues including dementias (this list is not exhaustive). Benzodiazepine use is generally not recommended concurrently with pain medications and/or other controlled substances educated on all medications, benefits, side effects and risk, and educated on depression, anxiety, and ADHD, mood d/o and educated on compliance of medications, metabolic and movement d/o education appointment is, continue therapy discussion with patient about course of treatment and patient instructions. education on serotonin syndrome SSRI/SNRI side effects discussed including but not limited to, gastric upset, nausea, vomiting, diarrhea and/or constipation, weight changes, sexual side effects including loss of libido, increased suicidal thoughts/behavior s in children and young adults, and serotonin syndrome. Medication Management and Follow-Up - Plan: - Schedule follow-up appointments every 1-3 months to monitor the patient's response to the medication regimen. - Reinforce the importance of avoiding recreational drug use due to potential neurotoxicity and interactions with prescribed medications. websites http_s://www.nimh .nih.gov/health/t opics/mental-heal th-medications http_s://www.nannette .[employer]em[employer]te/About-Mental -Illness/Treatmen ts/Mental-Health- Medications http_s://www.You[employer] .org/About-Mental -Illness/Mental-H ealth-Conditions http_s://SegundoHogar/depressi on/the-cognitive- dnnhzbrv-rf-xvnnl ssion#treatments http__s://www.[facility].nih.gov/health/ topics/mental-hea lth-medications http__s://www.[employer]/About-Menta l-Illness/Treatme nts/Mental-Health -Medications http_s://anahy.nih .gov/publications /drugfacts/cannab is-marijuana http_s://www.[place] [employer]/canna asf-thp-pzajngre- marijuana-adhd/ 07/10/2024 Encounter for screening for depression (ICD-10 - Z13.31) presently taking Zoloft 150 mg daily, Wellbutrin 75 mg daily, Buspar 30 mg twice a day, Trazodone 100 mg at bedtime 1. depression- discuss all medications, benefits, side effects, risk Zoloft 150 mg daily, for depression and anxiety Stop Wellbutrin 75 mg daily r/o Patient reported since Wellbutrin has had more agitation, irritable, and increase Tinnitus 2. Anxiety Zoloft 150 mg daily, Buspar 30 mg twice a day, 3. Insomnia Trazodone 100 mg at bedtime sleep hygiene 4. severe sleep apnea uses CPAP reported cleans CPAP as ddirected by sleep provider 5. Memory Impairment- reported short term screening discuss SLUMS = 15 4/1/25 dementia- dad 65 years old and passed age 78 Discuss and educated on add Namenda 5 mg twice a day and Aricept 5 mg at bedtime MCI/CANS scheduled Discussed and educated pt regarding benzodiazepines are generally not intended for prolonged use and that use can cause tolerance, dependence, depression, and associated memory issues including dementias (this list is not exhaustive). Benzodiazepine use is generally not recommended concurrently with pain medications and/or other controlled substances educated on all medications, benefits, side effects and risk, and educated on depression, anxiety, and ADHD, mood d/o and educated on compliance of medications, metabolic and movement d/o education appointment is, continue therapy discussion with patient about course of treatment and patient instructions. education on serotonin syndrome SSRI/SNRI side effects discussed including but not limited to, gastric upset, nausea, vomiting, diarrhea and/or constipation, weight changes, sexual side effects including loss of libido, increased suicidal thoughts/behavior s in children and young adults, and serotonin syndrome. Medication Management and Follow-Up - Plan: - Schedule follow-up appointments every 1-3 months to monitor the patient's response to the medication regimen. - Reinforce the importance of avoiding recreational drug use due to potential neurotoxicity and interactions with prescribed medications. websites http_s://www.nimh .nih.gov/health/t opics/mental-heal th-medications http_s://www.nannette .org/About-Mental -Illness/Treatmen ts/Mental-Health- Medications http_s://www.nannette .org/About-Mental -Illness/Mental-H ealth-Conditions http_s://psychcen tral.com/depressi on/the-cognitive- qocyreek-jb-rzxfy ssion#treatments http__s://www.nim .nih.gov/health/ topics/mental-hea lth-medications http__s://www.nam i.org/About-Menta l-Illness/Treatme nts/Mental-Health -Medications http_s://anahy.nih .gov/publications /drugfacts/cannab is-marijuana http_s://www.[employer]/mario wdi-qvp-ahwugjie- marijuana-adhd/ 07/10/2024 Memory impairment (ICD-10 - R41.3) presently taking Zoloft 150 mg daily, Wellbutrin 75 mg daily, Buspar 30 mg twice a day, Trazodone 100 mg at bedtime 1. depression- discuss all medications, benefits, side effects, risk Zoloft 150 mg daily, for depression and anxiety Stop Wellbutrin 75 mg daily r/o Patient reported since Wellbutrin has had more agitation, irritable, and increase Tinnitus 2. Anxiety Zoloft 150 mg daily, Buspar 30 mg twice a day, 3. Insomnia Trazodone 100 mg at bedtime sleep hygiene 4. severe sleep apnea uses CPAP reported cleans CPAP as ddirected by sleep provider 5. Memory Impairment- reported short term screening discuss SLUMS = 15 07/10/24 dementia- dad 65 years old and passed age 78 Discuss and educated on add Namenda 5 mg twice a day and Aricept 5 mg at bedtime MCI/CANS scheduled Discussed and educated pt regarding benzodiazepines are generally not intended for prolonged use and that use can cause tolerance, dependence, depression, and associated memory issues including dementias (this list is not exhaustive). Benzodiazepine use is generally not recommended concurrently with pain medications and/or other controlled substances educated on all medications, benefits, side effects and risk, and educated on depression, anxiety, and ADHD, mood d/o and educated on compliance of medications, metabolic and movement d/o education appointment is, continue therapy discussion with patient about course of treatment and patient instructions. education on serotonin syndrome SSRI/SNRI side effects discussed including but not limited to, gastric upset, nausea, vomiting, diarrhea and/or constipation, weight changes, sexual side effects including loss of libido, increased suicidal thoughts/behavior s in children and young adults, and serotonin syndrome. Medication Management and Follow-Up - Plan: - Schedule follow-up appointments every 1-3 months to monitor the patient's response to the medication regimen. - Reinforce the importance of avoiding recreational drug use due to potential neurotoxicity and interactions with prescribed medications. websites http_s://www.nimh .nih.gov/health/t opics/mental-heal th-medications http_s://www.nannette .org/About-Mental -Illness/Treatmen ts/Mental-Health- Medications http_s://www.nannette .org/About-Mental -Illness/Mental-H ealth-Conditions http_s://psychcen kwiry.com/depressi on/the-cognitive- wpngnxbm-ir-behie ssion#treatments http__s://www.nim h.nih.gov/health/ topics/mental-hea [facility]-medications http__s://www.nam i.org/About-Menta l-Illness/Treatme nts/Mental-Health -Medications http_s://anahy.nih .gov/publications /drugfacts/cannab is-marijuana http_s://[employer]/Amplidata uqv-zaj-dwdvgfcc- marijuana-adhd/ 08/07/2024 Severe sleep apnea (ICD-10 - G47.30) Sleep Apnea: Care Instructions material was published, Learning About Sleep Apnea material was published 1. depression- discuss all medications, benefits, side effects, risk Zoloft 150 mg daily, for depression and anxiety improved agitation, irritable, and tinnitus since off Wellbutrin 2. Anxiety Zoloft 150 mg daily, Buspar 30 mg twice a day, 3. Insomnia Trazodone 100 mg at bedtime sleep hygiene 4. severe sleep apnea uses CPAP reported cleans CPAP as ddirected by sleep provider 5. Memory Impairment- reported short term- improved screening discuss SLUMS = 15 07/10/24 dementia- dad 65 years old and passed age 78 Discuss and educated on all rx Namenda 5 mg twice a day and Aricept 5 mg at bedtime MCI/CANS scheduled- not taken at this time related recent CVA 07/24/24- Will schedule testing in next 3-6 months - recent CVA 07/24/24 Discussed and educated pt regarding benzodiazepines are generally not intended for prolonged use and that use can cause tolerance, dependence, depression, and associated memory issues including dementias (this list is not exhaustive). Benzodiazepine use is generally not recommended concurrently with pain medications and/or other controlled substances educated on all medications, benefits, side effects and risk, and educated on depression, anxiety, and ADHD, mood d/o and educated on compliance of medications, metabolic and movement d/o education appointment is, continue therapy discussion with patient about course of treatment and patient instructions. education on serotonin syndrome SSRI/SNRI side effects discussed including but not limited to, gastric upset, nausea, vomiting, diarrhea and/or constipation, weight changes, sexual side effects including loss of libido, increased suicidal thoughts/behavior s in children and young adults, and serotonin syndrome. Medication Management and Follow-Up - Plan: - Schedule follow-up appointments every 1-3 months to monitor the patient's response to the medication regimen. - Reinforce the importance of avoiding recreational drug use due to potential neurotoxicity and interactions with prescribed medications. websites http_s://www.[facility] .nih.gov/health/t opics/mental-heal th-medications http_s://www.nannette .org/About-Mental -Illness/Treatmen ts/Mental-Health- Medications http_s://www.Youcruit .org/About-Mental -Illness/Mental-H ealth-Conditions http_s://SegundoHogar/depressi on/the-cognitive- skvdmqdq-ss-cakmn ssion#treatments http__s://www.[facility].nih.gov/health/ topics/mental-hea lth-medications http__s://www.AkeLex/About-Menta l-Illness/Treatme nts/Mental-Health -Medications http_s://anahy.nih .gov/publications /drugfacts/cannab is-marijuana http_s://www.[employer]/Provesicaelvie ham-ebu-vjhhhirx- marijuana-adhd/ 11/06/2024 Severe sleep apnea (ICD-10 - G47.30) Sleep Apnea: Care Instructions material was published, Learning About Sleep Apnea material was published 1. depression- discuss all medications, benefits, side effects, risk Zoloft 150 mg daily, for depression and anxiety improved agitation, irritable, and tinnitus since off Wellbutrin 2. Anxiety Zoloft 150 mg daily, Buspar 30 mg twice a day, 3. Insomnia Trazodone 100 mg at bedtime sleep hygiene 4. severe sleep apnea uses CPAP reported cleans CPAP as ddirected by sleep provider 5. Memory Impairment- reported short term- improved screening discuss SLUMS = 15 07/10/24 dementia- dad 65 years old and passed age 78 Discuss and educated on all rx Namenda 5 mg twice a day and Aricept 5 mg at bedtime reported memory improved MCI/CANS scheduled- not taken at this time related recent CVA 4/15/25- Will schedule testing in next 3-6 months - recent CVA 07/24/24 Discussed and educated pt regarding benzodiazepines are generally not intended for prolonged use and that use can cause tolerance, dependence, depression, and associated memory issues including dementias (this list is not exhaustive). Benzodiazepine use is generally not recommended concurrently with pain medications and/or other controlled substances educated on all medications, benefits, side effects and risk, and educated on depression, anxiety, and ADHD, mood d/o and educated on compliance of medications, metabolic and movement d/o education appointment is, continue therapy discussion with patient about course of treatment and patient instructions. education on serotonin syndrome SSRI/SNRI side effects discussed including but not limited to, gastric upset, nausea, vomiting, diarrhea and/or constipation, weight changes, sexual side effects including loss of libido, increased suicidal thoughts/behavior s in children and young adults, and serotonin syndrome. Medication Management and Follow-Up - Plan: - Schedule follow-up appointments every 1-3 months to monitor the patient's response to the medication regimen. - Reinforce the importance of avoiding recreational drug use due to potential neurotoxicity and interactions with prescribed medications. websites http_s://www.nimh .nih.gov/health/t opics/mental-heal th-medications http_s://www.nannette .org/About-Mental -Illness/Treatmen ts/Mental-Health- Medications http_s://www.nannette .org/About-Mental -Illness/Mental-H ealth-Conditions http_s://psychceSmithsonMartin Inc.lTRA/depressi on/the-cognitive- ubfvqdoy-ij-vrtve ssion#treatments http__s://www.nim .nih.gov/health/ topics/mental-hea lth-medications http__s://www.Tackle Grab i.org/About-Menta l-Illness/Treatme nts/Mental-Health -Medications http_s://anahy.nih .gov/publications /drugfacts/cannab is-marijuana http_s://www.[employer]/Provesicaelvie caq-tsz-lywujwlv- marijuana-adhd/ 08/07/2024 Memory impairment (ICD-10 - R41.3) 1. depression- discuss all medications, benefits, side effects, risk Zoloft 150 mg daily, for depression and anxiety improved agitation, irritable, and tinnitus since off Wellbutrin 2. Anxiety Zoloft 150 mg daily, Buspar 30 mg twice a day, 3. Insomnia Trazodone 100 mg at bedtime sleep hygiene 4. severe sleep apnea uses CPAP reported cleans CPAP as ddirected by sleep provider 5. Memory Impairment- reported short term- improved screening discuss SLUMS = 15 07/10/24 FH dementia- dad 65 years old and passed age 78 Discuss and educated on all rx Namenda 5 mg twice a day and Aricept 5 mg at bedtime MCI/CANS scheduled- not taken at this time related recent CVA 07/24/24- Will schedule testing in next 3-6 months - recent CVA 07/24/24 Discussed and educated pt regarding benzodiazepines are generally not intended for prolonged use and that use can cause tolerance, dependence, depression, and associated memory issues including dementias (this list is not exhaustive). Benzodiazepine use is generally not recommended concurrently with pain medications and/or other controlled substances educated on all medications, benefits, side effects and risk, and educated on depression, anxiety, and ADHD, mood d/o and educated on compliance of medications, metabolic and movement d/o education appointment is, continue therapy discussion with patient about course of treatment and patient instructions. education on serotonin syndrome SSRI/SNRI side effects discussed including but not limited to, gastric upset, nausea, vomiting, diarrhea and/or constipation, weight changes, sexual side effects including loss of libido, increased suicidal thoughts/behavior s in children and young adults, and serotonin syndrome. Medication Management and Follow-Up - Plan: - Schedule follow-up appointments every 1-3 months to monitor the patient's response to the medication regimen. - Reinforce the importance of avoiding recreational drug use due to potential neurotoxicity and interactions with prescribed medications. websites http_s://www.nimh .nih.gov/health/t opics/mental-heal th-medications http_s://www.nannette .org/About-Mental -Illness/Treatmen ts/Mental-Health- Medications http_s://www.nannette .org/About-Mental -Illness/Mental-H ealth-Conditions http_s://psychcen tral.com/depressi on/the-cognitive- nhrlqgzh-xm-gonzs ssion#treatments http__s://www.nim h.nih.gov/health/ topics/mental-hea [facility]-medications http__s://www.nam i.org/About-Menta l-Illness/Treatme nts/Mental-Health -Medications http_s://anahy.nih .gov/publications /drugfacts/cannab is-marijuana http_s://wwwPeoplefilter Technology/Amplidata wge-cwj-ezdjjezb- marijuana-adhd/ 11/06/2024 Memory impairment (ICD-10 - R41.3) 1. depression- discuss all medications, benefits, side effects, risk Zoloft 150 mg daily, for depression and anxiety improved agitation, irritable, and tinnitus since off Wellbutrin 2. Anxiety Zoloft 150 mg daily, Buspar 30 mg twice a day, 3. Insomnia Trazodone 100 mg at bedtime sleep hygiene 4. severe sleep apnea uses CPAP reported cleans CPAP as ddirected by sleep provider 5. Memory Impairment- reported short term- improved screening discuss SLUMS = 15 07/10/24 dementia- dad 65 years old and passed age 78 Discuss and educated on all rx Namenda 5 mg twice a day and Aricept 5 mg at bedtime reported memory improved MCI/CANS scheduled- not taken at this time related recent CVA 07/24/24- Will schedule testing in next 3-6 months - recent CVA 07/24/24 Discussed and educated pt regarding benzodiazepines are generally not intended for prolonged use and that use can cause tolerance, dependence, depression, and associated memory issues including dementias (this list is not exhaustive). Benzodiazepine use is generally not recommended concurrently with pain medications and/or other controlled substances educated on all medications, benefits, side effects and risk, and educated on depression, anxiety, and ADHD, mood d/o and educated on compliance of medications, metabolic and movement d/o education appointment is, continue therapy discussion with patient about course of treatment and patient instructions. education on serotonin syndrome SSRI/SNRI side effects discussed including but not limited to, gastric upset, nausea, vomiting, diarrhea and/or constipation, weight changes, sexual side effects including loss of libido, increased suicidal thoughts/behavior s in children and young adults, and serotonin syndrome. Medication Management and Follow-Up - Plan: - Schedule follow-up appointments every 1-3 months to monitor the patient's response to the medication regimen. - Reinforce the importance of avoiding recreational drug use due to potential neurotoxicity and interactions with prescribed medications. websites http_s://www.nimh .nih.gov/health/t opics/mental-heal th-medications http_s://www.nannette .org/About-Mental -Illness/Treatmen ts/Mental-Health- Medications http_s://www.nannette .org/About-Mental -Illness/Mental-H ealth-Conditions http_s://SegundoHogar/depressi on/the-cognitive- eqzjhvag-em-pyxfs ssion#treatments http__s://www.[facility].nih.gov/health/ topics/mental-hea lth-medications http__s://www.AkeLex/About-Menta l-Illness/Treatme nts/Mental-Health -Medications http_s://anahy.nih .gov/publications /drugfacts/cannab is-marijuana http_s://wwwPeoplefilter Technology/Amplidata imi-ydo-czovpgng- marijuana-adhd/ 11/06/2024 Encounter for screening for cardiovascular disorders (ICD-10 - Z13.6) 1. depression- discuss all medications, benefits, side effects, risk Zoloft 150 mg daily, for depression and anxiety improved agitation, irritable, and tinnitus since off Wellbutrin 2. Anxiety Zoloft 150 mg daily, Buspar 30 mg twice a day, 3. Insomnia Trazodone 100 mg at bedtime sleep hygiene 4. severe sleep apnea uses CPAP reported cleans CPAP as ddirected by sleep provider 5. Memory Impairment- reported short term- improved screening discuss SLUMS = 15 07/10/24 dementia- dad 65 years old and passed age 78 Discuss and educated on all rx Namenda 5 mg twice a day and Aricept 5 mg at bedtime reported memory improved MCI/CANS scheduled- not taken at this time related recent CVA 07/24/24- Will schedule testing in next 3-6 months - recent CVA 07/24/24 Discussed and educated pt regarding benzodiazepines are generally not intended for prolonged use and that use can cause tolerance, dependence, depression, and associated memory issues including dementias (this list is not exhaustive). Benzodiazepine use is generally not recommended concurrently with pain medications and/or other controlled substances educated on all medications, benefits, side effects and risk, and educated on depression, anxiety, and ADHD, mood d/o and educated on compliance of medications, metabolic and movement d/o education appointment is, continue therapy discussion with patient about course of treatment and patient instructions. education on serotonin syndrome SSRI/SNRI side effects discussed including but not limited to, gastric upset, nausea, vomiting, diarrhea and/or constipation, weight changes, sexual side effects including loss of libido, increased suicidal thoughts/behavior s in children and young adults, and serotonin syndrome. Medication Management and Follow-Up - Plan: - Schedule follow-up appointments every 1-3 months to monitor the patient's response to the medication regimen. - Reinforce the importance of avoiding recreational drug use due to potential neurotoxicity and interactions with prescribed medications. websites http_s://www.[facility] .nih.gov/health/t opics/mental-heal th-medications http_s://www.nannette .org/About-Mental -Illness/Treatmen ts/Mental-Health- Medications http_s://www.Youcruit .org/About-Mental -Illness/Mental-H ealth-Conditions http_s://SegundoHogar/depressi on/the-cognitive- axaoljkp-gf-ayzfj ssion#treatments http__s://www.[facility].nih.gov/health/ topics/mental-hea lth-medications http__s://www.Tackle Grab i.org/About-Menta l-Illness/Treatme nts/Mental-Health -Medications http_s://anahy.nih .gov/publications /drugfacts/cannab is-marijuana http_s://www.[employer]/Provesicaelvie lpm-nhs-zaezzuyu- marijuana-adhd/ 08/07/2024 Encounter for screening for cardiovascular disorders (ICD-10 - Z13.6) 1. depression- discuss all medications, benefits, side effects, risk Zoloft 150 mg daily, for depression and anxiety improved agitation, irritable, and tinnitus since off Wellbutrin 2. Anxiety Zoloft 150 mg daily, Buspar 30 mg twice a day, 3. Insomnia Trazodone 100 mg at bedtime sleep hygiene 4. severe sleep apnea uses CPAP reported cleans CPAP as ddirected by sleep provider 5. Memory Impairment- reported short term- improved screening discuss SLUMS = 15 07/10/24 FH dementia- dad 65 years old and passed age 78 Discuss and educated on all rx Namenda 5 mg twice a day and Aricept 5 mg at bedtime MCI/CANS scheduled- not taken at this time related recent CVA 07/24/24- Will schedule testing in next 3-6 months - recent CVA 07/24/24 Discussed and educated pt regarding benzodiazepines are generally not intended for prolonged use and that use can cause tolerance, dependence, depression, and associated memory issues including dementias (this list is not exhaustive). Benzodiazepine use is generally not recommended concurrently with pain medications and/or other controlled substances educated on all medications, benefits, side effects and risk, and educated on depression, anxiety, and ADHD, mood d/o and educated on compliance of medications, metabolic and movement d/o education appointment is, continue therapy discussion with patient about course of treatment and patient instructions. education on serotonin syndrome SSRI/SNRI side effects discussed including but not limited to, gastric upset, nausea, vomiting, diarrhea and/or constipation, weight changes, sexual side effects including loss of libido, increased suicidal thoughts/behavior s in children and young adults, and serotonin syndrome. Medication Management and Follow-Up - Plan: - Schedule follow-up appointments every 1-3 months to monitor the patient's response to the medication regimen. - Reinforce the importance of avoiding recreational drug use due to potential neurotoxicity and interactions with prescribed medications. websites http_s://www.nimh .nih.gov/health/t opics/mental-heal th-medications http_s://www.nannette .org/About-Mental -Illness/Treatmen ts/Mental-Health- Medications http_s://www.nannette .org/About-Mental -Illness/Mental-H ealth-Conditions http_s://psychcen Anaqual.com/depressi on/the-cognitive- pjomahff-xh-dvgfa ssion#treatments http__s://www.[facility].nih.gov/health/ topics/mental-hea lth-medications http__s://www.nam i.org/About-Menta l-Illness/Treatme nts/Mental-Health -Medications http_s://anahy.nih .gov/publications /drugfacts/cannab is-marijuana http_s://www.[employer]/mario ben-apf-oecxbhhd- marijuana-adhd/ 07/10/2024 Other referral to the local chapter or national office of the Alzheimer's Association ( ; http://www.alz. org), the Alzheimer's Disease Education and Referral Center (ADEWI) ( ; http://www.mary. nih.gov/Alzheim ers/), Notes: referral to the local chapter or national office of the Alzheimer's Association ( ; http://www.alz. org), the Alzheimer's Disease Education and Referral Center (ADEWI) ( ; http://www.mary. nih.gov/Alzheim ers/),, Sertraline material was published, Buspirone material was published, Trazodone material was published, Donepezil material was published, Memantine material was published, Alzheimer's Disease: Care Instructions material was published, Helping a Person With Alzheimer's Disease: Care Instructions material was published, Learning About Dementia material was published presently taking Zoloft 150 mg daily, Wellbutrin 75 mg daily, Buspar 30 mg twice a day, Trazodone 100 mg at bedtime 1. depression- discuss all medications, benefits, side effects, risk Zoloft 150 mg daily, for depression and anxiety Stop Wellbutrin 75 mg daily r/o Patient reported since Wellbutrin has had more agitation, irritable, and increase Tinnitus 2. Anxiety Zoloft 150 mg daily, Buspar 30 mg twice a day, 3. Insomnia Trazodone 100 mg at bedtime sleep hygiene 4. severe sleep apnea uses CPAP reported cleans CPAP as ddirected by sleep provider 5. Memory Impairment- reported short term screening discuss SLUMS = 15 07/10/24 dementia- dad 65 years old and passed age 78 Discuss and educated on add Namenda 5 mg twice a day and Aricept 5 mg at bedtime MCI/CANS scheduled Discussed and educated pt regarding benzodiazepines are generally not intended for prolonged use and that use can cause tolerance, dependence, depression, and associated memory issues including dementias (this list is not exhaustive). Benzodiazepine use is generally not recommended concurrently with pain medications and/or other controlled substances educated on all medications, benefits, side effects and risk, and educated on depression, anxiety, and ADHD, mood d/o and educated on compliance of medications, metabolic and movement d/o education appointment is, continue therapy discussion with patient about course of treatment and patient instructions. education on serotonin syndrome SSRI/SNRI side effects discussed including but not limited to, gastric upset, nausea, vomiting, diarrhea and/or constipation, weight changes, sexual side effects including loss of libido, increased suicidal thoughts/behavior s in children and young adults, and serotonin syndrome. Medication Management and Follow-Up - Plan: - Schedule follow-up appointments every 1-3 months to monitor the patient's response to the medication regimen. - Reinforce the importance of avoiding recreational drug use due to potential neurotoxicity and interactions with prescribed medications. websites http_s://www.nimh .nih.gov/health/t opics/mental-heal th-medications http_s://www.nannette .org/About-Mental -Illness/Treatmen ts/Mental-Health- Medications http_s://www.nannette .org/About-Mental -Illness/Mental-H ealth-Conditions http_s://psychMoovit/depressi on/the-cognitive- rrdikljf-fm-ewwsy ssion#treatments http__s://www.[facility].nih.gov/health/ topics/mental-hea lth-medications http__s://www.Tackle Grab i.org/About-Menta l-Illness/Treatme nts/Mental-Health -Medications http_s://anahy.nih .gov/publications /drugfacts/cannab is-marijuana http_s://www.[employer]/mario pbl-rez-btynxvih- marijuana-adhd/ Plan Of Treatment Future Test Test Name Order Date MCI Testing 07/10/2024 Next Appt Details Provider Name:Abigail Maret , 01/29/2025 01:30:00 PM, [address], [address], [place], [address], Insurance Providers Payer Name Payer Address Payer Phone Subscriber Number Group Number Insured Name Patient Relationship to Insured Coverage Start Date Coverage End Date Medicare-I l Medicare [address] [place] [phone] [id number] EMRE MARQUIS Self - patient is the insured [employer] - Fep Ppo [address] [place] [address] [id number] EMRE MARQUIS Self - patient is the insured Medical (General) History Medical History History ICD Code Problems: Generalized anxiety disorder Major depressive disorder CVA 07/24/24 Surgical History Surgery Date(Month/Year) Appendectomy (49042) Removal of gallbladder (70384) Hysterectomy (09036)
--- OUTSIDE RECORDS SUMMARY | 2024-11-26 01:07 | XMS_ITS ---
Author Organization [facility] Address [address] [place] [address] [place] [address] Care Team Providers Care Oss Architect Name Role Phone MADDIE BRICE, LIZ JORGE Primary Care Provider Mian Salcido Unavailable [phone] ALLERGIES Allergen (clinical drug ingredient) Drug/Non Drug [...] Location Date Provider Diagnosis [facility] [address] [place] [id number] 09/18/2024 Mian Tee Radiculopathy, lumba r region [...] patient's typical axial low back pain. Endy's, Fairfax's and Gaenslen's are positive bilaterally. There is [...]
--- OUTSIDE RECORDS SUMMARY | 2024-11-26 01:07 | XMS_ITS | Continuity of Care Document ---
Author Organization [facility] Address [address] [place] [address] Phone Care Team Providers Care Route Delivery Manager Name Role Phone Joseluis Peters MD Unavailable Unavailable Advance Directives Directive Yes / No Effective Date File Name No Information Encounters Encounter Description Practice Location Reason(s) For Visit Diagnoses Date Provider Providers Copied on Encounter [facility], [address], [place], [place], [id number], [place] tel:[phone] [facility] No Information Jun-2 8-200 5 Fran Huggins. [address] [facility] [address], [place], [place], [id number], [place]. tel:[phone] Referring Provider: Simeon Sheriff MD, [address] [place] [address], [address]. tel:[phone] Family History Family Member Type Diagnosis Age At Onset No Information Payers Payer name Insurance type Covered libertarian ID Authoriza tion(s) No Information 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 [...]
--- OUTSIDE RECORDS SUMMARY | 2024-11-26 01:07 | XMS_ITS | Encounter Summary ---
Author Organization [facility] Address 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
--- OUTSIDE RECORDS SUMMARY | 2024-11-26 01:07 | XMS_ITS | Clinical Summary ---
Author Organization [email or web address] Address [address] 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
[2024-11-26 07:04] VITALS: BP 135/66; PULSE 90; RESP 16; TEMP 36; O2SAT 97
[2024-11-26] MEDS: ACETAMINOPHEN 500 MG TABLET 1000 MG PO (07:20)
[2024-11-26] MEDS: LACTATED RINGERS 1,000 ML 30 ML IV CONT (07:25)
[2024-11-26] MEDS: KETOROLAC 15 MG/ML VIAL (*BKC) IV PUSH (07:30)
--- NOTE | 2024-11-26 07:58 | WPDANESEPPF ---
Anes - Initial Pre Proc Eval Procedure: Operation Date: 11/26/24 09:00 Proposed Procedures p Right Trigger Thumb Release - Donaldo Muller MD Date/Time: 11/26/24 07:58 Surgeon: Donaldo Muller MD Pre Op Diagnosis: right trigger thumb Patient Data Age: 64 Gender: F Height: 1.55 m Weight: 72.8 kg Last Vital Signs Temp 36.0 C L 11/26/24 07:04 Pulse 90 11/26/24 07:04 Resp 16 11/26/24 07:04 BP 135/66 11/26/24 07:04 Pulse Ox 97 11/26/24 07:04 O2 Del Method Room Air 11/26/24 07:04 Allergies Allergy/AdvReac Type Severity Reaction Status Date / Time codeine AdvReac Mild Rash Verified 11/26/24 07:32 erythromycin base AdvReac Mild Rash Verified 11/26/24 07:32 morphine AdvReac Mild Rash Verified 11/26/24 07:32 nitrofurantoin AdvReac Mild Rash Verified 11/26/24 07:32 Home Medications ?Medication ?Instructions ?Recorded ?Confirmed ?Type esomeprazole magnesium 40 mg 40 mg PO DAILY 06/27/21 11/15/24 History capsule,delayed release buspirone 30 mg tablet 30 mg PO BID 08/17/22 11/15/24 History cholecalciferol (vitamin D3) 25 25 mcg PO DAILY 08/17/22 11/15/24 History mcg (1,000 unit) capsule fluticasone propionate 230 2 inh inhalation BID 10/27/23 11/15/24 History mcg-salmeterol 21 mcg/actuation HFA inhaler (Advair HFA) sertraline 100 mg tablet 100 mg PO DAILY 10/27/23 11/15/24 History trazodone 100 mg tablet 100 mg PO DAILY 10/27/23 11/15/24 History rosuvastatin 10 mg tablet 10 mg PO DAILY #90 tabs 05/12/24 11/15/24 Rx blood sugar diagnostic (OneTouch #50 ea 06/26/24 11/15/24 Rx Verio test strips) blood-glucose meter (OneTouch #1 ea 06/26/24 11/15/24 Rx Verio Flex Start kit) lancing device with lancets kit #1 ea 06/26/24 11/15/24 Rx (OneTouch Delica Plus Lancing Device kit) diltiazem HCl 120 mg 120 mg PO DAILY 07/30/24 11/15/24 History capsule,extended release 24 hr, controlled (DILT-XR) donepezil 5 mg tablet 5 mg PO QHS 07/30/24 11/15/24 History mecobalamin (vitamin B12) 1,000 1,000 mcg PO DAILY 07/30/24 11/15/24 History mcg chewable tablet memantine 5 mg tablet 5 mg PO BID 07/30/24 11/15/24 History levothyroxine 88 mcg tablet 0.088 mcg (0.001 x 88 mcg) PO 09/24/24 11/15/24 Rx DAILY #90 tabs oxybutynin chloride 10 mg See Rx Instructions .Route 10/22/24 11/15/24 Rx tablet,extended release 24 hr .COMPLEX #90 tabs Patient hx anesthesia problems: none Family hx anesthesia problems: none Results Review: All pre-operative results and documents have been reviewed as part of the pre-operative evaluation. [facility] Past Medical History Medical History TIA (transient ischemic attack) Metabolic dysfunction-associated steatotic liver disease (MASLD) Nocturnal hypoxemia GERD (gastroesophageal reflux disease) Hyperlipidemia, unspecified Hypothyroidism, unspecified Kidney disease States she had kidney failure treated 6 months ago at [facility] in [place], etiology uncertain Fatty liver GI bleed Had stomach bleeding repaired with a clip in the past. Bilateral tennis elbow Abdominal hernia Multiple with mesh in place PTSD (post-traumatic stress disorder) From childhood Depression Anxiety HTN (hypertension) IBS (irritable bowel syndrome) Kidney stone Crohn's disease Surgical History Surgical History History of total right knee replacement History of endoscopy History of rotator cuff surgery Bilateral History of hysterectomy History of lumbar fusion Family History Family History Father Family history of diabetes mellitus in first degree relative Family history of heart disease in male family member before age 55 Hx of CABG Age 60-62 Alzheimer's dementia Cause of , 77 years old Mother Thoracic aortic aneurysm Sibling Thoracic aortic aneurysm Sister Sibling CAD (coronary artery disease) All 3 brothers have CAD and stents Other AAA (abdominal aortic aneurysm) Maternal grandmother had a AAA Other Cerebral aneurysm Maternal aunt had a cerebral aneurysm Other Family history of allergic disorder Family history of malignant neoplasm Hypertension 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 (Updated 11/15/24 @ 09:52 by Wandy Walter [facility]) 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: , 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 Smoking status: Never smoker Alcohol intake: never Substance use: never Substance use type: does not use Do You Feel Safe in your Home?: No Lack of Transportation: No Lack of Food: Never True Current Housing: I Have Housing Concerned About Future Housing: No Difficulty Paying Gas/Electric Bills: No Difficulty Paying for Meds: No Currently Unemployed: No Education: High School Diploma/GED Difficulty w/ Childcare or Family Care: No Living arrangements: with family Occupation/Education: occupation Gender identity (if verbalized by the patient): Female Sexual Orientation (if Verbalized by the Patient): Straight or Heterosexual Spiritual care concerns: No Anes - Eval Final PreProcedure Day of Procedure 11/26/24 07:58 Patient weight: obese Heart: regular rate and rhythm Lungs: clear to auscultation Airway: Mallampati scale class II Neurological: alert and oriented Last oral intake: >/= 8 hours ASA classification: III Emergent: no Anesthetic plan: proceed Anesthesia type and monitoring: general GIVS and standard monitoring Results Review: All pre-operative results and documents have been reviewed as part of the pre-operative evaluation. Informed Consent: The patient's anesthetic plan and its attendant risks and benefits were discussed with the patient/family/POA. Questions were solicited and answers provided to the satisfaction of the patient/family/POA.
--- NOTE | 2024-11-26 08:40 | WPDHPUPDATE1 ---
History and Physical Update Update Date/Time: 11/26/24 08:40 History and Physical has been reviewed, including an updated exam of the patient. There are NO changes in the patient's condition. Risks, benefits, and alternatives have been discussed and questions answered. Patient agrees to proceed with procedure.
[2024-11-26] MEDS: ceFAZolin 2 GM in SODIUM CHLORIDE 0.9% IV 50 ML 100 ML IVPB (08:43)
[2024-11-26] MEDS: LIDOCAINE 1% LOCAL INJ 10 ML VIAL INFILTRATE (09:00)
--- NOTE | 2024-11-26 09:06 | P.OP_ITS ---
Procedure Note - Detailed Date of Procedure 11/26/24 Pre-op Diagnosis Right trigger thumb Post-op Diagnosis Same Procedure Performed Release A1 zaida Surgeon Donaldo Muller MD Base Remover [place] Anesthesia General Indications Catching and locking Description of Procedure Patient was brought to operating room #7. A general anesthetic was administered. She was sterilely prepped and draped in usual manner. Local infiltrate placed along the line of intended incision, on line with the thenar crease. Dissection carried down through the skin the neurovascular bundles were protected. Dissection bluntly carried down to the tendon and the zaida was released under direct vision. Full excursion was obtained without any catching or locking at this time. The wound irrigated and closed with 3-0 Prolene. A sterile dressing applied. Patient tolerated procedure well. Complications No immediate complications Condition Stable Disposition PACU [facility] Billing Surgery - Charge Forward: Surgery Billing ([id number] Trigger Finger)
[2024-11-26 09:13] VITALS: BP 104/48; PULSE 66; RESP 14; O2SAT 98
[2024-11-26 09:40] VITALS: BP 123/60; PULSE 75
[2024-11-26 09:58] VITALS: BP 126/55; PULSE 80
== END 2024-11-26 10:08 | disposition home or self-care (01) ==
PROVIDERS: PCP Family Medicine; Visit Provider Orthopaedic Surgery
PROC: (CPT 26055; principal; 2024-11-26 09:00)
DX: M65.311 Trigger thumb, right thumb (principal); E78.5 Hyperlipidemia, unspecified; E03.9 Hypothyroidism, unspecified; I10 Essential (primary) hypertension; K21.9 Gastro-esophageal reflux disease without esophagitis; K58.9 Irritable bowel syndrome, unspecified; F43.10 Post-traumatic stress disorder, unspecified; R09.02 Hypoxemia; F32.A Depression, unspecified; F41.9 Anxiety disorder, unspecified; E88.9 Metabolic disorder, unspecified; N28.9 Disorder of kidney and ureter, unspecified; E66.9 Obesity, unspecified; Z68.30 Body mass index [BMI] 30.0-30.9, adult; Z79.51 Long term (current) use of inhaled steroids; Z98.890 Other specified postprocedural states; Z98.1 Arthrodesis status; Z86.73 Personal history of transient ischemic attack (TIA), and cerebral infarction without residual deficits; Z80.9 Family history of malignant neoplasm, unspecified; Z82.49 Family history of ischemic heart disease and other diseases of the circulatory system
CPT/HCPCS: 26055; J0690; A9270; J1100; J1885; J2003; J2250; J2405; J2704; J3010; J7120

== ENCOUNTER 2025-01-04 08:46 | Emergency (ER) | payer MEDICARE, BC, SELFPAY ==
--- OUTSIDE RECORDS SUMMARY | 2004-07-06 05:30 | XMS_ITS | Continuity of Care Document ---
Author Organization [facility] Address [address] [place] [address] Phone Care Team Providers Care Reed Repairer Name Role Phone Joseluis Peters MD Unavailable Unavailable Advance Directives Directive Yes / No Effective Date File Name No Information Encounters Encounter Description Practice Location Reason(s) For Visit Diagnoses Date Provider Providers Copied on Encounter [facility], [address], [place], [place], [id number], [place] tel:[phone] [facility] No Information Jun-2 8-200 5 Fran Huggins. [address], [place], [place], [id number], [place]. tel:[phone] Referring Provider: Simeon Sheriff MD, [address] [place] [address], [address]. tel:[phone] Family History Family Member Type Diagnosis Age At Onset No Information Payers Payer name Insurance type Covered democrat ID Authoriza tion(s) No Information 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 Type Description Quantity Date Captured Comments Sex Female Smoking Status No Information Chief Complaint And Reason For Visit No Information Reason For Referral Reason For Referral No Information History Of Present Illness Encounter Date Complaint History Of Prese nt Illness No Information Functional Status Date Functional Assessmen t No Information Instructions Date Instruction Additional Infor mation No Information Assessments Type Assessment Date No Information Patient Care Teams Name Effective Dates (start - stop) Status Members No Information
--- OUTSIDE RECORDS SUMMARY | 2024-06-19 10:00 | XMS_ITS ---
Author Organization [facility] [employer] [facility] Address [facility] [address] Care Team Providers Care Center Maker Hand Name Role Phone Simeon Sheriff MD Primary Care Provider Abigail Jalloh Unavailable [phone] REASON FOR VISIT R/S due to complications with back surgery 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 Sex Assigned At : 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 Observation Description Sex Assigned At Female Encounters Encounter Location Date Provider Diagnosis [facility] [employer] [place] [id number] [address] 06/19/2024 Abigail Marte Plan Of Treatment Next Appt Details Provider Name:Abigail Marte , 01/29/2025 01:30:00 PM, [address], [facility] [address], [place], [address], Progress Notes * EMRE MARQUIS KDOB:1960 (64 yo F)Acc No.[id number]:06/19/2024 Patient: Gabrielle EMRE DUFFY Provider: ROSA CUNNINGHAM :1960 A ge:63 Y S ex:Female Date:06/19/2024 Address:[address] [place], [place] [id number] Pcp:Simeon Sheriff MD Subjective: * Chief Complaints: * R /S due to complications with back surgery Billing Information: * Procedure Codes: * Electronic signature of ROSA Chapin on 01/04/2025 at 08:51 AM CDT Sign off status: Pending * Provider: ROSA CUNNINGHAM Date: 0 06/19/2024 Generated for Jaun Hawley on: 0 01/04/2025 08:51 AM CDT
--- OUTSIDE RECORDS SUMMARY | 2024-09-04 07:00 | XMS_ITS ---
Author Organization [facility] Address [address] [place] [address] [place] [address] Care Team Providers Care Lottery Manager Name Role Phone MADDIE BRICE, LIZ JORGE Primary Care Provider Anoop Mian Altamirano Unavailable [phone] ALLERGIES Allergen (clinical drug ingredient) Drug/Non Drug Allergy documented on EMR Reaction Allergy Type Onset Date Status erythromycin Erythromycin rash Drug Allergy A ctive nitrofurantoin, macrocrystals / nitrofurantoin, monohydrate Macrobid rash Drug Allergy Active codeine Codeine rash Drug Allergy Active metoprolol Metoprolol cough Drug Allergy Activ e morphine Morphine burning pain Drug Allergy Acti ve nitrofurantoin Nitrofurantoin rash Drug Allergy Active tizanidine Tizanidine hallucinations Drug Allergy Active REASON FOR VISIT Right > Left Low Back Pain, Right > Left Lower Extremity Pain MEDICATIONS Medication SIG (Take, Route, Frequency, Duration) Notes Start Date End Date Status methylPREDNISolone 4 MG as directed Orally Active traMADol HCl 50 MG 1 tablet as needed Orally twice daily for 7 days 07/05/2024 Active Memantine HCl 5 MG Oral for 30 Active Famotidine 20 MG Oral for 90 A ctive Xanax 0.25 MG 1-2 tablets Orally 3 0 minutes prior to injection Active Esomeprazole Magnesium 40 MG 1 capsule O ral Once a day Active oxyBUTYnin Chloride ER 10 MG Oral for 30 Active traZODone HCl 100 MG 1 tablet at bedtime Oral Once a day Active Levothyroxine Sodium 88 MCG TAKE 1 TABLE T BY MOUTH DAILY. Oral for 90 Active Xanax 0.25 MG 1-2 tablets Orally 3 0 minutes prior to injection 06/19/2024 Active dilTIAZem HCl 120 MG as directed Orally Active Tylenol 325 MG 1 tablet as needed Orally every 6 hrs Active Sertraline HCl 100 MG 1 tablet Orally On ce a day for 30 day(s) Active busPIRone HCl 15 MG 1 tablet Orally Twic e a day Active Vitamin D-3 25 MCG (1000 UT) 1 capsule O rally Once a day Active Gabapentin 300 MG 1 capsule Orally Thr ee times a day Active buPROPion HCl 75 MG 2 tablets Orally Twi ce a day for 30 day(s) Active Rosuvastatin Calcium 10 MG 1 tablet Oral ly Once a day for 30 day(s) Active VITAL SIGNS Blood pressure systolic 105 mm Hg 09/05/19 25 Blood pressure diastolic 69 mm Hg 025 Heart Rate 79 /min 09/04/2024 Respiratory Rate 18 /min 09/04/2024 Height 5 ft 1 in in 09/04/2024 Weight 158 lbs 09/04/2024 BMI 29.85 kg/m2 09/04/2024 Oximetry 95 % 09/04/2024 Post Op Vitals: BP 134/77, H R 71, RR 18, Spo2 95%Discharged home, ambulatory, and in no acute distress. Encounters Encounter Location Date Provider Diagnosis [facility] [address] [id number] 09/04/2024 Mian Trujilloick Radiculopathy, lumbar region M54.16 ; Radiculopathy, lumbosacral region M54.17 and Osseous stenosis of neural canal of lumbar region M99.33 ASSESSMENTS Encounter Date Diagnosis Assessment Notes Treatment Notes Treatment Clinical Notes Section Notes 09/04/2024 Radiculopathy, lumbar region (ICD-10 - M54.16) 09/04/2024 Radiculopathy, lumbosacral region (ICD-10 - M54.17) 09/04/2024 Osseous stenosis of neural canal of lumbar region (ICD-10 - M99.33) 09/04/2024 Other The patient voiced understanding of the treatment plan and all questions were addressed. Obtain informed consent: Bilateral Lumbar 5- Sacral 1 Transforaminal Epidural Steroid Injection under fluoroscopy. Monitor pulse, blood pressure and SaO2 before, after and as needed during procedure. Verify if the patient is currently taking blood thinner. Verify patients is not currently on antibiotics for infection. Patient may drive home. CARE PLAN: Knowledge deficit: Will verbalize understanding of the proposed procedure, including risk of electrical burn, complications and benefits of the procedure? Will the patient exhibit understanding of the discharge instructions? Safety: The potential for injury related to surgery was assessed; Fire risk score determined, test completed if applicable. Risk for injury related to wrong patient, site, procedure. TIME OUT for safety of patient and includes patient name, , procedure site, side, level, allergies, blood thinners, antibiotics, surgical counts, consents correct and signed etc. Risk for infection: Implements aseptic technique, protects from cross-contaminatio n, performs skin preparations. Pain/Discomfort: Patient verbalizes acceptable level of pain relief prior to discharge and the ability to engage in desired activity. I HAVE REVIEWED THE PATIENT'S MEDICATION LIST AND HAVE RECONCILED THE ABOVE MEDICATIONS. PATIENT GOALS AND SAFETY CONCERNS HAVE BEEN ADDRESSED. RN initials ___JW. PLAN OF TREATMENT Treatment Notes Assessment Notes Other The patient voiced understanding of the treatment plan and all questions were addressed. Obtain informed consent: Bilateral Lumbar 5- Sacral 1 Transforaminal Epidural Steroid Injection under fluoroscopy. Monitor pulse, blood pressure and SaO2 before, after and as needed during procedure. Verify if the patient is currently taking blood thinner. Verify patients is not currently on antibiotics for infection. Patient may drive home. CARE PLAN: Knowledge deficit: Will verbalize understanding of the proposed procedure, including risk of electrical burn, complications and benefits of the procedure? Will the patient exhibit understanding of the discharge instructions? Safety: The potential for injury related to surgery was assessed; Fire risk score determined, test completed if applicable. Risk for injury related to wrong patient, site, procedure. TIME OUT for safety of patient and includes patient name, , procedure site, side, level, allergies, blood thinners, antibiotics, surgical counts, consents correct and signed etc. Risk for infection: Implements aseptic technique, protects from cross-contamination, performs skin preparations. Pain/Discomfort: Patient verbalizes acceptable level of pain relief prior to discharge and the ability to engage in desired activity. I HAVE REVIEWED THE PATIENT'S MEDICATION LIST AND HAVE RECONCILED THE ABOVE MEDICATIONS. PATIENT GOALS AND SAFETY CONCERNS HAVE BEEN ADDRESSED. RN initials ___JW. Next Appt Details Follow Up: F/U 09/18/24, Reas on: Procedure Notes * Category Sub-Category Detail Notes Transforaminal Epidural Steroid Injection Locati on Bilateral Levels L5-S1 Anesthesia Local without IV sed ation Operative Technique After the risks, gracie efits, alternative treatment options and potential complications related to the procedure were discussed, informed consent was obtained. The specific risks of this procedure including pain, bleeding, infection, spinal headache, persistent spinal fluid leak, epidural hematoma, nerve damage, spinal cord injury, paralysis, total spinal anesthesia resulting in cardiopulmonary arrest/, respiratory distress requiring intubation, insomnia, hyperglycemia, hair loss, muscle atrophy, skin depigmentation, weight gain, fluid retention, adrenal suppression, immunosuppression, osteoporosis resulting in fractures, avascular necrosis of the hip, cataracts, bleeding gastric ulcer, worsening pain and failure to relieve pain were discussed and the patient is agreeable to proceeding at this time. The patient was placed in the prone position on the fluoroscopy table and standard ASA monitors were applied. The back was prepped and draped in the usual sterile fashion with chlorhexidine 2%/IPA 70%. The c-arm was obliqued and tilted to identify the left L5-S1 neural foramen and a 23 gauge 3.5 inch spinal needle was inserted under fluoroscopic guidance towards the junction of the inferior endplate and superior articular process until the superior articular process was contacted. A lateral view was taken and the needle tip was advanced into the posterior aspect of the neuroforamen. The subcutaneous structures were anesthetized with 3 mL of 1% Preservative-Free lidocaine during needle placement. An AP view was taken and after negative aspiration for blood, air or CSF, 2 mLs of Omnipaque 240 contrast dye was injected under live fluoroscopy for an epidurogram showing good spread within the epidural space and along the selected nerve root (except in cases of contrast allergy). No intravascular or intrathecal spread was noted. A solution of 10 mg of Preservative-Free Dexamethasone (10 mg/mL), plus 3 mL of 0.25% Preservative-Free bupivacaine was mixed and after negative aspiration 2 mL of this solution was slowly injected into the epidural space. The c-arm was obliqued and tilted to identify the right L5-S1 neural foramen and a 23 gauge 3.5 inch spinal needle was inserted under fluoroscopic guidance towards the junction of the inferior endplate and superior articular process until the superior articular process was contacted. A lateral view was taken and the needle tip was advanced into the posterior aspect of the neuroforamen. The subcutaneous structures were anesthetized with 3 mL of 1% Preservative-Free lidocaine during needle placement. An AP view was taken and after negative aspiration for blood, air or CSF, 2 mLs of Omnipaque 240 contrast dye was injected under live fluoroscopy for an epidurogram showing good spread within the epidural space and along the selected nerve root (except in cases of contrast allergy). No intravascular or intrathecal spread was noted. From the solution of 10 mg of Preservative-Free Dexamethasone (10 mg/mL), plus 3 mL of 0.25% Preservative-Free bupivacaine, 2 mL of this solution was slowly injected into the epidural space. The needles were removed, the skin was cleaned and band-aids were placed over the puncture sites. The patient tolerated the procedure well, was able to ambulate without difficulty and was monitored for 20 minutes. Patient reports a 90% reduction in typical pain immediately postprocedure. The patient remained hemodynamically and neurologically stable. No apparent complications were observed. Postoperative instructions were reviewed with the patient. The patient was then discharged home in good condition with a boat driver. X-ray time: 18 seconds [facility] First Critical Point Serena ent identified by verbal and ID band. Surgical site marked. Assessement of allergies, airway and aspiration risk. Assessed if patient is on anticoagulant. Operataive Consent signed. Patient has discussed procedure with physician Marta Alarcon 09/04/2024 11:51:49 AM > Second Critical Point TIME OUT: Confirm patient identity, procedure and surgical incision site. Patient in proper position and safety straps placed appropriately. ASA score: _3_ Fire Risk Score:_1_ . Alcohol based prep solution had significant time for fumes to dissipate. Confirm surgical merchandising team lead and roles. Anticipated critical events. Essential imaging displayed as appropriate. Fluoroscopy precautions taken if applicable. Equipment and supplies in room. Verify patient is not if applicable Marta Alarcon 09/04/2024 11:51:00 AM > Third Critical Point [facility] SURGERY [facility]I EDITH-POST: Complete count of surgical instruments and accessories. Identify cotter patient concerns for recovery and management of the patient. Patient remains free from injury related to surgery. The patient tolerated the procedure well and there were no complications. The patient was taken to the recovery area. The patient remained in stable condition with no apparent complications. Vital signs stable. Injection/procedure/surgical site clean, dry and intact. Post procedure discharge instructions were give to the patient and a follow up appointment was confirmed. The patient was discharged with information on how to reach the clinic at anytime for questions or concerns. Patient discharged ambulatory. Patient denies complaints or questions Marta Alarcon 09/04/2024 12:29:14 PM > Progress Notes * Examination Category Sub-Category Detail Notes Category Not es Examination/ Pre-Anesthesia Assessment General: The patient is alert and oriented X 3 in moderate distress secondary to pain HEENT: Normocephalic, atrau matic. PERRL. The oropharynx is clear Neck: There is full range of motion of the cervical spine Heart: Regular rate and rhy thm Chest: Clear to auscultatio n bilaterally Abdomen: Soft and benign Musculoskeletal and Extremities: There i s tenderness to palpation over the bilateral L2-3 through L5-S1 facet joints. Extension and lateral rotation of the lumbar spine reproduces the patient's typical axial low back pain. Endy's, Texline's and Gaenslen's are positive bilaterally. There is tenderness palpation over the bilateral sacroiliac joints and greater trochanters. There is tenderness to palpation over the bilateral lumbar paraspinal muscles and palpable myofascial trigger points throughout. There is weakness and atrophy of the bilateral lumbar paraspinal muscles. There is tenderness to palpation over the bilateral lower thoracic paraspinal muscles (approximately T11 level). There is tenderness palpation over the T11 spinous process. TTP alond left T6-7 dermatomes Neurological: There is positive st raight leg raising bilaterally for reproduction of pain down the bilateral L4 and L5 dermatomes at 45 degrees. There are no focal strength deficits in the bilateral lower extremities Skin: Clean, dry and intac t. Psychiatric: Mood and affect are normal History and Physical Notes * HPI (History of Present Illness) Category Sub-Category Detail Notes Category Not es Pain Management Assessment and Follow-up: Follow -up Plan documented:: Yes MIPS Quality 2020: MIPS Documented:: Compliant
--- OUTSIDE RECORDS SUMMARY | 2024-09-05 03:24 | XMS_ITS ---
Author Organization [facility] Address [address] [facility] [place] [address] Care Team Providers Care Sewer System Supervisor Name Role Phone MADDIE BRICE, LIZ JORGE Primary Care Provider Unav ailable Mian Tee Unavailable [phone] REASON FOR VISIT post procedure call Encounters Encounter Location Date Provider Diagnosis [facility] [address] [place] [id number] 09/05/2024 Mian Tee PLAN OF TREATMENT No Information
--- OUTSIDE RECORDS SUMMARY | 2024-09-18 08:00 | XMS_ITS ---
Author Organization [facility] Address [address] [facility] [place] [address] Care Team Providers Care Safety Glass Installer Name Role Phone MADDIE BRICE, LIZ JORGE Primary Care Provider Mian Salcido Unavailable [phone] ALLERGIES Allergen (clinical drug ingredient) Drug/Non Drug [...] hallucinations Drug Allergy Active REASON FOR VISIT follow up MEDICATIONS Medication SIG (Take, Route, Frequency, Duration) Notes Start Date End Date Status Tylenol 325 MG 1 tablet as needed Orally every 6 hrs Active dilTIAZem HCl 120 MG as directed Orally Active busPIRone HCl 15 MG 1 tablet Orally Twic e a day Active Sertraline HCl 100 MG 1 tablet Orally On ce a day for 30 day(s) Active Rosuvastatin Calcium 10 MG 1 tablet Oral ly Once a day for 30 day(s) Active Memantine HCl 5 MG Oral for 30 Active Xanax 0.25 MG 1-2 tablets Orally 3 0 minutes prior to injection Active Famotidine 20 MG Oral for 90 A ctive Gabapentin 300 MG 1 capsule Orally Thr ee times a day Active buPROPion HCl 75 MG 2 tablets Orally Twi ce a day for 30 day(s) Active traMADol HCl 50 MG 1 tablet as needed Orally twice daily for 7 days 07/05/2024 Active Levothyroxine Sodium 88 MCG TAKE 1 TABLE T BY MOUTH DAILY. Oral for 90 Active traZODone HCl 100 MG 1 tablet at bedtime Oral Once a day Active methylPREDNISolone 4 MG as directed Orally Active Xanax 0.25 MG 1-2 tablets Orally 3 0 minutes prior to injection 06/19/2024 Active Esomeprazole Magnesium 40 MG 1 capsule O ral Once a day Active Vitamin D-3 25 MCG (1000 UT) 1 capsule O rally Once a day Active oxyBUTYnin Chloride ER 10 MG Oral for 30 Active SOCIAL HISTORY Tobacco Use: 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 Observation Description Date Details (start date - stop date) Never Smoker NA - NA Sex Assigned At : 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 Observation Description Sex Assigned At Unknown Tobacco Use/Smoking Question Answer Notes Are you a nonsmoker Section Notes: The patient denies tobacco, alcohol, or illicit drug abuse. 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 and 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 ASSESSMENTS Encounter Date Diagnosis Assessment Notes Treatment Notes Treatment Clinical Notes Section Notes 09/18/2024 Radiculopathy, lumbar region (ICD-10 - M54.16) 09/18/2024 Radiculopathy, thoracic region (ICD-10 - M54.14) 09/18/2024 Radiculopathy, lumbosacral region (ICD-10 - M54.17) 09/18/2024 Sacroiliitis, not elsewhere classified (ICD-10 - M46.1) 09/18/2024 Spondylosis without myelopathy or radiculopathy, lumbar region (ICD-10 - M47.816) 09/18/2024 Intervertebral disc disorders with radiculopathy, lumbar region (ICD-10 - M51.16) 09/18/2024 Chronic pain syndrome (ICD-10 - G89.4) 09/18/2024 Postlaminectomy syndrome, not elsewhere classified (ICD-10 - M96.1) 09/18/2024 Fear of injections and transfusions (ICD-10 - F40.231) 09/18/2024 Intercostal neuropathy (ICD-10 - G58.0) PLAN OF TREATMENT No Information Progress Notes * Examination Category Sub-Category Detail [...] patient's typical axial low back pain. Endy's, Paradis's and Gaenslen's are positive bilaterally. There is [...]
--- OUTSIDE RECORDS SUMMARY | 2024-09-25 06:45 | XMS_ITS ---
Author Organization [facility] Address [address] [place] [address] [place] [id number] Care Team Providers Care Switchbox Assembler Name Role Phone MADDIE BRICE, LIZ JORGE Primary Care Provider Mian Salcido Unavailable [phone] ALLERGIES Allergen (clinical drug ingredient) Drug/Non Drug [...] hallucinations Drug Allergy Active REASON FOR VISIT Follow Up, Right = Left Low Back Pain MEDICATIONS Medication SIG (Take, Route, Frequency, Duration) Notes Start Date End Date Status Xanax 0.25 MG 1-2 tablets Orally 3 0 minutes prior to injection 09/25/2024 Active Xanax 0.25 MG 1-2 tablets Orally 3 0 minutes prior to injection Active Famotidine 20 MG Oral for 90 A ctive Memantine HCl 5 MG Oral for 30 Active traMADol HCl 50 MG 1 tablet as needed Orally twice daily for 7 days 07/05/2024 Active Xanax 0.25 MG 1-2 tablets Orally 3 0 minutes prior to injection 06/19/2024 Active Levothyroxine Sodium 88 MCG TAKE 1 TABLE T BY MOUTH DAILY. Oral for 90 Active traZODone HCl 100 MG 1 tablet at bedtime Oral Once a day Active oxyBUTYnin Chloride ER 10 MG Oral for 30 Active methylPREDNISolone 4 MG as directed Orally Active busPIRone HCl 15 MG 1 tablet Orally Twic e a day Active Esomeprazole Magnesium 40 MG 1 capsule O ral Once a day Active Vitamin D-3 25 MCG (1000 UT) 1 capsule O rally Once a day Active Sertraline HCl 100 MG 1 tablet Orally On ce a day for 30 day(s) Active Tylenol 325 MG 1 tablet as needed Orally every 6 hrs Active buPROPion HCl 75 MG 2 tablets Orally Twi ce a day for 30 day(s) Active Gabapentin 300 MG 1 capsule Orally Thr ee times a day Active dilTIAZem HCl 120 MG as directed Orally Active Rosuvastatin Calcium 10 MG 1 tablet Oral ly Once a day for 30 day(s) Active SOCIAL HISTORY Tobacco Use: 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 Observation Description Date Details (start date - stop date) Never Smoker NA - NA Sex Assigned At : 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 Observation Description Sex Assigned At Unknown Tobacco Use/Smoking Question Answer Notes Are you a nonsmoker Section Notes: The patient denies tobacco, alcohol, or illicit drug abuse. VITAL SIGNS Blood pressure systolic 109 mm Hg 09/26/19 25 Blood pressure diastolic 72 mm Hg 025 Heart Rate 69 /min 09/25/2024 Respiratory Rate 16 /min 09/25/2024 Height 5 ft 1 in in 09/25/2024 Weight 157 lbs 09/25/2024 BMI 29.66 kg/m2 09/25/2024 Encounters Encounter Location Date Provider Diagnosis [facility] [address] [place] [id number] 09/25/2024 Mian Tee Radiculopathy, lumbar region M54.16 ; Spondylosis without myelopathy or radiculopathy, lumbar region M47.816 ; Radiculopathy, lumbosacral region M54.17 ; Osseous stenosis of neural canal of lumbar region M99.33 ; Radiculopathy, thoracic region M54.14 ; Spondylosis without myelopathy or radiculopathy, lumbosacral region M47.817 and Fear of injections and transfusions F40.231 ASSESSMENTS Encounter Date Diagnosis Assessment Notes Treatment Notes Treatment Clinical Notes Section Notes 09/25/2024 Radiculopathy, lumbar region (ICD-10 - M54.16) 09/25/2024 Spondylosis without myelopathy or radiculopathy, lumbar region (ICD-10 - M47.816) schedule a bilateral L3-5 medial branch nerve block as a diagnostic and potentially therapeutic endeavor to isolate the source of the patient's facet-generated low back pain originating from the L4-5 and L5-S1 facet joints and to ultimately perform radiofrequency ablation for more durable pain relief. The risks of this procedure including pain, bleeding, infection, nerve damage, spinal cord injury, paralysis, total spinal anesthesia resulting in cardiopulmonary arrest/, respiratory distress requiring intubation, neuritis after radiofrequency ablation, hyperglycemia, insomnia, hair loss, muscle atrophy, skin depigmentation, weight gain, fluid retention, adrenal suppression, osteoporosis resulting in fractures, avascular necrosis of the hip, cataracts, bleeding gastric ulcer, worsening pain and failure to relieve pain were discussed and the patient is agreeable to proceeding at this time. 09/25/2024 Radiculopathy, lumbosacral region (ICD-10 - M54.17) 09/25/2024 Osseous stenosis of neural canal of lumbar region (ICD-10 - M99.33) 09/25/2024 Radiculopathy, thoracic region (ICD-10 - M54.14) 09/25/2024 Spondylosis without myelopathy or radiculopathy, lumbosacral region (ICD-10 - M47.817) 09/25/2024 Fear of injections and transfusions (ICD-10 - F40.231) The patient was given written instructions explaining the above and was informed that they would need to come with a lumber driver after taking this medication due to the risk of impairment. 09/25/2024 Other The above-named patient was evaluated in conjunction with Dr. Tee. I have discussed and reviewed all of the pertinent history, physical examination findings and diagnostic imaging results with him. As a result of our discussion, Dr. Tee has determined the above assessment and directed the treatment plan. This note was dictated using voice recognition software and therefore inadvertent errors may have occurred. This note was dictated by NORMA Lockwood. Total Time Spent with Patient and Medical Decision Makin minutes PLAN OF TREATMENT Medication Medication Name Sig Start Date Stop Date Notes Xanax 0.25 MG 1-2 tablets Orally 3 0 minutes prior to injection 09/25/2024 Treatment Notes Assessment Notes Spondylosis without myelopat hy or radiculopathy, lumbar region schedule a bilateral L3-5 medial branch nerve block as a diagnostic and potentially therapeutic endeavor to isolate the source of the patient's facet-generated low back pain originating from the L4-5 and L5-S1 facet joints and to ultimately perform radiofrequency ablation for more durable pain relief. The risks of this procedure including pain, bleeding, infection, nerve damage, spinal cord injury, paralysis, total spinal anesthesia resulting in cardiopulmonary arrest/, respiratory distress requiring intubation, neuritis after radiofrequency ablation, hyperglycemia, insomnia, hair loss, muscle atrophy, skin depigmentation, weight gain, fluid retention, adrenal suppression, osteoporosis resulting in fractures, avascular necrosis of the hip, cataracts, bleeding gastric ulcer, worsening pain and failure to relieve pain were discussed and the patient is agreeable to proceeding at this time. Fear of injections and transfusions The patient was given written instructions explaining the above and was informed that they would need to come with a lumber driver after taking this medication due to the risk of impairment. Other The above-named patient was evaluated in conjunction with Dr. Tee. I have discussed and reviewed all of the pertinent history, physical examination findings and diagnostic imaging results with him. As a result of our discussion, Dr. Tee has determined the above assessment and directed the treatment plan. This note was dictated using voice recognition software and therefore inadvertent errors may have occurred. This note was dictated by NORMA Lockwood. Total Time Spent with Patient and Medical Decision Makin minutes Next Appt Details Follow Up: bilateral L3-5 MB NB, Reason: Progress Notes * Examination Category Sub-Category Detail [...] patient's typical axial low back pain. Endy's, Prewitt's and Gaenslen's are positive bilaterally. There is [...]
--- OUTSIDE RECORDS SUMMARY | 2024-10-03 06:15 | XMS_ITS ---
Author Organization [facility] Address [address] [facility] [place] [address] Care Team Providers Care Paradi Tender Name Role Phone MADDIE BRICE, LIZ JORGE Primary Care Provider Vikyleeanne Mian Altamirano Unavailable [phone] ALLERGIES Allergen (clinical drug ingredient) Drug/Non Drug [...] hallucinations Drug Allergy Active REASON FOR VISIT BILAT L3-5 MBNB (XANAX PREMED) (NO ASC COPAY) MEDICATIONS Medication SIG (Take, Route, Frequency, Duration) [...] ER 10 MG Oral for 30 Active Esomeprazole Magnesium 40 MG 1 capsule O ral Once a day Active dilTIAZem HCl 120 MG as directed Orally Active busPIRone HCl 15 MG 1 tablet Orally Twic e a day Active Sertraline HCl 100 MG 1 tablet Orally On ce a day for 30 day(s) Active Tylenol 325 MG 1 tablet as needed Orally every 6 hrs Active Vitamin D-3 25 MCG (1000 UT) 1 capsule O rally Once a day Active Rosuvastatin Calcium 10 MG 1 tablet Oral ly Once a day for 30 day(s) Active buPROPion HCl 75 MG 2 tablets Orally Twi ce a day for 30 day(s) Active Gabapentin 300 MG 1 capsule Orally Thr ee times a day Active Xanax 0.25 MG 1-2 tablets Orally 3 0 minutes prior to injection 09/25/2024 Active VITAL SIGNS Height 5 ft 1 in in 10/03/2024 Post Op Vitals: BP , HR , RR 16, Spo2 %Pain=/10.Discharged to home with self, ambulatory without assistance at baseline, and in no acute distress. Encounters Encounter Location Date Provider Diagnosis [facility] [address] [place] [address] 10/03/2024 Mian Tee Spondylosis without myelopathy or radiculopathy, lumbar region M47.816 and Spondylosis without myelopathy or radiculopathy, lumbosacral region M47.817 ASSESSMENTS Encounter Date Diagnosis Assessment Notes Treatment Notes Treatment Clinical Notes Section Notes 10/03/2024 Spondylosis without myelopathy or radiculopathy, lumbar region (ICD-10 - M47.816) 10/03/2024 Spondylosis without myelopathy or radiculopathy, lumbosacral region (ICD-10 - M47.817) 10/03/2024 Other The patient voiced understanding of the treatment plan and all questions were addressed. Obtain informed consent: under fluoroscopy. Monitor pulse, blood pressure and [...] for infection: Implements aseptic technique, protects from cross-contaminati on, performs skin preparations. Pain/Discomfort: Patient verbalizes acceptable level of pain relief prior to discharge and the ability to engage in desired activity. I HAVE REVIEWED THE PATIENT'S MEDICATION LIST AND HAVE RECONCILED THE ABOVE MEDICATIONS. PATIENT GOALS AND SAFETY CONCERNS HAVE BEEN ADDRESSED. RN initials PLAN OF TREATMENT Treatment Notes Assessment Notes Other The patient voiced understanding of the treatment plan and all questions were addressed. Obtain informed consent: under fluoroscopy. Monitor pulse, blood pressure and [...] SAFETY CONCERNS HAVE BEEN ADDRESSED. RN initials Next Appt Details Follow Up: 1 Week, Reason: Procedure Notes * Category Sub-Category Detail Notes L3-5 Medial Branch Nerve Block Under Fluroscopy Location Bilateral Anesthesia Local without IV sed ation Operative Technique: After the risks, be nefits, alternative treatment options and potential complications related [...] in the prone position on the fluoroscopy table. Standard ASA monitors were applied. The back was prepped and draped in the usual sterile fashion with chlorhexidine 2%/IPA 70%. The bilateral L4 and L5 pedicles as well as the junction of the superior articular process of S1 and the sacral ala were identified with x-ray using an AP view. A 25 gauge 3.5 inch spinal needle was inserted in a gun barrel fashion to the junction of the superior articular process and transverse process at the upper outer quadrant of the pedicle until periosteum was contacted at each level bilaterally. 3 mL of 0.25% Preservative-Free bupivacaine was drawn up. After negative aspiration for blood, air or CSF, 0.5 mL of this solution was injected at each level, blocking the bilateral L3 and L4 medial branch nerves. The bilateral L5 dorsal rami were blocked at the junction of the superior articular process of S1 and the sacral ala in the same fashion. The needles were then removed, the skin was cleaned and band-aids were placed over the puncture sites. The patient tolerated the procedure well, was able to ambulate without difficulty and was monitored for 20 minutes. The patient remained hemodynamically and neurologically stable. No complications were observed. The patient noted a 90% reduction in her typical back pain associated with extension and lateral rotation of the lumbar spine. Postoperative instructions were reviewed with the patient. The patient was discharged home in good condition with a carry all driver. X-ray time: 11 seconds Safe Surgery Practices First Critical Point Serena ent identified by verbal and ID band. Surgical site marked. Assessement of allergies, airway and aspiration risk. Assessed if patient is on anticoagulant. Operataive Consent signed. Patient has discussed procedure with physician Second Critical Point TIME OUT: Confirm patient identity, procedure and surgical incision site. Patient in proper position and safety straps placed appropriately. ASA score: __ Fire Risk Score:__ . Alcohol based prep solution had significant time for fumes to dissipate. Confirm surgical team cdl driver and roles. Anticipated critical events. Essential imaging displayed as appropriate. Fluoroscopy precautions taken if applicable. Equipment and supplies in room. Verify patient is not if applicable Third Critical Point SAFE SURGERY PRACTI EDTIH-POST: Complete count of surgical instruments and accessories. [...] discharged ambulatory. Patient denies complaints or questions Progress Notes * Examination Category Sub-Category Detail [...] patient's typical axial low back pain. Endy's, Goodland's and Gaenslen's are positive bilaterally. There is [...]
--- NOTE | ~2025-01-04 | CT_ITS ---
Exam: CT abdomen and pelvis with contrast Clinical History: [Left flank pain. Recent UTI. History of kidney stones ] Comparison: [ 09/30/2024] Technique: Multiple axial CT images of the abdomen and pelvis were obtained with IV contrast. Sagittal and coronal reformatted images were obtained. FINDINGS: Lung bases: [Clear ] Liver: [Fatty liver.No mass.] [ No intrahepatic biliary duct dilatation.] Stable cyst in the caudate. Gallbladder: Surgically absent. Common bile duct: [ Normal caliber.] [ No stones.] Spleen: [ Within normal limits.] Pancreas: [ No mass. No pancreatic fluid collection.] Adrenals: [ No masses.] Kidneys: [ No masses. No hydronephrosis.][ There is a too small to characterize low-attenuation lesion in the left kidney.] No renal or ureteral calculi. There is a too small to characterize low-attenuation lesion in the right kidney. Lymph nodes: [ No adenopathy in the abdomen or pelvis.] Stomach, small bowel and colon: [ No bowel wall thickening or obstruction.] Peritoneum cavity: [ No mesenteric fat stranding or fluid.] Bladder: [ Unremarkable.] No bladder calculi. Osseous structures: [[ Multilevel degenerative change in the visualized spine.] Hardware in the lower lumbar spine similar to the prior study. Kyphoplasty in the lower thoracic spine similar to the prior study. Abdominal aorta: [ No aneurysm.] Additional findings: Prior surgical change along the left anterior abdominal/pelvic wall. IMPRESSION: 1. No hydronephrosis. No CT evidence for renal, ureteral or bladder calculi. 2. No CT evidence for an acute process in the abdomen or pelvis at this time. 3. Fatty liver. Reviewed, dictated and finalized at location Q.
--- OUTSIDE RECORDS SUMMARY | 2025-01-04 08:50 | XMS_ITS | Encounter Summary ---
Author Organization [facility] Address [address] [place] [address] Care Team Providers Care Car Lubricator Name Role Phone Simeon Sheriff MD Primary Care Provider [phone] Encounter Details Date Type Department Care Team (Late st Contact Info) Description 10/09/2019 Lab Requisition [facility] [address] [place] [id number] Isaac Reid MD 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 Tobacco Use Types Packs/Day Years Used Date Smoking Tobacco: Never Assessed Comments Unknown Sex and Gender Information Value Date Recorded Sex Assigned at Not on file Legal 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 This test has been authorized [...] LAB - MICROBIOLOGY ORDERABL ES Final Result [facility] [address] [place], [place] [address], [facility] [phone] documented in this encounter Visit Diagnoses Not on filedocumented in this encounter Additional Health Concerns Infection Onset Date Last Indicated Resolved Time COVID-19 Under Investigation 10/08/2019 10/08/2019 10/09/2019 6:32 PM CDT documented as of this encounter Care Teams Car Lubricator Relationship Specialty Start Date End Date Simeon Sheriff MD PCP - General 07/21/17 documented as of this encounter
--- OUTSIDE RECORDS SUMMARY | 2025-01-04 08:50 | XMS_ITS | Clinical Summary ---
Author Organization [facility] Address [facility] [place] [address] Care Team Providers Care Sterilizer Operator Name Role Phone Simeon Sheriff MD Primary Care Provider Humble Colon DO Unavailable [phone] Allergies Active Allergy Reactions Criticality Noted Date Comments Azithromycin Rash Low 12/15/2021 Codeine Rash,Vomiting Medium 04/19/2022 Erythromycin Rash,Vomiting Medium 04/19/2022 Metoprolol Tartrate Cough 04/02/2024 Morphine Rash,Itching,Other ( see comment) Low 12/15/2021 veins turn red Nitrofurantoin Rash,Hives Medium 12/15/2021 Tizanidine Hallucinations Medium 05/15/2023 Medications traMADol (ULTRAM) 50 MG tabletIndications :Chronic Pain Take 1 tablet (50 mg total) by mouth daily as needed. Indications: Chronic Pain 02/05/20 22 Active sertraline (ZOLOFT) 100 MG tabletIndications :Depression Take 1.5 tablets (150 mg total) by mouth daily. Indications: Depression 01/14/20 22 Active oxybutynin XL (DITROPAN-XL) 10 MG 24 hr tabletIndications :Urinary Urgency Take 1 tablet (10 mg total) by mouth daily. Indications: Urinary Urgency 01/23/20 22 Active levothyroxine (SYNTHROID) 88 MCG tabletIndications :Hypothyroidism TAKE 1 TABLET BY MOUTH EVERY DAY IN THE MORNING ON AN EMPTY STOMACH 12/18/19 22 Active vitamin D3, cholecalciferol, 1000 UNIT Tab tabletIndications :Mineral Deficiency Take 1 tablet (25 mcg total) by mouth 2 (two) times daily. Indications: Mineral Deficiency Active busPIRone (BUSPAR) 30 MG tabletIndications :Anxiety Take 1 tablet (30 mg total) by mouth 2 (two) times daily. Indications: Feeling Anxious 01/25/20 22 Active traZODone (DESYREL) 100 MG tabletIndications :Sleep Disorder Take 1 tablet (100 mg total) by mouth nightly at bedtime. Indications: Sleep Disorder 08/19/19 24 Active fluticasone-salme terol (ADVAIR HFA) 230-21 MCG/ACT inhalerIndication s:Acute Respiratory Failure Inhale 2 puffs into the lungs 2 (two) times daily. 12 g 10/12/19 24 Active albuterol sulfate HFA 108 (90 Base) MCG/ACT inhalerIndication s:Wheezing Inhale 2 puffs into the lungs every 6 (six) hours as needed for Wheezing. 18 g 2 10/14/19 24 Active dilTIAZem CD (CARDIZEM CD) 120 MG 24 hr capsule Take 1 capsule (120 mg total) by mouth daily. Active famotidine (PEPCID) 20 MG tabletIndications :Gastroesophageal reflux disease, unspecified whether esophagitis present Take 1 tablet (20 mg total) by mouth daily. 90 tablet 3 07/05/19 25 2025 Active atorvastatin (LIPITOR) 80 MG tablet Take 1 tablet (80 mg total) by mouth daily. 30 tablet 07/26/19 25 Active donepezil (ARICEPT) 5 MG Tab Take 1 tablet (5 mg total) by mouth nightly at bedtime. 07/11/19 25 Active memantine (NAMENDA) 5 MG tablet Take 1 tablet (5 mg total) by mouth 2 (two) times daily. 07/11/19 25 Active Methylcobalamin 1 MG Chew Tab Chew 1 tablet by mouth daily with breakfast. 07/31/19 25 Active sucralfate (CARAFATE) 1 G tablet Take 1 tablet (1 g total) by mouth 3 (three) times daily as needed (gastric reflex). Active esomeprazole (NEXIUM) 40 MG capsuleIndication s:Gastroesophagea l reflux disease, unspecified whether esophagitis present Take 1 capsule (40 mg total) by mouth every morning before breakfast. 90 capsule 1 01/01/20 25 Active buPROPion (WELLBUTRIN) 75 MG tabletIndications :Depression Take 1 tablet (75 mg total) by mouth every morning. Indications: Depression 09/08/19 24 2024 Discontinued OXYGENIndications :Shortness of breath 2 L/min by Nasal route continuous. Indications: Shortness of breath 10/13/19 24 2024 Discontinued esomeprazole (NEXIUM) 40 MG capsuleIndication s:Gastroesophagea l reflux disease without esophagitis Take 1 capsule (40 mg total) by mouth daily. 360 capsule 12/06/192024 aspirin EC (ECOTRIN) 81 MG tablet Take 1 tablet (81 mg total) by mouth daily. 30 tablet 07/26/192024 Discontinued dicyclomine (BENTYL) 10 MG capsule Take 1 capsule (10 mg total) by mouth 4 (four) times daily before meals and nightly. 240 capsule 08/02/192024 Discontinued ondansetron (ZOFRAN-ODT) 4 MG disintegrating tabletIndications :Abdominal pain,Nausea,Diarr hea Take 1 tablet (4 mg total) by mouth every 8 (eight) hours as needed for Nausea. 20 tablet 10/21/192024 Discontinued Active Problems Problem Noted Date Diagnosed Date CVA (cerebral vascular accident) ([facility]) 07/22/2024 Nocturnal hypoxia 10/19/2023 Physical deconditioning 10/19/2023 Acute respiratory failure ([facility]) 09/11 Encounters Date Type Department Care Team Description 12/31/2024 8:09 AM CDT Anesthesia Event [facility] [address] [place] [address] Damian Harman CRNA Rani, Swaroop, MD 12/31/2024 8:02 AM CDT - 12/31/2024 8:34 AM CDT Surgery [facility] [address] [place] [address] Elias Torres MD CATARACT REMOVAL WITH IOL IMPLANT 12/31/2024 6:53 AM CDT - 12/31/2024 8:40 AM CDT Hospital Encounter [facility] [address] [place] [address] Elias Torres MD Discharge Disposition: Home or Self Care (Routine Discharge) 12/31/2024 [facility] - [address], [address] [place] [id number] Donaldo Velazquez MD Medication 12/31/2024 Travel 11/05/2024 9:29 PM CDT - 11/06/2024 2:08 AM CDT Emergency [facility] [place] [address] Saira Krause MD Eye Problem Discharge Disposition: Home or Self Care (Routine Discharge) 11/05/2024 Travel 10/20/2024 12:57 PM CDT - 10/20/2024 2:45 PM CDT Emergency [facility] [place] [address] Jocelin Zamudio PA Abdominal Pain Discharge Disposition: Home or Self Care (Routine Discharge) 10/20/2024 Travel 10/20/2024 Telephone [facility] - [address], [address] [place] [id number] Donaldo Velazquez MD Advice (Nurse Triage - After Hours ([id number])/) from Last 3 Months Immunizations Immunization Administration [...] materials from doctor or pharmacy Rarely 10/20/2023 [facility] Utilities Answer Date Recorded In the past 12 months has e Federal Finance, gas, oil, or water [employer] threatened to shut off services in your [...] any time in the past 12 m [facility], were you homeless or living in a halfway (including now)? No 07/22/2024 Comments No Sex and Gender Information Value Date Recorded Sex Assigned at Female 06/01/2024 11:56 AM OVEREDGER Legal Sex Female 5:56 PM CDT Gender Identity Not on file Sexual Orientation Not on file Last Filed Vital Signs Vital Sign Reading Time Taken Comments Blood Pressure 110/68 12/31/2024 8:33 AM CDT Pulse 68 12/31/2024 8:33 AM CDT Temperature 36.2 C (97.2 F) 12/31/2024 7:17 AM CDT Respiratory Rate 16 12/31/2024 7:17 AM CDT Oxygen Saturation 96% 12/31/2024 8:33 AM CDT Inhaled Oxygen Concentration - - Weight 74.8 kg (165 lb) 12/31/2024 7:17 AM CDT Height 154.9 cm (5' 1) 12/31/2024 7:17 AM CDT Body Mass Index 31.18 12/31/2024 7:17 AM CDT Plan of Treatment Upcoming Encounters Date Type Department Care Team (Late st Contact Info) Description 03/11/2025 9:40 AM OVEREDGER Office Visit [facility] - [address] [place] [address] Salvador Norwood MD 3rd [facility] [address] [place] [address] Health Maintenance Due Date Last Done Comments Annual Physical 11/18/1963 Hepatitis C 1978 Mammogram Screening 2000 Pneumococcal Vaccine: 50+ Years (3 of 3 - PCV20 or PCV21) 01/25/2020 01/24/2015, 01/03/2013 COVID-19 Vaccine (5 - season) 2024 01/17/2023, 02/17/2021, 07/05/2020, Additional history exists DTaP, Tdap and Td Vaccines (3 - Td or Tdap) 12/03/2031 12/02/2021, 01/22/2014 Colorectal Cancer Screening Colonoscopy (10 Years) 05/07/2032 05/07/2022, 05/07/2022 Zoster Vaccines Completed 07/24/2022, 05/29/2022 RSV Immunization or 60+ Years Completed 01/17/2023 PHQ-2 (Physician [place]) Completed 07/04/2024 Meningococcal B Vaccine Aged Out No l onger eligible based on patient's age to complete this topic Meningococcal Vaccine Aged Out No ezequiel ninfa eligible based on patient's age to complete this topic RSV Immunizations Under 20 Months Aged Out No longer eligible based on patient's age to complete this topic Goals Goal Patient Goal Type Associated Problems Recent Progress Patient-Stated? Author Autogenerat ed Goal Care Plan Autogenerated Problem No Katya Redding, RN Medical Devices Implanted Type Area Senior Quality Manager Device Identifier Shelf Expiration Date Model / Serial / Lot Cage Cage Back Knee Components Knee Components Right: Knee Stimulator Lead Implant- 025 Implanted:Qty: 1 on 04/25/2024 Lead Implant Spine Thoracic Kash [id number] / / Description:JUTE BAG SEWER Tecnis 1-Piece Iol With Tecnis Simplicity Delivery System Implanted:Qty: 1 on 12/31/2024 by Elias Torres MD at [facility] Lens Left: Eye [employer] 06/26/2027 / [id number] / Stimulator Implant- 025 Implanted:Qty: 1 on 04/25/2024 Stimulator Implant Right: Back Kash [id number] / [id number] / Description:MR CONDITIONAL A T 1.5 T ONLY!, NEED REMOTE TO DO IMPEDANCE CHECK AND TURN OFF STIMULATION, FOLLOW SCAN CONDITIONS IN MR TECHNICAL MANUAL(FOLLOW JUTE BAG SEWER INSTRUCTIONS) Procedures Procedure Name Priority Date/Time Associated Diagnosis Comments REMV CATARACT EXTRACAP,INSERT LENS 12/31/2024 8:09 AM CDT H25.[address] HEAD WO CON STAT 11/05/2024 9:53 [...] W/O MICRO STAT 10/20/2024 1:03 PM CDT COLONOSCOPY Routine 05/07/2022 7:39 AM OVEREDGER from Last 3 Months or Most Recently [...] 10:16 PM Narrative 11/05/2024 10:23 PM CDT [address] [address] EXAMINATION: CT Head without Contrast, Axial Imaging [...] Procedure Note Manuela Nicole MD - 11/05/[address] [address] EXAMINATION: CT Head without Contrast, Axial Imaging [...] Nicole MD, 11/05/2024 10:16 PM Ozzy Coello AUTO HEATER MECHANIC CT Final Result * (ABNORMAL) COMPREHENSIVE METABOLIC PANEL (11/05/2024 9:46 PM CDT) Only the most recent of2 resultswithin the time period is included. GLUCOSE 120(H) 70 - 99 MG/DL 11/05/2024 10:25 PM CDT [facility] BUN 14 7 - 18 MG/DL 11/05/2024 10:25 PM CDT [facility] CREATININE S/P/B 1.15(H) 0.55 - 1.02 MG/DL 11/05/2024 10:25 PM CDT [facility] SODIUM S/P/B 141 136 - 145 MMOL/L 11/05/2024 10:25 PM CDT [facility] POTASSIUM S/P/B 3.3(L) 3.5 - 5.1 MMOL/L 11/05/2024 10:25 PM CDT [facility] CHLORIDE S/P/B 109 97 - 115 MMOL/L 11/05/2024 10:25 PM CDT [facility] CO2 24.1 21 - 32 MMOL/L 11/05/2024 10:25 PM CDT [facility] CALCIUM S/P/B 9.1 8.5 - 10.1 MG/DL 11/05/2024 10:25 PM CDT [facility] BILIRUBIN TOTAL S/P/B 0.2 0.2 - 1.2 MG/DL 11/05/2024 10:25 PM CDT [facility] Comment: THIS ASSAY IS NOT RECOMMENDED FOR PATIENTS UNDERGOING TREATMENT WITH ELTROMBOPAG DUE TO THE POTENTIAL FOR FALSELY ELEVATED RESULTS. TOTAL PROTEIN S/P/B 7.4 6.4 - 8.2 G/DL 11/05/2024 10:25 PM CDT [facility] ALBUMIN S/P/B 3.5 3.4 - 5.0 G/DL 11/05/2024 10:25 PM CDT [facility] AST 22 15 - 37 U/L 11/05/2024 10:25 PM CDT [facility] ALT 26 14 - 55 U/L 11/05/2024 10:25 PM CDT [facility] ALKALINE PHOSPHATASE S/P/B 98 50 - 136 U/L 11/05/2024 10:25 PM T [facility] ANION GAP 7.9 2 - 10 MMOL/L 11/05/2024 10:25 PM T [facility] BUN CREATININE RATIO 12.2 6 - 26 11/05/2024 10:25 PM T [facility] A/G RATIO 0.9(L) 1.0 - 2.0 RATIO 11/05/2024 10:25 PM T [facility] GFR ESTIMATE 54(L) >90 ML/MIN/1.7 3 M2 11/05/2024 10:25 PM T [facility] Comment: NOTE: eGFR is not calculated for patients <18 years of age or gender unknown. This is an estimated GFR calculation using the new CKD EPI creatinine equation without race and so does not require a correction factor for race. This estimated GFR should not be used for calculating drug doses. 11/05/2024 9:46 PM CDT Ozzy Coello NP LABORATORY Final Result [facility] [address] [place] [address], * (ABNORMAL) CBC W/DIFF AUTOMATED (11/05/2024 9:46 PM CDT) Only the most recent of2 resultswithin the time period is included. WBC 10.03 4.5 - 11.0 x10'3/uL 11/05/2024 10:00 PM CDT [facility] RBC 4.83 4.20 - 5.40 x10'6/uL 11/05/2024 10:00 PM CDT [facility] HGB 10.8(L) 12.0 - 16.0 G/DL 11/05/2024 10:00 PM CDT [facility] HCT 36.3(L) 38.0 - 48.0 % 11/05/2024 10:00 PM CDT [facility] MCV 75.2(L) 81.0 - 99.0 FL 11/05/2024 10:00 PM CDT [facility] MCH 22.4(L) 27.0 - 31.0 PG 11/05/2024 10:00 PM CDT [facility] MCHC 29.8(L) 32.0 - 36.0 G/DL 11/05/2024 10:00 PM CDT [facility] RDW 16.9(H) 11.5 - 14.5 % 11/05/2024 10:00 PM CDT [facility] PLT 207 130 - 400 x10'3/uL 11/05/2024 10:00 PM CDT [facility] MPV 11.0 9.3 - 12.2 FL 11/05/2024 10:00 PM CDT [facility] DIFFERENTIAL TYPE AUTOMATED DIFFERENTIAL 11/05/2024 10:00 PM CDT [facility] NEUTROPHILS % 49.6 % 11/05/2024 10:00 PM CDT [facility] LYMPHOCYTES % 37.6 % 11/05/2024 10:00 PM CDT [facility] MONOCYTES % 10.4 % 11/05/2024 10:00 PM CDT [facility] EOSINOPHILS 1.7 % 11/05/2024 10:00 PM CDT [facility] BASOPHILS 0.5 % 11/05/2024 10:00 PM CDT [facility] IMMATURE GRANS % 0.2 % 11/06/19 10:00 PM CDT [facility] ABS. NEUTROPHILS 4.98 1.80 - 7.70 x10'3/uL 11/05/2024 10:00 PM CDT [facility] ABS. LYMPHOCYTES 3.77 1.00 - 4.80 x10'3/uL 11/05/2024 10:00 PM CDT [facility] ABS. MONOCYTES 1.04(H) 0.24 - 0.86 x10'3/uL 11/05/2024 10:00 PM CDT [facility] ABS. EOSINOPHILS 0.17 0.04 - 0.36 x10'3/uL 11/05/2024 10:00 PM CDT [facility] ABS. BASOPHILS 0.05 0.01 - 0.08 x10'3/uL 11/05/2024 10:00 PM CDT [facility] ABS. IMMATURE GRANULOCYTES 0.02 0.00 - 0.49 x10'3/uL 11/05/2024 10:00 PM CDT [facility] 11/05/2024 9:46 PM CDT us Ozzy Hernandez Mode AUT[employer] HEATER MECH[employer]IC LABORATORY Final Result [facility] [address] [place] [address], [place] [phone] * CT ABD+PEL W IV CON ONLY (10/20/2024 1:55 PM CDT) Anatomical Region Laterality Modality Abdomen Computed Tomogra phy 10/20/2024 1:47 PM CDT Impressions 10/20/2024 1:53 PM CDT Impression: No acute findings. Referred By: Interpreted By: Carlos Alberto Mari MD, 10/20/2024 1:47 PM Narrative 10/20/2024 1:53 PM CDT [facility] [address] [place], [place] [address] Examination: CT ABD+PEL W CON Exam time: [...] Note Carlos Alberto Mari MD - 10/20/2024 [facility] [address] [place], [place] [address] Examination: CT ABD+PEL W CON Exam time: [...] Carlos Alberto Mari MD, 10/20/2024 1:47 PM us Jocelin DUPREE CT Final Result * LIPASE (10/20/2024 1:08 PM CDT) LIPASE 33 13 - 75 UNITS/L 10/20/2024 1:37 PM CDT [facility] 10/20/2024 1:08 PM CDT Adalid Hurt PA-C LABORATORY Final Resul t [facility] [address] [place] [address], [place] [phone] * URINALYSIS (10/20/2024 1:03 PM CDT) SPECIMEN TYPE URINE CLEAN CATCH 10/20/2024 1:03 PM CDT [facility] COLOR (U) LIGHT YELLOW 10/20/2024 1:19 PM CDT [facility] TRANSPARENCY CLEAR 10/20/2024 1:19 PM CDT [facility] SPECIFIC GRAVITY (U) 1.020 1.001 - 1.030 10/20/2024 1:19 PM CDT [facility] U PH 6.0 5.0 - 9.0 10/20/2024 1:19 PM CDT [facility] LEUKOCYTES (U) NEGATIVE NEGATIVE 10/20/2024 1:19 PM CDT [facility] NITRITES NEGATIVE NEGATIVE 10/20/2024 1:19 PM CDT [facility] PROTEIN RANDOM (U) NEGATIVE <30 MG/DL 10/20/2024 1:19 PM CDT [facility] GLUCOSE (U) NORMAL NORMAL MG/DL 10/20/2024 1:19 PM CDT [facility] KETONES MG/DL (U) NEGATIVE NEGATIVE MG/DL 10/20/2024 1:19 PM CDT [facility] UROBILINOGEN NORMAL NORMAL MG/DL 10/20/2024 1:19 PM CDT [facility] BILIRUBIN (U) NEGATIVE NEGATIVE MG/DL 10/20/2024 1:19 PM CDT [facility] BLOOD (U) NEGATIVE NEGATIVE 10/20/2024 1:19 PM CDT [facility] URINE SPECIMEN OBTAINED BY CLEAN CATCH PROCEDURE / Unknown 10/20/2024 1:03 PM CDT Adalid Hurt PA-C URINE ORDERABLES Final Resu lt [facility] [address] [place] [address], from Last 3 Months Additional Health Concerns Active Problems Noted Date Diagnosed Date Autogenerated Problem 12/19/2024 Infection Onset Date Last Indicated ESBL - Extended Spectrum Bet a-lactamase Comment:12/10/22 +ESBL Urine 02/20/23 +ESBL Urine 07/19/23 +ESBL Urine 12/10/2022 07/19/[address] [facility] MEDICARE Advance Directives * Full Code (Latest Code Status on File) Date Activated Date Inactivated Comments 07/22/2024 11:12 PM 07/24/2024 9:25 PM * Full Code Date Activated Date Inactivated Comments 10/13/2023 1:01 PM 06/01/2024 11:30 AM * Full Code Date Activated Date Inactivated Comments 10/09/2023 3:23 AM 10/12/2023 12:31 PM Care Teams Sterilizer Operator Relationship Specialty Start Date End Date Simeon Sheriff MD [address] [place] [address] PCP - General FAMILY PRACTICE 12/15/21 Humble Colon DO [address] [facility] [address] Consulting Physician GASTROENTEROLOGY 07/16/22
--- OUTSIDE RECORDS SUMMARY | 2025-01-04 08:50 | XMS_ITS | Clinical Summary ---
Author Organization [facility] Address [address] [facility] [place] [address] Care Team Providers Care Facialist Name Role Phone Simeon Sheriff MD Primary Care Provider [phone] Source Comments [facility],non-[facility] Affiliates and Associated Physician Practices is amultiple site organization consisting of ambulatory clinics and hospital sitesin [place], [place], [place] and [place]. This disclosure is being madepursuant to the Care Everywhere program and may not contain all information available regarding this patient. 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
--- OUTSIDE RECORDS SUMMARY | 2025-01-04 08:50 | XMS_ITS | Clinical Summary ---
Author Organization [facility] Address [address], [address] [address] Phone Care Team Providers Care Tag And Label Cutter Name Role Phone Simeon Sheriff MD Primary Care Provider [phone] Virginia Caldera MD Unavailable [phone] Allergies Active Allergy Reactions Criticality Noted Date [...] Immunochemical Fecal Occult Blood 01/27/2023 01/27/2022, 02/24/2018 Influenza Immunization (#1) 2024 10/0 04/2021, 01/10/2021, 01/12/2020, Additional history exists SARS-COV-2 Immunization ( season) 2024 02/17/2021, 07/05/2020, 06/07/2020 Td Immunization Every 10 Years (Adults With [...] Recently Relevant to Health Maintenance Results * Stool Occult Blood - Diagnostic (01/27/2022 7:47 PM CDT) OCCULT BLOOD DIAG Negative Negative 01/27/2022 8:05 PM CDT [facility] Stool Non-Phlebotomy Collection / Unknown 01/27/2022 7:47 PM CDT 01/27/2022 7:57 PM CDT Caleb Ellis PAC BODY FLUIDS & STOOLS ORDERABLES Final Result [facility] [address] [place] [address] from Last 3 Months or Most Recently Relevant to Health Maintenance Insurance [facility] MEDICARE Advance Directives * Full Code (Latest [...] measures to stabilize the patient. Care Teams Tag And Label Cutter Relationship Specialty Start Date End Date Simeon Sheriff MD [address] [place] [id number] PCP - General Family Medicine 06/22/17 Virginia Caldera MD [address] [place] [address] Consulting Physician Gastroenterology 02/11/22
--- OUTSIDE RECORDS SUMMARY | 2025-01-04 08:51 | XMS_ITS | Patient Health Record ---
Author Organization [facility] [employer] [facility] Address [address] [facility] [address] [place] [address] Care Team Providers Care Behavioral Sciences Instructor Name Role Phone Sharita BRICE, Simeon Primary Care Provider Unavailab Abigail Mei Unavailable [phone] Donis Gomez Unavailable [phone] Deshawn Alegre Unavailable [phone] Allergies Allergen (clinical drug ingredient) Drug/Non Drug [...] End Date Status Memantine HCl 5 MG Tablet 1 tablet Orally twice a day; Duration: 90 days Active busPIRone HCl 30 MG Tablet TAKE 1 TABLET BY MOUTH TWICE DAILY; Duration: 90 Active traZODone HCl 100 MG Tablet 1 tablet Orally Once a day; Duration: 90 days do not fill until pt requests Active Albuterol Sulfate HFA 108 (90 Base) MCG/ACT Aerosol Solution INHALE 2 PUFFS BY MOUTH EVERY 6 HOURS NEEDED FOR WHEEZING Inhalation; Duration: 25 Days Active Donepezil HCl 5 MG Tablet 1 tablet at bedtime Orally Once a day; Duration: 90 days Active Levothyroxine Sodium 88 MCG Tablet Oral; Duration: 90 Days Active busPIRone HCl 30 MG Tablet 1 tablet Orally Twice a day; Duration: 90 days Active Sertraline HCl 100 MG Tablet TAKE 1 AND 1/2 TABLETS BY MOUTH DAILY; Duration: 90 Active traMADol HCl 50 MG Tablet TAKE 1 TABLET BY MOUTH TWICE DAILY NEEDED Oral; Duration: 30 Days PRN Active Advair HFA 230-21 MCG/ACT Aerosol Inhalation; Duration: 30 Days Active Esomeprazole Magnesium 40 MG Capsule Delayed Release Oral; Duration: 30 Days Active Rosuvastatin Calcium 10 MG Tablet Oral 08/08/2023 Active Dilt-XR 120 MG Capsule Extended Release 24 Hour Oral; Duration: 90 Days Active oxyBUTYnin Chloride ER 10 MG Tablet Extended Release 24 Hour Oral 08/08/2023 Active 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 Sex Assigned At : 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 Observation Description Sex Assigned At Female 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 Additional Details Category Social Info Options Details Migrated 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 Migrated 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 Alcohol Intake: None 08/08/2023,Tobacco Years: Never smoker 08/08/2023 Drug/Alcohol: Do you smoke marijuana? Den ies Do you drink alcohol? No Problems Problem Type SNOMED Code ICD Code Onset Dates Problem Status W/U Status Risk Notes Problem Major depression, single episode (70430241) Major depressive disorder, single episode, unspecified (F32.9) Active confirmed Problem Generalized anxiety disorder (19304983) Generalized anxiety disorder (F41.1) Active confirmed Problem Primary insomnia (1405631) Primary insomnia (F51.01) Active confirmed Problem Depression Screening (394541852) Encounter for screening for depression (Z13.31) Active confirmed Problem Mild recurrent major depression (04387781) MDD (major depressive disorder), recurrent episode, mild (F33.0) Active confirmed Problem Memory impairment (459947285) Memory impairment (R41.3) Active confirmed Problem Amnesia (29194883) Memory difficulties (R41.3) Active confirmed Problem Cognitive impairment (553115458) Cognitive impairment (R41.89) Active confirmed Problem Mixed sleep apnea (852329586) Mixed sleep apnea (G47.39) Active confirmed Problem Sleep apnea (19364660) Severe sleep apnea (G47.30) Active confirmed Vital Signs Heart Rate 85 /min 11/06/2024 Height-cm 154.94 cm 11/06/2024 Blood pressure diastolic 63 mm Hg 11/06/2024 Weight-kg 73.03 kg 11/06/2024 Height 61.00 in 11/06/2024 Blood pressure systolic 108 mm Hg 11/06/2024 Weight 161 lbs 11/06/2024 BMI 30.42 kg/m2 11/06/2024 Encounters Encounter Location Date Provider Diagnosis [facility] [employer] [address] [address] 07/10/2024 Abigail Marte Generalized anxiety disorder F41.1 ; MDD (major depressive disorder), recurrent episode, mild F33.0 ; Primary insomnia F51.01 ; Severe sleep apnea G47.30 ; Encounter for screening for depression Z13.31 and Memory impairment R41.3 [facility] [employer] [address] [address] 08/07/2024 Abigail Therviola Encounter for screen ing for depression Z13.31 ; Generalized anxiety disorder F41.1 ; MDD (major depressive disorder), recurrent episode, mild F33.0 ; Primary insomnia F51.01 ; Severe sleep apnea G47.30 ; Memory impairment R41.3 and Encounter for screening for cardiovascular disorders Z13.6 [facility] [employer] [address] [address] 11/06/2024 Abigail Therviola Encounter for screen ing for depression Z13.31 ; Generalized anxiety disorder F41.1 ; MDD (major depressive disorder), recurrent episode, mild F33.0 ; Primary insomnia F51.01 ; Severe sleep apnea G47.30 ; Memory impairment R41.3 and Encounter for screening for cardiovascular disorders Z13.6 [facility] [employer] [address] [address] 05/14/2024 Deshawn Alegre Major depressive disorder, single episode, unspecified F32.9 Assessments Encounter Date Diagnosis (ICD Code) Assessment Notes Treatment Notes Treatment Clinical Notes Section Notes 05/14/2024 Major depressive disorder, single episode, unspecified [...] ts/Mental-Health- Medications http_s://www.nannette .org/About-Mental -Illness/Mental-H ealth-Conditions http_s://psychcen Noquol.com/depressi on/the-cognitive- vusmisvn-ii-jmlqi ssion#treatments http__s://www.[facility].nih.gov/health/ topics/mental-hea lth-medications http__s://www.nam i.org/About-Menta l-Illness/Treatme nts/Mental-Health -Medications http_s://aanhy.nih .gov/publications /drugfacts/cannab is-marijuana http_s://www.[employer]/canna lqg-rro-vlmkragw- marijuana-adhd/ 07/10/2024 MDD (major depressive disorder), recurrent [...] prescribed medications. websites http_s://www.nimh .nih.gov/health/t opics/mental-heal th-medications http_s://www.[employer] .[employer]/About-Mental -Illness/Treatmen ts/Mental-Health- Medications http_s://www.[employer] .[employer]/About-Mental -Illness/Mental-H ealth-Conditions http_s://RealD/depressi on/the-cognitive- qxiatfca-kq-cjmkz ssion#treatments http__s://www.[facility].nih.gov/health/ topics/mental-hea lth-medications http__s://www.[employer]/About-Menta l-Illness/Treatme nts/Mental-Health -Medications http_s://anahy.nih .gov/publications /drugfacts/cannab is-marijuana http_s://www.[employer]/mario nag-ipl-nptgesfz- marijuana-adhd/ 08/07/2024 Encounter for screening for depression [...] term- improved screening discuss SLUMS = 15 4/1/25 FH dementia- dad 65 years old and [...] ts/Mental-Health- Medications http_s://www.nannette .org/About-Mental -Illness/Mental-H ealth-Conditions http_s://psychcen Noquol.com/depressi on/the-cognitive- voojmnhm-fg-hagko ssion#treatments http__s://www.nim .nih.gov/health/ topics/mental-hea lth-medications http__s://www.nam i.org/About-Menta l-Illness/Treatme nts/Mental-Health -Medications http_s://anahy.nih .gov/publications /drugfacts/cannab is-marijuana http_s://www.[employer]/mario xsc-nlo-vwbljsud- marijuana-adhd/ 11/06/2024 Encounter for screening for depression [...] -Illness/Treatmen ts/Mental-Health- Medications http_s://www.nannette .org/About-Mental -Illness/Mental-H ealth-Conditions http_s://RealD/depressi on/the-cognitive- xaxevvyl-av-gyufp ssion#treatments http__s://www.[facility].nih.gov/health/ topics/mental-hea lth-medications http__s://www.nam i.org/About-Menta l-Illness/Treatme nts/Mental-Health -Medications http_s://anahy.nih .gov/publications /drugfacts/cannab is-marijuana http_s://wwwSoloingles.com Internacional/[employer] tkl-ddq-vuxmooiy- marijuana-adhd/ 11/06/2024 Generalized anxiety disorder (ICD-10 - [...] prescribed medications. websites http_s://www.nim .nih.gov/health/t opics/mental-heal th-medications http_s://www.[employer] .[employer]/About-Mental -Illness/Treatmen ts/Mental-Health- Medications http_s://www.[employer] .[employer]/About-Mental -Illness/Mental-H ealth-Conditions http_s://RealD/depressi on/the-cognitive- izcalniz-rm-rukam ssion#treatments http__s://www.[facility].nih.gov/health/ topics/mental-hea lth-medications http__s://www.[place] [place] [employer]/About-Menta l-Illness/Treatme nts/Mental-Health -Medications http_s://anahy.nih .gov/publications /drugfacts/cannab is-marijuana http_s://www.[employer]/canna evf-iyq-fiugxhrl- marijuana-adhd/ 08/07/2024 Generalized anxiety disorder (ICD-10 - [...] ts/Mental-Health- Medications http_s://www.nannette .org/About-Mental -Illness/Mental-H ealth-Conditions http_s://psychcen Noquol.com/depressi on/the-cognitive- bbimfpqi-be-depbg ssion#treatments http__s://www.nim .nih.gov/health/ topics/mental-hea lth-medications http__s://www.nam i.org/About-Menta l-Illness/Treatme nts/Mental-Health -Medications http_s://anahy.nih .gov/publications /drugfacts/cannab is-marijuana http_s://www.khadra tudemag.com/mario muq-ipq-biwnsvqp- marijuana-adhd/ 07/10/2024 Primary insomnia (ICD-10 - F51.01) Insomnia: [...] -Illness/Treatmen ts/Mental-Health- Medications http_s://www.nannette .org/About-Mental -Illness/Mental-H ealth-Conditions http_s://psychSonda41n NSH [employer]co/depressi on/the-cognitive- vugyyxng-vx-ycgdg ssion#treatments http__s://www.[facility].nih.gov/health/ topics/mental-hea lth-medications http__s://www.nam i.org/About-Menta l-Illness/Treatme nts/Mental-Health -Medications http_s://anahy.nih .gov/publications /drugfacts/cannab is-marijuana http_s://www.[employer]/cannVionic xgr-dwm-avfljkyg- marijuana-adhd/ 07/10/2024 Severe sleep apnea (ICD-10 - [...] prescribed medications. websites http_s://www.nim .nih.gov/health/t opics/mental-heal th-medications http_s://www.[employer] .[employer]/About-Mental -Illness/Treatmen ts/Mental-Health- Medications http_s://www.[employer] .[employer]/About-Mental -Illness/Mental-H ealth-Conditions http_s://RealD/depressi on/the-cognitive- bottfaom-fw-rudfu ssion#treatments http__s://www.[facility].nih.gov/health/ topics/mental-hea lth-medications http__s://www.[employer]/About-Menta l-Illness/Treatme nts/Mental-Health -Medications http_s://anahy.nih .gov/publications /drugfacts/cannab is-marijuana http_s://www.[employer]/mario wbx-iqh-hmhqgxyx- marijuana-adhd/ 08/07/2024 MDD (major depressive disorder), recurrent episode, [...] ts/Mental-Health- Medications http_s://www.nannette .org/About-Mental -Illness/Mental-H ealth-Conditions http_s://psychcen Noquol.com/depressi on/the-cognitive- ckadufmd-ei-qppxb ssion#treatments http__s://www.[facility].nih.gov/health/ topics/mental-hea lth-medications http__s://www.nam i.org/About-Menta l-Illness/Treatme nts/Mental-Health -Medications http_s://anahy.nih .gov/publications /drugfacts/cannab is-marijuana http_s://www.[employer]/mario tff-pvu-crtyfjoq- marijuana-adhd/ 11/06/2024 MDD (major depressive disorder), recurrent [...] -Illness/Treatmen ts/Mental-Health- Medications http_s://www.nannette .org/About-Mental -Illness/Mental-H ealth-Conditions http_s://RealD/depressi on/the-cognitive- haqtjnxv-ep-etrjv ssion#treatments http__s://www.[facility].nih.gov/health/ topics/mental-hea lth-medications http__s://www.[employer]/About-Menta l-Illness/Treatme nts/Mental-Health -Medications http_s://anahy.nih .gov/publications /drugfacts/cannab is-marijuana http_s://www.[employer]/canna koz-ooz-bmwdcfeq- marijuana-adhd/ 11/06/2024 Primary insomnia (ICD-10 - F51.01) [...] -Illness/Treatmen ts/Mental-Health- Medications http_s://www.nannette .org/About-Mental -Illness/Mental-H ealth-Conditions http_s://RealD/depressi on/the-cognitive- gilrszcq-qd-xxdvw ssion#treatments http__s://www.[facility].nih.gov/health/ topics/mental-hea lth-medications http__s://www.MyCrowd i.org/About-Menta l-Illness/Treatme nts/Mental-Health -Medications http_s://anahy.nih .gov/publications /drugfacts/cannab is-marijuana http_s://www.[employer]/mario fxu-nzm-chfnhrgu- marijuana-adhd/ 08/07/2024 Primary insomnia (ICD-10 - F51.01) [...] ts/Mental-Health- Medications http_s://www.nannette .org/About-Mental -Illness/Mental-H ealth-Conditions http_s://psychcen Noquol.com/depressi on/the-cognitive- wkhvaniq-aw-sxclo ssion#treatments http__s://www.[facility].nih.gov/health/ topics/mental-hea [facility]-medications http__s://www.nam i.org/About-Menta l-Illness/Treatme nts/Mental-Health -Medications http_s://anahy.nih .gov/publications /drugfacts/cannab is-marijuana http_s://www.[employer]/canna uyf-poi-fmuvhhrx- marijuana-adhd/ 07/10/2024 Encounter for screening for depression [...] -Illness/Treatmen ts/Mental-Health- Medications http_s://www.nannette .org/About-Mental -Illness/Mental-H ealth-Conditions http_s://psychJive Bike/depressi on/the-cognitive- hiifskrk-rn-ajhzv ssion#treatments http__s://www.[facility].nih.gov/health/ topics/mental-hea lth-medications http__s://www.[employer]/About-Menta l-Illness/Treatme nts/Mental-Health -Medications http_s://anahy.nih .gov/publications /drugfacts/cannab is-marijuana http_s://www.[employer]/canna iko-ntf-vpkaafch- marijuana-adhd/ 07/10/2024 Memory impairment (ICD-10 - R41.3) [...] prescribed medications. websites http_s://www.nim .nih.gov/health/t opics/mental-heal th-medications http_s://www.[employer] .org/About-Mental -Illness/Treatmen ts/Mental-Health- Medications http_s://www.[employer] .org/About-Mental -Illness/Mental-H ealth-Conditions http_s://RealD/depressi on/the-cognitive- trateyko-in-qnvgi ssion#treatments http__s://www.[facility].nih.gov/health/ topics/mental-hea lth-medications http__s://www.[employer]/About-Menta l-Illness/Treatme nts/Mental-Health -Medications http_s://anahy.nih .gov/publications /drugfacts/cannab is-marijuana http_s://www.[employer]/canna mhx-ubg-bpcmvprs- marijuana-adhd/ 08/07/2024 Severe sleep apnea (ICD-10 - [...] -Illness/Treatmen ts/Mental-Health- Medications http_s://www.nannette .org/About-Mental -Illness/Mental-H ealth-Conditions http_s://psychSonda41n Meraki.com/depressi on/the-cognitive- zvxpzgbf-oq-ojmcx ssion#treatments http__s://www.[facility].nih.gov/health/ topics/mental-hea lth-medications http__s://www.nam i.org/About-Menta l-Illness/Treatme nts/Mental-Health -Medications http_s://anahy.nih .gov/publications /drugfacts/cannab is-marijuana http_s://www.[employer]/mario icx-zer-qftioyhb- marijuana-adhd/ 11/06/2024 Severe sleep apnea (ICD-10 - [...] -Illness/Treatmen ts/Mental-Health- Medications http_s://www.nannette .org/About-Mental -Illness/Mental-H ealth-Conditions http_s://RealD/depressi on/the-cognitive- qnjbdypu-ch-tlnff ssion#treatments http__s://www.[facility].nih.gov/health/ topics/mental-hea lth-medications http__s://www.MyCrowd i.[employer]/About-Menta l-Illness/Treatme nts/Mental-Health -Medications http_s://anahy.nih .gov/publications /drugfacts/cannab is-marijuana http_s://wwwSoloingles.com Internacional/mario nmy-qcc-jswcjgss- marijuana-adhd/ 08/07/2024 Memory impairment (ICD-10 - R41.3) [...] prescribed medications. websites http_s://www.nim .nih.gov/health/t opics/mental-heal th-medications http_s://www.[employer] .[employer]/About-Mental -Illness/Treatmen ts/Mental-Health- Medications http_s://www.[employer] .[employer]/About-Mental -Illness/Mental-H ealth-Conditions http_s://RealD/depressi on/the-cognitive- uviumkcm-ca-egttk ssion#treatments http__s://www.[facility].nih.gov/health/ topics/mental-hea lth-medications http__s://www.[employer]/About-Menta l-Illness/Treatme nts/Mental-Health -Medications http_s://anahy.nih .gov/publications /drugfacts/cannab is-marijuana http_s://www.[employer]/cannelvie chu-rnx-qrjyqvwy- marijuana-adhd/ 11/06/2024 Memory impairment (ICD-10 - R41.3) [...] ts/Mental-Health- Medications http_s://www.nannette .org/About-Mental -Illness/Mental-H ealth-Conditions http_s://psychcen Noquol.com/depressi on/the-cognitive- lhpmbinf-hf-ahcad ssion#treatments http__s://www.nim .nih.gov/health/ topics/mental-hea lth-medications http__s://www.nam i.org/About-Menta l-Illness/Treatme nts/Mental-Health -Medications http_s://anahy.nih .gov/publications /drugfacts/cannab is-marijuana http_s://www.[employer]/mario uch-ofh-ledkncio- marijuana-adhd/ 11/06/2024 Encounter for screening for cardiovascular [...] -Illness/Treatmen ts/Mental-Health- Medications http_s://www.nannette .org/About-Mental -Illness/Mental-H ealth-Conditions http_s://psychSonda41n [employer]SH [employer]/depressi on/the-cognitive- evmsgcju-aq-xdgjt ssion#treatments http__s://www.[facility].nih.gov/health/ topics/mental-hea lth-medications http__s://www.nam i.org/About-Menta l-Illness/Treatme nts/Mental-Health -Medications http_s://anahy.nih .gov/publications /drugfacts/cannab is-marijuana http_s://www.[employer] ytl-pct-ddkkqzjm- marijuana-adhd/ 08/07/2024 Encounter for screening for cardiovascular [...] opics/mental-heal th-medications http_s://www.nannette .org/About-Mental -Illness/Treatmen ts/Mental-Health- Medications http_s://www.[employer] .org/About-Mental -Illness/Mental-H ealth-Conditions http_s://RealD/depressi on/the-cognitive- mhjqqind-du-ogekx ssion#treatments http__s://www.nim .nih.gov/health/ topics/mental-hea lth-medications http__s://www.MyCrowd i.[employer]/About-Menta l-Illness/Treatme nts/Mental-Health -Medications http_s://anahy.nih .gov/publications /drugfacts/cannab is-marijuana http_s://www.[employer]/canna lvz-psw-aqfakowd- marijuana-adhd/ 07/10/2024 Other referral to the local chapter or national office of the Alzheimer's Association ( ; http://www.alz. org), the Alzheimer's Disease Education and Referral Center (ADEAR) ( ; http://www.mary. nih.gov/Alzheim ers/), Notes: referral to the local chapter or national office of the Alzheimer's Association ( ; http://www.alz. org), the Alzheimer's Disease Education and Referral Center (ADEAR) ( ; http://www.mary. nih.gov/Alzheim ers/),, Sertraline material [...] neurotoxicity and interactions with prescribed medications. websites http_s://www.[facility] .nih.gov/health/t opics/mental-heal th-medications http_s://www.nannette .org/About-Mental -Illness/Treatmen ts/Mental-Health- Medications http_s://www.nannette .org/About-Mental -Illness/Mental-H ealth-Conditions http_s://psychcen Noquol.[employer]ongeFish/depressi on/the-cognitive- iplqlual-qi-nlfbi ssion#treatments http__s://www.[facility].nih.gov/health/ topics/mental-hea lth-medications http__s://www.nam i.org/About-Menta l-Illness/Treatme nts/Mental-Health -Medications http_s://anahy.nih .gov/publications /drugfacts/cannab is-marijuana http_s://wwwSoloingles.com Internacional/iGoOn s.r.l.elvie owa-zfl-maldtzsm- marijuana-adhd/ Plan Of Treatment Future Test Test Name Order Date MCI Testing 07/10/2024 Next Appt Details Provider Name:Abigail Marte , 01/29/2025 01:30:00 PM, [address], [facility] [address], [place], [address], Insurance Providers Payer Name Payer Address Payer Phone Subscriber Number Group Number Insured Name Patient Relationship to Insured Coverage Start Date Coverage End Date Medicare-I l Medicare [address] [place] [address] [id number] EMRE MARQUIS Self - patient is the insured [employer] - [employer]ep Ppo [address] [place] [address] [id number] EMRE MARQUIS Self - patient is the insured Medical (General) History Medical History History ICD Code Problems: Generalized anxiety disorder Major depressive disorder CVA 07/24/24 Surgical History Surgery Date(Month/Year) Appendectomy (53100) Removal of gallbladder (25062) Hysterectomy (01849)
--- OUTSIDE RECORDS SUMMARY | 2025-01-04 08:51 | XMS_ITS | Data Portability ---
Author Organization [facility], Main Office Address [address] [place] [address] Care Team Providers Care Digital Marketing Analyst Name Role Phone LIZ PERKINS Primary Care Provider LIZ PERKINS Referring Provider [phone] Assessment Encounter Date Assessment Date Assessment LastModified by Organization Details LastModified Time 10/18/2022 10/18/2022 Patient returns recreates tenosynovitis left. She has a positive Marisela's test and tenderness to palpation manipulation. Does have a little bit of swelling in the area as well she has failed multiple injections gentle stretching exercise anti-inflammator y medication time. She would like to consider surgical release we will proceed per her request discussed risks benefits limitations and alternatives in detail. [email or web address] Not available 10/18/2022 11:33:07 12/06/2022 12/06/2022 Patient returns status post to recur veins release of left wrist. The incision is clean pain is gone she is moving her hand well. She looks like she has had a nice result could be dismissed. I told her just not overdo it I will see her back on an as-needed basis if she has any changes or problems she will call discussed. [email or web address] Not available 12/06/2022 09:57:20 Plan of Treatment Reminders Order Date Submit Date Provider Last Modified By Organization Details Last Modified Time Details Appointments None recorde d. Lab None recorde d. Referral None recorde d. Procedures None recorde d. Surgeries None recorde d. Imaging XR, wrist 023 10/19/19 23 [email or web address] [facility] [place], [facility], [place], [address], 3 11:36:38 Medication Orders None recorde d. Patient TargetsNo targets recorded. Patient InstructionsNo instructions recorded. Reason for Referral None Reported. Results Created Date Observation Date Name Description Value Unit Range Abnormal Flag Note LastModifiedBy Organization Detail LastModifiedTime 05/11/19 22 05/11/2021 XR, knee No observ ation record ed. [id number] [facility] [place] [address], [place], [address], 06/09/2022 01:08:40 05/11/19 22 05/11/2021 XR, ankle No observ ation record ed. [id number] [facility] [place] [address], [place], [address], 06/09/2022 01:08:40 03/11/20 22 XR, shoul ethel, 2 or more view No observ ation record ed. [id number] [facility] [place] [address], [place], [address], 06/09/2022 01:08:40 10/19/19 23 XR, wrist No observ ation record ed. [facility] [place] [address], [place], [address], 10/18/2022 11:32:20 11/17/19 23 09/15/2022 elect haley mccallum am No observ ation record ed. [address], [place], [address], 11/16/2022 15:34:19 Result Notes None recorded. Problems Name Problem SNOMED Code Status Onset Date Resolution Date Notes Provider Name and Address Organization Details Recorded Time Injury of lower limb 756128585 Active Not Available [facility] 3 00:58:33 Osteoarthr itis 702685708 Active Not Available [facility] 3 00:58:34 Tendinitis of left wrist region 3832198688152 9100 Active 2020 Not Available [facility] 3 00:58:33 Pain of left wrist 2252328935159 02 Active 2020 Not Available [facility] 3 00:58:33 History of left total knee replacemen t 6088142304977 105 Active 2020 Not Available [facility] 3 00:58:33 Sprain of right ankle 4425764808684 9105 Active 2020 Not Available [facility] 3 00:58:33 Osteoarthr itis of left knee joint 0850748803290 09 Active 2020 Not Available [facility] 3 00:58:34 History of total knee arthroplas ty 8410615397583 Active 2021 Not Available [facility] 3 00:58:33 Tenosynovi tis of left radial styloid 2912611382192 9104 Active 2022 Donaldo Muller MD [address] [place] [address], [address] , [facility] 3 11:33:55 Problem Notes None recorded. Procedures Surgical History Date Name Laterality Status Provider Name and Address Organization Details Recorded Time Rotator cuff surgery completed Not Available [facility] 06/09/2022 00:53:09 release of trigger finger completed Not Available [facility] 06/09/2022 00:53:09 procedure on elbow completed Not Available [facility] 06/09/2022 00:53:09 Imaging Results None recorded. Procedure Notes None recorded. Medical Equipment None Reported. Allergies Allergen ID Allergen Name Allergen Category Reaction Reaction Severity Criticality Documentation Date Start Date Code Code System Note Provider Name and Address Organization Details Recorded Time 1571 morphine medicatio n Not available Not available Not available 06/09/2022 7052 RxNorm Not Available [facility] 3 01:08:06 1572 Macrobid medicatio n rash Not available Not available 06/09/2022 85776 1 RxNorm Not Available [facility] 3 01:08:06 1573 codeine medicatio n Not available Not available Not available 06/09/2022 2670 RxNorm Not Available [facility] 3 01:08:06 Medications Name Sig Start Date Stop Date Status Note LastModified by Organization Details LastModified Time Miralax 17 gram oral powder packet MIX 1 PACKET IN 4 TO 8 OUNCES OF LIQUID AND TK PO QD PRF CONSTIPAT ION 05/15 completed Not Available Not Available Not Available cyclobenzap rine 10 mg tablet TAKE 1 TABLET BY MOUTH THREE TIMES DAILY FOR 10 DAYS NEEDED active Not Available Not Available No t Available amoxicillin 500 mg capsule TAKE ONE CAPSULE BY MOUTH EVERY 8 HOURS UNTIL GONE 04/09 completed Not Available Not Available Not Available neomycin-po lymyxin-hyd rocort 3.5 mg/mL-10,00 0 unit/mL-1 % ear solution active Not Available Not Available Not Available prednisone 10 mg tablet active Not Available Not Available Not Available doxycycline hyclate 100 mg capsule TAKE 1 CAPSULE BY MOUTH TWICE DAILY FOR 10 DAYS active Not Available Not Available No t Available cefuroxime axetil 250 mg tablet 01/07 completed Not Available Not Available Not Available naproxen 375 mg tablet TAKE 1 TABLET BY MOUTH TWICE DAILY active Not Available Not Available No t Available venlafaxine 75 mg tablet Take 1 tablet twice a day by oral route. 04/09 completed Not Available Not Available Not Available Zyrtec-D 5 mg-120 mg tablet,exte nded release TAKE 1 TABLET BY MOUTH EVERY 12 HOURS NEEDED FOR NASAL CONGESTIO N active Not Available Not Available No t Available tizanidine 2 mg tablet TAKE 1 TABLET BY MOUTH THREE TIMES DAILY NEEDED FOR MUSCLE SPASMS active Not Available Not Available No t Available triazolam 0.25 mg tablet TAKE 1 TABLET BY MOUTH 1 HOUR BEFORE DENTAL APPOINTME NT active Not Available Not Available No t Available trazodone 50 mg tablet TAKE 1 TABLET BY MOUTH EVERY DAY AT BEDTIME NEEDED active Not Available Not Available No t Available oxybutynin chloride ER 10 mg tablet,exte nded release 24 hr TAKE 1 TABLET BY MOUTH EVERY DAY active Not Available Not Available No t Available azithromyci n 250 mg tablet ZPK 01/07 completed Not Available Not Available Not Available ibuprofen 800 mg tablet 01/07 completed Not Available Not Available Not Available Lidocaine Viscous 2 % mucosal solution TAKE 5 ML BY MOUTH EVERY 6 HOURS NEEDED FOR ABDOMINAL PAIN active Not Available Not Available No t Available fluconazole 150 mg tablet TAKE 1 TABLET BY MOUTH 1 TIME. MAY REPEAT IN 1 WEEK NEEDED active Not Available Not Available No t Available benzonatate 200 mg capsule TAKE 1 CAPSULE BY MOUTH THREE TIMES DAILY NEEDED FOR COUGH 10/18 completed Not Available Not Available Not Available ranitidine 300 mg tablet TK 1 T PO NIGHTLY. 05/15 completed Not Available Not Available Not Available hydrocodone 5 mg-acetamin ophen 325 mg tablet TAKE 1 TABLET BY MOUTH EVERY 6 HOURS active Not Available Not Available No t Available fluconazole 200 mg tablet TAKE 1 TABLET BY MOUTH EVERY DAY FOR 3 DAYS 10/18 completed Not Available Not Available Not Available sucralfate 1 gram tablet TAKE 1 TABLET BY MOUTH EVERY 6 HOURS NEEDED FOR GASTRIC REFLUX active Not Available Not Available No t Available promethazin e 12.5 mg tablet 01/07 completed Not Available Not Available Not Available ondansetron HCl 4 mg tablet TAKE 1-2 TABS BY MOUTH EVERY 8 HOURS NEEDED FOR NAUSEA - 1ST LINE FOR UP TO 5 DAYS active Not Available Not Available No t Available bupivacaine HCl 0.5 % (5 mg/mL) injection solution Take 10 mg by injection route. 10/18 completed Not Available Not Available Not Available prednisone 20 mg tablet TAKE 2 TABLETS BY MOUTH DAILY FOR 5 DAYS active Not Available Not Available No t Available metoprolol succinate ER 100 mg tablet,exte nded release 24 hr TK 1 T PO HS active Not Available Not Available No t Available sertraline 100 mg tablet TAKE 1 TABLET BY MOUTH EVERY DAY active Not Available Not Available No t Available prednisone 5 mg tablet active Not Available Not Available Not Available Toprol XL 50 mg tablet,exte nded release 01/07 completed Not Available Not Available Not Available metronidazo le 500 mg tablet TAKE 1 TABLET BY MOUTH THREE TIMES DAILY FOR 10 DAYS active Not Available Not Available No t Available acetaminoph en 300 mg-codeine 30 mg tablet TAKE 1 TABLET BY MOUTH EVERY 4 HOURS 10/18 completed Not Available Not Available Not Available ciprofloxac in 250 mg tablet TAKE 1 TABLET BY MOUTH EVERY 12 HOURS FOR 7 DAYS 04/09 completed Not Available Not Available Not Available trimethopri m 100 mg tablet TK 1 T PO BID active Not Available Not Available No t Available ciprofloxac in 500 mg tablet TAKE 1 TABLET BY MOUTH EVERY 12 HOURS active Not Available Not Available No t Available sulfamethox azole 800 mg-trimetho prim 160 mg tablet TAKE 1 TABLET BY MOUTH TWICE DAILY active Not Available Not Available No t Available hydrocodone 10 mg-acetamin ophen 325 mg tablet 01/07 completed Not Available Not Available Not Available omeprazole 40 mg capsule,del ayed release TAKE 1 CAPSULE BY MOUTH EVERY DAY active Not Available Not Available No t Available tramadol 50 mg tablet TAKE 1 TABLET BY MOUTH EVERY DAY NEEDED active Not Available Not Available No t Available amoxicillin 500 mg tablet TAKE 1 TABLET BY MOUTH THREE TIMES DAILY FOR 10 DAYS 10/18 completed Not Available Not Available Not Available ketorolac 10 mg tablet 01/07 completed Not Available Not Available Not Available prednisone 10 mg tablets in a dose pack Take 1 tab by mouth, 3 times a day for 3 daysTake 1 tab by mouth 2 times a day for 2 daysTake 1 tab by mouth once a day for 1 day active Not Available Not Available No t Available nortriptyli ne 25 mg capsule 01/07 completed Not Available Not Available Not Available meloxicam 7.5 mg tablet 01/07 completed Not Available Not Available Not Available levothyroxi ne 88 mcg tablet TAKE 1 TABLET BY MOUTH DAILY active Not Available Not Available No t Available alprazolam 0.5 mg tablet 01/07 completed Not Available Not Available Not Available amoxicillin 875 mg tablet TAKE 1 TABLET BY MOUTH TWICE DAILY FOR 10 DAYS 10/18 completed Not Available Not Available Not Available alprazolam 0.25 mg tablet TAKE 1 TABLET BY MOUTH EVERY DAY NEEDED active Not Available Not Available No t Available famotidine 20 mg tablet TK 1 T PO BID 05/15 completed Not Available Not Available Not Available amitriptyli ne 25 mg tablet 10/18 completed Not Available Not Available Not Available triamcinolo ne acetonide 0.025 % topical cream active Not Available Not Available Not Available dicyclomine 20 mg tablet TAKE 1 TABLET BY MOUTH TWICE DAILY active Not Available Not Available No t Available Kenalog 10 mg/mL suspension for injection In office injection administe red by the provider active [facility]: 0003- [phone]- [phone] Not Available Not Available Not Available doxycycline monohydrate 100 mg capsule TK 1 C PO BID FOR 10 DAYS 05/15 completed Not Available Not Available Not Available hydrocodone 7.5 mg-acetamin ophen 325 mg tablet TAKE 1 TABLET BY MOUTH AT BEDTIME FOR 7 DAYS NEEDED FOR SEVERE PAIN 04/09 completed Not Available Not Available Not Available cephalexin 500 mg capsule TAKE 1 CAPSULE BY MOUTH FOUR TIMES DAILY FOR 7 DAYS active Not Available Not Available No t Available pantoprazol e 40 mg tablet,narcisa yed release TAKE ONE TABLET BY MOUTH DAILY 04/09 completed Not Available Not Available Not Available hyoscyamine sulfate 0.125 mg tablet active Not Available Not Available Not Available buspirone 30 mg tablet TAKE 1 TABLET BY MOUTH TWICE DAILY active Not Available Not Available No t Available esomeprazol e magnesium 40 mg capsule,del ayed release TAKE 1 CAPSULE BY MOUTH TWICE DAILY 10/18 completed Not Available Not Available Not Available buspirone 10 mg tablet TAKE 3 TABLETS BY MOUTH TWICE DAILY 05/11 completed Not Available Not Available Not Available clotrimazol e-betametha sone 1 %-0.05 % topical cream 01/07 completed Not Available Not Available Not Available prednisone 50 mg tablet TAKE 1 TABLET BY MOUTH EVERY DAY 04/09 completed Not Available Not Available Not Available lidocaine 5 % topical patch APPLY 1 PATCH DAILY AND REMOVE AFTER 12 HOURS. MUST HAVE 12 HOUR PATCH FREE PERIOD BEFORE APPLYING ANOTHER active Not Available Not Available No t Available Synthroid 75 mcg tablet Take 1 tablet every day by oral route. active Not Available Not Available No t Available gabapentin 300 mg capsule 01/07 completed Not Available Not Available Not Available omeprazole 20 mg capsule,del ayed release active Not Available Not Available Not Available chlordiazep oxide-clidi nium 5 mg-2.5 mg capsule TAKE ONE CAPSULE BY MOUTH FOUR TIMES DAILY BEFORE MEALS AND NIGHTLY active Not Available Not Available No t Available diclofenac sodium 75 mg tablet,narcisa yed release TAKE 1 TABLET BY MOUTH TWICE DAILY active Not Available Not Available No t Available cephalexin 500 mg tablet 01/07 completed Not Available Not Available Not Available zolpidem 5 mg tablet 01/07 completed Not Available Not Available Not Available budesonide DR - ER 3 mg capsule,del ayed,extend ed release active Not Available Not Available N ot Available ibuprofen 600 mg tablet 01/07 completed Not Available Not Available Not Available cefuroxime axetil 500 mg tablet TAKE 1 TABLET BY MOUTH EVERY 12 HOURS FOR 10 DAYS active Not Available Not Available No t Available polyethylen e glycol 3350 17 gram/dose oral powder 01/07 completed Not Available Not Available Not Available levofloxaci n 500 mg tablet TAKE 1 TABLET BY MOUTH EVERY DAY FOR 10 DAYS 10/18 completed Not Available Not Available Not Available levofloxaci n 750 mg tablet 01/07 completed Not Available Not Available Not Available zolpidem 10 mg tablet TK 1 T PO QD HS PRN 01/07 completed Not Available Not Available Not Available methylpredn isolone 4 mg tablets in a dose pack 01/07 completed Not Available Not Available Not Available hydrocodone 10 mg-chlorphe niramine 8 mg/5 mL oral susp extend.rel 12hr TAKE 5 ML BY MOUTH EVERY 12 HOURS NEEDED 04/09 completed Not Available Not Available Not Available albuterol sulfate HFA 90 mcg/actuati on aerosol inhaler INHALE 2 PUFFS BY MOUTH FOUR TIMES DAILY active Not Available Not Available No t Available ondansetron 4 mg disintegrat ing tablet TAKE 1 TABLET BY MOUTH EVERY 4 HOURS NEEDED FOR NAUSEA active Not Available Not Available No t Available fluticasone propionate 50 mcg/actuati on nasal spray,suspe nsion INHALE 2 SPRAYS INTO EACH NOSTRIL DAILY 10/18 completed Not Available Not Available Not Available lisinopril 2.5 mg tablet TAKE 1 TABLET BY MOUTH EVERY DAY active Not Available Not Available No t Available doxycycline hyclate 100 mg tablet TAKE 1 TABLET BY MOUTH TWICE DAILY active Not Available Not Available No t Available dicyclomine 10 mg capsule TAKE ONE CAPSULE BY MOUTH THREE TIMES DAILY active Not Available Not Available No t Available glycopyrrol ate 2 mg tablet TK 1 T PO TID 01/07 completed Not Available Not Available Not Available naproxen 500 mg tablet TAKE 1 TABLET BY MOUTH TWICE DAILY NEEDED FOR PAIN active Not Available Not Available No t Available diazepam 5 mg tablet 01/07 completed Not Available Not Available Not Available amoxicillin 875 mg-potassiu m clavulanate 125 mg tablet TAKE 1 TABLET BY MOUTH TWICE DAILY FOR 10 DAYS 04/09 completed Not Available Not Available Not Available buspirone 15 mg tablet 01/07 completed Not Available Not Available Not Available 16.2 mg-0.1037 mg-0.0194 mg tablet 01/07 completed Not Available Not Available Not Available escitalopra m 10 mg tablet TK 1 T PO QAM 05/15 completed Not Available Not Available Not Available escitalopra m 20 mg tablet active Not Available Not Available Not Available Premarin 0.625 mg tablet 01/07 completed Not Available Not Available Not Available rosuvastati n 10 mg tablet TAKE 1 TABLET BY MOUTH DAILY active Not Available Not Available No t Available duloxetine 30 mg capsule,del ayed release TK ONE C PO D 01/07 completed Not Available Not Available Not Available duloxetine 60 mg capsule,del ayed release 01/07 completed Not Available Not Available Not Available mesalamine ER 500 mg capsule,ext ended release TAKE 2 CAPSULES BY MOUTH THREE TIMES DAILY active Not Available Not Available No t Available lactulose 10 gram/15 mL oral solution TAKE 30 ML BY MOUTH EVERY DAY NEEDED FOR CONSTIPAT ION active Not Available Not Available No t Available chlorhexidi ne gluconate 0.12 % mouthwash FOLLOW DIRECTION S ON PACKAGE AND RINSE TWO TO THREE TIMES DAILY AND SPIT 04/09 completed Not Available Not Available Not Available iron 65 mg 04/09 completed Not Available Not Available Not Available Vitamin D3 1000 04/09 completed Not Available Not Available Not Available lidocaine (PF) 10 mg/mL (1 %) injection solution In office injection administe red by the provider active [facility]: [phone]- [phone]- 17 Not Available Not Available Not Available mesalamine 1.2 gram tablet,narcisa yed release TAKE 1 TABLET BY MOUTH THREE TIMES DAILY active Not Available Not Available No t Available venlafaxine ER 75 mg tablet,exte nded release 24 hr TAKE 1 TABLET BY MOUTH EVERY MORNING active Not Available Not Available No t Available GaviLyte-G 236 gram-22.74 gram-6.74 gram-5.86 gram oral solution FOLLOW INSTRUCTI ONS PROVIDED BY DOCTOR active Not Available Not Available No t Available Xifaxan 550 mg tablet 01/07 completed Not Available Not Available Not Available Uribel 118 mg-10 mg-40.8 mg-36 mg capsule 05/15 completed Not Available Not Available Not Available vilazodone 40 mg tablet TAKE 1 TABLET BY MOUTH EVERY DAY active Not Available Not Available No t Available vilazodone 20 mg tablet active Not Available Not Available Not Available Xarelto 10 mg tablet TK 1 T PO QAM 01/07 completed Not Available Not Available Not Available ropivacaine (PF) 5 mg/mL (0.5 %) injection solution Take 20 mg by injection route. active Not Available Not Available No t Available Eliquis 2.5 mg tablet TAKE 1 TABLET BY MOUTH TWICE DAILY. START TAKING DAY AFTER SURGERY 10/18 completed Not Available Not Available Not Available Osphena 60 mg tablet 01/07 completed Not Available Not Available Not Available Viberzi 75 mg tablet 01/07 completed Not Available Not Available Not Available Intrarosa 6.5 mg vaginal insert 01/07 completed Not Available Not Available Not Available BinaxNOW COVID-19 Ag Self Test kit TEST DIRECTED TODAY active Not Available Not Available No t Available Vitals Date Recorded Body mass index (BMI) Body height Body weight Provider Name and Address Organization Details Last Updated DateTime 04/22/2022 28 kg/m2 154.94 cm 50858.67 g Not Available [facility] 06/09/2022 00:54:53 Date Recorded Body height Provider Name an d Address Organization Details Last Updated DateTime 05/11/2021 154.94 cm Not Available [facility] 00:54:53 Date Recorded Body height Body mass index (BMI) Body weight Provider Name and Address Organization Details Last Updated DateTime 10/18/2022 154.94 cm 29.1 kg/m2 94510.22 g DAVE Tapia [place] 10/18/2022 09:35:45 Date Recorded Body height Body mass index (BMI) Body weight Provider Name and Address Organization Details Last Updated DateTime 12/06/2022 154.94 cm 29.1 kg/m2 54653.22 g Nuvia Seay [facility]NA [facility] 12/06/2022 09:36:30 Date Recorded Body mass index (BMI) Body height Body weight Provider Name and Address Organization Details Last Updated DateTime 03/11/2022 29.9 kg/m2 152.4 cm 61299.63 g Not Available [facility] 06/09/2022 00:54:53 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 Question Answer Notes LastModified by Organizat ion Details LastModified Time Tobacco Smoking Status Never Smoker Not Available [facility] 06/09/2022 00:49:51 What Was The Date Of Your Most Recent Tobacco Screening? 06/12/2020 [id number] Information not available 06/09/2022 Sex: Unknown Functional Status Question Answer Note LastModified by Organizat ion Details LastModified Time What is your level of alcohol consumption? None [id number] Information not available 06/09/2022 Mental Status None recorded. Family History Relationship Description Onset Age of this Age Resolved Age Notes LastModified by Organization Details LastModified Time Father Family history of stroke [id number] Not available 06/09/2022 00:53:10 Father Family history of malignant neoplasm [id number] Not available 06/09/2022 00:53:10 Father Diabetes mellitus [id number] Not available 06/09/2022 00:53:10 Medical History Condition Response BLINDNESS N KIDNEY STONES N MRSA N CARPAL TUNNEL SYNDROME N LUNG DISEASE/DISORDER N HISTORY OF DRUG ABUSE N RADIATION / CHEMOTHERAPY N COPD N SPORTS INJURY N ANKLE PAIN N BLOOD DISEASES N SCHIZOPHRENIA N SHINGLES N SHOULDER PAIN N DEPRESSION (INCLUDING POST ) N BOWEL PROBLEMS N STROKE/TIA N ULCERS N KNEE PAIN N BENIGN PROSTATIC HYPERPLASIA N OBESITY N GERD/NAUSEA N ANEURYSM N URINARY/BLADDER/KIDNEY PROBLEMS N CORONARY ARTERY DISEASE (CAD) N ADDICTION CONCERNS N USE OF BLOOD THINNERS N SKIN PROBLEMS N EMPHYSEMA N MUSCLE,JOINT OR BONE PROBLEMS N DVT N STOMACH ULCERS N BLOOD CLOTS Y USE OF NSAIDS N CONCUSSION OR SPINAL TRAUMA N NEUROPATHY N AIDS/HIV N FRACTURES N HYPERTENSION N ELBOW PAIN N TOURETTE'S N Metal allergy N ANXIETY DISORDER N BLOOD TRANSFUSION N ANEMIA/BLOOD DISORDER N BIPOLAR DISORDER N BRONCHITIS N OSTEOARTHRITIS N TUBERCULOSIS N FOOT PROBLEM N HEART VALVE DISORDERS N ALLERGIES/HAYFEVER N SOFT TISSUE INJURY N INFECTIOUS DISEASE N HEART ARRHYTHMIA N INSOMNIA N HIGH CHOLESTEROL / HYPERLIPIDEMIA N RHEUMATOID ARTHRITIS N EDEMA N CHRONIC PAIN SYNDROME N CAROTID BLOCKAGE N BACK / NECK PROBLEMS N HAVE YOU BEEN HOSPITALIZED OR SEEN IN [facility] IN THE PAST YEAR ? N BURSITIS N HERNIATED DISC N DIALYSIS N FIBROMYALGIA N OSTEOPOROSIS N ARTHRITIS Y NO SIGNIFICANT PAST MEDICAL HISTORY N PERIPHERAL NEUROPATHY N DIABETES, TYPE N HEARTBURN / REFLUX N HEPATITIS / LIVER DISEASE N GOUT N ALZHEIMER'S DISEASE N SLEEP DISORDER N HERPES N HEADACHES/MIGRAINES N SEIZURES/EPILEPSY N VASCULAR DISEASE N Blood Disorder N HIP PAIN N DIZZINESS N HEAD TRAUMA OR INJURY N HEART DISEASE/HEART PROBLEMS N MULTIPLE SCLEROSIS N CANCER: SPECIFY Y CARDIAC ARRHYTHMIA N ANESTHESIA COMPLICATIONS N ATRIAL FIBRILLATION N AUTOIMMUNE DISEASE N Gynecological HistoryNo gynecological history recorded. Obstetrics History GPAL:G 0 P 0 0 0 0 Past Encounters Encounter ID Performer Location Encounter Start Date Encounter Closed Date Diagnosis/Indication Diagnosis SNOMED-CT Code Diagnosis ICD10 Code Diagnosis IMO Codes Diagnosis Note [id number] Donaldo Muller MD [facility] [place] [address] [place] [address] 06/12/2020 00:00:00 06/12/2020 12:29:23 [id number] Donaldo Muller MD [facility] [place] [address] [place], [place] [phone] 07/24/2020 00:00:00 07/24/2020 11:10:57 [id number] Donaldo Muller MD [facility] [place] [address] [place], [place] [address] 04/09/2021 00:00:00 04/09/2021 10:14:46 [id number] Donaldo Muller MD [facility] [address] [place], [place] [address] 05/11/2021 00:00:00 05/12/2021 09:16:24 [id number] Donaldo Muller MD [facility] [address] [place] [address] 03/11/2022 00:00:00 03/11/2022 14:06:32 [id number] Donaldo Muller MD [facility] [address] [place] [address] 04/22/2022 00:00:00 04/22/2022 11:42:26 [id number] Donaldo Muller MD [facility] [address] [place], [place] [address] 10/18/2022 09:04:02 10/18/2022 11:36:38 Pain of left wrist [id number] 95131 M25.532 Tenosynovi tis of left radial styloid [id number] 9974598 M65.4 [id number] Donaldo Muller MD [facility] [place] [place] [address] [place] [address] 12/06/2022 09:33:30 12/06/2022 10:14:16 Tenosynovitis of left radial styloid [id number] 9229390 M65.4 Pain of left wrist 38548 82738 83555 M25.532 Postoperative visit 6404 38771 Z98 Health Concerns Section Related Observation LastModified by Organization Detai ls LastModified Time None Recorded Concern Status LastModified by Organization Details LastModified Time None Recorded Advance Directives Directive None Recorded Payers Insurance Date Sequence Insurance Name Policy Number Policy Dunn Covered Member ID Dunn Member ID Guarantor Name 11/21/2022 1 [place] Martina Mendez [id number] Martina Mendez 12/03/2022 2 [place] [address] [id number] Martina Mendez Notes Date Note Type Note Provider Name and Address Organization Details Recorded Time 10/18/2022 text/html Patient returns to her veins tenosynovitis left. She has pain over the 1st dorsal compartment and positive Marisela's test. Donaldo Muller MD [address], [place] [employer] [employer], [place], [address], [place] 10/18/2022 11:34:26 12/06/2022 text/html Patient returns status de Quervain tenosynovitis left wrist. She underwent release and has done well. Donaldo Muller MD [address], [employer], [place], [address], [place] 12/06/2022 09:58:28 OBGyn Episode No OBEpisode recorded.
--- OUTSIDE RECORDS SUMMARY | 2025-01-04 08:52 | XMS_ITS | Patient Health Record ---
Author Organization [facility] Address [address] [place] [address] [place] [address] Care Team Providers Care Microarray Specialist Name Role Phone MADDIE BRICE, LIZ JORGE Primary Care Provider Unav Mian Altamirano Unavailable [phone] ALLERGIES Allergen (clinical drug ingredient) Drug/Non Drug [...] Active RESULTS Component Value Reference Range Notes Druva Results (Not yet reviewed by provider) Interpretation: Performing Lab:[id number] [facility], [address] [facility] [address] Katie Bella MD Notes/Report: Acetyl fentanyl: Fentanyl [...] 100 ng/mL Tramadol Quantification positive-516.308 100 ng/mL X-sidkaypyd-oxcoxavb Quantification positive-1357.188 100 ng/mL C-Djhqxgokx-Liknwmyv Quantification positive-1558.893 100 ng/mL Alpha-Hydroxyalprazolam Quantification negative 20 ng/mL 4-Jesxu-Jgtivitsgs Quantification negative 20 ng/m L Lorazepam Quantification [...] Mitragynine (Kratom alkaloid) Quantification negative 1 ng/mL 8-IF-Kkbpbichkqm (Kratom alk aloid) Quantification negative 1 ng/mL [...] (F40.231) Active confirmed Fear of medical treatment (303364225) Problem 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 Intercost al neuropathy (272580283) Problem Chronic pain syndrome (G89.4) Active confirmed Chronic barbara n syndrome (084449030) Problem Unspecified osteoarthritis, unspecified site (M19.90) Active confirmed Osteoarthritis (420389873) Problem Sacroiliitis, not elsewhere classified (M46.1) Active confirmed Solitary sacroiliitis (699080536) Problem Spondylosis without myelopathy or radiculopathy, 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) Active confirmed Thoracic spondylosis without myelopathy (890162119) Problem Spondylosis without myelopathy or radiculopathy, thoracolumbar region (M47.815) Active confirmed Thoracic spondylosis without myelopathy (244779482) Problem Spondylosis without myelopathy or radiculopathy, lumbar region (M47.816) Active confirmed Lumbosacral spondylosis without myelopathy (07482306) Problem Spondylosis without myelopathy or radiculopathy, lumbosacral region (M47.817) Active confirmed Lumbosacral spondylosis without myelopathy (disorder) (68959771) Problem Intervertebral disc disorders with radiculopathy, lumbar region (M51.16) Active confirmed Radiculopathy d ue to lumbar intervertebral disc disorder (249944303520062) Problem Other intervertebral disc degeneration, lumbar region (M51.36) Active confirmed Degeneration of lumbar intervertebral disc (03797424) Problem Other intervertebral disc degeneration, lumbosacral region (M51.37) Active confirmed Degeneration of lumbosacral intervertebral disc (84029804) Problem Radiculopathy, thoracic region (M54.14) Active confirmed Thoracic radiculopathy (02107022) Problem Radiculopathy, lumbar region (M54.16) Active confirmed Lumbar radiculopathy (511774496) Problem Radiculopathy, lumbosacral region (M54.17) Active confirmed Lumbosacral radiculopathy (4602255) Problem Age-related osteoporosis with current pathological fracture, vertebra(e), subsequent encounter for fracture with delayed healing (M80.08XG) Active confirmed Problem Age-related osteoporosis with current pathological fracture, vertebra(e), subsequent encounter for fracture with nonunion (M80.08XK) Active confirmed Nonunion of fracture (909361144) Problem Postlaminectomy syndrome, not elsewhere classified (M96.1) Active confirmed Post-lami nectomy syndrome (04986149) Problem Osseous stenosis of neural canal of lumbar region (M99.33) Active confirmed Spinal stenosis of lumbar region (36208536) Problem Urinary tract infection, site not specified (N39.0) Active confirmed Urinary tract infectious disease (disorder) (56169035) Problem Other mechanical complication of implanted electronic neurostimulator of spinal cord electrode (lead), initial encounter (T85.192A) Active confirmed Mechanical complication of nervous system device, implant AND/OR graft (82462699) Problem Other mechanical complication of implanted electronic neurostimulator, generator, initial encounter (T85.193A) Active confirmed Mechanical complication of nervous system device, implant AND/OR graft (45562767) Problem Lumbar radiculopathy (M54.16) Active confirmed Lumbar radiculopathy (782328860) VITAL SIGNS Heart Rate 69 /min 09/25/2024 [...] Location Date Provider Diagnosis [facility] [address] [place] [address] 04/13/2024 Mian Tee Radiculopathy, lumba r region M54.16 ; Radiculopathy, lumbosacral region M54.17 ; Sacroiliitis, not elsewhere classified M46.1 ; Spondylosis without myelopathy or radiculopathy, lumbar region M47.816 ; Other intervertebral disc degeneration, lumbar region M51.36 ; Intervertebral disc disorders with radiculopathy, lumbar region M51.16 ; Fear of injections and transfusions F40.231 ; data migration consultant (current) use of opiate analgesic Z79.891 and Chronic pain syndrome G89.4 [facility] [address] [address] 04/16/2024 Mian Tee [facility] [address] [place] [address] 04/25/2024 Mian Tee Postlaminectomy syndrome, not elsewhere classified M96.1 ; Chronic pain syndrome G89.4 and Lumbar radiculopathy M54.16 [facility] [address] [place] [address] 04/26/2024 Mian Tee [facility] [address] [place] [address] 06/19/2024 Mian Tee Radiculopathy, lumbosacral region M54.17 [...] neuropathy G58.0 and Radiculopathy, thoracic region M54.14 [facility] [address] [place] [address] 06/20/2024 Mian Stynowick Intercostal neuropat hy G58.0 and Radiculopathy, thoracic region M54.14 [facility] [address] [place] [address] 06/21/2024 Mian Stynowick [facility] [address] [place] [address] [place] [address] 07/04/2024 Mian Stynowick [facility] [address] [place] [address] 07/05/2024 Mian Stynowick Radiculopathy, lumba r region [...] and 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 [facility] [address] [place] [address] 07/11/2024 Mian Stynowick Radiculopathy, lumba r region [...] and 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 [facility] [address] [place] [address] 08/06/2024 Mian Stynowick Radiculopathy, lumba r region [...] 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 [facility] [address] [place] [address] [place] [address] 08/14/2024 Mian Stynowick Radiculopathy, thoracic region M54.14 [...] and Fear of injections and transfusions F40.231 [facility] [address] [place] [address] [place] [address] 08/15/2024 Mian Stynowick Radiculopathy, thoracic region M54.14 [facility] [address] [place] [address] [place] [address] 08/16/2024 Mian Stynowick [facility] [address] [place] [address] 08/29/2024 Mian Stynowick Radiculopathy, lumba r region [...] and transfusions F40.231 and 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 [facility] [address] [place] [address] [place] [address] 09/04/2024 Mian Stynowick Radiculopathy, lumba r region M54.16 ; Radiculopathy, lumbosacral region M54.17 and Osseous stenosis of neural canal of lumbar region M99.33 [facility] [address] [place] [address] 09/05/2024 Mian Stynowick [facility] [address] [place] [address] 09/18/2024 Mian Stynowick Radiculopathy, lumba r region [...] and 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 [facility] [address] [place] [address] 09/25/2024 Mian Stynowick Radiculopathy, lumba r region M54.16 ; Spondylosis without myelopathy or radiculopathy, lumbar region M47.816 ; Radiculopathy, lumbosacral region M54.17 ; Osseous stenosis of neural canal of lumbar region M99.33 ; Radiculopathy, thoracic region M54.14 ; Spondylosis without myelopathy or radiculopathy, lumbosacral region M47.817 and Fear of injections and transfusions F40.231 [facility] [address] [address] 10/03/2024 Mian Stynowick Spondylosis without myelopathy or radiculopathy, lumbar region M47.816 and Spondylosis without myelopathy or radiculopathy, lumbosacral region M47.817 ASSESSMENTS Encounter Date Diagnosis Assessment Notes Treatment Notes Treatment Clinical Notes Section Notes 04/25/2024 Chronic pain syndrome (ICD-10 - G89.4) [...] 04/13/2024 Radiculopathy, lumbosacral region (ICD-10 - M54.17) 06/19/2024 Radiculopathy, lumbosacral region (ICD-10 - M54.17) 06/20/2024 Intercostal neuropathy (ICD-10 - G58.0) 06/20/2024 Radiculopathy, thoracic region (ICD-10 - M54.14) 07/05/2024 Radiculopathy, thoracic region (ICD-10 - M54.14) [...] to fully comply with the above. The [place] and [place] PDMP were reviewed and were appropriate 08/06/2024 Radiculopathy, lumbar region (ICD-10 - M54.16) 07/11/2024 Radiculopathy, lumbar region (ICD-10 - M54.16) 08/15/2024 Radiculopathy, thoracic region (ICD-10 - M54.14) [...] 08/14/2024 Radiculopathy, thoracic region (ICD-10 - M54.14) 08/29/2024 Radiculopathy, thoracic region (ICD-10 - M54.14) 08/29/2024 Radiculopathy, lumbar region (ICD-10 - M54.16) The patient's SCS was interrogated reprogrammed in the office today with improved axial low back and bilateral lower extremity neuropathic pain coverage with good paresthesia overlap. Schedule a Bilateral L5-P8bpudxjrlrfybpv epidural steroid injection. The risks of this [...] to fully comply with the above. The [place] and [place] PDMP were reviewed and were appropriate 09/04/2024 Radiculopathy, lumbar region (ICD-10 - M54.16) 09/04/2024 Radiculopathy, lumbosacral region (ICD-10 - M54.17) 09/18/2024 Radiculopathy, lumbar region (ICD-10 - M54.16) 09/25/2024 [...] 09/25/2024 Radiculopathy, lumbar region (ICD-10 - M54.16) 10/03/2024 Spondylosis without myelopathy or radiculopathy, lumbar region (ICD-10 - M47.816) 10/03/2024 Spondylosis without myelopathy or radiculopathy, lumbosacral region (ICD-10 - M47.817) 09/25/2024 Radiculopathy, lumbosacral region (ICD-10 - M54.17) 09/18/2024 Radiculopathy, thoracic region (ICD-10 - M54.14) 09/04/2024 Osseous stenosis of neural canal of lumbar region (ICD-10 - M99.33) 08/29/2024 Radiculopathy, lumbosacral region (ICD-10 - M54.17) 04/25/2024 Lumbar radiculopathy (ICD-10 - M54.16) 08/14/2024 Radiculopathy, lumbar region (ICD-10 - M54.16) 04/13/2024 Sacroiliitis, not elsewhere classified (ICD-10 - M46.1) 07/11/2024 Radiculopathy, thoracic region (ICD-10 - M54.14) 06/19/2024 Sacroiliitis, not elsewhere classified (ICD-10 - M46.1) 06/19/2024 Radiculopathy, lumbar region (ICD-10 - M54.16) The patient's SCS was interrogated reprogrammed in the office today with improved axial low back and bilateral lower extremity neuropathic pain coverage with good paresthesia overlap. 08/06/2024 Radiculopathy, thoracic region (ICD-10 - M54.14) 07/05/2024 Radiculopathy, lumbosacral region (ICD-10 - M54.17) 04/13/2024 Spondylosis without myelopathy or radiculopathy, lumbar region (ICD-10 - M47.816) 06/19/2024 Spondylosis without myelopathy or radiculopathy, lumbar region (ICD-10 - M47.816) 07/05/2024 Sacroiliitis, not elsewhere classified (ICD-10 - M46.1) 09/25/2024 Osseous stenosis of neural canal of lumbar region (ICD-10 - M99.33) 09/18/2024 Radiculopathy, lumbosacral region (ICD-10 - M54.17) 08/29/2024 Sacroiliitis, not elsewhere classified (ICD-10 - M46.1) 08/14/2024 Radiculopathy, lumbosacral region (ICD-10 - M54.17) 07/11/2024 Radiculopathy, lumbosacral region (ICD-10 - M54.17) 08/06/2024 Radiculopathy, lumbosacral region (ICD-10 - M54.17) 06/19/2024 Intervertebral disc disorders with radiculopathy, lumbar region (ICD-10 - M51.16) 08/14/2024 Sacroiliitis, not elsewhere classified (ICD-10 - M46.1) 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) 08/29/2024 Spondylosis without myelopathy or radiculopathy, lumbar region (ICD-10 - M47.816) 07/05/2024 Spondylosis without myelopathy or radiculopathy, lumbar region (ICD-10 - M47.816) 09/18/2024 Sacroiliitis, not elsewhere classified (ICD-10 - M46.1) 07/11/2024 Sacroiliitis, not elsewhere classified (ICD-10 - M46.1) 09/25/2024 Radiculopathy, thoracic region (ICD-10 - M54.14) 08/06/2024 Sacroiliitis, not elsewhere classified (ICD-10 - M46.1) 08/06/2024 Spondylosis without myelopathy or radiculopathy, lumbar region (ICD-10 - M47.816) 07/05/2024 Intervertebral disc disorders with radiculopathy, lumbar region (ICD-10 - M51.16) 07/11/2024 Spondylosis without myelopathy or radiculopathy, lumbar region (ICD-10 - M47.816) 08/14/2024 Spondylosis without myelopathy or radiculopathy, lumbar region (ICD-10 - M47.816) 06/19/2024 Chronic pain syndrome (ICD-10 - G89.4) 04/13/2024 Intervertebral disc disorders with radiculopathy, lumbar region (ICD-10 - M51.16) 08/29/2024 Intervertebral disc disorders with radiculopathy, lumbar region (ICD-10 - M51.16) 09/18/2024 Spondylosis without myelopathy or radiculopathy, lumbar region (ICD-10 - M47.816) 09/25/2024 Spondylosis without myelopathy or radiculopathy, lumbosacral region (ICD-10 - M47.817) 08/29/2024 Chronic pain syndrome (ICD-10 - G89.4) 08/14/2024 Intervertebral disc disorders with radiculopathy, lumbar region (ICD-10 - M51.16) 09/18/2024 Intervertebral disc disorders with radiculopathy, lumbar region (ICD-10 - M51.16) 07/11/2024 Intervertebral disc disorders with radiculopathy, lumbar region (ICD-10 - M51.16) 08/06/2024 Intervertebral disc disorders with radiculopathy, lumbar region (ICD-10 - M51.16) 07/05/2024 Chronic pain syndrome (ICD-10 - G89.4) 04/13/2024 Fear of injections and transfusions (ICD-10 - F40.231) 06/19/2024 Postlaminectomy syndrome, not elsewhere classified (ICD-10 - M96.1) 09/25/2024 Fear of injections and transfusions (ICD-10 - F40.231) The patient was given written instructions explaining the above and was informed that they would need to come with a light truck driver after taking this medication due to the risk of impairment. 09/18/2024 Chronic pain syndrome (ICD-10 - G89.4) 08/29/2024 Postlaminectomy syndrome, not elsewhere classified (ICD-10 - M96.1) 04/13/2024 data migration consultant (current) use of opiate analgesic (ICD-10 - Z79.891) 06/19/2024 Fear of injections and transfusions (ICD-10 - F40.231) The patient was given written instructions explaining the above and was informed that they would need to come with a light truck driver after taking this medication due to the risk of impairment. 08/14/2024 Chronic pain syndrome (ICD-10 - G89.4) 07/05/2024 Postlaminectomy syndrome, not elsewhere classified (ICD-10 - M96.1) 07/11/2024 Chronic pain syndrome (ICD-10 - G89.4) 08/06/2024 Chronic pain syndrome (ICD-10 - G89.4) 08/14/2024 Postlaminectomy syndrome, not elsewhere classified (ICD-10 - M96.1) 08/29/2024 Fear of injections and transfusions (ICD-10 - F40.231) The patient was given written instructions explaining the above and was informed that they would need to come with a light truck driver after taking this medication due to [...] is agreeable to proceeding at this time. 04/13/2024 Chronic pain syndrome (ICD-10 - G89.4) 07/05/2024 Fear of injections and transfusions (ICD-10 - F40.231) 07/11/2024 Postlaminectomy syndrome, not elsewhere classified (ICD-10 - M96.1) 09/18/2024 Postlaminectomy syndrome, not elsewhere classified (ICD-10 - M96.1) 08/06/2024 Postlaminectomy syndrome, not elsewhere classified (ICD-10 - M96.1) 08/29/2024 Intercostal neuropathy (ICD-10 - G58.0) 06/19/2024 Radiculopathy, thoracic region (ICD-10 - M54.14) 08/14/2024 Fear of injections and transfusions (ICD-10 - F40.231) The patient was given written instructions explaining the above and was informed that they would need to come with a light truck driver after taking this medication due to the risk of impairment. 09/18/2024 Fear of injections and transfusions (ICD-10 - F40.231) 07/05/2024 Intercostal neuropathy (ICD-10 - G58.0) 07/11/2024 Fear of injections and transfusions (ICD-10 - F40.231) 08/06/2024 Fear of injections and transfusions (ICD-10 - F40.231) 09/18/2024 Intercostal neuropathy (ICD-10 - G58.0) 07/11/2024 Intercostal neuropathy (ICD-10 - G58.0) 08/06/2024 Intercostal neuropathy (ICD-10 - G58.0) 04/25/2024 Other [...] Lumbar Spine with and without Cont rast (03015) 11/07/2020 MRI : Thoracic Spine without Contrast (7 2146) 07/05/2024 [facility] Results 07/06/2024 [facility] Results 02/04/2022 [facility] Results 04/06/2022 [facility] Results 11/05/2022 [facility] Results 12/30/2022 [facility] Results 08/04/2023 Insurance Providers Payer Name Payer Address Payer Phone Subscriber Number Group Number Insured Name Patient Relationship to Insured Coverage Start Date Coverage End Date Medicare [place] [address] [address] [place] [address] [id number] EMRE MARQUIS Self - patient is the insured [facility] [address] [place] [address] [id number] EMRE MARQUIS Self - patient is the [...]
--- OUTSIDE RECORDS SUMMARY | 2025-01-04 08:52 | XMS_ITS | Encounter Summary ---
Author Organization [facility] Address 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
--- OUTSIDE RECORDS SUMMARY | 2025-01-04 08:52 | XMS_ITS | Clinical Summary ---
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
[2025-01-04 09:11] VITALS: BP 116/69; PULSE 66; RESP 18; O2SAT 96
--- NOTE | 2025-01-04 09:19 | PC.NURSE ---
patient states that she urinated prior to coming to the ED and states she doesn't have to go right now states she will try to provide a sample as soon as she can
--- OUTSIDE RECORDS SUMMARY | 2025-01-04 09:41 | XMS_ITS | Clinical Summary ---
Author Organization [employer] Address [address] [facility] Attn: Epic Prelude ADT [place] [address] Care Team Providers Care Intermodal Owner Operator Truck Driver Name Role Phone Unavailable Primary Care Provider Unavailabl e 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 Tobacco Use Types Packs/Day Years Used Date Smoking Tobacco: Never Assessed Comments Unknown Sex and Gender Information Value Date Recorded Sex Assigned at Not on file Legal Sex Female 3:31 AM CHART CALCULATOR Gender Identity Not on file Sexual Orientation [...]
--- OUTSIDE RECORDS SUMMARY | 2025-01-04 09:41 | XMS_ITS | Clinical Summary ---
Author Organization [facility] Address [address] [facility] [place] [address] Care Team Providers Care Reeling And Tubing Machine Operator Name Role Phone Simeon Sheriff MD Primary Care Provider [phone] Source Comments [facility] Affiliates and Associated Physician Practices is amultiple site organization consisting of ambulatory clinics and hospital sitesin [place], [place], [place] and [place]. This disclosure is being madepursuant to the Care Everywhere program and may not contain all information available regarding this patient. 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
--- OUTSIDE RECORDS SUMMARY | 2025-01-04 09:41 | XMS_ITS | Encounter Summary ---
Author Organization [email or web address] Address 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
--- OUTSIDE RECORDS SUMMARY | 2025-01-04 09:41 | XMS_ITS | Encounter Summary ---
Author Organization [facility] Address [address] [place] [address] Care Team Providers Care Transformer Shop Supervisor Name Role Phone Simeon Sheriff MD Primary Care Provider [phone] Encounter Details Date Type Department Care Team (Late st Contact Info) Description 10/09/2019 Lab Requisition [facility] [address] [place] [id number] Isaac Reid MD 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 Tobacco Use Types Packs/Day Years Used Date Smoking Tobacco: Never Assessed Comments Unknown Sex and Gender Information Value Date Recorded Sex Assigned at Not on file Legal Sex Female 6:58 AM [employer] SUPERINTENDENT Gender Identity Not on file Sexual Orientation [...] Not detected, Invalid 10/09/2019 6:32 PM CDT [facility] Microbiology SPECIMEN FROM NASOPHARYNGEAL STRUCTURE / Unknown Collection / Unknown 10/08/2019 9:40 AM CDT 10/09/2019 11:06 AM CDT Narrative [facility]CRO[facility] - 10/09/2019 6:32 PM CDT This Real Time RT-PCR assay was developed and its performance characteristics determined by [facility]. This test has been authorized [...] LAB - MICROBIOLOGY ORDERABL ES Final Result [facility] [address] [place], [place] [address], [facility] [phone] documented in this encounter Visit Diagnoses Not on filedocumented in this encounter Additional Health Concerns Infection Onset Date Last Indicated Resolved Time COVID-19 Under Investigation 10/08/2019 10/08/2019 10/09/2019 6:32 PM CDT documented as of this encounter Care Teams Transformer Shop Supervisor Relationship Specialty Start Date End Date Simeon Sheriff MD PCP - General 07/21/17 documented as of this encounter
--- OUTSIDE RECORDS SUMMARY | 2025-01-04 09:41 | XMS_ITS | Clinical Summary ---
Author Organization [facility] Address [address], [address] [address] Phone Care Team Providers Care Oracle Application Architect Name Role Phone Simeon Sheriff MD Primary Care Provider [phone] Virginia Caldera MD Unavailable [phone] Allergies Active Allergy Reactions Criticality Noted Date [...] Negative Negative 01/27/2022 8:05 PM CDT [facility] Stool Non-Phlebotomy Collection / Unknown 01/27/2022 7:47 PM CDT 01/27/2022 7:57 PM CDT Caleb Ellis PAC BODY FLUIDS & STOOLS ORDERABLES Final Result [facility] [address] [place] [address] from Last 3 Months or Most Recently Relevant to Health Maintenance Insurance [facility] MEDICARE Advance Directives * Full [...] measures to stabilize the patient. Care Teams Oracle Application Architect Relationship Specialty Start Date End Date Simeon Sheriff MD [address] [place] [id number] PCP - General Family Medicine 06/22/17 Virginia Caldera MD [address] [place] [address] Consulting Physician Gastroenterology 02/11/22
[2025-01-04 09:57] LABS: Hematocrit 37.4 % (37.0-47.0); Hemoglobin 10.7 g/dL (12.0-15.0); Immature Granulocyte Percent A 0.2 % (0-0.5); Lymphocytes Absolute Auto 2.90 K/mm3 (0.9-3.2); Mean Corpuscular HGB Conc 28.6 g/dl (32-36); Mean Corpuscular Hemoglobin 22.0 pg (26-34); Mean Corpuscular Volume 76.8 fl (80-100); Nucleated Red Blood Cells Absolute Auto 0.000 K/mm3 (0.0-0.012); Nucleated Red Blood Cells Perc 0.0 % (0.0-0.2); Platelet Count Result 168 k/mm3 (150-375); Red Blood Count 4.87 M/mm3 (4.2-5.4); White Blood Count 8.6 K/mm3 (4.5-10.0)
[2025-01-04 10:08] LABS: Alanine Aminotransferase 24 U/L (6-35); Albumin Level 4.5 g/dL (3.5-5.1); Alkaline Phosphatase 82 U/L (38-126); Anion Gap 7 mmol/L (4-12); Aspartate Amino Transferase 31 U/L (14-36); Bilirubin,Total 0.2 mg/dL (0.2-1.3); Blood Urea Nitrogen 15 mg/dL (7-17); Calcium 8.9 mg/dL (8.4-10.2); Carbon Dioxide 30 mmol/L (22-30); Chloride 102 mmol/L (98-107); Estimated CRCL calculation 42 ml/min; Estimated Glomerular Filt Rate 49; Glucose 95 mg/dL (65-110); Lipase 73 U/L (23-300); Potassium 4.3 mmol/L (3.4-5.0); Sodium 139 mmol/L (137-145); Total Protein 7.6 g/dL (6.3-8.2)
[2025-01-04 10:18] LABS: Anisocytosis 1+; Hypochromasia 1+
[2025-01-04 10:19] LABS: Schistocytes None Seen
--- NOTE | 2025-01-04 10:27 | ED.FEMALEGU ---
HPI - Female Genitourinary General Chief complaint: Urogenital-Female Stated complaint: back pain Time Seen by Provider: 01/04/25 09:12 Source: patient Mode of arrival: ambulatory Limitations: no limitations History of Present Illness HPI Narrative: This is a 64 year old female that presents to the ER for left flank pain. Reports recently being treated for a UTI with ciprofloxacin, was having continued symptoms so was then switched to Augmentin. Denies fevers, vomiting. Related Data Home Medications ?Medication ?Instructions ?Recorded ?Confirmed ?Last Taken ?Type esomeprazole magnesium 40 mg 40 mg PO DAILY 06/27/21 12/24/24 Unknown History capsule,delayed release buspirone 30 mg tablet 30 mg PO BID 08/17/22 12/24/24 Unknown History cholecalciferol (vitamin D3) 25 25 mcg PO DAILY 08/17/22 12/24/24 Unknown History mcg (1,000 unit) capsule fluticasone propionate 230 2 inh inhalation BID 10/27/23 12/24/24 Unknown History mcg-salmeterol 21 mcg/actuation HFA inhaler (Advair HFA) sertraline 100 mg tablet 100 mg PO DAILY 10/27/23 12/24/24 Unknown History trazodone 100 mg tablet 100 mg PO DAILY 10/27/23 12/24/24 Unknown History diltiazem HCl 120 mg 120 mg PO DAILY 07/30/24 12/24/24 Unknown History capsule,extended release 24 hr, controlled (DILT-XR) donepezil 5 mg tablet 5 mg PO QHS 07/30/24 12/24/24 Unknown History mecobalamin (vitamin B12) 1,000 1,000 mcg PO DAILY 07/30/24 12/24/24 Unknown History mcg chewable tablet memantine 5 mg tablet 5 mg PO BID 07/30/24 12/24/24 Unknown History Allergies Allergy/AdvReac Type Severity Reaction Status Date / Time codeine AdvReac Mild Rash Verified 12/24/24 13:53 erythromycin base AdvReac Mild Rash Verified 12/24/24 13:53 morphine AdvReac Mild Rash Verified 12/24/24 13:53 nitrofurantoin AdvReac Mild Rash Verified 12/24/24 13:53 Review of Systems Review of Systems: All systems reviewed & are unremarkable except as noted in HPI and below PMFSH Past Medical History Medical History TIA (transient ischemic attack) Metabolic dysfunction-associated steatotic liver disease (MASLD) Nocturnal hypoxemia GERD (gastroesophageal reflux disease) Hyperlipidemia, unspecified Hypothyroidism, unspecified Kidney disease States she had kidney failure treated 6 months ago at [facility] in [place], etiology uncertain Fatty liver GI bleed Had stomach bleeding repaired with a clip in the past. Bilateral tennis elbow Abdominal hernia Multiple with mesh in place PTSD (post-traumatic stress disorder) From childhood Depression Anxiety HTN (hypertension) IBS (irritable bowel syndrome) Kidney stone Crohn's disease Surgical History Surgical History History of total right knee replacement History of endoscopy History of rotator cuff surgery Bilateral History of hysterectomy History of lumbar fusion Family History Family History Father Family history of diabetes mellitus in first degree relative Family history of heart disease in male family member before age 55 Hx of CABG Age 60-62 Alzheimer's dementia Cause of , 77 years old Mother Thoracic aortic aneurysm Sibling Thoracic aortic aneurysm Sister Sibling CAD (coronary artery disease) All 3 brothers have CAD and stents Other AAA (abdominal aortic aneurysm) Maternal grandmother had a AAA Other Cerebral aneurysm Maternal aunt had a cerebral aneurysm Other Family history of allergic disorder Family history of malignant neoplasm Hypertension 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urrently Unemployed: No Education: High School Diploma/GED Difficulty w/ Childcare or Family Care: No Living arrangements: with family Occupation/Education: occupation Gender identity (if verbalized by the patient): Female Sexual Orientation (if Verbalized by the Patient): Straight or Heterosexual Spiritual care concerns: No Exam Narrative: GENERAL: Well-appearing, well-nourished, and in no acute distress. HEAD: Normocephalic, atraumatic. EYES: EOMI. CHEST: Clear to auscultation. No respiratory distress. No wheezes rales or rhonchi HEART: Regular rate and rhythm. No murmur heard. Normal peripheral pulses. ABDOMEN: Soft, nontender, nondistended, normal active bowel sounds. EXTREMITIES: Normal range of motion. No edema. SKIN: Warm, dry, no rash. NEURO: No focal deficits. Alert and oriented x3. PSYCH: Normal mood and affect Course Course Emergency Course: patient and family updated on workup and agree with plan of care Vital Signs Vital signs: Vital Signs Pulse Rate 66 01/04/25 09:11 Respiratory Rate 18 01/04/25 09:11 Blood Pressure 116/69 01/04/25 09:11 Pulse Oximetry 96 01/04/25 09:11 Oxygen Delivery Room Air 01/04/25 09:11 Pulse Rate 66 01/04/25 09:11 Respiratory Rate 18 01/04/25 09:11 Blood Pressure 116/69 01/04/25 09:11 Pulse Oximetry 96 01/04/25 09:11 Oxygen Delivery Room Air 01/04/25 09:11 MDM - Female Genitourinary MDM Narrative Medical decision making narrative: Patient presents to the emergency department for back pain, dysuria. She is afebrile and nontoxic appearing. Her vitals are stable. Cbc without leukocytosis. Metabolic panel without concerning findings. Urine without evidence of infection. CT abdomen and pelvis without acute findings. patient and family updated on workup and agree with plan of care. 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 01/04/25 09:50 01/04/25 09:49 Labs: Lab Results 01/04/25 01/04/25 01/04/25 Range/Units 09:49 09:50 11:10 WBC 8.6 (4.5-10.0) K/mm3 RBC 4.87 (4.2-5.4) M/mm3 Hgb 10.7 L (12.0-15.0) g/dL Hct 37.4 (37.0-47.0) % MCV 76.8 L (80-100) fl MCH 22.0 L (26-34) pg MCHC 28.6 L (32-36) g/dl RDW 16.3 H (11.5-14.5) % Plt Count 168 (150-375) k/mm3 MPV 10.5 H (7.4-10.4) fl Immature Gran % (Auto) 0.2 (0-0.5) % Neut % (Auto) 51.4 (45.5-73.1) % Lymph % (Auto) 33.6 (18.3-44.2) % Erath % (Auto) 11.8 H (2.6-8.5) % Eos % (Auto) 2.4 (0-4.4) % Baso % (Auto) 0.6 (0.2-1.2) % Lymph # (Auto) 2.90 (0.9-3.2) K/mm3 Erath # (Auto) 1.0 H (0.1-0.6) K/mm3 Eos # (Auto) 0.2 (0-0.3) K/mm3 Baso # (Auto) 0.1 (0.0-0.1) K/mm3 Abs Immat Gran (auto) 0.02 (0.00-0.031) K/mm3 Absolute Neuts (auto) 4.4 (1.3-6.7) K/mm3 Absolute Nucleated RBC 0.000 (0.0-0.012) K/mm3 Band Neutrophils % Not Reportable Nucleated RBC % 0.0 (0.0-0.2) % Atypical Lymphocytes Present Platelet Estimate Slightly decreased (Adequate) Large Platelets Present Hypochromasia 1+ Anisocytosis 1+ Schistocytes None seen Sodium 139 (137-145) mmol/L Potassium 4.3 (3.4-5.0) mmol/L Chloride 102 (98-107) mmol/L Carbon Dioxide 30 (22-30) mmol/L Anion Gap 7 (4-12) mmol/L BUN 15 (7-17) mg/dL Creatinine 1.12 H (0.7-1.0) mg/dL Estim Creat Clear Calc 42 ml/min Estimated GFR 49 L (59 - ) Glucose 95 (65-110) mg/dL Calcium 8.9 (8.4-10.2) mg/dL Total Bilirubin 0.2 (0.2-1.3) mg/dL AST 31 (14-36) U/L ALT 24 (6-35) U/L Alkaline Phosphatase 82 (38-126) U/L Total Protein 7.6 (6.3-8.2) g/dL Albumin 4.5 (3.5-5.1) g/dL Lipase 73 (23-300) U/L Urine Color Yellow (Yellow) Urine Appearance Clear (Clear) Urine pH 6.5 (5.0-9.0) Ur Specific Paramount 1.018 (1.001-1.035) Urine Protein Negative (Negative) mg/dL Urine Glucose (UA) Negative (Negative) mg/dL Urine Ketones Negative (Negative) mg/dL Ur Blood (Man) Negative (Negative) Urine Nitrate Negative (Negative) Urine Bilirubin Negative (Negative) Urine Urobilinogen 1.0 (<2.0) mg/dL Leukocyte Esterase Rfl Trace H (Negative) TERESE/UL Urine RBC 0-2 (0-2) /hpf Urine WBC 0-5 (0-3) /hpf Ur Squamous Epith Cells None seen (Few) /hpf Urine Bacteria None seen /hpf Urine Casts 0-2 Imaging Data Radiologist's impression: ITS Impressions Abdomen/Pelvis CT 01/04/25 11:57 IMPRESSION: 1. No hydronephrosis. No CT evidence for renal, ureteral or bladder calculi. 2. No CT evidence for an acute process in the abdomen or pelvis at this time. 3. Fatty liver. Critical Care Time Critical Care Time Critical Care Time: No Discharge Plan Discharge Clinical Impression: Low back pain Qualifiers: Chronicity: chronic Back pain laterality: left Sciatica presence: without sciatica Qualified Code(s): M54.50 - Low back pain, unspecified Patient Disposition: Home Condition: Stable Instructions: Antibiotic Form, Dysuria (ED), Back Pain (ED) Additional Instructions: Return to the ER if you experience fever, abdominal pain with nausea and vomiting, you are unable to keep down liquids or solids, blood in the urine or any other symptoms that are concerning to you Finish your antibiotics as prescribed Follow up with your paint formulator Patient Language: Bulgarian Prescriptions: No Action esomeprazole magnesium 40 mg capsule,delayed release(DR/EC) 40 mg PO DAILY trazodone 100 mg tablet 100 mg PO DAILY fluticasone propion-salmeterol [Advair HFA] 230-21 mcg/actuation HFA aerosol inhaler 2 inh inhalation BID Patient Comments: Says takes as needed. sertraline 100 mg tablet 100 mg PO DAILY ciprofloxacin HCl 500 mg tablet 500 mg PO Q12H Qty: 14 0RF buspirone 30 mg tablet 30 mg PO BID cholecalciferol (vitamin D3) 25 mcg (1,000 unit) capsule 25 mcg PO DAILY Patient Comments: Says takes twice a day diltiazem HCl [DILT-XR] 120 mg capsule,ext.rel 24h degradable 120 mg PO DAILY donepezil 5 mg tablet 5 mg PO QHS memantine 5 mg tablet 5 mg PO BID mecobalamin (vitamin B12) 1,000 mcg tablet,chewable 1,000 mcg PO DAILY (DME) blood-glucose meter [[employer] Verio Flex Start] Kit See Rx Instructions .Route Qty: 1 0RF Rx Instructions: As directed (DME) [employer] Verio test strips Strip See Rx Instructions .Route Qty: 50 3RF Rx Instructions: Use to check blood sugar once a day (DME) lancing device with lancets [ePub Direct Delica Plus Lanc Dev] Kit See Rx Instructions .Route Qty: 1 0RF Rx Instructions: use to check blood sugar once a day levothyroxine 88 mcg tablet 0.088 mcg PO DAILY Qty: 90 1RF oxybutynin chloride 10 mg tablet extended release 24hr See Rx Instructions .ROUTE .COMPLEX Qty: 90 1RF Dose Instruction: TAKE 1 TABLET BY MOUTH EVERY DAY Rx Instructions: TAKE 1 TABLET BY MOUTH EVERY DAY rosuvastatin 10 mg tablet 10 mg PO DAILY Qty: 90 1RF amoxicillin-pot clavulanate 875-125 mg tablet 1 tablet PO BID 7 Days Qty: 14 0RF cyclobenzaprine 5 mg tablet 5 mg PO TID PRN (Reason: muscle spasm) Qty: 30 1RF Follow-up/Referrals: Simeon Sheriff MD [Primary Care Provider, Family Practice]
--- NOTE | 2025-01-04 10:42 | PC.NURSE ---
pt ambulated appropriately with a steady gait. is providing a urine sample in at this time
[2025-01-04] MEDS: SODIUM CHLORIDE 0.9% IV 1,000 ML 999 ML IV CONT (11:12)
[2025-01-04 11:21] LABS: Add Urine Microscopic? YES; Appearance Urine Clear (Clear); Glucose Urine UA Negative (Negative); Leukocyte Esterase Ur Trace LEU/UL (Negative); Nitrate Urine Negative (Negative); Non Pathogenic Casts 0-2; Specific Grav Ur 1.018 (1.001-1.035)
[2025-01-04 11:35] VITALS: BP 146/75; PULSE 67; RESP 18; O2SAT 96
[2025-01-04] MEDS: KETOROLAC 15 MG/ML VIAL (*BKC) IV PUSH (11:35)
[2025-01-04 11:45] VITALS: BP 130/81; PULSE 70; RESP 18; O2SAT 96
[2025-01-04 12:41] VITALS: BP 125/71; PULSE 67; RESP 18; TEMP 36.8; O2SAT 94
== END 2025-01-04 12:43 | disposition home or self-care (01) ==
PROVIDERS: Emergency Provider Physician Assistant; PCP Family Medicine
DX: M54.50 Low back pain, unspecified (principal); N39.0 Urinary tract infection, site not specified; E78.5 Hyperlipidemia, unspecified; E03.9 Hypothyroidism, unspecified; E88.9 Metabolic disorder, unspecified; K21.9 Gastro-esophageal reflux disease without esophagitis; K58.9 Irritable bowel syndrome, unspecified; K50.90 Crohn's disease, unspecified, without complications; K76.0 Fatty (change of) liver, not elsewhere classified; F32.A Depression, unspecified; F43.10 Post-traumatic stress disorder, unspecified; F41.9 Anxiety disorder, unspecified; Z96.651 Presence of right artificial knee joint; Z98.84 Bariatric surgery status; Z86.73 Personal history of transient ischemic attack (TIA), and cerebral infarction without residual deficits; Z87.442 Personal history of urinary calculi; Z90.710 Acquired absence of both cervix and uterus; Z79.899 Other long term (current) drug therapy
CPT/HCPCS: 36415; 74177; 80053; 81001; 83690; 85025; 96361; 96374; 99284; J1885; J7030; Q9967

== ENCOUNTER 2025-03-11 13:15 | Emergency (ER) | payer MEDICARE, BC, SELFPAY ==
--- NOTE | ~2025-03-11 | CT_ITS ---
EXAMINATION: CT abdomen pelvis w con DATE: 03/11/2025 18:09 INDICATION: Discolored stool. Abdomen pain. TECHNIQUE: Computed tomography (CT) of the abdomen and pelvis was performed with 100 cc Omnipaque 350 intravenous contrast. The dose-length product was 714.07 mGy-cm. Automated exposure control and iterative reconstruction technique were employed. COMPARISON: CT dated 01/04/2025. FINDINGS: Lung bases unremarkable. No significant pleural or pericardial effusion. Heart size normal. Fatty infiltration of the liver. Stable liver cysts. Status post cholecystectomy. The spleen, pancreas, adrenal glands and right kidney are unremarkable. No significant vascular abnormality. No lymphad enopathy. There are changes of anterior abdominal wall hernia repair on the left. No free air or free fluid. No lymphadenopathy. There are changes of anterior lumbar fusion and discectomy at L4-5 and L5-S1. There are vertebroplasty changes in T11. No evidence for abscess. Nonobstructive bowel gas pattern. No abnormal pelvic masses or fluid collections. Status post hysterectomy. IMPRESSION: 1. No acute abdominal abnormality. Reviewed, dictated and finalized at location I. [employer]
--- OUTSIDE RECORDS SUMMARY | 2025-03-11 09:40 | XMS_ITS | Encounter Summary ---
Author Organization [facility] Address [address] [place] [address] Care Team Providers Care Auxiliary Power Equipment Operator Name Role Phone Simeon Sheriff MD Primary Care Provider [phone] Humble Colon DO Unavailable [phone] Reason for Referral * Procedure (Routine) - New Request Specialty Diagnoses / Procedures Referred By Joanie mercado Referred To Contact Diagnoses Mild persistent reactive airway disease without complication (HHS/HCC) Procedures Methacholine Challenge (34975) Salvador Norwood MD [address] [place] [address] [address] [place] [address] Phone: tel: fax: Referral ID Status Reason Start Date Expiration Date V isits Requested Visits Authorized [id number] New Request 03/11/2025 04/11/2026 1 1 TS ASSISTANT Reason for Visit * Reason Comments Follow Up Encounter Details Date Type Department Care Team (Late st Contact Info) Description 03/11/2025 9:40 AM EVENTS ASSISTANT Office Visit [facility] Multispecialty Care - [facility] [address] [facility] [address] [place] [address] Salvador Norwood MD [address] [place], [place] [address] [place] [address] Follow Up 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 Tobacco Use Types Packs/Day Years Used Date Smoking Tobacco: Never Smokeless Tobacco: Never Tobacco Cessation:Counseling Given: Yes Alcohol Use Standard Drinks/Week Comments Not Currently [...] materials from doctor or pharmacy Rarely 10/20/2023 [facility] Utilities Answer Date Recorded In the past 12 months has th e [employer], gas, oil, or water [employer] threatened to shut off services in your [...] any time in the past 12 m [facility], were you homeless or living in a assisted (including now)? No 07/22/2024 Comments No Sex and Gender Information Value Date Recorded Sex Assigned at Female 06/01/2024 11:56 AM EVENTS ASSISTANT Legal Sex Female 5:56 PM CDT Gender Identity Not on file Sexual Orientation Not on file documented as of this encounter Last Filed Vital Signs Vital Sign Reading Time Taken Comments Blood Pressure 117/78 03/11/2025 9:44 AM EVENTS ASSISTANT Pulse 87 03/11/2025 9:44 AM EVENTS ASSISTANT Temperature - - Respiratory Rate 16 03/11/2025 9:44 AM EVENTS ASSISTANT Oxygen Saturation 96% 03/11/2025 9:44 AM EVENTS ASSISTANT ra Inhaled Oxygen Concentration - - Weight 78 kg (172 lb) 03/11/2025 9:44 AM EVENTS ASSISTANT Height 154.9 cm (5' 1) 03/11/2025 9:44 AM EVENTS ASSISTANT Body Mass Index 32.5 03/11/2025 9:44 AM EVENTS ASSISTANT documented in this encounter Functional Status * Are you deaf or do you have serious difficulty hearing Answer Date of Assessment Author Status No 07/22/2024 10:35 PM CDT Masha Jin RN Active * Are you blind or do you have serious difficulty seeing, even when wearing glasses? Answer Date of Assessment Author Status No 07/22/2024 10:35 PM VIT Masha Jin RN Active * Do you have serious difficulty walking or climbing stairs? Answer Date of Assessment Author Status No 07/22/2024 10:35 PM CDT Masha Jin RN Active * Do you have difficulty dressing or bathing? Answer Date of Assessment Author Status No 07/22/2024 10:35 PM CDT Masha Jin RN Active * Because of a physical, mental, or emotional condition, do you have difficulty doing errands alone such as visiting a doctor's office or shopping? Answer Date of Assessment Author Status No 07/22/2024 10:35 PM Masha Leal RN Active documented as of this encounter Mental Status * Because of a physical, mental, or emotional condition, do you have serious difficulty concentrating, remembering, or making decisions? Answer Entry Date Author Status No 07/22/2024 10:35 PM Masha Leal RN Active documented in this encounter Progress Notes * Salvador Norwood MD - 03/11/2025 9:40 AM CST [facility] PULMONARY MEDICINE History Chief Complaint Patient presents with Follow Up Martina Mendez is a 64-year-old overweight white female never smoker with past medical history of IBS, anxiety/depression, GERD, chronic abdominal pain, and physical deconditioning who presents for follow up. 10/07-10/12/2023: RAD[facility]; Acute hypoxic respiratory failure; suspected long-term hypoventilation; dc'don 2LPM qhs 10/19/2023: OV; hospital follow up; reports noting hypoxia at home on pulse oximeter; 6MWT in office without desat; denies cough, sputum. Notes improved sleep since wearing O2 qhs 02/02/2024: OV; discussed PFT, PSG results; plan to start CPAP, discussed need to check overnight oximetry once tolerating CPAP; 155lbs 04/02/2024: OV: sleeping well with CPAP; notes improved daytime somnolence; working with masks/chinstraps; plan for overnight oximetry; 155lbs 07/22-: OV; TIA 02/08/2025: [facility] ED: pleuritic chest pain; suspected AECOPD; LQ, prednisone 02/11/2025: RAD[facility]; ongoing dyspnea; noted cough, non-productive 03/11/2025: OV; notes ongoing gerd issues; discussed possibility of asthma, plan for methacholine challenge, start Breo At initial encounter 10/09/2023: Notes having lived an extremely sedentary lifestyle for 5+ years. interjecting somewhat frequently relates to multiple prior lower extremity surgeries. Reports ability to walk approximately 1 block or up 1 flight of stairs prior to development of dyspnea. Typically takes 5-6 minutes of rest to regain her breath. Notes a daily cough, most prevalent in the video poker floorman hours Denies sputum production Notes occasional wheezing when dyspneic, this is often inspiratory Notes occasional subjective chest pressure, denies triggering factor; follows routinely with a ndt inspector at [facility], recently underwent a nuclear stress test that was revealing for possible ischemia Notes occasional sensation of palpitations with activity, and while at rest Denies weight change, hemoptysis Denies knowledge of seasonal/environmental allergies Notes ongoing GERD Notes occasional sensation of dysphagia Denies knowledge of JOHNNA, sleep disturbance. 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 No pulmonary embolus. 2. Patchy bilateral atelectasis with or without minimal infiltrates. 3. Old healed granulomatous disease. CTA Chest 10/09/2023: 1. Slightly limited evaluation for pulmonary embolism, but no embolism is identified. 2. No acute process. 3. Mild atherosclerotic changes of the thoracic aorta. CT C/A/P 06/01/2024: 1. No acute abnormality identified. CT Chest 02/11/2025: 1. No acute cardiopulmonary abnormality. Testing/Data reviewed: Labs: 10/08/2023: BNP 106, eos 330 10/10/2023: Region 8 wnl; IgE 7 02/08/2025: eos 220 OSH TTE 03/26/2022: EF 64%, trace TR TTE 10/09/2023: EF 65-70%, mild concentric LVH, no shunt, mild MR/TR, RVSP 27mmHg PFT 01/06/2024: FVC 2.44 L, 89%. FEV1 2.14 L, 98%. FEV1/FVC 87%. Postbronchodilator FVC 2.49 L, 90%. FEV1 2.11 L, 97%. FEV1/FVC 85%. Less than significant response to bronchodilator. TLC 88%. RV 63%.ERV 115%; Unadjusted DLCO reported as 22% predicted. 6-minute walk test: Patient walked 450 feet on room air with lowest reported SpO2 of 91%. PSG 11/27/2023: AHI 27.2/hr; 17.6/hr on [id number] CPAP CPAP titration 01/12/2024: AHI 2/hr on [id number] CPAP CPAP card download 04/01/2024: 100% usage, wearing on average 7 hours 10 minutes on days used; AHI 2.5 on 15-20 cm H2O CPAP; median pressure 13.9 cm H2O OvOx 06/04/2024: lowest SpO2 91% on CPAP/room air Past Medical History: Diagnosis Date Adenomatous colon polyp Anemia Anxiety and depression Arthritis Cancer (CMS/HCC HHS/HCC) Skin cancer Cataract DDD (degenerative disc disease), lumbosacral GERD (gastroesophageal reflux disease) Heart murmur HTN (hypertension) Hypothyroidism, unspecified IBD (inflammatory bowel disease) IBS (irritable bowel syndrome) Metabolic dysfunction-associated steatotic liver disease (MASLD) Stroke (CMS/HCC HHS/HCC) TIA (transient ischemic attack) Visceral hypersensitivity syndrome Past Surgical History: Procedure Laterality Date APPENDECTOMY BACK SURGERY CHOLECYSTECTOMY COLONOSCOPY N/A 05/07/2022 COLONOSCOPY WITH descending colon polypectomy and random colon biopsies via large cold forceps performed by Humble Colon DO at [facility] GI COLONOSCOPY FLX DX W/COLLJ SPEC WHEN PFRMD EGD EYE SURGERY Cataract FRACTURE SURGERY HC TRIGGER FINGER RELEASE Right 2024 thumb HERNIA REPAIR HYSTERECTOMY OTHER PROCEDURE pain stimulator REPAIR INCISIONAL HERNIA,REDUCIBLE SPINE SURGERY STIMULATOR SPINAL CORD TOTAL KNEE ARTHROPLASTY Right 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 Tobacco Use Smoking status: Never Smokeless tobacco: Never Vaping Use Vaping status: Never Used Substance Use Topics Alcohol use: Not Currently Drug use: Never Family History Problem Relation Name Age of Onset Lung Disease Mother Current Outpatient Medications Medication Sig Dispense Refill albuterol sulfate HFA 108 (90 Base) MCG/ACT inhaler Inhale 2 puffs into the lungs every 6 (six) hours as needed for Wheezing. 18 g 2 atorvastatin (LIPITOR) 80 MG tablet Take 1 tablet (80 mg total) by mouth daily. 30 tablet 0 busPIRone (BUSPAR) 30 MG tablet Take 1 tablet (30 mg total) by mouth 2 (two) times daily. Indications: Feeling Anxious dilTIAZem CD (CARDIZEM CD) 120 MG 24 hr capsule Take 1 capsule (120 mg total) by mouth daily. donepezil (ARICEPT) 5 MG Tab Take 1 tablet (5 mg total) by mouth nightly at bedtime. esomeprazole (NEXIUM) 40 MG capsule Take 1 capsule (40 mg total) by mouth every morning before breakfast. 90 capsule 1 famotidine (PEPCID) 20 MG tablet Take 1 tablet (20 mg total) by mouth daily. 90 tablet 3 fluticasone-salmeterol (ADVAIR HFA) 230-21 MCG/ACT inhaler Inhale 2 puffs into the lungs 2 (two) times daily. 12 g 0 levothyroxine (SYNTHROID) 88 MCG tablet TAKE 1 TABLET BY MOUTH EVERY DAY IN THE MORNING ON AN EMPTYSTOMACH memantine (NAMENDA) 5 MG tablet Take 1 tablet (5 mg total) by mouth 2 (two) times daily. Methylcobalamin 1 MG Chew Tab Chew 1 tablet by mouth daily with breakfast. oxybutynin XL (DITROPAN-XL) 10 MG 24 hr tablet Take 1 tablet (10 mg total) by mouth daily. Indications: Urinary Urgency sertraline (ZOLOFT) 100 MG tablet Take 1.5 tablets (150 mg total) by mouth daily. Indications: Depression sucralfate (CARAFATE) 1 G tablet Take 1 tablet (1 g total) by mouth 3 (three) times daily as needed(gastric reflex). traMADol (ULTRAM) 50 MG tablet Take 1 tablet (50 mg total) by mouth daily as needed. Indications: Chronic Pain traZODone (DESYREL) 100 MG tablet Take 1 tablet (100 mg total) by mouth nightly at bedtime. Indications: Sleep Disorder vitamin D3, cholecalciferol, 1000 UNIT Tab tablet Take 1 tablet (25 mcg total) by mouth 2 (two) times daily. Indications: Mineral Deficiency No current facility-administered medications for this visit. Review of patient's allergies indicates: Allergen Reactions Codeine Rash and Vomiting Erythromycin Rash and Vomiting Nitrofurantoin Rash and Hives Tizanidine Hallucinations Metoprolol Tartrate Cough Azithromycin Rash Morphine Rash, Itching and Other (see comment) veins turn red Immunization History Administered Date(s) Administered Influenza (Generic) 01/03/2013, 12/21/2013, 01/24/2015, 01/07/2016 Influenza Adult (Generic) 01/13/2017, 01/14/2018, 12/15/2018, 01/12/2020, 01/10/2021, 01/09/2022 MODERNA COVID-19 (12+) MRNA, LNP-S, PF, 100 MCG/ 0.5 ML DOSE 06/07/2020, 07/05/2020, 02/17/2021 Pneumococcal (Pneumovax 23) 01/03/2013 Pneumococcal (Prevnar 13) 01/24/2015 Tdap (Generic) 01/22/2014, 12/02/2021 Review of Systems Constitutional: Positive for malaise/fatigue. Negative for chills, fever and weight loss. HENT: Negative for congestion, sinus pain and sore throat. Eyes: Negative for photophobia. Respiratory: Positive for shortness of breath and wheezing. Negative for cough, hemoptysis, sputum production and stridor. Cardiovascular: Negative for chest pain, palpitations, orthopnea, leg swelling and PND. Gastrointestinal: Positive for heartburn. Negative for abdominal pain, nausea and vomiting. Musculoskeletal: Positive for back pain, joint pain and myalgias. Skin: Negative for rash. Neurological: Negative for dizziness, focal weakness and headaches. Endo/Heme/Allergies: Negative for environmental allergies. Psychiatric/Behavioral: Negative for depression and suicidal ideas. Physical Exam Filed Vitals: 03/11/25 0944 BP: 117/78 Pulse: 87 Resp: 16 SpO2: 96% Weight: 78 kg (172 lb) Height: 1.549 m (5' 1) Physical Exam: General: overweight wf, pleasant, in NAD Neuro: Alert, appropriate Psych: Affect normal Head: AT EENT: No Sinus tenderness to palpation, mallampati 3; edentulous Neck: Supple Lymph: No appreciable cervical lymphadenopathy Respiratory: non-labored, ctab, no wheezes/crackles Cardiovascular: s1,s2, rrr, no audible murmur GI: non-distended, bs+ Musc: right wrist ROM wnl Ext: no edema, no clubbing Skin: No visible rashes Assessment JOHNNA Nocturnal hypoxia 3. Hx of IBS --- Notes possibility of elusive Crohn's disease diagnosis (can be associated with lung disease; most frequently bronchiectasis) Hx of gerd Hx of anxiety/MDD Physical deconditioning Possible VCD Plan 1. Supplemental O2 as necessary to maintain saturations greater than 88% --6MWT in office; 545ft; resting SpO2 96%, lowest SpO2 93% on room air 2. CPAP qhs and prn naps -autoCPAP [id number] -discussed negative health implications of uncontrolled JOHNNA -to work closely with DME regarding mask fit -would benefit from zepbound from a pulmonary perspective for JOHNNA 3. Inhaler: -Albuterol HFA every 4 as needed shortness of breath/wheezing -Lowest cost ICS/LABA; Breo 100 I puff daily, rinse and spit after 4. Obtain/maintain euvolemia 5. Methacholine challenge -PFT/6MWT reviewed; non-diagnostic of asthma/copd/restriction 6. Heavily encouraged increased activity -previously provided with breathing exercise handout As of 2023, Martina Mendez had been living a very sedentary lifestyle for the past 5-10 years. Previously discussed hypoxia and potential etiologies at length. Readily suspect physical deconditioning and JOHNNA as contributing factors. At risk for asthma/reactive airway disease given history of poorly controlled GERD. Salvador Norwood MD, FCCP TS ASSISTANT documented in this encounter Plan of Treatment Upcoming Encounters Date Type Department Care Team (Late st Contact Info) Description 07/17/2025 11:00 AM CDT Office Visit [facility] Multispecialty Care - [address] [place] [phone] Salvador Norwood MD [address] [place] [address] [place] [id number] Scheduled Orders Name Type Priority Associated Diagnoses Orde r Schedule Methacholine Challenge (68618) PFT Routine Mild persistent reactive airway disease without complication (HHS/HCC) Expected: 03/11/2025, Expires: 03/11/2026 documented as of this encounter Visit Diagnoses Diagnosis JOHNNA (obstructive sleep apnea)- Primary Obstructive sleep apnea (adult) (pediatric) Nocturnal hypoxia Hypoxemia Physical deconditioning Debility, unspecified RENEE (dyspnea on exertion) Other dyspnea and respiratory abnormality Snoring Other dyspnea and respiratory abnormality Excessive daytime sleepiness Acute respiratory failure with hypoxia (CMS/HCC HHS/HCC) Acute respiratory failure Mild persistent reactive airway disease without complication (HHS/HCC) documented in this encounter Additional Health Concerns Infection Onset Date Last Indicated Resolved Time ESBL - Extended Spectrum Bet a-lactamase Comment:12/10/22 +ESBL Urine 02/20/23 +ESBL Urine 07/19/23 +ESBL Urine 12/10/2022 07/19/2023 Assessment Noted Time PHQ-9 Depression Total Score: 0 07/05/19 25 2:36 PM CDT documented as of this encounter Care Teams Auxiliary Power Equipment Operator Relationship Specialty Start Date End Date Simeon Sheriff MD [address] [facility] [place] [address] PCP - General FAMILY PRACTICE 12/15/21 Humble Colon DO [address] [facility] [place] [address] Consulting Physician GASTROENTEROLOGY 07/16/22 documented as of this encounter
[2025-03-11 13:18] VITALS: BP 154/114; PULSE 97; RESP 20; TEMP 36.3; O2SAT 98
--- OUTSIDE RECORDS SUMMARY | 2025-03-11 14:23 | XMS_ITS | Clinical Summary ---
Author Organization [facility] Address [address], [address] [address] Phone Care Team Providers Care Brush Worker Name Role Phone Simeon Sheriff MD Primary Care Provider [phone] Virginia Caldera MD Unavailable [phone] Allergies Active Allergy Reactions Criticality Noted [...] Comments Hepatitis C Virus (HCV) Screening 1960 Cologuard 2005 Zoster Immunization (1 of 2) 2010 Medicare Initial AWV [id number] 12/10/2017 Pneumococcal Immunization (50+ years) (3 of 3 - PCV20 or PCV21) 01/25/2020 01/24/2015, 01/03/2013 Immunochemical Fecal Occult Blood 01/27/2023 01/27/2022, 02/24/2018 Influenza Immunization (#1) 2024 1004/2021, 01/10/2021, 01/12/2020, Additional history exists SARS-COV-2 Immunization ( - season) 2024 02/17/2021, 07/05/2020, 06/07/2020 Td Immunization [...] Negative Negative 01/27/2022 8:05 PM CDT [facility] Stool Non-Phlebotomy Collection / Unknown 01/27/2022 7:47 PM CDT 01/27/2022 7:57 PM CDT us Caleb Ellis PAC BODY FLUIDS & STOOLS ORDERABLES Final Result [facility] [address] [place] [address] from Last 3 Months or Most Recently Relevant to Health Maintenance Insurance [facility] MEDICARE Advance Directives * Full Code (Latest [...] measures to stabilize the patient. Care Teams Brush Worker Relationship Specialty Start Date End Date Simeon Sheriff MD [address] [place] [id number] PCP - General Family Medicine 06/22/17 Virginia Caldera MD [address] [place] [address] Consulting Physician Gastroenterology 02/11/22
--- OUTSIDE RECORDS SUMMARY | 2025-03-11 14:23 | XMS_ITS | Encounter Summary ---
Author Organization [facility] Address 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
--- OUTSIDE RECORDS SUMMARY | 2025-03-11 14:23 | XMS_ITS | Data Portability ---
Author Organization [facility] [employer], Main Office Address [address] [place] [address] Care Team Providers Care Detention Deputy Name Role Phone LIZ PERKINS Primary Care Provider LIZ PERKINS Referring Provider Assessment Encounter Date Assessment Date Assessment LastModified [...] changes or problems she will call discussed. [email or web address] Not available 12/06/2022 09:57:20 Plan of Treatment Reminders Order Date Submit Date Provider Last Modified By Organization Details Last Modified Time Details Appointments None recorde d. Lab None recorde d. Referral None recorde d. Procedures None recorde d. Surgeries None recorde d. Imaging XR, wrist 023 10/19/19 23 [email or web address] [facility] [place], [facility], [place], [address], 3 11:36:38 Medication Orders None recorde d. Patient TargetsNo targets recorded. Patient InstructionsNo instructions recorded. Reason for Referral None Reported. Results Created Date Observation Date Name Description Value Unit Range Abnormal Flag Note LastModifiedBy Organization Detail LastModifiedTime 05/11/19 22 05/11/2021 XR, knee No observ ation record ed. [id number] [facility] [place] [address], [place], [address], 06/09/2022 01:08:40 05/11/19 22 05/11/2021 XR, ankle No observ ation record ed. [id number] [facility] [place] [address], [place], [address], 06/09/2022 01:08:40 03/11/20 22 XR, shoul ethel, 2 or more view No observ ation record ed. [id number] [facility] [place] [address], [place], [address], 06/09/2022 01:08:40 10/19/19 23 XR, wrist No observ ation record ed. [email or web address] [facility] [place] [address], [place], [address], 10/18/2022 11:32:20 11/17/19 23 09/15/2022 elect haley mccallum am No observ ation record ed. [address], [place], [address], 11/16/2022 15:34:19 Result Notes None recorded. Problems Name Problem SNOMED Code Status Onset Date Resolution Date Notes Provider Name and Address Organization Details Recorded Time Injury of lower limb 119471227 Active Not Available [facility] 3 00:58:33 Osteoarthr itis 148561271 Active Not Available [facility] 3 00:58:34 Tendinitis of left wrist region 7763849861840 9100 Active 2020 Not Available [facility] 3 00:58:33 Pain of left wrist 7678079059275 02 Active 2020 Not Available [facility] 3 00:58:33 History of left total knee replacemen t 5926401955089 105 Active 2020 Not Available [facility] 3 00:58:33 Sprain of right ankle 6828397770741 9105 Active 2020 Not Available [facility] 3 00:58:33 Osteoarthr itis of left knee joint 6484658944353 09 Active 2020 Not Available [facility] 3 00:58:34 History of total knee arthroplas ty 0342174981661 Active 2021 Not Available [facility] 3 00:58:33 Tenosynovi tis of left radial styloid 5911874156254 9104 Active 2022 Donaldo Muller MD [address] [place] [address], [address] , [facility] [employer] [facility] 3 11:33:55 Problem Notes None recorded. Procedures [...] Not available 06/09/2022 7052 RxNorm Not Available [facility] 3 01:08:06 1572 Macrobid medicatio n rash Not available Not available 06/09/2022 91106 1 RxNorm Not Available [facility] 3 01:08:06 1573 codeine medicatio n Not available Not available Not available 06/09/2022 2670 RxNorm Not Available [facility] 3 01:08:06 Medications Name Sig Start Date [...] injection administe red by the provider active [facility][NOTE 3]: 0003- 0494- 20 Not Available Not Available [...] injection administe red by the provider active [facility][NOTE 3]: 0409- 4276- 17 Not Available Not Available [...] Updated DateTime 04/22/2022 28 kg/m2 154.94 cm 25848.67 g Not Available [facility] 06/09/2022 00:54:53 Date Recorded Body height Provider Name an d Address Organization Details Last Updated DateTime 05/11/2021 154.94 cm Not Available [facility] 00:54:53 Date Recorded Body height Body mass index (BMI) Body weight Provider Name and Address Organization Details Last Updated DateTime 10/18/2022 154.94 cm 29.1 kg/m2 92911.22 g DAVE Tapia [facility] 10/18/2022 09:35:45 Date Recorded Body height Body mass index (BMI) Body weight Provider Name and Address Organization Details Last Updated DateTime 12/06/2022 154.94 cm 29.1 kg/m2 41985.22 g Nuvia eSay [facility]NA [facility] 12/06/2022 09:36:30 Date Recorded Body mass index (BMI) Body height Body weight Provider Name and Address Organization Details Last Updated DateTime 03/11/2022 29.9 kg/m2 152.4 cm 06378.63 g Not Available [facility] 06/09/2022 00:54:53 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 Question Answer Notes LastModified by Organizat ion Details LastModified Time Tobacco Smoking Status Never Smoker Not Available [facility] 06/09/2022 00:49:51 What Was The Date Of Your Most Recent Tobacco Screening? 06/12/2020 [id number] Information not available 06/09/2022 Sex: Unknown Functional Status Question Answer Note LastModified by Organizat ion Details LastModified Time What is your level of alcohol consumption? None [id number] Information not available 06/09/2022 Mental Status None recorded. Family History Relationship Description Onset Age of this Age Resolved Age Notes LastModified by Organization Details LastModified Time Father Family history of stroke [id number] Not available 06/09/2022 00:53:10 Father Family history of malignant neoplasm [id number] Not available 06/09/2022 00:53:10 Father Diabetes mellitus [id number] Not available 06/09/2022 00:53:10 Medical History Condition [...] HAVE YOU BEEN HOSPITALIZED OR SEEN IN [facility] IN THE PAST YEAR ? N BURSITIS [...] ICD10 Code Diagnosis IMO Codes Diagnosis Note [id number] Donaldo Muller MD [facility] [place] [address] [facility] [address] [place], [place] [address] 06/12/2020 00:00:00 06/12/2020 12:29:23 [id number] Donaldo Muller MD [facility] [place] [address] [place] [address] 07/24/2020 00:00:00 07/24/2020 11:10:57 [id number] Donaldo Muller MD [facility] [place] [address] [place] [address] 04/09/2021 00:00:00 04/09/2021 10:14:46 [id number] Donaldo Muller MD [facility] [place] [address] [place] [address] 05/11/2021 00:00:00 05/12/2021 09:16:24 [id number] Dnoaldo Muller MD [facility] [place] [address] [place] [address] 03/11/2022 00:00:00 03/11/2022 14:06:32 [id number] Donaldo Muller MD [facility] [place] [address] [place] [address] 04/22/2022 00:00:00 04/22/2022 11:42:26 [id number] Donaldo Muller MD [facility] [place] [address] [place] [address] 10/18/2022 09:04:02 10/18/2022 11:36:38 Pain of left wrist 4721154293 18723 M25.532 Tenosynovi tis of left radial styloid 3808789881 2048246 M65.4 [id number] Donaldo Muller MD [facility] [place] [address] [place] [address] 12/06/2022 09:33:30 12/06/2022 10:14:16 Tenosynovitis of left radial styloid 2465453355 3744344 M65.4 Pain of left wrist 75230 29892 88277 M25.532 Postoperative visit 7394 54417 Z49 Health Concerns Section Related Observation LastModified by Organization Detai ls LastModified Time None Recorded Concern Status LastModified by Organization Details LastModified Time None Recorded Advance Directives Directive None Recorded Payers Insurance Date Sequence Insurance Name Policy Number Policy Dunn Covered Member ID Dunn Member ID Guarantor Name 11/21/2022 1 [place] Martina Mendez [id number] Martina Mendez 12/03/2022 2 [place] [address] [id number] Martina Mendez Notes Date Note Type Note Provider Name and Address Organization Details Recorded Time 10/18/2022 text/html Patient returns to her veins tenosynovitis left. She has pain over the 1st dorsal compartment and positive Marisela's test. Donaldo Muller MD [address], [employer], [place], [address], [facility] 10/18/2022 11:34:26 12/06/2022 text/html Patient returns status de Quervain tenosynovitis left wrist. She underwent release and has done well. Donaldo Muller MD [address], [employer], [place], [address], [facility] 12/06/2022 09:58:28 OBGyn Episode No OBEpisode recorded.
--- OUTSIDE RECORDS SUMMARY | 2025-03-11 14:23 | XMS_ITS | Encounter Summary ---
Author Organization 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 MICROBIOLOGY Microbiology SPECIMEN FROM NASOPHARYNGEAL STRUCTURE / Unknown Collection / Unknown 10/08/2019 9:40 AM CDT 10/09/2019 11:06 AM CDT Narrative [facility] - 10/09/2019 6:32 PM CDT This Real Time RT-PCR assay was developed and its performance characteristics determined by [facility]. This test has been authorized [...] LAB - MICROBIOLOGY ORDERABL ES Final Result [facility] [address] [place], [place] [address], [facility] [phone] documented in this encounter Visit Diagnoses Not on filedocumented in this encounter Additional Health Concerns Infection Onset Date Last Indicated Resolved Time COVID-19 Under Investigation 10/08/2019 10/08/2019 10/09/2019 6:32 PM CDT documented as of this encounter Care Teams Locomotive Repairer Diesel Relationship Specialty Start Date End Date Simeon Sheriff MD PCP - General 07/21/17 documented as of this encounter
--- OUTSIDE RECORDS SUMMARY | 2025-03-11 14:23 | XMS_ITS | Clinical Summary ---
Author Organization [facility] Address [address] [facility] [place] [address] Care Team Providers Care Fruit Or Nut Farm Worker Name Role Phone Simeon Sheriff MD Primary Care Provider [phone] Source Comments [facility],non-[facility] Affiliates and Associated Physician Practices is amultiple site organization consisting of ambulatory clinics and hospital sitesin [place], [place], [place] and [place]. This disclosure is being madepursuant to the Care Everywhere program and may not contain all information available regarding this patient. 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
--- OUTSIDE RECORDS SUMMARY | 2025-03-11 14:23 | XMS_ITS | Clinical Summary ---
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
[2025-03-11 15:56] VITALS: BP 133/76; PULSE 98; RESP 20; O2SAT 97
--- OUTSIDE RECORDS SUMMARY | 2025-03-11 16:03 | XMS_ITS | Clinical Summary ---
Author Organization [facility] Address [address] [facility] [place] [address] Care Team Providers Care Professional Athletes Coach Name Role Phone Simeon Sheriff MD Primary Care Provider [phone] Source Comments [facility],non-[facility] Affiliates and Associated Physician Practices is amultiple site organization consisting of ambulatory clinics and hospital sitesin [place], [place], [place] and [place]. This disclosure is being madepursuant to the Care Everywhere program and may not contain all information available regarding this patient. 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
--- OUTSIDE RECORDS SUMMARY | 2025-03-11 16:03 | XMS_ITS | Clinical Summary ---
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
--- OUTSIDE RECORDS SUMMARY | 2025-03-11 16:03 | XMS_ITS | Encounter Summary ---
Author Organization [facility] Address [address] [place] [address] Care Team Providers Care Fringe Knotter Name Role Phone Simeon Sheriff MD Primary Care Provider [phone] Humble Colon DO Unavailable [phone] Encounter Details Date Type Department Care Team (Latest Contact Info) Description 03/11/2025 Travel 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 Tobacco Use Types Packs/Day Years Used Date Smoking Tobacco: Never Smokeless Tobacco: Never Alcohol Use Standard Drinks/Week Comments Not Currently [...] materials from doctor or pharmacy Rarely 10/20/2023 [facility] Utilities Answer Date Recorded In the past 12 months has e [employer], oil, or water Home Inventory S[pecialists threatened to shut off services in your [...] any time in the past 12 m [facility], were you homeless or living in a long-term (including now)? 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 Answer Entry Date Author Status No 07/22/2024 10:35 PM CDT Masha Jin RN Active documented in this encounter Plan of Treatment Upcoming Encounters Date Type Department Care Team (Late st Contact Info) Description 07/17/2025 11:00 AM CDT Office Visit [facility] Multispecialty Care - [facility] [address] [facility] [place] [address] Salvador Norwood MD [address] [place], [place] [address] [address] [place] [address] documented as of this encounter Visit Diagnoses Not on filedocumented in this encounter Additional Health Concerns Infection Onset Date Last Indicated Resolved Time ESBL - Extended Spectrum Bet a-lactamase Comment:12/10/22 +ESBL Urine 02/20/23 +ESBL Urine 07/19/23 +ESBL Urine 12/10/2022 07/19/2023 Assessment Noted Time PHQ-9 Depression Total Score: 0 07/05/19 25 2:36 PM CDT documented as of this encounter Care Teams Fringe Knotter Relationship Specialty Start Date End Date Simeon Sheriff MD [address] [place] [address] PCP - General FAMILY PRACTICE 12/15/21 Humble Colon DO [address] [place] [address] Consulting Physician GASTROENTEROLOGY 07/16/22 documented as of this encounter
--- OUTSIDE RECORDS SUMMARY | 2025-03-11 16:03 | XMS_ITS | Clinical Summary ---
Author Organization [facility] Address [address] [place], [address] [address] Phone Care Team Providers Care Gunstock Repairer Name Role Phone Simeon Sheriff MD Primary Care Provider [phone] Virginia Caldera MD Unavailable [phone] Allergies Active Allergy Reactions Criticality Noted [...] Negative Negative 01/27/2022 8:05 PM CDT [facility] Stool Non-Phlebotomy Collection / Unknown 01/27/2022 7:47 PM CDT 01/27/2022 7:57 PM CDT us Caleb Ellis PAC BODY FLUIDS & STOOLS ORDERABLES Final Result [facility] [address] [place] [address] from Last 3 Months or Most Recently [...] measures to stabilize the patient. Care Teams Gunstock Repairer Relationship Specialty Start Date End Date Simeon Sheriff MD [address] [place] [address] PCP - General Family Medicine 06/22/17 Virginia Caldera MD [address] [place] [address] Consulting Physician Gastroenterology 02/11/22
--- OUTSIDE RECORDS SUMMARY | 2025-03-11 16:03 | XMS_ITS | Encounter Summary ---
Author Organization [employer] Address 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
--- OUTSIDE RECORDS SUMMARY | 2025-03-11 16:03 | XMS_ITS | Clinical Summary ---
Author Organization [facility] Address Formerly [facility] [place] [address] Care Team Providers Care Diffusion Furnace Operator Name Role Phone Simeon Sheriff MD Primary Care Provider [phone] Humble Colon DO Unavailable [phone] Allergies Active Allergy Reactions Criticality Noted Date Comments Azithromycin Rash Low 12/15/2021 Codeine Rash,Vomiting Medium 04/19/2022 Erythromycin Rash,Vomiting Medium 04/19/2022 Metoprolol Tartrate Cough 04/02/2024 Morphine Rash,Itching,Other ( see comment) Low 12/15/2021 veins turn red Nitrofurantoin Rash,Hives Medium 12/15/2021 Tizanidine Hallucinations Medium 05/15/2023 Medications traMADol (ULTRAM) 50 MG tabletIndication s:Chronic Pain Take 1 tablet (50 mg total) by mouth daily as needed. Indications: Chronic Pain 02/05/20 22 Active sertraline (ZOLOFT) 100 MG tabletIndication s:Depression Take 1.5 tablets (150 mg total) by mouth daily. Indications: Depression 01/14/20 22 Active oxybutynin XL (DITROPAN-XL) 10 MG 24 hr tabletIndication s:Urinary Urgency Take 1 tablet (10 mg total) by mouth daily. Indications: Urinary Urgency 01/23/20 22 Active levothyroxine (SYNTHROID) 88 MCG tabletIndication s:Hypothyroidism TAKE 1 TABLET BY MOUTH EVERY DAY IN THE MORNING ON AN EMPTY STOMACH 12/18/19 22 Active vitamin D3, cholecalciferol, 1000 UNIT Tab tabletIndication s:Mineral Deficiency Take 1 tablet (25 mcg total) by mouth 2 (two) times daily. Indications: Mineral Deficiency Active busPIRone (BUSPAR) 30 MG tabletIndication s:Anxiety Take 1 tablet (30 mg total) by mouth 2 (two) times daily. Indications: Feeling Anxious 01/25/20 22 Active traZODone (DESYREL) 100 MG tabletIndication s:Sleep Disorder Take 1 tablet (100 mg total) by mouth nightly at bedtime. Indications: Sleep Disorder 08/19/19 24 Active dilTIAZem CD (CARDIZEM CD) 120 MG 24 hr capsule Take 1 capsule (120 mg total) by mouth daily. Active famotidine (PEPCID) 20 MG tabletIndication s:Gastroesophage al reflux disease, unspecified whether esophagitis present Take [...] (gastric reflex). Active esomeprazole (NEXIUM) 40 MG capsuleIndicatio ns:Gastroesophag eal reflux disease, unspecified whether esophagitis present Take 1 capsule (40 mg total) by mouth every morning before breakfast. 90 capsule 1 01/01/20 25 Active fluticasone furoate-vilanter ol (BREO ELLIPTA) 100-25 MCG/ACT inhalerIndicatio ns:Mild persistent reactive airway disease without complication (HHS/HCC) Inhale 1 puff into the lungs daily. 1 each 11 03/11/20 25 Active albuterol sulfate HFA 108 (90 Base) MCG/ACT inhalerIndicatio ns:Wheezing Inhale 2 puffs into the lungs every 6 (six) hours as needed for Wheezing. Indications: Wheezing 18 g 2 03/11/20 25 Active fluticasone-salm eterol (ADVAIR HFA) 230-21 MCG/ACT inhalerIndicatio ns:Acute Respiratory Failure Inhale 2 puffs into the lungs 2 (two) times daily. 12 g 10/12/19 24 025 Discontinu ed(Alterna te therapy) albuterol sulfate HFA 108 (90 Base) MCG/ACT inhalerIndicatio ns:Wheezing Inhale 2 puffs into the lungs every 6 (six) hours as needed for Wheezing. 18 g 2 10/14/19 24 025 Discontinu ed(Reorder ) predniSONE (DELTASONE) 20 MG tablet Take 2 tablets (40 mg total) by mouth daily for 5 days. 10 tablet 02/09/20 levoFLOXacin (LEVAQUIN) 750 MG tablet Take 1 tablet (750 mg total) by mouth daily for 5 days. 5 tablet 02/09/20 Active Problems Problem Noted Date Diagnosed Date CVA (cerebral vascular accident) 07/22/2024 Nocturnal hypoxia 10/19/2023 Physical deconditioning 10/19/2023 Acute respiratory failure 10/09/2023 Encounters Date Type Department Care Team Description 03/11/2025 9:40 AM MOTOR POOL DRIVER Office Visit [facility]ty Care - [facility] [address], [address] [place] [address] Salvador Norwood MD Follow Up 03/11/2025 Travel 02/11/2025 5:24 PM MOTOR POOL DRIVER - 02/11/2025 8:30 PM MOTOR POOL DRIVER Emergency [facility] [place] [address] Tyler Carcamo MD Breathing Problem Discharge Disposition: Home or Self Care (Routine Discharge) 02/11/2025 Scan [facility] HEALTH INFO SRVCS Scanned, [facility] 02/11/2025 Travel 02/11/2025 Telephone [facility] - [address] [phone] Salvador Norwood MD Medication 02/08/2025 3:57 PM CDT - 02/08/2025 7:12 PM CDT Emergency [facility] [place] [address] Sunny Allen PA Pleuritic Chest Pain Discharge Disposition: Home or Self Care (Routine Discharge) 02/08/2025 Travel 01/27/2025 Scan Gift Card Impressions INFO SRVCS Scanned, [facility] 01/23/2025 Telephone [facility] - [address] [address] Salvador Norwood MD Question 12/31/2024 8:09 AM CDT Anesthesia Event [facility] [address] [place] [address] Damian Harman CRNA Rani, Swaroop, MD 12/31/2024 8:02 AM CDT - 12/31/2024 8:34 AM CDT Surgery [facility] [address] [place] [address] Elias Torres MD CATARACT REMOVAL WITH IOL IMPLANT 12/31/2024 6:53 AM CDT - 12/31/2024 8:40 AM CDT Hospital Encounter [facility] [address] [place] [address] Elias Torres MD Discharge Disposition: Home or Self Care (Routine Discharge) 12/31/2024 Telephone [facility] - [facility] [address] [place] [phone] Donaldo Velazquez MD Medication 12/31/2024 Travel from Last 3 Months Immunizations Immunization Administration Dates Next Due Influenza (Generic) 01/07/2016,01/24/2015,2013,01/03/2013 Influenza Adult (Generic) 01/09/2022,05/2020,01/12/2020,12/15/2018,100 09/2017,01/13/2017 Pneumococcal (Pneumovax 23) 01/03/2013 Pneumococcal (Prevnar 13) [...] materials from doctor or pharmacy Rarely 10/20/2023 [facility] Utilities Answer Date Recorded In the past 12 months has e [employer], gas, oil, or water [employer] threatened to shut off services in your [...] any time in the past 12 m [facility], were you homeless or living in a detention (including now)? No 07/22/2024 Comments No Sex and Gender Information Value Date Recorded Sex Assigned at Female 06/01/2024 11:56 AM MOTOR POOL DRIVER Legal Sex Female 5:56 PM CDT Gender Identity Not on file Sexual Orientation Not on file Last Filed Vital Signs Vital Sign Reading Time Taken Comments Blood Pressure 117/78 03/11/2025 9:44 AM MOTOR POOL DRIVER Pulse 87 03/11/2025 9:44 AM MOTOR POOL DRIVER Temperature 36.6 C (97.9 F) 02/11/2025 4:34 PM MOTOR POOL DRIVER Respiratory Rate 16 03/11/2025 9:44 AM MOTOR POOL DRIVER Oxygen Saturation 96% 03/11/2025 9:44 AM MOTOR POOL DRIVER ra Inhaled Oxygen Concentration - - Weight 78 kg (172 lb) 03/11/2025 9:44 AM MOTOR POOL DRIVER Height 154.9 cm (5' 1) 03/11/2025 9:44 AM MOTOR POOL DRIVER Body Mass Index 32.5 03/11/2025 9:44 AM MOTOR POOL DRIVER Plan of Treatment Upcoming Encounters Date Type Department Care Team (Late st Contact Info) Description 07/17/2025 11:00 AM CDT Office Visit [facility] [address] [place] [id number] Salvador Norwood MD [address] [place] [address] Health Maintenance Due Date Last Done Comments Annual Physical 11/18/1963 Hepatitis C 1978 Mammogram Screening 2000 Zoster Vaccines (1 of 2) 2010 Pneumococcal Vaccine: 50+ Years (3 of 3 - PCV20 or PCV21) 01/25/2020 01/24/2015, 01/03/2013 RSV Immunization or 60+ Years (1 - Risk 60-74 years 1-dose series) 2020 COVID-19 Vaccine (4 - 2024- season) 2024 02/17/2021, 07/05/2020, 06/07/2020 Influenza Adult (#1) 2025 01/09/2022, 01/10/2021, 01/12/2020, Additional history exists DTaP, Tdap and Td Vaccines (3 - Td or Tdap) 12/03/2031 12/02/2021, 01/22/2014 Colorectal Cancer Screening Colonoscopy (10 Years) 05/07/2032 05/07/2022, 05/07/2022 PHQ-2 (Physician [place]) Completed 07/04/2024 Hepatitis A Vaccines Aged Out No long er eligible based on patient's age to complete this topic Meningococcal B Vaccine Aged Out No l onger eligible based on patient's age to complete this topic Meningococcal Vaccine Aged Out No ezequiel ninfa eligible based on patient's age to complete this topic RSV Immunizations Under 20 Months Aged Out No longer eligible based on patient's age to complete this topic Medical Devices Implanted Type Area Human Service Worker Device Identifier Shelf Expiration Date Model / Serial / Lot Cage Cage Back Knee Components Knee Components Right: Knee Stimulator Lead Implant- 025 Implanted:Qty: 1 on 04/25/2024 Lead Implant Spine Thoracic Px[employer]ia LUANA [id number] / / Description:SECONDARY SOCIAL STUDIES TEACHER Tecnis 1-Piece Iol With Tecnis Simplicity Delivery System Implanted:Qty: 1 on 12/31/2024 by Elias Torres MD at [facility] Lens Left: Eye [employer] [facility] [facility] 06/26/2027 / [id number] / Stimulator Implant- 025 Implanted:Qty: 1 on 04/25/2024 Stimulator Implant Right: Back DataPad [id number] / [id number] / Description:MR CONDITIONAL A T 1.5 T ONLY!, NEED REMOTE TO DO IMPEDANCE CHECK AND TURN OFF STIMULATION, FOLLOW SCAN CONDITIONS IN MR TECHNICAL MANUAL(FOLLOW SECONDARY SOCIAL STUDIES TEACHER INSTRUCTIONS) Procedures Procedure Name Priority Date/Time Associated Diagnosis Comments ECG 12-LEAD STAT 02/11/2025 5:51 PM MOTOR POOL DRIVER TROPONIN, QUANT STAT 02/11/2025 5:32 PM MOTOR POOL DRIVER COMPREHENSIVE METABOLIC PANEL STAT 02/11/2025 5:32 PM MOTOR POOL DRIVER CBC W/DIFF AUTOMATED STAT 02/11/2025 5:32 [address] CHEST WO CON STAT 02/11/2025 5:06 PM MOTOR POOL DRIVER TROPONIN, QUANT STAT 02/08/2025 5:53 PM CDT ECG 12-LEAD STAT 02/08/2025 5:50 PM CDT XR CHEST PORTABLE STAT 02/08/2025 4:2 4 PM CDT ECG 12-LEAD Routine 02/08/2025 3:53 PM CDT D-DIMER, QUANTITATIVE STAT 02/08/2025 3:53 PM CDT TROPONIN, QUANT STAT 02/08/2025 3:53 PM CDT COMPREHENSIVE METABOLIC PANEL STAT 02/08/2025 3:53 PM CDT CBC W/DIFF AUTOMATED STAT 02/08/2025 3:53 PM CDT REMV CATARACT EXTRACAP,INSERT LENS 12/31/2024 8:09 AM CDT H25.12 Case Notes C COLONOSCOPY Routine 05/07/2022 7:39 AM MOTOR POOL DRIVER from Last 3 Months or Most Recently Relevant to Health Maintenance Results * ECG 12 lead (02/11/2025 5:51 PM MOTOR POOL DRIVER) Only the most recent of3 resultswithin the time period is included. ECG QT 355 [facility] ECG QTC 411 [facility] 02/11/2025 5:51 PM MOTOR POOL DRIVER Narrative [facility] - 02/12/2025 5:55 AM MOTOR POOL DRIVER [facility] [address] Test Date: 2025-02-11 Pat Name: EMRE MARQUIS Department: 41 Room: EXAM22 Gender: Female Refrigerated National Truck Driver: [id number] : 1960 Requested By: JUVENTINO CARRION Order Number: [id number] Reading MD: Lito Nielsen Measurements Intervals [place] Rate: 80 P: 35 MD: 125 QRS: -16 QRSD: 79 T: 44 QT: 355 QTc: 411 Interpretive Statements SINUS RHYTHM VOLTAGE CRITERIA FOR LVH [MEETS CRITERIA IN ONE OF: R(aVL), S(V1), R(V5), R(V5/V6)+S(V1)] Other ischemic changes, not STEMI Preliminary EKG Interpretation by Tyler Carcamo M.D. R POOL DRIVER Procedure Note Lito Nielsen MD - 02/12/2025 [facility] [address] Test Date: 2025-02-11 Pat Name: EMRE MARQUIS Department: 41 Room: EXAM22 Gender: Female Refrigerated National Truck Driver: [id number] : 1960 Requested By: JUVENTINO CARRION Order Number: [id number] Reading MD: Lito Nielsen Measurements Intervals [place] Rate: 80 P: 35 MD: 125 QRS: -16 QRSD: 79 T: 44 QT: 355 QTc: 411 Interpretive Statements SINUS RHYTHM VOLTAGE CRITERIA FOR LVH [MEETS CRITERIA IN ONE OF: R(aVL), S(V1),R(V5), R(V5/V6)+S(V1)] Other ischemic changes, not STEMI Preliminary EKG Interpretation by Tyler Carcamo M.D. R POOL DRIVER us Ju[facility] DUPREE ECG ORDERABLES Final Resu lt [facility] ([facility]) RAD * (ABNORMAL) COMPREHENSIVE METABOLIC PANEL (02/11/2025 5:32 PM MOTOR POOL DRIVER) Only the most recent of2 resultswithin the time period is included. GLUCOSE 110(H) 70 - 99 MG/DL 02/11/2025 6:10 PM MOTOR POOL DRIVER [facility] BUN 23(H) 7 - 18 MG/DL 02/11/2025 6:10 PM MOTOR POOL DRIVER [facility] CREATININE S/P/B 1.16(H) 0.55 - 1.02 MG/DL 02/11/2025 6:10 PM MOTOR POOL DRIVER [facility] SODIUM S/P/B 138 136 - 145 MMOL/L 02/11/2025 6:10 PM MOTOR POOL DRIVER [facility] POTASSIUM S/P/B 4.0 3.5 - 5.1 MMOL/L 02/11/2025 6:10 PM MOTOR POOL DRIVER [facility] CHLORIDE S/P/B 105 97 - 115 MMOL/L 02/11/2025 6:10 PM MOTOR POOL DRIVER [facility] CO2 26.7 21 - 32 MMOL/L 02/11/2025 6:10 PM MOTOR POOL DRIVER [facility] CALCIUM S/P/B 9.2 8.5 - 10.1 MG/DL 02/11/2025 6:[address] [facility] BILIRUBIN TOTAL S/P/B 0.3 0.2 - 1.2 MG/DL 02/11/2025 6:[address] [facility] Comment: THIS ASSAY IS NOT RECOMMENDED FOR PATIENTS UNDERGOING TREATMENT WITH ELTROMBOPAG DUE TO THE POTENTIAL FOR FALSELY ELEVATED RESULTS. TOTAL PROTEIN S/P/B 7.8 6.4 - 8.2 G/DL 02/11/2025 6:[address] [facility] ALBUMIN S/P/B 3.8 3.4 - 5.0 G/DL 02/11/2025 6:[address] [facility] AST 24 15 - 37 U/L 02/11/2025 6:[address] [facility] ALT 42 14 - 55 U/L 02/11/2025 6:[address] [facility] ALKALINE PHOSPHATASE S/P/B 88 50 - 136 U/L 02/11/2025 6:[address] [facility] ANION GAP 6.3 2 - 10 MMOL/L 02/11/2025 6:[address] [facility] BUN CREATININE RATIO 19.8 6 - 26 02/11/2025 6:[address] [facility] A/G RATIO 1.0 1.0 - 2.0 RATIO 02/11/2025 6:[address] [facility] GFR ESTIMATE 53(L) >90 ML/MIN/1.7 3 M2 02/11/2025 6:[address] [facility] Comment: NOTE: eGFR is not calculated for patients <18 years of age or gender unknown. This is an estimated GFR calculation using the new CKD EPI creatinine equation without race and so does not require a correction factor for race. This estimated GFR should not be used for calculating drug doses. 02/11/2025 5:32 PM MOTOR POOL DRIVER us Ju[facility] DUPREE LABORATORY Final Resu lt [facility] [address] [place] [address], [place] [phone] * (ABNORMAL) CBC W/DIFF AUTOMATED (02/11/2025 5:32 PM MOTOR POOL DRIVER) Only the most recent of2 resultswithin the time period is included. WBC 12.02(H) 4.5 - 11.0 x10'3/uL 02/11/2025 5:49 PM MOTOR POOL DRIVER [facility] RBC 5.00 4.20 - 5.40 x10'6/uL 02/11/2025 5:49 PM MOTOR POOL DRIVER [facility] HGB 11.3(L) 12.0 - 16.0 G/DL 02/11/2025 5:49 PM MOTOR POOL DRIVER [facility] HCT 37.1(L) 38.0 - 48.0 % 02/11/2025 5:49 PM MOTOR POOL DRIVER [facility] MCV 74.2(L) 81.0 - 99.0 FL 02/11/2025 5:49 PM MOTOR POOL DRIVER [facility] MCH 22.6(L) 27.0 - 31.0 PG 02/11/2025 5:49 PM MOTOR POOL DRIVER [facility] MCHC 30.5(L) 32.0 - 36.0 G/DL 02/11/2025 5:49 PM MOTOR POOL DRIVER [facility] RDW 16.7(H) 11.5 - 14.5 % 02/11/2025 5:49 PM MOTOR POOL DRIVER [facility] PLT 221 130 - 400 x10'3/uL 02/11/2025 5:49 PM MOTOR POOL DRIVER [facility] MPV 10.2 9.3 - 12.2 FL 02/11/2025 5:[address] [facility] DIFFERENTIAL TYPE AUTOMATED DIFFERENTIAL 02/11/2025 6:[address] [facility] NEUTROPHILS % 74.2 % 02/11/2025 6:[address] [facility] LYMPHOCYTES % 17.4 % 02/11/2025 6:[address] [facility] MONOCYTES % 7.4 % 02/11/2025 6:[address] [facility] EOSINOPHILS 0.0 % 02/11/2025 6:[address] [facility] BASOPHILS 0.2 % 02/11/2025 6:[address] [facility] IMMATURE GRANS % 0.8 % 02/12/20 25 6:[address] [facility] ABS. NEUTROPHILS 8.92(H) 1.80 - 7.70 x10'3/uL 02/11/2025 6:[address] [facility] ABS. LYMPHOCYTES 2.09 1.00 - 4.80 x10'3/uL 02/11/2025 6:[address] [facility] ABS. MONOCYTES 0.89(H) 0.24 - 0.86 x10'3/uL 02/11/2025 6:[address] [facility] ABS. EOSINOPHILS 0.00(L) 0.04 - 0.36 x10'3/uL 02/11/2025 6:[address] [facility] ABS. BASOPHILS 0.02 0.01 - 0.08 x10'3/uL 02/11/2025 6:[address] [facility] ABS. IMMATURE GRANULOCYTES 0.10 0.00 - 0.49 x10'3/uL 02/11/2025 6:[address] [facility] RBC MORPHOLOGY SLIDE REVIEWED 2024 6:11 PM MOTOR POOL DRIVER [facility] MICRO 1+ 02/11/2025 6:11 PM MOTOR POOL DRIVER [facility] PLT EST. ADEQUATE 02/11/2025 6:11 PM MOTOR POOL DRIVER [facility] 02/11/2025 5:32 PM MOTOR POOL DRIVER Juvent[facility] DUPREE LABORATORY Final Resu lt [facility] [address] [place] [address], [place] [phone] * TROPONIN, QUANT (02/11/2025 5:32 PM MOTOR POOL DRIVER) Only the most recent of3 resultswithin the time period is included. TROPONIN I HIGH SENSITIVITY 5 <54 ng/L 02/11/2025 6:10 PM MOTOR POOL DRIVER [facility] Comment: HIGH DOSES OF BIOTIN, TROPONIN-SPECIFIC AUTOANTIBODIES, AND ANTIBODY THERAPY CONTAINING HAMA MAY INTERFERE WITH THIS TEST RESULT. CORRELATION TO CLINICAL HISTORY AND PRESENTATION RECOMMENDED. 02/11/2025 5:32 PM MOTOR POOL DRIVER [facility] D[facility] LABORATORY Final Resu lt Performing Organization Address City/[facility]/ZIP Co de Phone Number [facility] [address] [place] [address], [place] [phone] * CT CHEST WO CON (02/11/2025 5:06 PM MOTOR POOL DRIVER) Anatomical Region Laterality Modality Chest Computed Tomogra phy 02/11/2025 6:07 PM MOTOR POOL DRIVER Impressions 02/11/2025 6:15 PM MOTOR POOL DRIVER Impression: 1. No acute cardiopulmonary abnormality. 2. Stable chronic findings as above. Referred By: Interpreted By: Karlo Swain MD, 02/11/2025 6:07 PM Narrative 02/11/2025 6:15 PM MOTOR POOL DRIVER [address] [address] Examination: CT chest without IV contrast. Clinical Information: Cough, shortness of breath. Comparison: CT chest 06/01/2024, x-ray chest 02/08/2025 Technique: IV contrast: None Oral contrast: None. Technical comments: Standard technique. Dose reduction: This CT exam was performed using one or more of the following dose reduction techniques: Automated exposure control, adjustment of the mA and/or kV according to patient size, and/or use of iterative reconstruction technique. Findings: MEDIASTINUM Support tubes and lines: None. Base of neck/thyroid: No significant thyroid tissue is visualized. Heart: Normal in size. No pericardial effusion. No coronary artery calcifications. Lymph nodes: No supraclavicular, axillary, internal mammary, mediastinal, or hilar adenopathy. Calcified left mediastinal and hilar lymph nodes. VASCULATURE Thoracic aorta and pulmonary arteries are unremarkable. LUNGS AND PLEURA Lungs: No focal consolidation. Stable right upper lobe 3 mm nodule on image 49. Left upper lobe calcified granuloma. Pleura: No pleural effusion, thickening, or calcification. UPPER ABDOMEN Cholecystectomy. BONES/SOFT TISSUES Prior vertebroplasty at T11. No acute fractures. Laminectomy of T7-T8. Thoracic spine nerve stimulator. Procedure Note Karlo Swain, DO - 02/11/[address] [address] Examination: CT chest without IV contrast. Clinical Information: Cough, shortness of breath. Comparison: CT chest 06/01/2024, x-ray chest 02/08/2025 Technique: IV contrast: None Oral contrast: None. Technical comments: Standard technique. Dose reduction: This CT exam was performed using one or more of thefollowing dose reduction techniques: Automated exposure control,adjustment of the mA and/or kV according to patient size, and/or use ofiterative reconstruction technique. Findings: MEDIASTINUM Support tubes and lines: None. Base of neck/thyroid: No significant thyroid tissue is visualized. Heart: Normal in size. No pericardial effusion. No coronary arterycalcifications. Lymph nodes: No supraclavicular, axillary, internal mammary, mediastinal,or hilar adenopathy. Calcified left mediastinal and hilar lymph nodes. VASCULATURE Thoracic aorta and pulmonary arteries are unremarkable. LUNGS AND PLEURA Lungs: No focal consolidation. Stable right upper lobe 3 mm nodule onimage 49. Left upper lobe calcified granuloma. Pleura: No pleural effusion, thickening, or calcification. UPPER ABDOMEN Cholecystectomy. BONES/SOFT TISSUES Prior vertebroplasty at T11. No acute fractures. Laminectomy of T7-T8.Thoracic spine nerve stimulator. Impression: 1. No acute cardiopulmonary abnormality. 2. Stable chronic findings as above. Referred By: Interpreted By: Karlo Swain MD, 02/11/2025 6:[address] Final Resu lt * XR CHEST PORTABLE (02/08/2025 4:24 PM CDT) Anatomical Region Laterality Modality Chest Radiographic Pari ging 02/08/2025 4:21 PM CDT Impressions 02/08/2025 4:24 PM CDT IMPRESSION: No radiologic evidence of active disease. Stable chronic findings as described. Referred By: Interpreted By: Wilder Champion MD, 02/08/2025 4:21 PM Narrative 02/08/2025 4:24 PM CDT [facility] [address] [place], [place] [address] Chest Film Date/Time: 02/08/2025 at 1546 hours. Indications: 64-year-old female with chest pain. Technique: Single frontal view of the chest film was obtained. Comparison: -PA and lateral chest films dated 08/05/2024. -AP upright chest film dated 10/11/2023. Findings: The heart and pulmonary vasculature are within normal limits. Stable small calcified granuloma lateral aspect left midlung zone. No consolidative changes, large effusions, or evidence of pneumothorax. Spinal stimulator device projected over mid thoracic spine, and post vertebroplasty changes lower thoracic spine again visualized and unchanged. Procedure Note Wilder Champion MD - 02/08/[address] [address] Chest Film Date/Time: 02/08/2025 at 1546 hours. Indications: 64-year-old female with chest pain. Technique: Single frontal view of the chest film was obtained. Comparison: -PA and lateral chest films dated 08/05/2024. -AP upright chest film dated 10/11/2023. Findings: The heart and pulmonary vasculature are within normal limits. Stablesmall calcified granuloma lateral aspect left midlung zone. Noconsolidative changes, large effusions, or evidence of pneumothorax.Spinal stimulator device projected over mid thoracic spine, and postvertebroplasty changes lower thoracic spine again visualized andunchanged. IMPRESSION: No radiologic evidence of active disease. Stable chronic findings asdescribed. Referred By: Interpreted By: Wilder Champion MD, 02/08/2025 4:21 PM [facility] Final Resul t * D-DIMER, QUANTITATIVE (02/08/2025 3:53 PM CDT) D-DIMER 430 0 - 500 ng{FEU}/mL 02/08/2025 4:52 PM CDT [facility] Comment: D-Dimer values less than or equal to 500 ng/mL FEU have a negative predictive value of >95% for exclusion of deep vein thrombosis and pulmonary embolism. In patients over 50 (who tend to have higher normal baseline D-Dimer values), recent studies suggest age-adjusted D-Dimer cutoff values (calculated as: age [years] x 10 ng/mL) result in equivalent outcomes and no additional false negative findings. 02/08/2025 3:53 PM CDT us Sunny Allen PA LABORATORY Final Resul t [facility] [address] [place] [address], [place] [phone] from Last 3 Months Additional Health Concerns Infection Onset Date Last Indicated ESBL - Extended Spectrum Bet a-lactamase Comment:12/10/22 +ESBL Urine 02/20/23 +ESBL Urine 07/19/23 +ESBL Urine 12/10/2022 07/19/2023 Insurance [facility] Advance Directives * Full Code (Latest Code Status on File) Date Activated Date Inactivated Comments 07/22/2024 11:12 PM 07/24/2024 9:25 PM * Full Code Date Activated Date Inactivated Comments 10/13/2023 1:01 PM 06/01/2024 11:30 AM * Full Code Date Activated Date Inactivated Comments 10/09/2023 3:23 AM 10/12/2023 12:31 PM Care Teams Diffusion Furnace Operator Relationship Specialty Start Date End Date Simeon Sheriff MD [address] [place] [address] PCP - General FAMILY PRACTICE 12/15/21 Humble Colon DO [address] [place] [address] Consulting Physician GASTROENTEROLOGY 07/16/22
--- OUTSIDE RECORDS SUMMARY | 2025-03-11 16:03 | XMS_ITS | Encounter Summary ---
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 Name Role Phone Simeon Sheriff MD Primary Care Provider [phone] Encounter Details Date Type Department Care Team (Late st Contact Info) Description 10/09/2019 Lab Requisition [facility] [address] [place] [id number] Isaac Reid MD 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 Tobacco Use Types Packs/Day Years Used Date Smoking Tobacco: Never Assessed Comments Unknown Sex and Gender Information Value Date Recorded Sex Assigned at Not on file Legal 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 This test has been [...] LAB - MICROBIOLOGY ORDERABL ES Final Result [facility] [address] [place], [place] [address], [facility] [phone] documented in this encounter Visit Diagnoses Not on filedocumented in this encounter Additional Health Concerns Infection Onset Date Last Indicated Resolved Time COVID-19 Under Investigation 10/08/2019 10/08/2019 10/09/2019 6:32 PM CDT documented as of this encounter Care Teams Welding Pantograph Operator Relationship Specialty Start Date End Date Smieon Sheriff MD PCP - General 07/21/17 documented as of this encounter
[2025-03-11 16:08] LABS: Hematocrit 35.4 % (37.0-47.0); Hemoglobin 10.6 g/dL (12.0-15.0); Immature Granulocyte Percent A 0.4 % (0-0.5); Lymphocytes Absolute Auto 3.09 K/mm3 (0.9-3.2); Mean Corpuscular HGB Conc 29.9 g/dl (32-36); Mean Corpuscular Hemoglobin 23.0 pg (26-34); Mean Corpuscular Volume 76.8 fl (80-100); Nucleated Red Blood Cells Absolute Auto 0.000 K/mm3 (0.0-0.012); Nucleated Red Blood Cells Perc 0.0 % (0.0-0.2); Platelet Count Result 198 k/mm3 (150-375); Red Blood Count 4.61 M/mm3 (4.2-5.4); White Blood Count 8.9 K/mm3 (4.5-10.0)
[2025-03-11 16:19] LABS: INR 1.0; Prothrombin Time 13.5 Seconds (11.1-14.7)
[2025-03-11 16:20] LABS: Partial Thromboplastin Time 31.5 Seconds (22.3-36.8)
[2025-03-11 16:28] LABS: Add Urine Microscopic? YES; Appearance Urine Clear (Clear); Glucose Urine UA Negative (Negative); Leukocyte Esterase Ur Trace LEU/UL (Negative); Nitrate Urine Negative (Negative); Non Pathogenic Casts 0-2; Specific Grav Ur 1.019 (1.001-1.035)
[2025-03-11 16:28] LABS: Alanine Aminotransferase 24 U/L (6-35); Albumin Level 4.3 g/dL (3.5-5.1); Alkaline Phosphatase 94 U/L (38-126); Anion Gap 5 mmol/L (4-12); Aspartate Amino Transferase 31 U/L (14-36); Bilirubin,Total 0.4 mg/dL (0.2-1.3); Blood Urea Nitrogen 13 mg/dL (7-17); Calcium 9.0 mg/dL (8.4-10.2); Carbon Dioxide 27 mmol/L (22-30); Chloride 105 mmol/L (98-107); Estimated CRCL calculation 46 ml/min; Estimated Glomerular Filt Rate 53; Glucose 87 mg/dL (65-110); Lipase 91 U/L (23-300); Potassium 3.7 mmol/L (3.4-5.0); Sodium 137 mmol/L (137-145); Total Protein 7.3 g/dL (6.3-8.2)
[2025-03-11 16:30] LABS: Anisocytosis 2+; Band Neutrophils Percent 0 % (0-6); Hypochromasia 1+; Schistocytes None Seen
[2025-03-11 16:31] LABS: Microcytosis 1+ (NORMAL)
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
[2025-03-11] MEDS: ONDANSETRON INJ 4 MG/2 ML VIAL IV PUSH (18:27)
[2025-03-11] MEDS: HYDROmorphone HCL INJ (*CRX) 1 MG/ML SYR 0.5 MG IV PUSH ×2 (18:27→21:20)
[2025-03-11 18:28] VITALS: BP 139/85; PULSE 84; RESP 19; O2SAT 94
[2025-03-11] MEDS: FAMOTIDINE 20 MG/2 ML VIAL IV PUSH (21:19)
[2025-03-11] MEDS: BELLADONNA ALK/PHENOB ELIX 10 ML, MAG HYDROX/ALUMINUM HYD/SIMETH 30 ML, LIDOCAINE 2% VI... PO (21:22)
[2025-03-11] MEDS: KETOROLAC 15 MG/ML VIAL (*BKC) IV PUSH (21:23)
[2025-03-11] MEDS: ACETAMINOPHEN 500 MG TABLET 1000 MG PO (21:23)
[2025-03-11] MEDS: DICYCLOMINE HCL 10 MG CAPSULE PO (22:24)
[2025-03-11 22:44] VITALS: BP 105/66; PULSE 87; RESP 17; O2SAT 95
== END 2025-03-11 22:47 | disposition home or self-care (01) ==
PROVIDERS: Emergency Provider Student in an Organized Health Care Education/Training Program; PCP Family Medicine
DX: R10.13 Epigastric pain (principal); D50.9 Iron deficiency anemia, unspecified; I12.9 Hypertensive chronic kidney disease with stage 1 through stage 4 chronic kidney disease, or unspecified chronic kidney disease; N18.9 Chronic kidney disease, unspecified; K21.9 Gastro-esophageal reflux disease without esophagitis; E78.5 Hyperlipidemia, unspecified; E03.9 Hypothyroidism, unspecified; F32.A Depression, unspecified; F41.9 Anxiety disorder, unspecified; Z87.442 Personal history of urinary calculi; K50.90 Crohn's disease, unspecified, without complications
CPT/HCPCS: 36415; 74177; 80053; 81001; 83605; 83690; 85025; 85610; 85730; 87086; 96374; 96375; 96376; 99284; A9270; J1171; J1885; J2405; Q9967

== ENCOUNTER 2025-04-07 16:36 | Emergency (ER) | payer MEDICARE, BC, SELFPAY ==
--- OUTSIDE RECORDS SUMMARY | 2024-06-19 09:00 | XMS_ITS ---
Author Organization [facility] [employer] [facility] Address [address] [address] Care Team Providers Care [employer] Name Role Phone Simeon Sheriff MD Primary Care Provider Abigail Jalloh Unavailable [phone] REASON FOR VISIT R/S due to complications with back surgery 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 Sex Assigned At : 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 Observation Description Sex Assigned At Female Encounters Encounter Location Date Provider Diagnosis [facility] [employer] [place] [address] [address] 06/19/2024 Abigail Marte Plan Of Treatment Next Appt Details Provider Name:Abigail Marte , 04/15/2025 11:45:00 AM, [address], [facility] [address], [place], [address], Progress Notes * EMRE MARQUIS KDOB:1960 (64 yo F)Acc No.[id number]:06/19/2024 Patient: Gabrielle EMRE DUFFY Provider: ROSA CUNNINGHAM :1960 A ge:63 Y S ex:Female Date:06/19/2024 Address:[address] [place], [place] [id number] Pcp:Simeon Sheriff MD Subjective: * Chief Complaints: * R /S due to complications with back surgery Billing Information: * Procedure Codes: * Electronic signature of ROSA Chapin on 04/07/2025 at 02:27 AM MEDICAL INSURANCE VERIFIER Sign off status: Pending * Provider: ROSA CUNNINGHAM Date: 0 06/19/2024 Generated for Jaun Foreman/Jacqueline on: 1 06/08/2024 02:27 AM MEDICAL INSURANCE VERIFIER
--- OUTSIDE RECORDS SUMMARY | 2025-02-13 11:30 | XMS_ITS ---
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 Name Role Phone LIZ PERKINS MD JORGE Primary Care Provider [facility] [phone] Allergies Allergen (clinical drug ingredient) Drug/Non Drug [...] Drug Allergy Active REASON FOR VISIT BILAT L1-3 MBNB (XANAX) AFTER 02/13/25 (NO ASC COPAY) Medications Medication SIG (Take, Route, Frequency, Duration) Notes Start Date End Date Diagnosis (ICD Code) Status Gabapentin 300 MG Capsule 1 capsule Orally Three times a day Active Rosuvastatin Calcium 10 MG Tablet 1 tablet Orally Once a day; Duration: 30 day(s) Active buPROPion HCl 75 MG Tablet 2 tablets Orally Twice a day; Duration: 30 day(s) Active Xanax 0.25 MG Tablet 1-2 tablets Orally 30 minutes prior to injection 02/04/2025 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 Oral; Duration: 90 Active traMADol HCl 50 MG Tablet 1 tablet as needed Orally twice daily; Duration: 7 days 07/05/2024 Radiculopathy, lumbar region (ICD_10 - M54.16) Active methylPREDNISolone 4 MG Tablet Therapy Pack as directed Orally Chronic pain syndrome (ICD_10 - G89.4) Active Famotidine 20 MG Tablet 1 tablet at bedtime as needed Oral Once a day Active Memantine HCl 5 MG Tablet 1 tablet Oral Once a day Active traZODone HCl 100 MG Tablet 1 tablet at bedtime Oral Once a day Active oxyBUTYnin Chloride ER 10 MG Tablet Extended Release 24 Hour Oral; Duration: 30 Active busPIRone HCl 15 MG Tablet 1 tablet Orally Twice a day Active Esomeprazole Magnesium 40 MG Capsule Delayed Release 1 capsule Oral Once a day Active Vitamin D-3 25 MCG (1000 UT) Capsule 1 capsule Orally Once a day Active Tylenol 325 MG Tablet 1 tablet as needed Orally every 6 hrs Active dilTIAZem HCl 120 MG Tablet as directed Orally Active Sertraline HCl 100 MG Tablet 1 tablet Orally Once a day; Duration: 30 day(s) Active 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 Sex Observation 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 Observation Description Sex Observation Female 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 Section Notes: The patient denies tobacco, alcohol, or illicit drug abuse. Encounters Date Time Type Facility Location Provider Diagnosis 11:30 AM Office Visit [facility] [address] [place] [address] Mian Tee Spondylosis without myelopathy or radiculopathy, lumbar region M47.816 and Spondylosis without myelopathy or radiculopathy, lumbosacral region M47.817 Assessments Encounter Date Diagnosis (ICD Code) Assessment Notes Treatment Notes Section Notes 02/13/2025 Spondylosis without myelopathy or radiculopathy, lumbar region (ICD-10 - M47.816) 02/13/2025 Spondylosis without myelopathy or radiculopathy, lumbosacral region (ICD-10 - M47.817) 02/13/2025 Other The patient voiced understanding of the [...] SAFETY CONCERNS HAVE BEEN ADDRESSED. RN initials Plan Of Treatment Treatment Notes Assessment Notes Other The patient [...] BEEN ADDRESSED. RN initials Next Appt Details Provider Name:Mian gutierrez, 04/09/2025 10:45:00 AM, [address] [place], [address], Medical (General) History Medical History History ICD Code Crohns Disease Hypothyroidism Hypertension Kidney stones CVA GERD IBS Depression Nonalcoholic fatty liver disease Insomnia Sleep apnea Anxiety Surgical History Surgery Date(Month/Year) L4-5 and L5-S1 lumbar fusion- Dr. Foreman y Cholecystectomy Bilateral rotator cuff tear repair Bilateral carpal tunnel release Left ankle surgery 2017 Right total knee arthroplasty 05/2018 T11 Kyphoplasty SCS Paddle Lead Implant- Dr. Dalal 025 Procedure Notes * Category Organ Details Notes Section Notes Medial Branch Nerve Block Procedure: L1-3 M edial Branch Nerve Block Under Fluoroscopy Location: Bilateral Anesthesia: Local without IV sed ation Operative Technique: [...] fashion with chlorhexidine 2%/IPA 70%. The bilateral L2, L3 and L4 pedicles were identified with x-ray using an AP view. A 23 gauge 3.5 inch spinal needle was inserted in a gun barrel fashion to the junction of the superior articular process and transverse process at the upper outer quadrant of the pedicle until periosteum was contacted at each level bilaterally. A solution of 10 mg of Preservative- Free Dexamethasone (10 mg/mL), plus 2 mL of 0.25% Preservative-Free bupivacaine was mixed. After negative aspiration for blood, air or CSF, 0.5 mL of this solution was injected at each level, blocking the L1-3 medial branch nerves. The needles were then removed, the skin was cleaned and band-aids were placed over the puncture sites. The patient tolerated the procedure well, was able to ambulate without difficulty and was monitored for 20 minutes. The patient remained hemodynamically and neurologically stable. No complications were observed. The patient noted a 90% reduction in his typical back pain associated with extension and lateral rotation of the lumbar spine. Postoperative instructions were reviewed with the patient. The patient was discharged home in good condition with a tilt tray driver. X-ray time: 6 seconds Safe Surgery Practices First Critical Point [...] for fumes to dissipate. Confirm surgical team assistant and roles. Anticipated critical events. Essential imaging [...] discharged ambulatory. Patient denies complaints or questions History and Physical Notes * HPI (History of Present Illness) Category c/o Denies Symptom Duration Details Notes Catego ry Notes Pain Management Assessment a nd Follow-up: Follow-up Plan documented: : Yes The patient presents with complaints of severe right equal to left axial low back pain. The patient's pain is associated with prolonged standing. Due to severe pain, the patient reports she has been experiencing difficulty performing basic activities of daily living. The patient has tried and failed greater than 6 months conservative treatments including home exercise therapy, physical therapy, acetaminophen and NSAIDs without sustained relief. The patient continues to do physical therapy exercises and stretches at home without sustained relief. The patient would like to schedule a bilateral L1-3 medial branch nerve block #2 with the ultimate goal of radiofrequency ablation for more durable pain relief. The patient reports anxiety associated with injections and is requesting an anxiolytic prior to her scheduled injection. [facility] Quality 2020: [facility] Docume nted:: Compliant Examination Category Field Details Notes Category Notes Examination/ Pre-Anesthesia Assessment General: The patient is alert and sheela ented X 3 in moderate distress secondary to [...] patient's typical axial low back pain. Endy's, Wanatah's and Gaenslen's are positive bilaterally. There is [...] t. Psychiatric: Mood and affect are normal Progress Notes * EMRE MARQUISDOB:[birth year] (64 yo F)Acc No.[id number]:02/13/2025 Progress Note Patient: EMRE MARQUIS Provider: Mian Tee MD :1960 Age:64 Y Sex:Female Date:02/13/2025 Address:[place], [id number] Pcp:LIZ PERKINS MD Subjective: * Chief Complaints: * BILAT L1-3 MBNB (XANAX) AFTER 02/13/25 (NO ASC COPAY) * HPI: Pain Management: The patient presents with complaints of severe right equal to left axial low back pain. The patient's pain is associated with prolonged standing. Due to severe pain, the patient reports she has been experiencing difficulty performing basic activities of daily living. The patient has tried and failed greater than 6 months conservative treatments including home exercise therapy, physical therapy, acetaminophen and NSAIDs without sustained relief. The patient continues to do physical therapy exercises and stretches at home without sustained relief. The patient would like to schedule a bilateral L1-3 medial branch nerve block #2 with the ultimate goal of radiofrequency ablation for more durable pain relief. The patient reports anxiety associated with injections and is requesting an anxiolytic prior to her scheduled injection. Assessment and Follow-up: Follow-up Plan documented: Yes [facility] Quality 2020: [facility] Documented: Compliant * ROS: General/Constitutional: Chills denies. Fatigue denies. Fever denies. Headache denies. Sleep disturbance denies. Weight gain denies. Weight loss denies. Allergy/Immunology: Itching denies. Rash denies. Ophthalmologic: Blurred vision denies. Diminished visual acuity denies. Endocrine: Diminished libido denies. Excessive thirst denies. Frequent urination denies. Irregular menses denies. Respiratory: Chest pain denies. Shortness of breath denies. Cardiovascular: Chest pain with exertion denies. Dizziness denies. Gastrointestinal: Abdominal pain denies. Constipation denies. Hematology: Easy bruising denies. Prolonged bleeding denies. Musculoskeletal: Neck Pain denies. Back pain admits. Muscle aches denies. Painful joints admits. Sciatica admits. Peripheral Vascular: Decreased sensation in extremities denies. Pain/cramping in legs after exertion denies. Neurologic: Balance difficulty denies. Dizziness denies. Gait abnormality denies. Paralysis denies. Tingling/Numbness denies. Psychiatric: Anxiety denies. Depressed mood denies. Difficulty sleeping denies. Substance abuse denies. Suicidal thoughts denies. * Medical History: Crohns Disease Hypothyroidism Hypertension Kidney stones CVA GERD IBS Depression Nonalcoholic fatty liver disease Insomnia Sleep apnea Anxiety Medical History Verified * Surgical History: L4-5 and L5-S1 lumbar fusion--Dr. Epps Cholecystectomy Bilateral rotator cuff tear repair Bilateral carpal tunnel release Left ankle surgery 2018 Right total knee arthroplasty 05/2018 T11 Kyphoplasty SCS Paddle Lead Implant--Dr. Dalal 04/25/2024 Surgical History verified. * Hospitalization/Major Diagno stic Procedure: No Hospitalization Documented. Hospitalization Verified. * Family History: Family History Verified.. kidney problems, aneurysms, hypertension, coronary artery disease, diabetes. * 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: 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 Verified. The patient denies tobacco, alcohol, or illicit drug abuse. * Medications: TakingGabapentin 300 MG Capsule 1 capsule Orally Three times a day Gabapentin 300 MG Capsule 1 capsule Orally Three times a day 053943gySGXKmgp HCl 75 MG Tablet 2 tablets Orally Twice a day buPROPion HCl 75 MG Tablet 2 tablets Orally Twice a day 399107Xzwgdirnvvxq Calcium 10 MG Tablet 1 tablet Orally Once a day Rosuvastatin Calcium 10 MG Tablet 1 tablet Orally Once a day 865955xmrUTQGry HCl 120 MG Tablet as directed Orally dilTIAZem HCl 120 MG Tablet as directed Orally 731350Ffwrcus 325 MG Tablet 1 tablet as needed Orally every 6 hrs Tylenol 325 MG Tablet 1 tablet as needed Orally every 6 hrs 761532Dbpkvatmbo HCl 100 MG Tablet 1 tablet Orally Once a day Sertraline HCl 100 MG Tablet 1 tablet Orally Once a day 058080eqkUZRrow HCl 15 MG Tablet 1 tablet Orally Twice a day busPIRone HCl 15 MG Tablet 1 tablet Orally Twice a day 498734Jvybwwu D-3 25 MCG (1000 UT) Capsule 1 capsule Orally Once a day Vitamin D-3 25 MCG (1000 UT) Capsule 1 capsule Orally Once a day 478702Tbxjmfhhqfmk Magnesium 40 MG Capsule Delayed Release 1 capsule Oral Once a day Esomeprazole Magnesium 40 MG Capsule Delayed Release 1 capsule Oral Once a day 514429gbxCTKPqol Chloride ER 10 MG Tablet Extended Release 24 Hour Oral oxyBUTYnin Chloride ER 10 MG Tablet Extended Release 24 Hour Oral 052360cweSDLebk HCl 100 MG Tablet 1 tablet at bedtime Oral Once a day traZODone HCl 100 MG Tablet 1 tablet at bedtime Oral Once a day 768554Sjaticuzkiswp Sodium 88 MCG Tablet TAKE 1 TABLET BY MOUTH DAILY. Oral Levothyroxine Sodium 88 MCG Tablet TAKE 1 TABLET BY MOUTH DAILY. Oral 318107pdatctRIJDYXHuvxuq 4 MG Tablet Therapy Pack as directed Orally methylPREDNISolone 4 MG Tablet Therapy Pack as directed Orally 638854eflZGYfy HCl 50 MG Tablet 1 tablet as needed Orally twice daily traMADol HCl 50 MG Tablet 1 tablet as needed Orally twice daily 991270Zjvqaukij HCl 5 MG Tablet 1 tablet Oral Once a day Memantine HCl 5 MG Tablet 1 tablet Oral Once a day 481913Dvpzkwdxyf 20 MG Tablet 1 tablet at bedtime as needed Oral Once a day Famotidine 20 MG Tablet 1 tablet at bedtime as needed Oral Once a day 976910Knytu 0.25 MG Tablet 1-2 tablets Orally 30 minutes prior to injection Xanax 0.25 MG Tablet 1-2 tablets Orally 30 minutes prior to injection 770999Uetlw 0.25 MG Tablet 1-2 tablets Orally 30 minutes prior to injection Xanax 0.25 MG Tablet 1-2 tablets Orally 30 minutes prior to injection 245294Oaaalhgcri List reviewed and reconciled with the patientTaking Gabapentin 300 MG Capsule 1 capsule Orally Three times a day Taking buPROPion HCl 75 MG Tablet 2 tablets Orally Twice a day Taking Rosuvastatin Calcium 10 MG Tablet 1 tablet Orally Once a day Taking dilTIAZem HCl 120 MG Tablet as directed Orally Taking Tylenol 325 MG Tablet 1 tablet as needed Orally every 6 hrs Taking Sertraline HCl 100 MG Tablet 1 tablet Orally Once a day Taking busPIRone HCl 15 MG Tablet 1 tablet Orally Twice a day Taking Vitamin D-3 25 MCG (1000 UT) Capsule 1 capsule Orally Once a day Taking Esomeprazole Magnesium 40 MG Capsule Delayed Release 1 capsule Oral Once a day Taking oxyBUTYnin Chloride ER 10 MG Tablet Extended Release 24 Hour Oral Taking traZODone HCl 100 MG Tablet 1 tablet at bedtime Oral Once a day Taking Levothyroxine Sodium 88 MCG Tablet TAKE 1 TABLET BY MOUTH DAILY. Oral Taking methylPREDNISolone 4 MG Tablet Therapy Pack as directed Orally Taking traMADol HCl 50 MG Tablet 1 tablet as needed Orally twice daily Taking Memantine HCl 5 MG Tablet 1 tablet Oral Once a day Taking Famotidine 20 MG Tablet 1 tablet at bedtime as needed Oral Once a day Taking Xanax 0.25 MG Tablet 1-2 tablets Orally 30 minutes prior to injection Taking Xanax 0.25 MG Tablet 1-2 tablets Orally 30 minutes prior to injection Medication List reviewed and reconciled with the patient * Allergies: Erythromycin: rash - AllergyMacrobid: rash - AllergyCodeine: rash - AllergyMorphine: burning pain - Side EffectsTizanidine: hallucinations - Side EffectsNitrofurantoin: rash - AllergyMetoprolol: cough - Side EffectsyesAllergies Verified. Objective: * Examination: Examination/ Pre-Anesthesia Assessment: General: The patient is alert and oriented X 3 in moderate distress secondary to pain. HEENT: Normocephalic, atraumatic. PERRL. The oropharynx is clear. Neck: There is full range of motion of the cervical spine. Heart: Regular rate and rhythm. Chest: Clear to auscultation bilaterally. Abdomen: Soft and benign. Musculoskeletal and Extremities: There is tenderness to palpation over the bilateral L2-3 through L5-S1 facet joints. Extension and lateral rotation of the lumbar spine reproduces the patient's typical axial low back pain. Endy's, Wanatah's and Gaenslen's are positive bilaterally. There is [...] T11 spinous process. TTP alond left T6-7 dermatomes. Neurological: There is positive straight leg raising bilaterally for reproduction of pain down the bilateral L4 and L5 dermatomes at 45 degrees. There are no focal strength deficits in the bilateral lower extremities. Skin: Clean, dry and intact. . Psychiatric: Mood and affect are normal. Assessment: * Assessment: 1. Spondylosis without myelopathy or radiculopathy, lumbar region - M47.816 (Primary) 2. Spondylosis without myelopathy or radiculopathy, lumbosacral region - M47.817 Plan: * Treatment: * Procedures: Medial Branch Nerve Block: Procedure: L1-3 Medial Branch Nerve Block Under Fluoroscopy. Location: Bilateral. Anesthesia: Local without IV sedation. Operative Technique: After the risks, benefits, alternative treatment options and potential complications related [...] fashion with chlorhexidine 2%/IPA 70%. The bilateral L2, L3 and L4 pedicles were identified with x-ray using an AP view. A 23 gauge 3.5 inch spinal needle was inserted in a gun barrel fashion to the junction of the superior articular process and transverse process at the upper outer quadrant of the pedicle until periosteum was contacted at each level bilaterally. A solution of 10 mg of Preservative-Free Dexamethasone (10 mg/mL), plus 2 mL of 0.25% Preservative-Free bupivacaine was mixed. After negative aspiration for blood, air or CSF, 0.5 mL of this solution was injected at each level, blocking the L1-3 medial branch nerves. The needles were then removed, the skin was cleaned and band-aids were placed over the puncture sites. The patient tolerated the procedure well, was able to ambulate without difficulty and was monitored for 20 minutes. The patient remained hemodynamically and neurologically stable. No complications were observed. The patient noted a 90% reduction in his typical back pain associated with extension and lateral rotation of the lumbar spine. Postoperative instructions were reviewed with the patient. The patient was discharged home in good condition with a tilt tray driver. X- ray time: 6 seconds. Safe Surgery Practices: First Critical Point Patient identified by verbal and ID band. Surgical site marked. Assessement of allergies, airway and aspiration risk. Assessed if patient is on anticoagulant. Operataive Consent signed. Patient has discussed procedure with physician. Second Critical Point TIME OUT: Confirm patient identity, procedure and surgical incision site. Patient in proper position and safety straps placed appropriately. ASA score: __ Fire Risk Score:__ . Alcohol based prep solution had significant time for fumes to dissipate. Confirm surgical team assistant and roles. Anticipated critical events. Essential imaging displayed as appropriate. Fluoroscopy precautions taken if applicable. Equipment and supplies in room. Verify patient is not if applicable. Third Critical Point [facility]: Complete count of surgical instruments and accessories. [...] Patient discharged ambulatory. Patient denies complaints or questions. * Procedure Codes: 10847 INJ PARAVERT F JNT L/S 1 [id number] INJ PARAVERT F JNT L/S 1 [id number] INJ PARAVERT F JNT L/S 2 [id number] INJ PARAVERT F JNT L/S 2 [id number] STERILE [id number] STERILE [id number] INJ DEXETHOSONE SODIM PHOSHATE 1 MG, Units: 10.00 [id number] INJ DEXETHOSONE SODIM PHOSHATE 1 MG, Units: 10.00 Billing Information: * Procedure Codes: 83005 INJ PARAVERT F JNT L/S 1 LEV. 44531 INJ PARAVERT F JNT L/S 2 LEV. A4550 STERILE TRAY. J1100 INJ DEXETHOSONE SODIM PHOSHATE 1 MG. Units: 10.00. * Electronic signature of Jim Tee MD on 04/07/2025 at 07:49 PM PUMP SERVICER HELPER Sign off status: Pending * Provider: Mian Tee MD Date: 02/13/2025 Generated for Jaun chau/Jose E/Yobanyitting on: 04/07/2025 07:49 PM PUMP SERVICER HELPER
[2025-04-07] VITALS (7 sets, daily range): BP systolic 110–158; BP diastolic 61–88; PULSE 73–78; RESP 16–91; TEMP 36.4; O2SAT 91–100
--- NOTE | ~2025-04-07 | CT_ITS ---
EXAMINATION: CT abdomen pelvis w con DATE: 04/07/2025 22:18 INDICATION: Abdomen pain and diarrhea TECHNIQUE: Computed tomography (CT) of the abdomen and pelvis was performed with intravenous contrast. The dose-length product was 733.67 mGy-cm. Automated exposure control and iterative reconstruction technique were employed. COMPARISON: CT dated 03/11/2025 FINDINGS: Lung bases unremarkable. Heart size normal. No significant pleural or pericardial effusion. Fatty infiltration of the liver. There is a cyst in the left hepatic lobe. The spleen, pancreas, adrenal glands and right kidney are unremarkable. There is a small low-density lesion left kidney, most likely benign cysts. Status post cholecystectomy. Nonobstructive bowel gas pattern. Status post hysterectomy. No significant vascular abnormality. No lymphadenopathy. No free air or free fluid. IMPRESSION: 1. No acute abdominal abnormality. Reviewed, dictated and finalized at location O. [facility]
--- NOTE | 2025-04-07 19:36 | ED.ABDPAIN ---
HPI - Abdominal Pain General Chief Complaint: Abdominal Pain Stated Complaint: stomach pain, congestion, body aches, chills Time Seen by Provider: 04/07/25 19:19 History of Present Illness HPI narrative: 64-year-old female with a history of multiple previous abdominal surgeries for diverticulitis, colitis, small bowel obstruction. She has a cholecystectomy appendectomy and previous anterior approach for spinal surgery. Patient presents to the emergency department with vague abdominal pain. States the symptoms are going on for 1 week. States she has also been recent taking amoxicillin for any sinus infection her PCP prescribed for her. Endorses some diarrhea with rust-colored stool but no blood. Denies any fever chills. Endorses some systemic symptoms such as myalgias cough and congestion. No sick contacts. Her GI doctors and melecio Ezequiel has an appointment in May. Patient denies any traumatic injuries. No abdominal distension or new surgeries. No symptoms such as chest pain, difficulty breathing, back pain, neuropathy or weakness. Related Data Home Medications ?Medication ?Instructions ?Recorded ?Confirmed ?Last Taken ?Type esomeprazole magnesium 40 mg 40 mg PO DAILY 06/27/21 12/24/24 Unknown History capsule,delayed release buspirone 30 mg tablet 30 mg PO BID 08/17/22 12/24/24 Unknown History cholecalciferol (vitamin D3) 25 25 mcg PO DAILY 08/17/22 12/24/24 Unknown History mcg (1,000 unit) capsule fluticasone propionate 230 2 inh inhalation BID 10/27/23 12/24/24 Unknown History mcg-salmeterol 21 mcg/actuation HFA inhaler (Advair HFA) sertraline 100 mg tablet 100 mg PO DAILY 10/27/23 12/24/24 Unknown History trazodone 100 mg tablet 100 mg PO DAILY 10/27/23 12/24/24 Unknown History diltiazem HCl 120 mg 120 mg PO DAILY 07/30/24 12/24/24 Unknown History capsule,extended release 24 hr, controlled (DILT-XR) donepezil 5 mg tablet 5 mg PO QHS 07/30/24 12/24/24 Unknown History mecobalamin (vitamin B12) 1,000 1,000 mcg PO DAILY 07/30/24 12/24/24 Unknown History mcg chewable tablet memantine 5 mg tablet 5 mg PO BID 07/30/24 12/24/24 Unknown History Allergies Allergy/AdvReac Type Severity Reaction Status Date / Time codeine AdvReac Mild Rash Verified 04/07/25 16:40 erythromycin base AdvReac Mild Rash Verified 04/07/25 16:40 morphine AdvReac Mild Rash Verified 04/07/25 16:40 nitrofurantoin AdvReac Mild Rash Verified 04/07/25 16:40 Review of Systems Review of Systems: As reviewed above in HPI All systems reviewed & are unremarkable except as noted in HPI and below PMFSH Past Medical History Medical History Ulcer Colitis Diverticulitis Partial bowel obstruction reported history of per patient TIA (transient ischemic attack) Metabolic dysfunction-associated steatotic liver disease (MASLD) Nocturnal hypoxemia GERD (gastroesophageal reflux disease) Hyperlipidemia, unspecified Hypothyroidism, unspecified Kidney disease States she had kidney failure treated 6 months ago at [facility] in [place], etiology uncertain Fatty liver GI bleed Had stomach bleeding repaired with a clip in the past. Bilateral tennis elbow Abdominal hernia Multiple with mesh in place PTSD (post-traumatic stress disorder) From childhood Depression Anxiety HTN (hypertension) IBS (irritable bowel syndrome) Kidney stone Crohn's disease Surgical History Surgical History History of colonoscopy H/O esophagogastroduodenoscopy History of appendectomy Hx of cholecystectomy History of total right knee replacement History of endoscopy History of rotator cuff surgery Bilateral History of hysterectomy History of lumbar fusion patient reports anterior approach through abdomen Family History Family History Father Family history of diabetes mellitus in first degree relative Family history of heart disease in male family member before age 55 Hx of CABG Age 60-62 Alzheimer's dementia Cause of , 77 years old Mother Thoracic aortic aneurysm Sibling Thoracic aortic aneurysm Sister Sibling CAD (coronary artery disease) All 3 brothers have CAD and stents Other AAA (abdominal aortic aneurysm) Maternal grandmother had a AAA Other Cerebral aneurysm Maternal aunt had a cerebral aneurysm Other Family history of allergic disorder Family history of malignant neoplasm Hypertension 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urrently Unemployed: No Education: High School Diploma/GED Difficulty w/ Childcare or Family Care: No Living arrangements: with family Occupation/Education: occupation Gender identity (if verbalized by the patient): Female Sexual Orientation (if Verbalized by the Patient): Straight or Heterosexual Spiritual care concerns: No Exam Narrative: GENERAL: [Well-appearing, well-nourished, and in no acute distress.] HEAD: [Normocephalic, atraumatic.] EYES: [PERRLA and EOMI.] ENT: Nares clear, no rhinorrhea or epistaxis. Mucous membranes moist. NECK: Supple. CHEST: [Clear to auscultation. No respiratory distress.] HEART: [Regular rate and rhythm]. No murmur heard. [Normal peripheral pulses.] ABDOMEN: Soft and nondistended, tender to palpation but no signs of peritonitis rigidity or guarding. EXTREMITIES: Normal range of motion. [No edema.] SKIN: Warm, dry, no rash. NEURO: [No focal deficits]. Alert and oriented [x3.] PSYCH: [Normal mood and affect.] Course Vital Signs Vital signs: Vital Signs Temperature 36.4 C 04/07/25 16:37 Pulse Rate 77 04/07/25 16:37 Respiratory Rate 18 04/07/25 16:37 Blood Pressure 146/88 H 04/07/25 16:37 Pulse Oximetry 100 04/07/25 16:37 Oxygen Delivery Room Air 04/07/25 16:37 Temperature 36.4 C 04/07/25 16:37 Pulse Rate 81 04/08/25 00:14 Respiratory Rate 18 04/08/25 00:14 Blood Pressure 116/61 04/08/25 00:14 Pulse Oximetry 98 04/08/25 00:14 Oxygen Delivery Room Air 04/07/25 16:37 MDM MDM Narrative Medical decision making narrative: 64-year-old female with a history of multiple previous abdominal surgeries for diverticulitis, colitis, small bowel obstruction. She has a cholecystectomy appendectomy and previous anterior approach for spinal surgery. Patient presents to the emergency department with vague abdominal pain. States the symptoms are going on for 1 week. States she has also been recent taking amoxicillin for any sinus infection her PCP prescribed for her. Endorses some diarrhea with rust-colored stool but no blood. Denies any fever chills. Endorses some systemic symptoms such as myalgias cough and congestion. No sick contacts. Her GI doctors and melecio Ezequiel has an appointment in May. Patient denies any traumatic injuries. No abdominal distension or new surgeries. No symptoms such as chest pain, difficulty breathing, back pain, neuropathy or weakness. Patient is overall well-appearing and not any distress. Resting comfortably in the stretcher but does have a minimally tender abdomen. No fever tachycardia, hypoxemia blood pressure concerns. Patient requesting Dilaudid by name for pain control. Low suspicion intra-abdominal infection or abscess formation but she does have complex medical history and surgical history so possibility of gastritis, gastroenteritis, diverticulitis, bowel obstruction, pancreatitis or constipation. Possibility of inflammatory bowel disease flare. Low suspicion ischemic bowel. Normal vital signs which is reassuring and she overall appears well. Laboratory studies a CT scan and pain control medications ordered. CT scan shows no acute abnormality and no interval change compared to CT earlier this month. Laboratory studies are largely unremarkable with some mild leukocytosis but no significant any worsened baseline and normal platelet count. Normal electrolytes. Kidney function at baseline. Patient given some additional Bentyl for symptoms. safe for discharge with GI follow-up. Given Bentyl prescription. Return precautions described. Differential Diagnosis Differential Diagnosis: Low suspicion intra-abdominal infection or abscess formation but she does have complex medical history and surgical history so possibility of gastritis, gastroenteritis, diverticulitis, bowel obstruction, pancreatitis or constipation. Possibility of inflammatory bowel disease flare. Low suspicion ischemic bowel. Lab Data MDM Lab Attestation statement: I personally reviewed the patient's lab results. 04/07/25 20:15 04/07/25 20:15 Labs: Lab Results 04/07/25 Range/Units 20:15 WBC 12.0 H (4.5-10.0) K/mm3 RBC 4.50 (4.2-5.4) M/mm3 Hgb 10.4 L (12.0-15.0) g/dL Hct 34.7 L (37.0-47.0) % MCV 77.1 L (80-100) fl MCH 23.1 L (26-34) pg MCHC 30.0 L (32-36) g/dl RDW 15.4 H (11.5-14.5) % Plt Count 189 (150-375) k/mm3 MPV 10.5 H (7.4-10.4) fl Immature Gran % (Auto) 0.2 (0-0.5) % Neut % (Auto) 56.6 (45.5-73.1) % Lymph % (Auto) 31.9 (18.3-44.2) % Sac % (Auto) 9.5 H (2.6-8.5) % Eos % (Auto) 1.5 (0-4.4) % Baso % (Auto) 0.3 (0.2-1.2) % Lymph # (Auto) 3.83 H (0.9-3.2) K/mm3 Sac # (Auto) 1.1 H (0.1-0.6) K/mm3 Eos # (Auto) 0.2 (0-0.3) K/mm3 Baso # (Auto) 0.0 (0.0-0.1) K/mm3 Abs Immat Gran (auto) 0.02 (0.00-0.031) K/mm3 Absolute Neuts (auto) 6.8 H (1.3-6.7) K/mm3 Absolute Nucleated RBC 0.000 (0.0-0.012) K/mm3 Nucleated RBC % 0.0 (0.0-0.2) % Sodium 139 (137-145) mmol/L Potassium 4.0 (3.4-5.0) mmol/L Chloride 105 (98-107) mmol/L Carbon Dioxide 27 (22-30) mmol/L Anion Gap 7 (4-12) mmol/L BUN 18 H (7-17) mg/dL Creatinine 1.10 H (0.7-1.0) mg/dL Estim Creat Clear Calc 43 ml/min Estimated GFR 50 L (59 - ) Glucose 99 (65-110) mg/dL Calcium 9.0 (8.4-10.2) mg/dL Magnesium 1.9 (1.6-2.3) mg/dL Total Bilirubin 0.6 (0.2-1.3) mg/dL AST 28 (14-36) U/L ALT 23 (6-35) U/L Alkaline Phosphatase 76 (38-126) U/L Total Protein 6.9 (6.3-8.2) g/dL Albumin 4.1 (3.5-5.1) g/dL Influenza A (RT-PCR) Negative (Negative) Influenza B (RT-PCR) Negative (Negative) RSV (RT-PCR) Negative (Negative) SARS-CoV-2 RNA (RT-PCR) Negative (Negative) Imaging Data Attestation: I personally reviewed and interpreted this imaging study as follows: My impression: no findings Discharge Plan Discharge Clinical Impression: Abdominal pain Patient Disposition: Home Condition: Stable Instructions: Antibiotic Form, Abdominal Pain (ED) Additional Instructions: CT scan shows no abnormalities or acute findings. Laboratory studies show a slight elevated white count so might be fighting off a viral infection of some sort but otherwise no urgent or emergent concerns were raised today. We have sent your prescription for dicyclomine which can help with abdominal cramping pain. Follow-up with your GI doctor outpatient return with any emergencies. Patient Language: Bangladeshi Prescriptions: New dicyclomine 20 mg tablet 20 mg PO TID PRN (Reason: abdominal pain) Qty: 20 0RF No Action esomeprazole magnesium 40 mg capsule,delayed release(DR/EC) 40 mg PO DAILY trazodone 100 mg tablet 100 mg PO DAILY fluticasone propion-salmeterol [Advair HFA] 230-21 mcg/actuation HFA aerosol inhaler 2 inh inhalation BID Patient Comments: Says takes as needed. sertraline 100 mg tablet 100 mg PO DAILY buspirone 30 mg tablet 30 mg PO BID cholecalciferol (vitamin D3) 25 mcg (1,000 unit) capsule 25 mcg PO DAILY Patient Comments: Says takes twice a day diltiazem HCl [DILT-XR] 120 mg capsule,ext.rel 24h degradable 120 mg PO DAILY donepezil 5 mg tablet 5 mg PO QHS memantine 5 mg tablet 5 mg PO BID mecobalamin (vitamin B12) 1,000 mcg tablet,chewable 1,000 mcg PO DAILY polyethylene glycol 3350 [Miralax] 17 gram/dose powder 17 g PO DAILY Qty: 119 0RF psyllium husk [Metamucil] 0.4 gram capsule 0.4 g PO DAILY Qty: 30 0RF magnesium citrate Solution 150 ml PO DAILY PRN (Reason: constipation) Qty: 296 0RF (DME) blood-glucose meter [H[employer]lyNerdTouch Verio Flex Start] Kit See Rx Instructions .Route Qty: 1 0RF Rx Instructions: As directed (DME) Hour[employer]NerdTouch Verio test strips Strip See Rx Instructions .Route Qty: 50 3RF Rx Instructions: Use to check blood sugar once a day (DME) lancing device with lancets [[employer] Delica Plus Lanc Dev] Kit See Rx Instructions .Route Qty: 1 0RF Rx Instructions: use to check blood sugar once a day oxybutynin chloride 10 mg tablet extended release 24hr See Rx Instructions .ROUTE .COMPLEX Qty: 90 1RF Dose Instruction: TAKE 1 TABLET BY MOUTH EVERY DAY Rx Instructions: TAKE 1 TABLET BY MOUTH EVERY DAY rosuvastatin 10 mg tablet 10 mg PO DAILY Qty: 90 1RF cyclobenzaprine 5 mg tablet 5 mg PO TID PRN (Reason: muscle spasm) Qty: 30 1RF prednisone 20 mg tablet 20 mg PO DAILY Qty: 5 0RF levothyroxine 88 mcg tablet 0.088 mcg PO DAILY Qty: 90 1RF amoxicillin 500 mg tablet 500 mg PO TID Qty: 30 0RF Follow-up/Referrals: Simeon Sheriff MD [Primary Care Provider, Family Practice] Time of Disposition: 23:31
--- OUTSIDE RECORDS SUMMARY | 2025-04-07 19:50 | XMS_ITS | Clinical Summary ---
Author Organization [facility] Address [address], [address] [address] Phone Care Team Providers Care Rating Officer Name Role Phone Simeon Sheriff MD Primary Care Provider [phone] Virginia Caldera MD Unavailable [phone] Allergies Active Allergy Reactions Criticality Noted [...] complete this topic Human Papillomavirus (HPV) Immunization (No Doses Required) Completed Meningococcal Immunization (ACWY) Aged Out No longer [...] Negative Negative 01/27/2022 8:05 PM CDT [facility] Stool Non-Phlebotomy Collection / Unknown 01/27/2022 7:47 PM CDT 01/27/2022 7:57 PM CDT Caleb Elils PAC BODY FLUIDS & STOOLS ORDERABLES Final Result [facility] [address] [place] [address] from Last 3 Months or Most Recently Relevant to Health Maintenance Insurance [facility] MEDICARE Advance Directives * Full Code [...] measures to stabilize the patient. Care Teams Rating Officer Relationship Specialty Start Date End Date Simeon Sheriff MD [address] [place] [id number] PCP - General Family Medicine 06/22/17 Virginia Caldera MD [address] [place] [address] Consulting Physician Gastroenterology 02/11/22
--- OUTSIDE RECORDS SUMMARY | 2025-04-07 19:50 | XMS_ITS | Encounter Summary ---
Author Organization [facility] Address [address] [address] Care Team Providers Care Range Manager Name Role Phone Simeon Sheriff MD Primary Care Provider [phone] Encounter Details Date Type Department Care Team (Late st Contact Info) Description 10/09/2019 Lab Requisition [facility] [address] [place] [id number] Isaac Reid MD 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 Tobacco Use Types Packs/Day Years Used Date Smoking Tobacco: Never Assessed Comments Unknown Sex and Gender Information Value Date Recorded Sex Assigned at Not on file Legal 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 This test has been authorized [...] LAB - MICROBIOLOGY ORDERABL ES Final Result [facility] [address] [place], [place] [address], [facility] [phone] documented in this encounter Visit Diagnoses Not on filedocumented in this encounter Additional Health Concerns Infection Onset Date Last Indicated Resolved Time COVID-19 Under Investigation 10/08/2019 10/08/2019 10/09/2019 6:32 PM CDT documented as of this encounter Care Teams Range Manager Relationship Specialty Start Date End Date Simeon Sheriff MD PCP - General 07/21/17 documented as of this encounter
--- OUTSIDE RECORDS SUMMARY | 2025-04-07 19:50 | XMS_ITS | Clinical Summary ---
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
--- OUTSIDE RECORDS SUMMARY | 2025-04-07 19:50 | XMS_ITS | Data Portability ---
Author Organization [facility] [place], Main Office Address [address] [place] [address] Care Team Providers Care Scarifier Operator Name Role Phone LIZ PERKINS Primary Care Provider LIZ PERKINS Referring Provider [phone] Assessment Encounter Date Assessment Date Assessment LastModified [...] changes or problems she will call discussed. [email or web address] Not available 12/06/2022 09:57:20 Plan of Treatment Reminders Order Date Submit Date Provider Last Modified By Organization Details Last Modified Time Details Appointments None recorde d. Lab None recorde d. Referral None recorde d. Procedures None recorde d. Surgeries None recorde d. Imaging XR, wrist 023 10/19/19 23 [email or web address] [facility] [place], [facility], [place], [id number], 3 11:36:38 Medication Orders None recorde d. Patient TargetsNo targets recorded. Patient InstructionsNo instructions recorded. Reason for Referral None Reported. Results Created Date Observation Date Name Description Value Unit Range Abnormal Flag Note LastModifiedBy Organization Detail LastModifiedTime 05/11/19 22 05/11/2021 XR, knee No observ ation record ed. [id number] [facility] [place] [address], [place], [id number], 06/09/2022 01:08:40 05/11/19 22 05/11/2021 XR, ankle No observ ation record ed. [id number] [facility] [place] [address], [place], [id number], 06/09/2022 01:08:40 03/11/20 22 XR, shoul ethel, 2 or more view No observ ation record ed. [id number] [facility] [place] [address], [place], [id number], 06/09/2022 01:08:40 10/19/19 23 XR, wrist No observ ation record ed. [email or web address] [facility] [place] [address], [place], [id number], 10/18/2022 11:32:20 11/17/19 23 09/15/2022 elect haley mccallum am No observ ation record ed. [address], [place], [address], 11/16/2022 15:34:19 Result Notes None recorded. Problems Name Problem SNOMED Code Status Onset Date Resolution Date Notes Provider Name and Address Organization Details Recorded Time Injury of lower limb 154545504 Active Not Available [facility] 3 00:58:33 Osteoarthr itis 869523705 Active Not Available [facility] 3 00:58:34 Tendinitis of left wrist region 6178265913395 9100 Active 2020 Not Available [facility] 3 00:58:33 Pain of left wrist 3127831371035 02 Active 2020 Not Available [facility] 3 00:58:33 History of left total knee replacemen t 6730596458823 105 Active 2020 Not Available [facility] 3 00:58:33 Sprain of right ankle 1022732433450 9105 Active 2020 Not Available [facility] 3 00:58:33 Osteoarthr itis of left knee joint 4052579155932 09 Active 2020 Not Available [facility] 3 00:58:34 History of total knee arthroplas ty 2604079716510 Active 2021 Not Available [facility] 3 00:58:33 Tenosynovi tis of left radial styloid 7022655344470 9104 Active 2022 Donaldo Muller MD [address] [place] [address], [phone] , [facility] [employer] [facility] 3 11:33:55 Problem Notes None recorded. Procedures Surgical History Date Name Laterality Status Provider Name and Address Organization Details Recorded Time Rotator cuff surgery completed Not Available [facility] 06/09/2022 00:53:09 release of trigger finger completed Not Available [facility] 06/09/2022 00:53:09 procedure on elbow completed Not Available [facility] 06/09/2022 00:53:09 Imaging Results None recorded. Procedure Notes None recorded. Medical Equipment None Reported. Allergies Allergen ID Allergen Name Allergen Category Reaction Reaction Severity Criticality Documentation Date Start Date Code Code System Note Provider Name and Address Organization Details Recorded Time 1571 morphine medicatio n Not available Not available Not available 06/09/2022 7052 RxNorm Not Available [facility] 3 01:08:06 1572 Macrobid medicatio n rash Not available Not available 06/09/2022 19142 1 RxNorm Not Available [facility] 3 01:08:06 1573 codeine medicatio n Not available Not available Not available 06/09/2022 2670 RxNorm Not Available [facility] 3 01:08:06 Medications Name Sig Start Date [...] injection administe red by the provider active [facility]: 0003- 0494- 20 Not Available Not [...] injection administe red by the provider active [facility]: 0409- 4276- 17 Not Available Not [...] Updated DateTime 04/22/2022 28 kg/m2 154.94 cm 28700.67 g Not Available [facility] 06/09/2022 00:54:53 Date Recorded Body height Provider Name an d Address Organization Details Last Updated DateTime 05/11/2021 154.94 cm Not Available [facility] 00:54:53 Date Recorded Body height Body mass index (BMI) Body weight Provider Name and Address Organization Details Last Updated DateTime 10/18/2022 154.94 cm 29.1 kg/m2 61820.22 g DAVE Tapia [facility] 10/18/2022 09:35:45 Date Recorded Body height Body mass index (BMI) Body weight Provider Name and Address Organization Details Last Updated DateTime 12/06/2022 154.94 cm 29.1 kg/m2 09935.22 g Nuvia Seay CNA [facility] 12/06/2022 09:36:30 Date Recorded Body mass index (BMI) Body height Body weight Provider Name and Address Organization Details Last Updated DateTime 03/11/2022 29.9 kg/m2 152.4 cm 34592.63 g Not Available [facility] 06/09/2022 00:54:53 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 Question Answer Notes LastModified by Organizat ion Details LastModified Time Tobacco Smoking Status Never Smoker Not Available [facility] 06/09/2022 00:49:51 What Was The Date Of Your Most Recent Tobacco Screening? 06/12/2020 [id number] Information not available 06/09/2022 Sex: Unknown Functional Status Question Answer Note LastModified by Organizat ion Details LastModified Time What is your level of alcohol consumption? None [id number] Information not available 06/09/2022 Mental Status None recorded. Family History Relationship Description Onset Age of this Age Resolved Age Notes LastModified by Organization Details LastModified Time Father Family history of stroke [id number] Not available 06/09/2022 00:53:10 Father Family history of malignant neoplasm [id number] Not available 06/09/2022 00:53:10 Father Diabetes mellitus [id number] Not available 06/09/2022 00:53:10 Medical History Condition [...] HAVE YOU BEEN HOSPITALIZED OR SEEN IN [facility] IN THE PAST YEAR ? N BURSITIS [...] ICD10 Code Diagnosis IMO Codes Diagnosis Note [id number] Donaldo Muller MD [facility] [place] [address] [facility] [address] [place] [address] 06/12/2020 00:00:00 06/12/2020 12:29:23 [id number] Donaldo Muller MD [facility] [place] [address] [place] [address] 07/24/2020 00:00:00 07/24/2020 11:10:57 [id number] Donaldo Muller MD [facility] [place] [address] [place] [address] 04/09/2021 00:00:00 04/09/2021 10:14:46 [id number] Donaldo Muller MD [facility] [place] [address] [place] [address] 05/11/2021 00:00:00 05/12/2021 09:16:24 [id number] Donaldo Muller MD [facility] [place] [address] [place] [address] 03/11/2022 00:00:00 03/11/2022 14:06:32 [id number] Donaldo Muller MD [facility] [place] [address] [place] [address] 04/22/2022 00:00:00 04/22/2022 11:42:26 [id number] Donaldo Muller MD [facility] [place] [address] [place] [address] 10/18/2022 09:04:02 10/18/2022 11:36:38 Pain of left wrist 4874074767 25009 M25.532 Tenosynovi tis of left radial styloid 6753830539 4478394 M65.4 [id number] Donaldo Muller MD [facility] [place] [address] [place] [address] 12/06/2022 09:33:30 12/06/2022 10:14:16 Tenosynovitis of left radial styloid 1070630492 8379928 M65.4 Pain of left wrist 41973 82687 81479 M25.532 Postoperative visit 8235 67253 Z89 Health Concerns Section Related Observation LastModified by Organization Detai ls LastModified Time None Recorded Concern Status LastModified by Organization Details LastModified Time None Recorded Advance Directives Directive None Recorded Payers Insurance Date Sequence Insurance Name Policy Number Policy Dunn Covered Member ID Dunn Member ID Guarantor Name 11/21/2022 1 [place] Martina Mendez [id number] Martina Mendez 12/03/2022 2 [place] [address] [id number] Martina Mendez Notes Date Note Type Note Provider Name and Address Organization Details Recorded Time 10/18/2022 text/html Patient returns to her veins tenosynovitis left. She has pain over the 1st dorsal compartment and positive Marisela's test. Donaldo Muller MD [address], [facility], [place], [address], [facility] 10/18/2022 11:34:26 12/06/2022 text/html Patient returns status de Quervain tenosynovitis left wrist. She underwent release and has done well. Donaldo Muller MD [address], [employer], [place], [address], [facility] 12/06/2022 09:58:28 OBGyn Episode No OBEpisode recorded.
--- OUTSIDE RECORDS SUMMARY | 2025-04-07 19:50 | XMS_ITS | Encounter Summary ---
Author Organization [facility] Address [address] [place] [address] Care Team Providers Care Patient Registration Clerk Name Role Phone Simeon Sheriff MD Primary Care Provider [phone] Humble Colon DO Unavailable [phone] Encounter Details Date Type Department Care Team (Latest Contact Info) Description 03/29/2025 Scan [facility] Scanned, [facility] 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 Tobacco Use Types Packs/Day Years [...] materials from doctor or pharmacy Rarely 10/20/2023 [facility] Utilities Answer Date Recorded In the past 12 months has [facility] [employer], [employer], oil, or water [employer] threatened to shut off services in your [...] any time in the past 12 [facility], were you homeless or living in a skilled nursing (including now)? No 07/22/2024 Comments No Sex and Gender Information Value Date Recorded Sex Assigned at Female 06/01/2024 11:56 AM AWS ARCHITECT Legal Sex Female 5:56 PM CDT Gender [...] 07/22/2024 10:35 PM Masha Leal RN Active * Do you have difficulty dressing or bathing? Answer Date of Assessment Author Status No 07/22/2024 10:35 PM Masha Leal RN Active * Because of a physical, [...] Leal RN Active documented in this encounter Plan of Treatment Upcoming Encounters Date Type Department Care Team (Late st Contact Info) Description 05/08/2025 1:40 PM AWS ARCHITECT Office Visit [facility] - [address] [place] [phone] Donaldo Velazquez MD [address] [place] [phone] 07/17/2025 11:00 AM CDT Office Visit [facility] - [address] [place] [phone] Salvador Norwood MD [address] [place] [address] [place], [place] [phone] documented as of this encounter Visit Diagnoses Not on filedocumented in this encounter Additional Health Concerns Infection Onset Date Last Indicated Resolved Time ESBL - Extended Spectrum Bet a-lactamase Comment:12/10/22 +ESBL Urine 02/20/23 +ESBL Urine 07/19/23 +ESBL Urine 12/10/2022 07/19/2023 Assessment Noted Time PHQ-9 Depression Total Score: 0 07/05/19 25 2:36 PM CDT documented as of this encounter Care Teams Patient Registration Clerk Relationship Specialty Start Date End Date Simeon Sheriff MD [address] [place], [place] [id number] PCP - General FAMILY PRACTICE 12/15/21 Humble Colon DO [address] [facility] [place] [place] [place], [place] [address] Consulting Physician GASTROENTEROLOGY 07/16/22 documented as of this encounter
--- OUTSIDE RECORDS SUMMARY | 2025-04-07 19:50 | XMS_ITS | Clinical Summary ---
Author Organization [facility] Address [address] [facility] [place] [address] Care Team Providers Care Help Desk Representative Name Role Phone Simeon Sheriff MD Primary Care Provider [phone] Source Comments [facility],non[facility] Affiliates and Associated Physician Practices is amultiple site organization consisting of ambulatory clinics and hospital sitesin [place], [place], [place] and [place]. This disclosure is being madepursuant to the Care Everywhere program and may not contain all information available regarding this patient. Last updated 17.[facility] 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 Tobacco Use Types Packs/Day Years Used Date Smoking Tobacco: Never Assessed Comments Unknown Sex and Gender Information Value Date Recorded Sex Assigned at Not on file Legal Sex Female 6:58 AM C T TECH Gender Identity Not on file Sexual Orientation [...] complete this topic Insurance MEDICARE Care Teams Help Desk Representative Relationship Specialty Start Date End Date Simeon Sheriff MD PCP - General 07/21/17
--- OUTSIDE RECORDS SUMMARY | 2025-04-07 19:50 | XMS_ITS | Patient Health Record ---
Author Organization [facility] Address [address] [place] [address] MoraimaDIDIER Morel [address] Phone [phone] Care Team Providers Care Fiber Optic Assembler Name Role Phone MADDIE BRICE, LIZ JORGE Primary Care Provider Anoop Tee MD, [facility] Allergies Allergen (clinical drug ingredient) Drug/Non Drug [...] Active tizanidine Tizanidine hallucinations Drug Allergy Active Results Component Value Reference Range Flag Notes [facility] Results (Not yet reviewed by provider) Order date: 07/06/2024 Source/Specimen Type: URINE Interpretation: Performing Lab:[id number] [facility]), [address] [address] [facility] [address] Katie Bella MD Notes/Report: Acetyl fentanyl: Fentanyl Negative. Acetyl norfentanyl: Fentanyl Negative. Acr yl fentanyl: Fentanyl Negative. Carfentanil: Fentanyl Negative. Para-fluorofent anyl: Fentanyl Negative. Codeine Quantification negative 50 ng/mL N Morphine Quantification negative 50 ng/mL N Hydrocodone Quantification negative 50 ng/mL N Norhydrocodone Quantification negative 50 ng/mL N Hydromorphone Quantification negative 50 ng/mL N Oxycodone Quantification negative 50 ng/mL N Noroxycodone Quantification negative 50 ng/mL N Oxymorphone Quantification negative 50 ng/mL N Fentanyl Quantification negative 1 ng/mL N Norfentanyl Quantification negative 8 ng/mL N Methadone Quantification negative 100 ng/mL N EDDP (Methadone metabolite) Quantification negative 100 ng/mL N Tramadol Quantification positive-516.308 100 ng/mL N G-bornrlbqo-nwgmklmb Quantification positive-1357.188 100 ng/mL N R-Ciiriifaa-Oltsbthp Quantification positive-1558.893 100 ng/mL N Alpha-Hydroxyalprazolam Quantification negative 20 ng/mL N 3-Mzgpt-Xmhpjhruwf Quantification negative 20 ng/mL N Lorazepam Quantification negative 40 ng/mL N Nordiazepam Quantification negative 40 ng/mL N Temazepam Quantification negative 50 ng/mL N Oxazepam Quantification negative 40 ng/mL N Amphetamine Quantification negative 100 ng/mL N Methamphetamine Quantification negative 100 ng/mL N Cocaine metabolite Quantification negative 50 ng/mL N cTHC (Marijuana metabolite) Quantification negative 15 ng/mL N 6-JOANN (Heroin metabolite) Quantification negative 10 ng/ mL N Acetyl fentanyl Quantification Fen Neg 2 ng/mL N Acetyl norfentanyl Quantification Fen Neg 5 ng/mL N Acryl fentanyl Quantification Fen Neg 1 ng/mL N Carfentanil Quantification Fen Neg 2 ng/mL N Para-fluorofentanyl Quantification Fen Neg 1 ng/mL N Mitragynine (Kratom alkaloid ) Quantification negative 1 ng/mL N 2-IW-Zwgorjbewio (Kratom alk aloid) Quantification negative 1 ng/mL N Ethyl Glucuronide Quantification negative 500 ng/mL N Ethyl Sulfate Quantification negative 500 ng/mL N Reason For Referral No Information Medications Medication SIG (Take, Route, Frequency, Duration) Notes Start Date End Date Diagnosis (ICD Code) Status busPIRone HCl 15 MG Tablet 1 tablet Orally Twice a day Active Sertraline HCl 100 MG Tablet 1 tablet Orally Once a day; Duration: 30 day(s) Active Xanax 0.25 MG Tablet 1-2 tablets Orally 30 minutes prior to injection 02/04/2025 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.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) Active Tylenol 325 MG Tablet 1 tablet as needed Orally every 6 hrs Active Famotidine 20 MG Tablet 1 tablet at bedtime as needed Oral Once a day Active dilTIAZem HCl 120 MG Tablet as directed Orally Active Memantine HCl 5 MG Tablet 1 tablet Oral Once a day Active Rosuvastatin Calcium 10 MG Tablet 1 tablet Orally Once a day; Duration: 30 day(s) Active traMADol HCl 50 MG Tablet 1 tablet as needed Orally twice daily; Duration: 7 days 07/05/2024 Radiculopathy, lumbar region (ICD_10 - M54.16) Active buPROPion HCl 75 MG Tablet 2 tablets Orally Twice a day; Duration: 30 day(s) Active methylPREDNISolone 4 MG Tablet Therapy Pack as directed Orally Chronic pain syndrome (ICD_10 - G89.4) Active Gabapentin 300 MG Capsule 1 capsule Orally Three times a day Active Levothyroxine Sodium 88 MCG Tablet TAKE 1 TABLET BY MOUTH DAILY. Oral; Duration: 90 Active traZODone HCl 100 MG Tablet 1 tablet at bedtime Oral Once a day Active oxyBUTYnin Chloride ER 10 MG Tablet Extended Release 24 Hour Oral; Duration: 30 Active Esomeprazole Magnesium 40 MG Capsule Delayed Release 1 capsule Oral Once a day Active Vitamin D-3 25 MCG (1000 UT) Capsule 1 capsule Orally Once a day Active Xanax 0.25 MG Tablet 1-2 tablets Orally 30 minutes prior to injection 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.231) Active 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 Tobacco Use: 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 Observation Description Date Details (start date - stop date) Never Smoker NA - NA Sex Observation 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 Observation Description Sex Observation Female 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 Drugs/Alcohol: Social Info Question Answer Notes Alcohol Screen (Audit-C) Did you have a drink containing alcohol in the past year? No Points 0 Interpretation Negative Tobacco Use: Social Info Question Answer Notes Tobacco Use/Smoking Are you a nonsmoker Section Notes: The patient denies tobacco, alcohol, or illicit drug abuse. 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) Added On:06/19 Active confirmed Problem Chronic pain syndrome (397674540) Chronic pain syndrome (G89.4) Added On:03/03 Active confirmed Problem Osteoarthritis (482041300) Unspecified osteoarthritis, unspecified site (M19.90) Added On:06/24 Active confirmed Problem Solitary sacroiliitis (992840903) Sacroiliitis, not elsewhere classified (M46.1) Added On:06/18 Active confirmed Problem Thoracic spondylosis without myelopathy (506562785) Spondylosis without myelopathy or radiculopathy, 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) Added On:06/10 Active confirmed Problem Thoracic spondylosis without myelopathy (157198093) Spondylosis without myelopathy or radiculopathy, thoracolumbar region (M47.815) Added On:06/24 Active confirmed Problem Lumbosacral spondylosis without myelopathy (10345206) Spondylosis without myelopathy or radiculopathy, lumbar region (M47.816) Added On:05/25 Active confirmed Problem Lumbosacral spondylosis without myelopathy (disorder) (19929742) Spondylosis without myelopathy or radiculopathy, lumbosacral region (M47.817) Added On:05/25 Active confirmed Problem Radiculopathy due to lumbar intervertebral disc disorder (041248174615403) Intervertebral disc disorders with radiculopathy, lumbar region (M51.16) Added On:05/18 Active confirmed Problem Degeneration of lumbar intervertebral disc (90251066) Other intervertebral disc degeneration, lumbar region (M51.36) Added On:06/08 Active confirmed Problem Degeneration of lumbosacral intervertebral disc (10395321) Other intervertebral disc degeneration, lumbosacral region (M51.37) Added On:02/09 Active confirmed Problem Thoracic radiculopathy (27340382) Radiculopathy, thoracic region (M54.14) Added On:05/25 Active confirmed Problem Lumbar radiculopathy (182251244) Radiculopathy, lumbar region (M54.16) Added On:05/25 Active confirmed Problem Lumbosacral radiculopathy (8913179) Radiculopathy, lumbosacral region (M54.17) Added On:02/09 Active confirmed Problem Age-related osteoporosis with current pathological fracture, vertebra(e), subsequent encounter for fracture with delayed healing (M80.08XG) Added On:07/12 Active confirmed Problem Nonunion of fracture (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) Age-related osteoporosis with current pathological fracture, vertebra(e), subsequent encounter for fracture with nonunion (M80.08XK) Added On:07/26 Active confirmed Problem Post-laminectomy syndrome (84484200) Postlaminectomy syndrome, not elsewhere classified (M96.1) Added On:05/25 Active confirmed Problem Spinal stenosis of lumbar region (85100729) Osseous stenosis of neural canal of lumbar region (M99.33) Added On:12/30 Active confirmed Problem Urinary tract infectious disease (disorder) (70828621) Urinary tract infection, site not specified (N39.0) Added On:09/06 Active confirmed Problem Mechanical complication of nervous system device, implant AND/OR graft (39867882) Other mechanical complication of implanted electronic neurostimulator of spinal cord electrode (lead), initial encounter (T85.192A) Added On:09/27 Active confirmed Problem Mechanical complication of nervous system device, implant AND/OR graft (88408794) Other mechanical complication of implanted electronic neurostimulator, generator, initial encounter (T85.193A) Added On:09/27 Active confirmed Problem Lumbar radiculopathy (121750027) Lumbar radiculopathy (M54.16) Added On:04/25 Active confirmed Vital Signs Vital Sign Value Notes Appt Date Heart Rate 94 /min Post Op Vitals: BP , HR , RR 16, Spo2 94% 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 03/20/2025 Temperature 98.7 degrees Fahrenheit 04/11 Respiratory Rate 16 /min Post Op Vitals: BP , HR , RR 16, Spo2 94% 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 03/20/2025 Blood pressure systolic 133 mm Hg Post Op Vitals: BP , HR , RR 16, Spo2 94% 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 03/20/2025 Encounters Date Time Type Facility Location Provider Diagnosis 04/13/19 02:15 PM Office Visit [facility] [address] [place] [address] [place] [address] Mian Stynowick Radiculopathy, lumbar region M54.16 ; Radiculopathy, lumbosacral region M54.17 ; Sacroiliitis, not elsewhere classified M46.1 ; Spondylosis without myelopathy or radiculopathy, lumbar region M47.816 ; Other intervertebral disc degeneration, lumbar region M51.36 ; Intervertebral disc disorders with radiculopathy, lumbar region M51.16 ; Fear of injections and transfusions F40.231 ; emt intermediate (current) use of opiate analgesic Z79.891 and Chronic pain syndrome G89.4 04/25/19 10:45 AM Office Visit [facility] [address] [place] [address] [place] [address] Mian Stynowick Postlaminectomy syndrome, not elsewhere classified M96.1 ; Chronic pain syndrome G89.4 and Lumbar radiculopathy M54.16 06/20/19 03:15 PM Office Visit, Est Pt., Level 3 (96421) [facility] [address] [place] [address] [place] [address] Mian Stynowick Radiculopathy, lumbosacral region M54.17 ; Radiculopathy, lumbar region M54.16 ; Sacroiliitis, not elsewhere classified M46.1 ; Spondylosis without myelopathy or radiculopathy, lumbar region M47.816 ; Intervertebral disc disorders with radiculopathy, lumbar region M51.16 ; Chronic pain syndrome G89.4 ; Postlaminectomy syndrome, not elsewhere classified M96.1 ; Fear of injections and transfusions F40.231 ; 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 and Radiculopathy, thoracic region M54.14 06/21/19 25 12:45 PM Office Visit [facility] [address] [place] [address] Mian Stynowick 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 and Radiculopathy, thoracic region M54.14 07/06/19 25 01:45 PM Office Visit, Est Pt., Level 3 (54632) [facility] [address] [place] [address] [place] [address] Mian Stynowick Radiculopathy, lumbar region M54.16 ; Radiculopathy, thoracic region M54.14 ; Radiculopathy, lumbosacral region M54.17 ; Sacroiliitis, not elsewhere classified M46.1 ; Spondylosis without myelopathy or radiculopathy, lumbar region M47.816 ; Intervertebral disc disorders with radiculopathy, lumbar region M51.16 ; Chronic pain syndrome G89.4 ; Postlaminectomy syndrome, not elsewhere classified M96.1 ; Fear of injections and transfusions F40.231 and 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 08/15/19 25 01:15 PM Office Visit [facility] [address] [place] [address] [place] [address] Mian Stynowick Radiculopathy, thoracic region M54.14 ; 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 ; Radiculopathy, lumbar region M54.16 ; Radiculopathy, lumbosacral region M54.17 ; Sacroiliitis, not elsewhere classified M46.1 ; Spondylosis without myelopathy or radiculopathy, lumbar region M47.816 ; Intervertebral disc disorders with radiculopathy, lumbar region M51.16 ; Chronic pain syndrome G89.4 ; Postlaminectomy syndrome, not elsewhere classified M96.1 and Fear of injections and transfusions F40.231 08/16/19 25 08:45 AM Office Visit [facility] [address] [address] Mian Stynowick Radiculopathy, thoracic region M54.14 08/30/19 25 11:00 AM Office Visit, Est Pt., Level 3 (92441) [facility] [address] [place] [address] Mian Stynowick Radiculopathy, lumbar region M54.16 ; Radiculopathy, thoracic region M54.14 ; Radiculopathy, lumbosacral region M54.17 ; Sacroiliitis, not elsewhere classified M46.1 ; Spondylosis without myelopathy or radiculopathy, lumbar region M47.816 ; Intervertebral disc disorders with radiculopathy, lumbar region M51.16 ; Chronic pain syndrome G89.4 ; Postlaminectomy syndrome, not elsewhere classified M96.1 ; Fear of injections and transfusions F40.231 and 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 09/05/19 25 12:00 PM Office Visit [address] [address] Mian Stynowick Radiculopathy, lumbar region M54.16 ; Radiculopathy, lumbosacral region M54.17 and Osseous stenosis of neural canal of lumbar region M99.33 09/26/19 11:45 AM Office Visit, Est Pt., Level 3 (18207) [facility] [address] [place] [address] Mian Stynowick Radiculopathy, lumbar region M54.16 ; Spondylosis without myelopathy or radiculopathy, lumbar region M47.816 ; Radiculopathy, lumbosacral region M54.17 ; Osseous stenosis of neural canal of lumbar region M99.33 ; Radiculopathy, thoracic region M54.14 ; Spondylosis without myelopathy or radiculopathy, lumbosacral region M47.817 and Fear of injections and transfusions F40.231 01/09/20 25 08:30 AM Office Visit, Est Pt., Level 3 (18711) [facility] [address] [place] [address] [place] [address] Mian Stynowick Radiculopathy, lumbar region M54.16 ; Spondylosis without myelopathy or radiculopathy, lumbar region M47.816 ; Radiculopathy, lumbosacral region M54.17 ; Osseous stenosis of neural canal of lumbar region M99.33 ; Radiculopathy, thoracic region M54.14 ; Spondylosis without myelopathy or radiculopathy, lumbosacral region M47.817 and Fear of injections and transfusions F40.231 01/16/20 08:30 AM Office Visit [facility] [address] [place] [address] Mian Stynowick Spondylosis without myelopathy or radiculopathy, lumbar region M47.816 and Spondylosis without myelopathy or radiculopathy, lumbosacral region M47.817 01/23/20 01:30 PM Office Visit, Est Pt., Level 3 (19804) [facility] [address] [place] [address] [place] [address] Mian Stynowick Spondylosis without myelopathy or radiculopathy, lumbar region M47.816 ; Spondylosis without myelopathy or radiculopathy, lumbosacral region M47.817 and Fear of injections and transfusions F40.231 01/31/20 11:15 AM Office Visit [facility] [address] [place] [address] Mian Stynowick Spondylosis without myelopathy or radiculopathy, lumbar region M47.816 and Spondylosis without myelopathy or radiculopathy, lumbosacral region M47.817 02/05/20 03:45 PM Office Visit, Est Pt., Level 3 (28538) [facility] [address] [place] [address] [place] [address] Mian Stynowick Spondylosis without myelopathy or radiculopathy, lumbar region M47.816 ; Spondylosis without myelopathy or radiculopathy, lumbosacral region M47.817 ; Postlaminectomy syndrome, not elsewhere classified M96.1 ; Chronic pain syndrome G89.4 and Fear of injections and transfusions F40.231 02/20/20 25 10:45 AM Office Visit [facility] [address] [place] [address] [place] [address] Mian Stynowdanny Spondylosis without myelopathy or radiculopathy, lumbar region M47.816 and Spondylosis without myelopathy or radiculopathy, lumbosacral region M47.817 02/28/20 25 01:15 PM Office Visit, Est Pt., Level 3 (73770) [facility] [address] [place] [address] [place] [address] Mian Stynowdanny Spondylosis without myelopathy or radiculopathy, lumbar region M47.816 ; Spondylosis without myelopathy or radiculopathy, lumbosacral region M47.817 ; Postlaminectomy syndrome, not elsewhere classified M96.1 ; Radiculopathy, lumbar region M54.16 and Fear of injections and transfusions F40.231 03/20/20 25 11:15 AM Office Visit [facility] [address] [place] [address] [place] [address] Mian Stynowdanny Spondylosis without myelopathy or radiculopathy, lumbar region M47.816 and Spondylosis without myelopathy or radiculopathy, lumbosacral region M47.817 04/16/19 25 01:59 PM Telephone Encounter [facility] [address] [place] [address] [place] [address] Mian Stynowick 04/26/19 25 09:01 AM Telephone Encounter [facility] [address] [place] [address] [place] [address] Mian Stynowick 06/22/19 25 09:20 AM Telephone Encounter [facility] [address] [place] [address] [place] [address] Mian Stynowick 08/17/19 25 04:24 PM Telephone Encounter [facility] [address] [place] [address] [place] [address] Mian Stynowick 09/06/19 25 08:24 AM Telephone Encounter [facility] [address] [place] [address] [place] [address] Mian Stynowick 02/01/20 08:52 AM Telephone Encounter [facility] [address] [place] [address] [place] [address] Mian Stynowdanny 02/21/20 08:16 AM Telephone Encounter [facility] [address] [place] [address] [place] [address] Mian Stynowdanny 03/21/20 12:16 PM Telephone Encounter [facility] [address] [place] [address] [place] [address] Mian Stmichelle 01/17/20 08:20 AM Telephone Encounter [facility] [address] [place] [address] [place] [address] Mian Stmichelle Assessments Encounter Date Diagnosis (ICD Code) Assessment Notes Treatment Notes Section Notes 08/14/2024 Intercostal neuropathy (ICD-10 - G58.0) Schedule [...] 08/14/2024 Radiculopathy, thoracic region (ICD-10 - M54.14) 08/15/2024 Radiculopathy, thoracic region (ICD-10 - M54.14) 02/04/2025 Spondylosis without myelopathy or radiculopathy, lumbar region (ICD-10 - M47.816) Schedule a bilateral L1-3 medial branch nerve block as a diagnostic and potentially therapeutic endeavor to isolate the source of the patient's facet-generated low back pain originating from the L2-3 and L3-4 facet joints and to ultimately perform radiofrequency [...] is agreeable to proceeding at this time. 02/04/2025 Spondylosis without myelopathy or radiculopathy, lumbosacral region (ICD-10 - M47.817) 03/20/2025 Spondylosis without myelopathy or radiculopathy, lumbar region (ICD-10 - M47.816) 09/25/2024 Spondylosis without myelopathy or radiculopathy, lumbar [...] to proceeding at this time. 09/25/2024 Radiculopathy, lumba r region (ICD-10 - M54.16) 09/04/2024 Radiculopathy, lumba r region (ICD-10 - M54.16) 09/04/2024 Radiculopathy, lumbosacral region (ICD-10 - M54.17) 08/29/2024 Radiculopathy, thoracic region (ICD-10 - M54.14) 08/29/2024 Radiculopathy, lumba r region (ICD-10 - M54.16) The patient's SCS was interrogated reprogrammed in the office today with improved axial low back and bilateral lower extremity neuropathic pain coverage with good paresthesia overlap. Schedule a Bilateral L5-S4ikeymzabbfnkcq epidural steroid injection. The risks of this [...] to fully comply with the above. The [place] and [place] PDMP were reviewed and were appropriate 07/05/2024 Radiculopathy, thoracic region (ICD-10 - M54.14) [...] thoracic pain. Patient verbalized understanding 07/05/2024 Radiculopathy, lumba r region (ICD-10 - M54.16) The side effects [...] to fully comply with the above. The [place] and [place] PDMP were reviewed and were appropriate 06/20/2024 Intercostal neuropathy (ICD-10 - G58.0) 06/20/2024 Radiculopathy, thoracic region (ICD-10 - M54.14) 06/19/2024 Radiculopathy, lumbosacral region (ICD-10 - M54.17) 04/25/2024 Chronic pain syndrom e (ICD-10 - G89.4) 04/25/2024 Postlaminectomy syndrome, not elsewhere classified (ICD-10 - M96.1) 04/13/2024 Radiculopathy, lumba r region (ICD-10 - M54.16) Schedule a permanent [...] 04/13/2024 Radiculopathy, lumbosacral region (ICD-10 - M54.17) 02/27/2025 Spondylosis without myelopathy or radiculopathy, lumbar region (ICD-10 - M47.816) Schedule a bilateral L1-3 radiofrequency ablation for a more durable treatment of the patient's facet-generated low back pain originating from the L2-3 and L3-4 facet joints. The risks of this procedure including pain, [...] is agreeable to proceeding at this time. 02/27/2025 Spondylosis without myelopathy or radiculopathy, lumbosacral region (ICD-10 - M47.817) 02/19/2025 Spondylosis without myelopathy or radiculopathy, lumbar region (ICD-10 - M47.816) 02/19/2025 Spondylosis without myelopathy or radiculopathy, lumbosacral region (ICD-10 - M47.817) 01/30/2025 Spondylosis without myelopathy or radiculopathy, lumbar region (ICD-10 - M47.816) 01/30/2025 Spondylosis without myelopathy or radiculopathy, lumbosacral region (ICD-10 - M47.817) 01/22/2025 Spondylosis without myelopathy or radiculopathy, lumbar region (ICD-10 - M47.816) schedule a bilateral L1-3 medial branch nerve block as a diagnostic and potentially therapeutic endeavor to isolate the source of the patient's facet-generated low back pain originating from the L2-3 and L3-4 facet joints and to ultimately perform radiofrequency [...] is agreeable to proceeding at this time. 01/22/2025 Spondylosis without myelopathy or radiculopathy, lumbosacral region (ICD-10 - M47.817) 01/15/2025 Spondylosis without myelopathy or radiculopathy, lumbar region (ICD-10 - M47.816) 01/15/2025 Spondylosis without myelopathy or radiculopathy, lumbosacral region (ICD-10 - M47.817) 01/08/2025 Radiculopathy, lumba r region (ICD-10 - M54.16) 01/08/2025 Radiculopathy, lumbosacral region (ICD-10 - M54.17) 01/08/2025 Spondylosis without myelopathy or radiculopathy, lumbar region [...] is agreeable to proceeding at this time. 02/27/2025 Postlaminectomy syndrome, not elsewhere classified (ICD-10 - M96.1) 01/22/2025 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 04/25/2024 Lumbar radiculopathy (ICD-10 - M54.16) 04/13/2024 Sacroiliitis, not elsewhere classified (ICD-10 - M46.1) 06/19/2024 Radiculopathy, lumba r region (ICD-10 - M54.16) The patient's SCS was interrogated reprogrammed in the office today with improved axial low back and bilateral lower extremity neuropathic pain coverage with good paresthesia overlap. 06/19/2024 Sacroiliitis, not elsewhere classified (ICD-10 - M46.1) 07/05/2024 Radiculopathy, lumbosacral region (ICD-10 - M54.17) 08/29/2024 Radiculopathy, lumbosacral region (ICD-10 - M54.17) 09/04/2024 Osseous stenosis of neural canal of lumbar region (ICD-10 - M99.33) 09/25/2024 Radiculopathy, lumbosacral region (ICD-10 - M54.17) 03/20/2025 Spondylosis without myelopathy or radiculopathy, lumbosacral region (ICD-10 - M47.817) 02/04/2025 Postlaminectomy syndrome, not elsewhere classified (ICD-10 - M96.1) 08/14/2024 Radiculopathy, lumba r region (ICD-10 - M54.16) 08/14/2024 Radiculopathy, lumbosacral region (ICD-10 - M54.17) 02/04/2025 Chronic pain syndrom e (ICD-10 - G89.4) 09/25/2024 Osseous stenosis of neural canal of lumbar region (ICD-10 - M99.33) 08/29/2024 Sacroiliitis, not elsewhere classified (ICD-10 - M46.1) 07/05/2024 Sacroiliitis, not elsewhere classified (ICD-10 - M46.1) 06/19/2024 Spondylosis without myelopathy or radiculopathy, lumbar region (ICD-10 - M47.816) 04/13/2024 Spondylosis without myelopathy or radiculopathy, lumbar region (ICD-10 - M47.816) 02/27/2025 Radiculopathy, lumba r region (ICD-10 - M54.16) 01/08/2025 Osseous stenosis of neural canal of lumbar region (ICD-10 - 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 08/29/2024 Postlaminectomy syndrome, not elsewhere classified (ICD-10 - M96.1) 07/05/2024 Postlaminectomy syndrome, not elsewhere classified (ICD-10 - M96.1) 06/19/2024 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 08/14/2024 Postlaminectomy syndrome, not elsewhere classified (ICD-10 - M96.1) 08/14/2024 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 KAIN initials JE. 08/29/2024 Other The above-named patient was evaluated [...] CONCERNS HAVE BEEN ADDRESSED. RN initials ___JW. 09/25/2024 Other The above-named patient [...] with Patient and Medical Decision Makin minutes 01/08/2025 Other The above-named patient was evaluated in [...] occurred. This note was dictated by NORMA Lockwood Total time spent with patient and medical decision making 27 minutes 01/15/2025 Other The patient voiced understanding of the treatment plan and all questions were addressed. Obtain informed consent: Bilateral Lumbar 3-5 Medial Branch Nerve Block under fluoroscopy. Monitor pulse, blood [...] SAFETY CONCERNS HAVE BEEN ADDRESSED. RN initials JW. 01/22/2025 Other The above-named patient was evaluated in [...] with Patient and Medical Decision Makin minutes 01/30/2025 Other The patient voiced understanding of the treatment plan and all questions were addressed. Obtain informed consent: Bilateral Lumbar 1-3 Medial Branch Nerve Block under fluoroscopy. Monitor pulse, blood [...] SAFETY CONCERNS HAVE BEEN ADDRESSED. RN initials JE. 02/19/2025 Other The patient voiced understanding of the treatment plan and all questions were addressed. Obtain informed consent: Bilateral Lumbar 1-3 Medial Branch Nerve Block under fluoroscopy. Monitor pulse, blood [...] SAFETY CONCERNS HAVE BEEN ADDRESSED. KAIN initials STEPHANIE. 02/27/2025 Other The above-named patient was evaluated in [...] with Patient and Medical Decision Makin minutes 03/20/2025 Other The patient voiced understanding of the treatment plan and all questions were addressed. Obtain informed consent: Bilateral Lumbar 1-3 Radiofrequency Ablation under fluoroscopy. Monitor pulse, blood pressure and [...] SAFETY CONCERNS HAVE BEEN ADDRESSED. RN initials JE. Plan Of Treatment Pending Test Test Name Order Date MRI : Lumbar and Thoracic Spines 024 Urine Culture and Sensitivity 09/07/2023 Urinalysis 09/07/2023 CT Scan : T/Spine W/O Contrast 0 MRI : Lumbar Spine with and without Cont rast ([id number]) 11/07/2020 MRI : Thoracic Spine without Contrast ([id number]) 07/05/2024 [facility] 02/04/2022 [facility] 04/06/2022 [facility] 11/05/2022 [facility] 12/30/2022 [facility] 08/04/2023 [facility] 07/06/2024 Next Appt Details Provider Name:Mian Florina Johnnorma matt, 04/09/2025 10:45:00 AM, [address] [place], [address], Insurance Providers Payer Name Payer Address Payer Phone Subscriber Number Group Number Insured Name Patient Relationship to Insured Coverage Start Date Coverage End Date Medicare [place] [address] [address] [place] [address] [phone] [id number] EMRE MARQUIS Self - patient is the insured [facility] [address] [place] [address] [id number] EMRE MARQUIS Self - patient is the [...]
--- OUTSIDE RECORDS SUMMARY | 2025-04-07 19:50 | XMS_ITS | Clinical Summary ---
Author Organization [facility] Address [address] [place] [address] Care Team Providers Care Internal Medicine Physician Name Role Phone Simeon Sheriff MD Primary Care Provider [phone] Humble Colon DO Unavailable [phone] Allergies Active Allergy Reactions Criticality Noted [...] mouth daily as needed. Indications: Chronic Pain 2 Active sertraline (ZOLOFT) 100 MG tabletIndication s:Depression Take 1.5 tablets (150 mg total) by mouth daily. Indications: Depression 2 Active oxybutynin XL (DITROPAN-XL) 10 MG 24 hr tabletIndication s:Urinary Urgency Take 1 tablet (10 mg total) by mouth daily. Indications: Urinary Urgency 2 Active levothyroxine (SYNTHROID) 88 MCG tabletIndication s:Hypothyroidism TAKE 1 TABLET BY MOUTH EVERY DAY IN THE MORNING ON AN EMPTY STOMACH 2 Active vitamin D3, cholecalciferol, 1000 UNIT Tab tabletIndication s:Mineral Deficiency Take 1 tablet (25 mcg total) by mouth 2 (two) times daily. Indications: Mineral Deficiency Active busPIRone (BUSPAR) 30 MG tabletIndication s:Anxiety Take 1 tablet (30 mg total) by mouth 2 (two) times daily. Indications: Feeling Anxious 2 Active traZODone (DESYREL) 100 MG tabletIndication s:Sleep Disorder Take 1 tablet (100 mg total) by mouth nightly at bedtime. Indications: Sleep Disorder 4 Active dilTIAZem CD (CARDIZEM CD) 120 MG 24 hr capsule Take 1 capsule (120 mg total) by mouth daily. Active famotidine (PEPCID) 20 MG tabletIndication s:Gastroesophage al reflux disease, unspecified whether esophagitis present Take 1 tablet (20 mg total) by mouth daily. 90 tablet 3 5 026 Active atorvastatin (LIPITOR) 80 MG tablet Take 1 tablet (80 mg total) by mouth daily. 30 tablet 5 Active donepezil (ARICEPT) 5 MG Tab Take 1 tablet (5 mg total) by mouth nightly at bedtime. 5 Active memantine (NAMENDA) 5 MG tablet Take 1 tablet (5 mg total) by mouth 2 (two) times daily. 5 Active Methylcobalamin 1 MG Chew Tab Chew 1 tablet by mouth daily with breakfast. 5 Active sucralfate (CARAFATE) 1 G tablet Take 1 tablet (1 g total) by mouth 3 (three) times daily as needed (gastric reflex). Active esomeprazole (NEXIUM) 40 MG capsuleIndicatio ns:Gastroesophag eal reflux disease, unspecified whether esophagitis present Take 1 capsule (40 mg total) by mouth every morning before breakfast. 90 capsule 1 5 Active fluticasone furoate-vilanter ol (BREO ELLIPTA) 100-25 MCG/ACT inhalerIndicatio ns:Mild persistent reactive airway disease without complication (HHS/HCC) Inhale 1 puff into the lungs daily. 1 each 11 5 Active albuterol sulfate HFA 108 (90 Base) MCG/ACT inhalerIndicatio ns:Wheezing Inhale 2 puffs into the lungs every 6 (six) hours as needed for Wheezing. Indications: Wheezing 18 g 2 5 Active fluticasone-salm eterol (ADVAIR HFA) 230-21 MCG/ACT inhalerIndicatio ns:Acute Respiratory Failure Inhale 2 puffs into the lungs 2 (two) times daily. 12 g 4 025 Discontin ued(Alter maria ines therapy) albuterol sulfate HFA 108 (90 Base) MCG/ACT inhalerIndicatio ns:Wheezing Inhale 2 puffs into the lungs every 6 (six) hours as needed for Wheezing. 18 g 2 4 025 Discontin ued(Reord er) Active Problems Problem Noted Date Diagnosed Date CVA (cerebral vascular accident) 07/22/2024 Nocturnal hypoxia 10/19/2023 Physical deconditioning 10/19/2023 Acute respiratory failure 10/09/2023 Encounters Date Type Department Care Team Description 03/29/2025 Scan [facility] SRV[facility] Scanned, Doc Med Group 03/29/2025 Telephone [facility] - [address] [phone] Freedom Gee MD Results 03/25/2025 12:44 PM QUOTATION CHECKER - 03/25/2025 11:59 PM QUOTATION CHECKER Hospital Encounter [facility] [place] [address] Freedom Gee MD Discharge Disposition: Home or Self Care (Routine Discharge) 03/25/2025 Scan [facility] INFO SRVCS Scanned, Doc Med Group PFT (SCAN) 03/25/2025 Travel 03/11/2025 9:40 AM QUOTATION CHECKER Office Visit [facility] [address] [facility] [place] [address] Freedom Gee MD Follow Up 03/11/2025 Travel 03/07/2025 Scan [facility] INFO SRVCS Scanned, Doc Med Group Sleep Study (SCAN) 02/11/2025 5:24 PM QUOTATION CHECKER - 02/11/2025 8:30 PM QUOTATION CHECKER Emergency [facility] [place] [address] Tyler Carcamo MD Breathing Problem Discharge Disposition: Home or Self Care (Routine Discharge) 02/11/2025 Scan HEALTH INFO SRVCS Scanned, Doc Med Group 02/11/2025 Travel 02/11/2025 Telephone [facility] [address] [phone] Freedom Gee MD Medication 02/08/2025 3:57 PM CDT - 02/08/2025 7:[address] [facility] [place] [address] Sunny Allen PA Pleuritic Chest Pain Discharge Disposition: Home or Self Care (Routine Discharge) 02/08/2025 Travel 01/27/2025 Scan HEALTH INFO SRVCS Scanned, Doc Med Group 01/23/2025 Telephone [facility] [address] [phone] Freedom Gee MD Question from Last 3 Months Immunizations Immunization Administration [...] materials from doctor or pharmacy Rarely 10/20/2023 [facility] Utilities Answer Date Recorded In the past 12 months has th e [employer], oil, or water [employer] threatened to shut off services in your [...] money to buy more. Never true 07/23/19 Within the past 12 months, t he [...] any time in the past 12 m [facility], were you homeless or living in a fdc (including now)? No 07/22/2024 Comments No Sex and Gender Information Value Date Recorded Sex Assigned at Female 06/01/2024 11:56 AM QUOTATION CHECKER Legal Sex Female 5:56 PM CDT Gender Identity Not on file Sexual Orientation Not on file Last Filed Vital Signs Vital Sign Reading Time Taken Comments Blood Pressure 117/78 03/11/2025 9:44 AM QUOTATION CHECKER Pulse 87 03/11/2025 9:44 AM QUOTATION CHECKER Temperature 36.6 C (97.9 F) 02/11/2025 4:34 PM QUOTATION CHECKER Respiratory Rate 16 03/11/2025 9:44 AM QUOTATION CHECKER Oxygen Saturation 96% 03/11/2025 9:44 AM QUOTATION CHECKER ra Inhaled Oxygen Concentration - - Weight 78 kg (172 lb) 03/11/2025 9:44 AM QUOTATION CHECKER Height 154.9 cm (5' 1) 03/11/2025 9:44 AM QUOTATION CHECKER Body Mass Index 32.5 03/11/2025 9:44 AM QUOTATION CHECKER Plan of Treatment Upcoming Encounters Date Type Department Care Team (Late st Contact Info) Description 05/08/2025 1:40 PM QUOTATION CHECKER Office Visit [facility] - [address] [place] [phone] Donaldo Velazquez MD 3 [facility] [place] [address] [place] [phone] 07/17/2025 11:00 AM CDT [facility] [address] [facility] [facility] [place] [phone] Freedom Gee MD [address] [place] [phone] Health Maintenance Due Date Last Done Comments Annual Physical 11/18/1963 Hepatitis C 1978 Mammogram Screening 2000 Pneumococcal Vaccine: 50+ Years (3 of 3 - PCV20 or PCV21) 01/25/2020 01/24/2015, 01/03/2013 COVID-19 Vaccine (5 - season) 2024 01/17/2023, 02/17/2021, 07/05/2020, Additional history exists Influenza Adult (#1) 2025 01/03/2024, 01/17/2023, 01/09/2022, Additional history exists DTaP, Tdap and Td Vaccines (3 - Td or Tdap) 12/03/2031 12/02/2021, 01/22/2014 Colorectal Cancer Screening Colonoscopy (10 Years) 10/06/2032 10/06/2022, 05/07/2022, 05/07/2022 Zoster Vaccines Completed 07/24/2022, 05/29/2022 RSV Immunization or 60+ Years Completed 01/17/2023 PHQ-2 (Physician Hopi) Completed 07/04/2024 Hepatitis A Vaccines Aged Out [...] this topic Medical Devices Implanted Type Area Electronic Engineering Draftsperson Device Identifier Shelf Expiration Date Model / Serial / Lot Cage Cage Back Knee Components Knee Components Right: Knee Stimulator Lead Implant- 025 Implanted:Qty: 1 on 04/25/2024 Lead Implant Spine Thoracic MiiPharos LUANA [id number] / / Description:BREWERY TECHNICIAN Tecnis 1-Piece Iol With Tecnis Simplicity Delivery System Implanted:Qty: 1 on 12/31/2024 by Elias Torres MD at [facility] Lens Left: Eye [employer] [facility] 06/26/2027 / [id number] / Stimulator Implant- 025 Implanted:Qty: 1 on 04/25/2024 Stimulator Implant Right: Back Lomaki [id number] / [id number] / Description:MR BLAKE A T 1.5 T ONLY!, NEED REMOTE TO DO IMPEDANCE CHECK AND TURN OFF STIMULATION, FOLLOW SCAN CONDITIONS IN MR TECHNICAL MANUAL(FOLLOW BREWERY TECHNICIAN INSTRUCTIONS) Procedures Procedure Name Priority Date/Time Associated Diagnosis Comments BRONCHIAL CHALLENGE WITH METHACHOLINE Routine 03/25/2025 1:00 PM QUOTATION CHECKER Mild persistent reactive airway disease without complication (HHS/HCC) PFT GENERIC (SCAN ORDER) 03/25/2025 SLEEP STUDY GENERIC (SCAN ORDER) 03/07/2025 ECG 12-LEAD STAT 02/11/2025 5:51 PM QUOTATION CHECKER TROPONIN, QUANT STAT 02/11/2025 5:32 PM QUOTATION CHECKER COMPREHENSIVE METABOLIC PANEL STAT 02/11/2025 5:32 PM QUOTATION CHECKER CBC W/DIFF AUTOMATED STAT 02/11/2025 5:[address] CHEST WO CON STAT 02/11/2025 5:06 PM QUOTATION CHECKER TROPONIN, QUANT STAT 02/08/2025 5:53 PM CDT ECG 12-LEAD STAT 02/08/2025 5:50 PM CDT XR CHEST PORTABLE STAT 02/08/2025 4:2 4 PM CDT ECG 12-LEAD Routine 02/08/2025 3:53 PM CDT D-DIMER, QUANTITATIVE STAT 02/08/2025 3:53 PM CDT TROPONIN, QUANT STAT 02/08/2025 3:53 PM CDT COMPREHENSIVE METABOLIC PANEL STAT 02/08/2025 3:53 PM CDT CBC W/DIFF AUTOMATED STAT 02/08/2025 3:53 PM CDT COLONOSCOPY Routine 05/07/2022 7:39 AM QUOTATION CHECKER from Last 3 Months or Most Recently Relevant to Health Maintenance Results * Methacholine Challenge (86495) (03/25/2025 1:00 PM QUOTATION CHECKER) Narrative [facility] - 03/25/2025 1:00 PM QUOTATION CHECKER Freedom Gee MD 03/28/2025 6:39 PM [facility] METHACHOLINE CHALLENGE REPORT Emre Janessa Marquis INTERPRETATION Please see scanned report for raw values, flow-volume loop, and therapist's comments. Prechallenge FEV1 2.14 L, 100% predicted. Following increasing inhaled concentrations of methacholine FEV1 declined to 1.97 L, 92% predicted. This was consistent with only a 7.6% decline in FEV1. PC 20 was not met. IMPRESSION: 1. Negative methacholine challenge. FREEDOM GEE MD Freedom Gee MD PFT ORDERABLES Final Resul t [facility] [address] [place] [address], [place] [phone] * PFT GENERIC (SCAN ORDER) (03/25/2025) 03/25/2025 [facility] [employer] [facility] Scanned SCANNING Final Resu lt * SLEEP STUDY GENERIC (SCAN ORDER) (03/07/2025) 03/07/2025 [facility] Scanned SCANNING Final Resu lt * ECG 12 lead (02/11/2025 5:51 PM QUOTATION CHECKER) Only the most recent of3 resultswithin the time period is included. ECG QT [address] [facility] ECG QTC 411 [facility] 02/11/2025 5:51 PM QUOTATION CHECKER Narrative [facility] - 02/12/2025 5:55 AM QUOTATION CHECKER [facility] [address] Test Date: 2025-02-11 Pat Name: EMRE MARQUIS Department: 41 Room: EXAM22 Gender: Female Siding Stapler: [id number] : 1960 Requested By: JUVENTINO CARRION Order Number: [id number] Reading MD: Lito Nielsen Measurements Intervals [place] Rate: 80 P: 35 RI: 125 QRS: -16 QRSD: 79 T: 44 QT: 355 QTc: 411 Interpretive Statements SINUS RHYTHM VOLTAGE CRITERIA FOR LVH [MEETS CRITERIA IN ONE OF: R(aVL), S(V1), R(V5), R(V5/V6)+S(V1)] Other ischemic changes, not STEMI Preliminary EKG Interpretation by Tyler Carcamo M.D. ATION CHECKER Procedure Note Lito Nielsen MD - 02/12/2025 [facility] [address] Test Date: 2025-02-11 Pat Name: EMRE LOSHERYL Department: 41 Room: EXAM22 Gender: Female Siding Stapler: [id number] : 1960 Requested By: JUVENTINO CARRION Order Number: [id number] Reading MD: Lito Nielsen Measurements Intervals [place] Rate: 80 P: 35 RI: 125 QRS: -16 QRSD: 79 T: 44 QT: 355 QTc: 411 Interpretive Statements SINUS RHYTHM VOLTAGE CRITERIA FOR LVH [MEETS CRITERIA IN ONE OF: R(aVL), S(V1),R(V5), R(V5/V6)+S(V1)] Other ischemic changes, not STEMI Preliminary EKG Interpretation by Tyler Carcamo M.D. ATION CHECKER us Juventino DUPREE ECG ORDERABLES Final Resu lt [facility] ([facility]) [facility] * (ABNORMAL) COMPREHENSIVE METABOLIC PANEL (02/11/2025 5:32 PM QUOTATION CHECKER) Only the most recent of2 resultswithin the time period is included. GLUCOSE 110(H) 70 - 99 MG/DL 02/11/2025 6:10 PM QUOTATION CHECKER [facility] BUN 23(H) 7 - 18 MG/DL 02/11/2025 6:10 PM QUOTATION CHECKER [facility] CREATININE S/P/B 1.16(H) 0.55 - 1.02 MG/DL 02/11/2025 6:10 PM QUOTATION CHECKER [facility] SODIUM S/P/B 138 136 - 145 MMOL/L 02/11/2025 6:10 PM QUOTATION CHECKER [facility] POTASSIUM S/P/B 4.0 3.5 - 5.1 MMOL/L 02/11/2025 6:10 PM QUOTATION CHECKER [facility] CHLORIDE S/P/B 105 97 - 115 MMOL/L 02/11/2025 6:10 PM QUOTATION CHECKER [facility] CO2 26.7 21 - 32 MMOL/L 02/11/2025 6:10 PM QUOTATION CHECKER [facility] CALCIUM S/P/B 9.2 8.5 - 10.1 MG/DL 02/11/2025 6:10 PM [facility] BILIRUBIN TOTAL S/P/B 0.3 0.2 - 1.2 MG/DL 02/11/2025 6:10 PM QUOTATION CHECKER [facility] Comment: THIS ASSAY IS NOT RECOMMENDED FOR PATIENTS UNDERGOING TREATMENT WITH ELTROMBOPAG DUE TO THE POTENTIAL FOR FALSELY ELEVATED RESULTS. TOTAL PROTEIN S/P/B 7.8 6.4 - 8.2 G/DL 02/11/2025 6:10 PM [facility] ALBUMIN S/P/B 3.8 3.4 - 5.0 G/DL 02/11/2025 6:10 PM QUOTATION CHECKER [facility] AST 24 15 - 37 U/L 02/11/2025 6:10 PM QUOTATION CHECKER [facility] ALT 42 14 - 55 U/L 02/11/2025 6:10 PM [facility] ALKALINE PHOSPHATASE S/P/B 88 50 - 136 U/L 02/11/2025 6:10 PM [facility] ANION GAP 6.3 2 - 10 MMOL/L 02/11/2025 6:10 PM [facility] BUN CREATININE RATIO 19.8 6 - 26 02/11/2025 6:10 PM [facility] A/G RATIO 1.0 1.0 - 2.0 RATIO 02/11/2025 6:10 PM [facility] GFR ESTIMATE 53(L) >90 ML/MIN/1.7 3 M2 02/11/2025 6:10 PM [facility] Comment: NOTE: eGFR is not calculated for patients <18 years of age or gender unknown. This is an estimated GFR calculation using the new CKD EPI creatinine equation without race and so does not require a correction factor for race. This estimated GFR should not be used for calculating drug doses. 02/11/2025 5:32 PM QUOTATION CHECKER us [facility] LABORATORY Final Resu lt [facility] [address] [place] [address], [place] [phone] * (ABNORMAL) CBC W/DIFF AUTOMATED (02/11/2025 5:32 PM QUOTATION CHECKER) Only the most recent of2 resultswithin the time period is included. [facility] Signature WBC 12.02(H) 4.5 - 11.0 x10'3/uL 02/11/2025 5:49 PM QUOTATION CHECKER [facility] RBC 5.00 4.20 - 5.40 x10'6/uL 02/11/2025 5:49 PM QUOTATION CHECKER [facility] HGB 11.3(L) 12.0 - 16.0 G/DL 02/11/2025 5:49 PM [facility] HCT 37.1(L) 38.0 - 48.0 % 02/11/2025 5:49 PM [facility] MCV 74.2(L) 81.0 - 99.0 FL 02/11/2025 5:49 PM [facility] MCH 22.6(L) 27.0 - 31.0 PG 02/11/2025 5:49 PM [facility] MCHC 30.5(L) 32.0 - 36.0 G/DL 02/11/2025 5:49 PM [facility] RDW 16.7(H) 11.5 - 14.5 % 02/11/2025 5:49 PM [facility] PLT 221 130 - 400 x10'3/uL 02/11/2025 5:49 PM [facility] MPV 10.2 9.3 - 12.2 FL 02/11/2025 5:49 PM [facility] DIFFERENTIAL TYPE AUTOMATED DIFFERENTIAL 02/11/2025 6:11 PM [facility] NEUTROPHILS % 74.2 % 02/11/2025 6:11 PM [facility] LYMPHOCYTES % 17.4 % 02/11/2025 6:11 PM [facility] MONOCYTES % 7.4 % 02/11/2025 6:11 PM [facility] EOSINOPHILS 0.0 % 02/11/2025 6:11 PM [facility] BASOPHILS 0.2 % 02/11/2025 6:11 PM [facility] IMMATURE GRANS % 0.8 % 02/12/20 6:11 PM [facility] ABS. NEUTROPHILS 8.92(H) 1.80 - 7.70 x10'3/uL 02/11/2025 6:11 PM [facility] ABS. LYMPHOCYTES 2.09 1.00 - 4.80 x10'3/uL 02/11/2025 6:11 PM [facility] ABS. MONOCYTES 0.89(H) 0.24 - 0.86 x10'3/uL 02/11/2025 6:11 PM [facility] ABS. EOSINOPHILS 0.00(L) 0.04 - 0.36 x10'3/uL 02/11/2025 6:11 PM [facility] ABS. BASOPHILS 0.02 0.01 - 0.08 x10'3/uL 02/11/2025 6:11 PM [facility] ABS. IMMATURE GRANULOCYTES 0.10 0.00 - 0.49 x10'3/uL 02/11/2025 6:11 PM [facility] RBC MORPHOLOGY SLIDE REVIEWED 2024 6:11 PM [facility] MICRO 1+ 02/11/2025 6:11 PM [facility] PLT EST. ADEQUATE 02/11/2025 6:11 PM [facility] 02/11/2025 5:32 PM QUOTATION CHECKER [facility]OR[facility] Final Resu lt [facility] [address] [place] [address], [place] [phone] * TROPONIN, QUANT (02/11/2025 5:32 PM QUOTATION CHECKER) Only the most recent of3 resultswithin the time period is included. TROPONIN I HIGH SENSITIVITY 5 <54 ng/L 02/11/2025 6:10 PM QUOTATION CHECKER [facility] Comment: HIGH DOSES OF BIOTIN, TROPONIN-SPECIFIC AUTOANTIBODIES, AND ANTIBODY THERAPY CONTAINING HAMA MAY INTERFERE WITH THIS TEST RESULT. CORRELATION TO CLINICAL HISTORY AND PRESENTATION RECOMMENDED. 02/11/2025 5:32 PM QUOTATION CHECKER [facility]ORAT[facility] Final Resu lt [facility] [address] [place] [address], [place] [phone] * CT CHEST WO CON (02/11/2025 5:06 PM QUOTATION CHECKER) Anatomical Region Laterality Modality Chest Computed Tomogra phy 02/11/2025 6:07 PM QUOTATION CHECKER Impressions 02/11/2025 6:15 PM QUOTATION CHECKER Impression: 1. No acute cardiopulmonary abnormality. 2. Stable chronic findings as above. Referred By: Interpreted By: Karlo Swain MD, 02/11/2025 6:07 PM Narrative 02/11/2025 6:15 PM QUOTATION CHECKER [facility] [address] [place], [place] [address] Examination: CT chest without IV contrast. Clinical [...] Procedure Note Karlo Swain, DO - 02/11/[address] [address] Examination: CT chest without IV contrast. Clinical [...] By: Karlo Swain MD, 02/11/2025 6:07 PM us Juventino DUPREE CT Final Resu lt * XR CHEST PORTABLE (02/08/2025 4:24 PM CDT) Anatomical Region Laterality Modality Chest Radiographic Pari ging 02/08/2025 4:21 PM CDT Impressions 02/08/2025 4:24 PM CDT IMPRESSION: No radiologic evidence of active disease. Stable chronic findings as described. Referred By: Interpreted By: Wilder Champion MD, 02/08/2025 4:21 PM Narrative 02/08/2025 4:24 PM CDT [address] [address] Chest Film Date/Time: 02/08/2025 at 1546 hours. [...] Procedure Note Wilder Champion MD - 02/08/2025 [facility] [address] [place], [place] [address] Chest Film Date/Time: 02/08/2025 at 1546 hours. [...] - 500 ng{FEU}/mL 02/08/2025 4:52 PM CDT [facility] Comment: D-Dimer values less than or [...] findings. 02/08/2025 3:53 PM CDT us Sunny DUPREE LABORATORY Final Resul t [facility] [address] [place] [address], [place] [phone] from Last 3 Months Additional Health Concerns Infection Onset Date Last Indicated ESBL - Extended Spectrum Bet a-lactamase Comment:12/10/22 +ESBL Urine 02/20/23 +ESBL Urine 07/19/23 +ESBL Urine 12/10/2022 07/19/2023 Insurance [facility] MEDICARE Advance Directives * Full Code (Latest Code Status on File) Date Activated Date Inactivated Comments 07/22/2024 11:12 PM 07/24/2024 9:25 PM * Full Code Date Activated Date Inactivated Comments 10/13/2023 1:01 PM 06/01/2024 11:30 AM * Full Code Date Activated Date Inactivated Comments 10/09/2023 3:23 AM 10/12/2023 12:31 PM Care Teams Internal Medicine Physician Relationship Specialty Start Date End Date Simeon Sheriff MD [address] [place] [address] PCP - General FAMILY PRACTICE 12/15/21 Humble Colon DO [address] [place] [id number] Consulting Physician GASTROENTEROLOGY 07/16/22
--- OUTSIDE RECORDS SUMMARY | 2025-04-07 19:50 | XMS_ITS | Encounter Summary ---
Author Organization [employer] [employer] Address 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
--- OUTSIDE RECORDS SUMMARY | 2025-04-07 19:50 | XMS_ITS | Patient Health Record ---
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 Name Role Phone Sharita BRICE, Simeon Primary Care Provider Unavailab Abigail Mei Unavailable [phone] Donis Gomez Unavailable [phone] Deshawn Alegre Unavailable [phone] Allergies Allergen (clinical drug ingredient) Drug/Non Drug [...] Orally twice a day; Duration: 90 days 01/29/2025 Active Donepezil HCl 5 MG Tablet 1 tablet at bedtime Orally Once a day; Duration: 90 days 01/29/2025 Active traZODone HCl 100 MG Tablet 1 tablet Orally Once a day; Duration: 90 days do not fill until pt requests 01/29/2025 Active Zoloft 100 MG Tablet 1.5 tablets Oral Once a day; Duration: 90 days 01/29/2025 Active Esomeprazole Magnesium 40 MG Capsule Delayed Release Oral; Duration: 30 Days Active busPIRone HCl 30 MG Tablet 1 tablet Orally Twice a day; Duration: 90 days 01/29/2025 04/29/2025 Active Advair HFA 230-21 MCG/ACT Aerosol Inhalation; Duration: 30 Days Active Dilt-XR 120 MG Capsule Extended Release 24 Hour Oral; Duration: 90 Days Active Sertraline HCl 100 MG Tablet TAKE 1 AND 1/2 TABLETS BY MOUTH DAILY; Duration: 90 Active Rosuvastatin Calcium 10 MG Tablet Oral 08/08/2023 Active oxyBUTYnin Chloride ER 10 MG Tablet Extended Release 24 Hour Oral 08/08/2023 Active busPIRone HCl 30 MG Tablet TAKE 1 TABLET BY MOUTH TWICE DAILY; Duration: 90 Not-Taking Levothyroxine Sodium 88 MCG Tablet Oral; Duration: 90 Days Active Albuterol Sulfate HFA 108 (90 Base) MCG/ACT Aerosol Solution INHALE 2 PUFFS BY MOUTH EVERY 6 HOURS NEEDED FOR WHEEZING Inhalation; Duration: 25 Days Active traMADol HCl 50 MG Tablet TAKE 1 TABLET BY MOUTH TWICE DAILY NEEDED Oral; Duration: 30 Days PRN Active 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 Sex Assigned At : [...] Risk Notes Problem Major depression, single episode (58300568) Major depressive disorder, single episode, unspecified (F32.9) Active confirmed Problem Generalized anxiety disorder (90110259) Generalized anxiety disorder (F41.1) Active confirmed Problem Primary insomnia (5307259) Primary insomnia (F51.01) Active confirmed Problem Depression Screening (450622163) Encounter for screening for depression (Z13.31) Active confirmed Problem Mild recurrent major depression (20137050) MDD (major depressive disorder), recurrent episode, mild (F33.0) Active confirmed Problem Memory impairment (742347395) Memory impairment (R41.3) Active confirmed Problem Amnesia (91855680) Memory difficulties (R41.3) Active confirmed Problem Cognitive impairment (833134326) Cognitive impairment (R41.89) Active confirmed Problem Mixed sleep apnea (810859365) Mixed sleep apnea (G47.39) Active confirmed Problem Sleep apnea (52524164) Severe sleep apnea (G47.30) Active confirmed Vital Signs Heart Rate 93 /min 01/29/2025 Respiratory Rate 16 /min 01/29/2025 Height-cm 154.94 cm 01/29/2025 Blood pressure diastolic 77 mm Hg 01/29/2025 Weight-kg 76.57 kg 01/29/2025 Height 61.00 in 01/29/2025 Blood pressure systolic 120 mm Hg 01/29/2025 Weight 168.8 lbs 01/29/2025 BMI 31.89 kg/m2 01/29/2025 Encounters Encounter Location Date Provider Diagnosis [facility] [place] [address] [facility] [address] [address] 07/10/2024 Abigail Thery Generalized anxiety disorder F41.1 ; MDD (major depressive disorder), recurrent episode, mild F33.0 ; Primary insomnia F51.01 ; Severe sleep apnea G47.30 ; Encounter for screening for depression Z13.31 and Memory impairment R41.[address] [address] 08/07/2024 Abigail Thery Encounter for screen ing for depression Z13.31 ; Generalized anxiety disorder F41.1 ; MDD (major depressive disorder), recurrent episode, mild F33.0 ; Primary insomnia F51.01 ; Severe sleep apnea G47.30 ; Memory impairment R41.3 and Encounter for screening for cardiovascular disorders Z13.[address] [address] 11/06/2024 Abigail Thery Encounter for screen ing for depression Z13.31 ; Generalized anxiety disorder F41.1 ; MDD (major depressive disorder), recurrent episode, mild F33.0 ; Primary insomnia F51.01 ; Severe sleep apnea G47.30 ; Memory impairment R41.3 and Encounter for screening for cardiovascular disorders Z13.6 [facility] [place] [id number] [facility] [address] [address] 01/29/2025 Abigail Thery Encounter for screen ing for depression Z13.31 ; Generalized anxiety disorder F41.1 ; MDD (major depressive disorder), recurrent episode, mild F33.0 ; Primary insomnia F51.01 ; Severe sleep apnea G47.30 and Memory impairment R41.3 [facility] [address] [place] [address] [place] [address] 05/14/2024 Deshawn Alegre Major depressive disorder, single episode, unspecified F32.9 Assessments Encounter Date Diagnosis (ICD Code) Assessment Notes Treatment Notes Treatment Clinical Notes Section Notes 01/29/2025 Encounter for screening for depression (ICD-10 - [...] cleans CPAP as ddirected by sleep provider Flu and covid vaccine- 01/23/25 5. Memory Impairment- reported short term- improved [...] and interactions with prescribed medications. websites http_s://www.[facility] .nih.gov/health/t opics/mental-heal th-medications http_s://www.nannette .org/About-Mental -Illness/Treatmen ts/Mental-Health- Medications http_s://www.nannette .org/About-Mental -Illness/Mental-H ealth-Conditions http_s://en-Gauge/depressi on/the-cognitive- kzzxsaqs-ty-biqfp ssion#treatments http__s://www.[facility].nih.gov/health/ topics/mental-hea lth-medications http__s://www.[address].Thefuture.fm/About-Menta l-Illness/Treatme nts/Mental-Health -Medications http_s://anahy.nih .gov/publications /drugfacts/cannab is-marijuana http_s://www.Cureeo/canna ugq-onv-pbtvtgzs- marijuana-adhd/ 08/07/2024 Encounter for screening for depression [...] -Illness/Treatmen ts/Mental-Health- Medications http_s://www.nannette .org/About-Mental -Illness/Mental-H ealth-Conditions http_s://en-Gauge/depressi on/the-cognitive- pqkvucez-sl-cfegc ssion#treatments http__s://www.[facility].nih.gov/health/ topics/mental-hea lth-medications http__s://www.SingOn i.org/About-Menta l-Illness/Treatme nts/Mental-Health -Medications http_s://anahy.nih .gov/publications /drugfacts/cannab is-marijuana http_s://www.Cureeo/Ometriaelvie dvk-uzb-rjyjumpb- marijuana-adhd/ 05/14/2024 Major depressive disorder, single episode, unspecified (ICD-10 - F32.9) 11/06/2024 Encounter for screening for depression (ICD-10 [...] http_s://www.nannette .org/About-Mental -Illness/Mental-H ealth-Conditions http_s://psychcen tral.com/depressi on/the-cognitive- seldrjqj-iu-cgbmm ssion#treatments http__s://www.[facility].nih.gov/health/ topics/mental-hea [facility]-medications http__s://www.nam i.org/About-Menta l-Illness/Treatme nts/Mental-Health -Medications http_s://anahy.nih .gov/publications /drugfacts/cannab is-marijuana http_s://www.Cureeo/Ometriaa mkx-rcc-iejpypxo- marijuana-adhd/ 07/10/2024 Generalized anxiety disorder (ICD-10 - F41.1) [...] opics/mental-heal th-medications http_s://www.nannette .org/About-Mental -Illness/Treatmen ts/Mental-Health- Medications http_s://www.Rapid Mobile .org/About-Mental -Illness/Mental-H ealth-Conditions http_s://en-Gauge/depressi on/the-cognitive- kztvvtma-tv-whmta ssion#treatments http__s://www.[facility].nih.gov/health/ topics/mental-hea lth-medications http__s://www.KupiBonus/About-Menta l-Illness/Treatme nts/Mental-Health -Medications http_s://anahy.nih .gov/publications /drugfacts/cannab is-marijuana http_s://www.Cureeo/canna iwa-tcm-enfqztiq- marijuana-adhd/ 07/10/2024 MDD (major depressive disorder), recurrent [...] http_s://www.nannette .org/About-Mental -Illness/Mental-H ealth-Conditions http_s://psychcen tral.com/depressi on/the-cognitive- ppmkuxwv-ku-tkqva ssion#treatments http__s://www.nim .nih.gov/health/ topics/mental-hea lth-medications http__s://www.SingOn i.org/About-Menta l-Illness/Treatme nts/Mental-Health -Medications http_s://anahy.nih .gov/publications /drugfacts/cannab is-marijuana http_s://www.Cureeo/mario kcg-lgf-lalzztcy- marijuana-adhd/ 07/10/2024 Primary insomnia (ICD-10 - F51.01) [...] -Illness/Treatmen ts/Mental-Health- Medications http_s://www.nannette .org/About-Mental -Illness/Mental-H ealth-Conditions http_s://en-Gauge/depressi on/the-cognitive- ksuvhxil-cm-kibmz ssion#treatments http__s://www.nim .nih.gov/health/ topics/mental-hea lth-medications http__s://www.nam i.org/About-Menta l-Illness/Treatme nts/Mental-Health -Medications http_s://anahy.nih .gov/publications /drugfacts/cannab is-marijuana http_s://www.Cureeo/Ometriaa als-oyi-bgnecufo- marijuana-adhd/ 11/06/2024 Generalized anxiety disorder (ICD-10 - [...] opics/mental-heal th-medications http_s://www.nannette .org/About-Mental -Illness/Treatmen ts/Mental-Health- Medications http_s://www.Rapid Mobile .org/About-Mental -Illness/Mental-H ealth-Conditions http_s://en-Gauge/depressi on/the-cognitive- mvkklfmi-tc-fpmyd ssion#treatments http__s://www.[facility].nih.gov/health/ topics/mental-hea lth-medications http__s://www.[address].Thefuture.fm/About-Menta l-Illness/Treatme nts/Mental-Health -Medications http_s://anahy.nih .gov/publications /drugfacts/cannab is-marijuana http_s://www.Cureeo/canna bbj-vjy-vylnfzqt- marijuana-adhd/ 08/07/2024 Generalized anxiety disorder (ICD-10 - [...] http_s://www.nannette .org/About-Mental -Illness/Mental-H ealth-Conditions http_s://psychcen tral.com/depressi on/the-cognitive- turbdgtm-ns-nmafe ssion#treatments http__s://www.nim .nih.gov/health/ topics/mental-hea lth-medications http__s://www.nam i.org/About-Menta l-Illness/Treatme nts/Mental-Health -Medications http_s://anahy.nih .gov/publications /drugfacts/cannab is-marijuana http_s://www.Cureeo/canna efi-tyq-giuxjohg- marijuana-adhd/ 01/29/2025 Generalized anxiety disorder (ICD-10 - F41.1) Learning [...] cleans CPAP as ddirected by sleep provider Flu and covid vaccine- 01/23/25 5. Memory Impairment- reported short term- improved [...] and interactions with prescribed medications. websites http_s://www.[facility] .nih.gov/health/t opics/mental-heal th-medications http_s://www.nannette .org/About-Mental -Illness/Treatmen ts/Mental-Health- Medications http_s://www.nannette .org/About-Mental -Illness/Mental-H ealth-Conditions http_s://en-Gauge/depressi on/the-cognitive- kupywlga-ne-qdpii ssion#treatments http__s://www.[facility].nih.gov/health/ topics/mental-hea lth-medications http__s://www.nam i.org/About-Menta l-Illness/Treatme nts/Mental-Health -Medications http_s://anahy.nih .gov/publications /drugfacts/cannab is-marijuana http_s://wwwCrunchfish/Evolero jcv-acg-trvitpik- marijuana-adhd/ 01/29/2025 Primary insomnia (ICD-10 - F51.01) Insomnia: Care [...] cleans CPAP as ddirected by sleep provider Flu and covid vaccine- 01/23/25 5. Memory Impairment- reported short term- improved [...] prescribed medications. websites http_s://www.nim .nih.gov/health/t opics/mental-heal th-medications http_s://www.Rapid Mobile .Thefuture.fm/About-Mental -Illness/Treatmen ts/Mental-Health- Medications http_s://www.Rapid Mobile .Thefuture.fm/About-Mental -Illness/Mental-H ealth-Conditions http_s://en-Gauge/depressi on/the-cognitive- mhxwyqyf-wj-coglp ssion#treatments http__s://www.[facility].nih.gov/health/ topics/mental-hea lth-medications http__s://www.KupiBonus/About-Menta l-Illness/Treatme nts/Mental-Health -Medications http_s://anahy.nih .gov/publications /drugfacts/cannab is-marijuana http_s://www.Cureeo/mario ihj-lhe-nqibrbbb- marijuana-adhd/ 01/29/2025 MDD (major depressive disorder), recurrent episode, mild [...] cleans CPAP as ddirected by sleep provider Flu and covid vaccine- 01/23/25 5. Memory Impairment- reported short term- improved [...] ts/Mental-Health- Medications http_s://www.nannette .org/About-Mental -Illness/Mental-H ealth-Conditions http_s://psychcen LOVEThESIGN.com/depressi on/the-cognitive- ngreepll-tp-waxsu ssion#treatments http__s://www.[facility].nih.gov/health/ topics/mental-hea [facility]-medications http__s://www.nam i.org/About-Menta l-Illness/Treatme nts/Mental-Health -Medications http_s://anahy.nih .gov/publications /drugfacts/cannab is-marijuana http_s://www.Cureeo/cannelvie uvh-giy-tujdcneb- marijuana-adhd/ 08/07/2024 MDD (major depressive disorder), recurrent [...] and interactions with prescribed medications. websites http_s://www.[facility] .nih.gov/health/t opics/mental-heal th-medications http_s://www.nannette .org/About-Mental -Illness/Treatmen ts/Mental-Health- Medications http_s://www.nannette .org/About-Mental -Illness/Mental-H ealth-Conditions http_s://en-Gauge/depressi on/the-cognitive- rxipnnan-ux-zurij ssion#treatments http__s://www.[facility].nih.gov/health/ topics/mental-hea lth-medications http__s://www.SingOn i.Thefuture.fm/About-Menta l-Illness/Treatme nts/Mental-Health -Medications http_s://anahy.nih .gov/publications /drugfacts/cannab is-marijuana http_s://www.Cureeo/Ometriaelvie grs-ooo-ajyxrqsj- marijuana-adhd/ 11/06/2024 MDD (major depressive disorder), recurrent [...] ts/Mental-Health- Medications http_s://www.nannette .org/About-Mental -Illness/Mental-H ealth-Conditions http_s://psychcen Krazo Tradinglbrotips/depressi on/the-cognitive- kjpbterf-pr-bddwa ssion#treatments http__s://www.nim .nih.gov/health/ topics/mental-hea lth-medications http__s://www.nam i.org/About-Menta l-Illness/Treatme nts/Mental-Health -Medications http_s://anahy.nih .gov/publications /drugfacts/cannab is-marijuana http_s://www.Cureeo/mario zms-wao-lxxavtsd- marijuana-adhd/ 07/10/2024 Severe sleep apnea (ICD-10 - [...] -Illness/Treatmen ts/Mental-Health- Medications http_s://www.nannette .org/About-Mental -Illness/Mental-H ealth-Conditions http_s://psychSI-BONE/depressi on/the-cognitive- zggfobzw-sd-dpdti ssion#treatments http__s://www.[facility].nih.gov/health/ topics/mental-hea lth-medications http__s://www.nam i.org/About-Menta l-Illness/Treatme nts/Mental-Health -Medications http_s://anahy.nih .gov/publications /drugfacts/cannab is-marijuana http_s://www.Cureeo/Ometriaelvie ezx-alf-qenioaou- marijuana-adhd/ 07/10/2024 Encounter for screening for depression [...] prescribed medications. websites http_s://www.nimh .nih.gov/health/t opics/mental-heal th-medications http_s://www.Rapid Mobile .Thefuture.fm/About-Mental -Illness/Treatmen ts/Mental-Health- Medications http_s://www.Rapid Mobile .org/About-Mental -Illness/Mental-H ealth-Conditions http_s://en-Gauge/depressi on/the-cognitive- ihckhdty-xt-dqwbo ssion#treatments http__s://www.[facility].nih.gov/health/ topics/mental-hea lth-medications http__s://www.KupiBonus/About-Menta l-Illness/Treatme nts/Mental-Health -Medications http_s://anahy.nih .gov/publications /drugfacts/cannab is-marijuana http_s://www.Cureeo/canna bqa-ccy-zedawckn- marijuana-adhd/ 01/29/2025 Severe sleep apnea (ICD-10 - G47.30) Sleep [...] cleans CPAP as ddirected by sleep provider Flu and covid vaccine- 01/23/25 5. Memory Impairment- reported short term- improved [...] ts/Mental-Health- Medications http_s://www.nannette .org/About-Mental -Illness/Mental-H ealth-Conditions http_s://psychcen Krazo Tradingl.com/depressi on/the-cognitive- ayajhapk-el-yxjlf ssion#treatments http__s://www.nim .nih.gov/health/ topics/mental-hea lth-medications http__s://www.nam i.org/About-Menta l-Illness/Treatme nts/Mental-Health -Medications http_s://anahy.nih .gov/publications /drugfacts/cannab is-marijuana http_s://www.Cureeo/cannelvie coh-feb-mmsaxycc- marijuana-adhd/ 11/06/2024 Primary insomnia (ICD-10 - F51.01) [...] -Illness/Treatmen ts/Mental-Health- Medications http_s://www.nannette .org/About-Mental -Illness/Mental-H ealth-Conditions http_s://en-Gauge/depressi on/the-cognitive- ypredisg-ho-vecig ssion#treatments http__s://www.[facility].nih.gov/health/ topics/mental-hea lth-medications http__s://www.nam i.org/About-Menta l-Illness/Treatme nts/Mental-Health -Medications http_s://anahy.nih .gov/publications /drugfacts/cannab is-marijuana http_s://www.Cureeo/Ometriaelvie fqi-jwp-moqfhyzt- marijuana-adhd/ 08/07/2024 Primary insomnia (ICD-10 - F51.01) [...] medications. websites http_s://www.nimh .nih.gov/health/t opics/mental-heal th-medications http_s://www.nannette .Thefuture.fm/About-Mental -Illness/Treatmen ts/Mental-Health- Medications http_s://www.nannette .org/About-Mental -Illness/Mental-H ealth-Conditions http_s://en-Gauge/depressi on/the-cognitive- oggwkjhh-pu-ezxna ssion#treatments http__s://www.[facility].nih.gov/health/ topics/mental-hea lth-medications http__s://www.KupiBonus/About-Menta l-Illness/Treatme nts/Mental-Health -Medications http_s://anahy.nih .gov/publications /drugfacts/cannab is-marijuana http_s://www.Cureeo/cannelvie mab-rhd-yencouzv- marijuana-adhd/ 01/29/2025 Memory impairment (ICD-10 - R41.3) 1. depression- [...] cleans CPAP as ddirected by sleep provider Flu and covid vaccine- 01/23/25 5. Memory Impairment- reported short term- improved [...] http_s://www.nannette .org/About-Mental -Illness/Mental-H ealth-Conditions http_s://psychcen tral.com/depressi on/the-cognitive- uthjkmca-zt-nujih ssion#treatments http__s://www.nim .nih.gov/health/ topics/mental-hea lth-medications http__s://www.nam i.org/About-Menta l-Illness/Treatme nts/Mental-Health -Medications http_s://anahy.nih .gov/publications /drugfacts/cannab is-marijuana http_s://www.Cureeo/Ometriaelvie gpt-wzj-xjdfiubw- marijuana-adhd/ 08/07/2024 Severe sleep apnea (ICD-10 - [...] ts/Mental-Health- Medications http_s://www.nannette .org/About-Mental -Illness/Mental-H ealth-Conditions http_s://psychcen Krazo Tradingl.com/depressi on/the-cognitive- ynrkamtn-py-oafjq ssion#treatments http__s://www.nim h.nih.gov/health/ topics/mental-hea lth-medications http__s://www.nam i.org/About-Menta l-Illness/Treatme nts/Mental-Health -Medications http_s://anahy.nih .gov/publications /drugfacts/cannab is-marijuana http_s://wwwCrunchfish/canna wcx-vgt-laiivcsw- marijuana-adhd/ 11/06/2024 Severe sleep apnea (ICD-10 - [...] and interactions with prescribed medications. websites http_s://www.[facility] .nih.gov/health/t opics/mental-heal th-medications http_s://www.Rapid Mobile .org/About-Mental -Illness/Treatmen ts/Mental-Health- Medications http_s://www.Rapid Mobile .org/About-Mental -Illness/Mental-H ealth-Conditions http_s://en-Gauge/depressi on/the-cognitive- mgvcohip-nu-bbeeo ssion#treatments http__s://www.[facility].nih.gov/health/ topics/mental-hea lth-medications http__s://www.KupiBonus/About-Menta l-Illness/Treatme nts/Mental-Health -Medications http_s://anahy.nih .gov/publications /drugfacts/cannab is-marijuana http_s://www.Cureeo/Evolero pvs-kvv-kdmajnhu- marijuana-adhd/ 07/10/2024 Memory impairment (ICD-10 - R41.3) [...] ts/Mental-Health- Medications http_s://www.nannette .org/About-Mental -Illness/Mental-H ealth-Conditions http_s://psychcen Krazo Tradingl.com/depressi on/the-cognitive- vlaochbc-xm-hvbgo ssion#treatments http__s://www.nim .nih.gov/health/ topics/mental-hea lth-medications http__s://www.SingOn i.org/About-Menta l-Illness/Treatme nts/Mental-Health -Medications http_s://anahy.nih .gov/publications /drugfacts/cannab is-marijuana http_s://www.Cureeo/Ometriaelvie kvp-pfw-aewbmgvk- marijuana-adhd/ 11/06/2024 Memory impairment (ICD-10 - R41.3) [...] http_s://www.nannette .org/About-Mental -Illness/Mental-H ealth-Conditions http_s://psychcen tral.com/depressi on/the-cognitive- vmmuzjph-cu-jvkdf ssion#treatments http__s://www.nim h.nih.gov/health/ topics/mental-hea [facility]-medications http__s://www.nam i.org/About-Menta l-Illness/Treatme nts/Mental-Health -Medications http_s://anahy.nih .gov/publications /drugfacts/cannab is-marijuana http_s://Let's Gift It/Evolero poc-lfb-jmzdmpvz- marijuana-adhd/ 08/07/2024 Memory impairment (ICD-10 - R41.3) [...] -Illness/Treatmen ts/Mental-Health- Medications http_s://www.nannette .org/About-Mental -Illness/Mental-H ealth-Conditions http_s://en-Gauge/depressi on/the-cognitive- mfcwyobd-xz-aoosc ssion#treatments http__s://www.[facility].nih.gov/health/ topics/mental-hea lth-medications http__s://www.KupiBonus/About-Menta l-Illness/Treatme nts/Mental-Health -Medications http_s://anahy.nih .gov/publications /drugfacts/cannab is-marijuana http_s://wwwCrunchfish/Evolero gzo-hee-oufacbsn- marijuana-adhd/ 11/06/2024 Encounter for screening for cardiovascular [...] and interactions with prescribed medications. websites http_s://www.[facility] .nih.gov/health/t opics/mental-heal th-medications http_s://www.nannette .org/About-Mental -Illness/Treatmen ts/Mental-Health- Medications http_s://www.Rapid Mobile .org/About-Mental -Illness/Mental-H ealth-Conditions http_s://en-Gauge/depressi on/the-cognitive- ckqgkdyx-li-onqaa ssion#treatments http__s://www.[facility].nih.gov/health/ topics/mental-hea lth-medications http__s://www.SingOn i.org/About-Menta l-Illness/Treatme nts/Mental-Health -Medications http_s://anahy.nih .gov/publications /drugfacts/cannab is-marijuana http_s://www.Cureeo/mario obt-ocg-cjdfodpp- marijuana-adhd/ 08/07/2024 Encounter for screening for cardiovascular [...] ts/Mental-Health- Medications http_s://www.nannette .org/About-Mental -Illness/Mental-H ealth-Conditions http_s://psychcen Krazo Tradingl.com/depressi on/the-cognitive- czlhqrkk-cc-fmycg ssion#treatments http__s://www.[facility].nih.gov/health/ topics/mental-hea lth-medications http__s://www.nam i.org/About-Menta l-Illness/Treatme nts/Mental-Health -Medications http_s://anahy.nih .gov/publications /drugfacts/cannab is-marijuana http_s://www.Cureeo/mario nve-hcf-xdgwspnc- marijuana-adhd/ 07/10/2024 Other referral to the local chapter or national office of the Alzheimer's Association ( ; http://www.alz. org), the Alzheimer's Disease Education and Referral Center (ADEMT) ( ; http://www.mary. nih.gov/Alzheim ers/), Notes: referral to the local chapter or national office of the Alzheimer's Association ( ; http://www.alz. org), the Alzheimer's Disease Education and Referral Center (ADEMT) ( ; http://www.mary. nih.gov/Alzheim ers/),, Sertraline material [...] term screening discuss SLUMS = 15 07/10/24 FH [...] -Illness/Treatmen ts/Mental-Health- Medications http_s://www.nannette .org/About-Mental -Illness/Mental-H ealth-Conditions http_s://en-Gauge/depressi on/the-cognitive- qsffmgqe-dp-fmnrp ssion#treatments http__s://www.[facility].nih.gov/health/ topics/mental-hea lth-medications http__s://www.SingOn i.org/About-Menta l-Illness/Treatme nts/Mental-Health -Medications http_s://anahy.nih .gov/publications /drugfacts/cannab is-marijuana http_s://www.Cureeo/mario obt-gtm-ecpacjjf- marijuana-adhd/ Plan Of Treatment Future Test Test Name Order Date MCI Testing 07/10/2024 Next Appt Details Provider Name:Abigail Marte , 04/15/2025 11:45:00 AM, [address] [facility] [address], [facility] [address], [place], [address], Insurance Providers Payer Name Payer Address Payer Phone Subscriber Number Group Number Insured Name Patient Relationship to Insured Coverage Start Date Coverage End Date Medicare-I l Medicare [address] [place] [phone] [id number] EMRE MARQUIS Self - patient is the insured [employer] - Fep Ppo [address] [place] [address] [id number] EMRE MARQUIS Self - patient is the insured Medical (General) History Medical History History ICD Code Problems: Generalized anxiety disorder Major depressive disorder CVA 07/24/24 CT HEAD WO CON (11/05/2024) No acute intracranial abnormality. Mild nonspecific chronic periventricular and deep cerebral white matter microvascular disease in bilateral cerebral hemispheres. Partial opacification of left mastoid air cells, simple effusion versus left mastoiditis. CT ABD+PEL W IV CON ONLY (07/01/2024) No acute abnormality identified to explain the patient's acute symptoms. Other chronic or nonurgent findings: few small liver cysts and tiny low-density liver lesions (stable), cholecystectomy, few tiny low-density renal lesions, mild atherosclerotic vascular disease, postsurgical changes of left-sided ventral hernia repair with mesh, hysterectomy, calcified pelvic phleboliths, anterior fusion changes at L5-S1 and L4-5, old T11 compression fracture status post arthroplasty, spinal stimulator device partly included, no bowel obstruction or wall thickening, no significant inflammatory change or fluid collection in the umbilicus. XR CHEST PA+LAT (08/05/2024) No acute chest disease identified. Cardiomeidastinal silhouette normal, no pulmonary consolidation, pleural effusion or pneumothorax, pulmonary vasculature normal, calcified granuloma left lateral lung (unchanged), spinal stimulator device noted, vertebroplasty changes of lower thoracic spine. catracts surgery bilateral helped and do ing good 01/03 and 02/02 Surgical History Surgery Date(Month/Year) Appendectomy (91068) Removal of gallbladder (06770) Hysterectomy (32770) catracts surgery bilateral helped and do ing good 01/03 and 02/02
[2025-04-07] MEDS: FAMOTIDINE 20 MG/2 ML VIAL IV PUSH (20:20)
[2025-04-07] MEDS: ONDANSETRON INJ 4 MG/2 ML VIAL IV PUSH (20:20)
[2025-04-07] MEDS: HYDROmorphone HCL INJ (*CRX) 1 MG/ML SYR 0.5 MG IV PUSH (20:20)
[2025-04-07 20:21] LABS: Hematocrit 34.7 % (37.0-47.0); Hemoglobin 10.4 g/dL (12.0-15.0); Immature Granulocyte Percent A 0.2 % (0-0.5); Lymphocytes Absolute Auto 3.83 K/mm3 (0.9-3.2); Mean Corpuscular HGB Conc 30.0 g/dl (32-36); Mean Corpuscular Hemoglobin 23.1 pg (26-34); Mean Corpuscular Volume 77.1 fl (80-100); Nucleated Red Blood Cells Absolute Auto 0.000 K/mm3 (0.0-0.012); Nucleated Red Blood Cells Perc 0.0 % (0.0-0.2); Platelet Count Result 189 k/mm3 (150-375); Red Blood Count 4.50 M/mm3 (4.2-5.4); White Blood Count 12.0 K/mm3 (4.5-10.0)
[2025-04-07 21:00] LABS: Influenza A QL RT-PCR Negative (Negative); Influenza B QL RT-PCR Negative (Negative); RSV RNA, RT-PCR Negative (Negative); SARS-CoV-2 RNA PCR Negative (Negative)
[2025-04-07 21:11] LABS: Alanine Aminotransferase 23 U/L (6-35); Albumin Level 4.1 g/dL (3.5-5.1); Alkaline Phosphatase 76 U/L (38-126); Anion Gap 7 mmol/L (4-12); Aspartate Amino Transferase 28 U/L (14-36); Bilirubin,Total 0.6 mg/dL (0.2-1.3); Blood Urea Nitrogen 18 mg/dL (7-17); Calcium 9.0 mg/dL (8.4-10.2); Carbon Dioxide 27 mmol/L (22-30); Chloride 105 mmol/L (98-107); Estimated CRCL calculation 43 ml/min; Estimated Glomerular Filt Rate 50; Glucose 99 mg/dL (65-110); Magnesium 1.9 mg/dL (1.6-2.3); Potassium 4.0 mmol/L (3.4-5.0); Sodium 139 mmol/L (137-145); Total Protein 6.9 g/dL (6.3-8.2)
[2025-04-07] MEDS: DICYCLOMINE HCL INJ 20 MG/2 ML VIAL IM (22:18)
[2025-04-08 00:14] VITALS: BP 116/61; PULSE 81; RESP 18; O2SAT 98
== END 2025-04-08 00:14 | disposition home or self-care (01) ==
PROVIDERS: Emergency Provider Student in an Organized Health Care Education/Training Program; PCP Family Medicine
DX: R10.9 Unspecified abdominal pain (principal); Z86.73 Personal history of transient ischemic attack (TIA), and cerebral infarction without residual deficits; K21.9 Gastro-esophageal reflux disease without esophagitis; E78.5 Hyperlipidemia, unspecified; E03.9 Hypothyroidism, unspecified; I10 Essential (primary) hypertension; K50.90 Crohn's disease, unspecified, without complications; Z96.651 Presence of right artificial knee joint; Z20.822 Contact with and (suspected) exposure to COVID-19
CPT/HCPCS: 36415; 74177; 80053; 83735; 85025; 87637; 96361; 96374; 96375; 99284; J0500; J1171; J2405; Q9967